=== PATIENT | male | born 1960 | race Caucasian/White ===

== ENCOUNTER 2021-06-30 13:40 | Inpatient (IN) | payer MEDICARE, OTHER ==
[~2021-06-30] VITALS: Ht 170.2 cm; Wt 79.1 kg
[2021-06-30] MEDS ORDERED: ZIPR20CA2 PO ×2 (14:23)
[2021-06-30] MEDS ORDERED: PANT40TA3 PO (14:23)
[2021-06-30] MEDS ORDERED: ALPR0.5T6 PO (14:23)
[2021-06-30] MEDS ORDERED: FERR240T2 PO (14:23)
[2021-06-30] MEDS ORDERED: OXYC5TAB4 PO (14:23)
[2021-06-30] MEDS ORDERED: DIVA250T PO (14:23)
[2021-06-30] MEDS ORDERED: CYCL10TA19 PO (14:23)
[2021-06-30] MEDS ORDERED: SITA100T PO (14:23)
[2021-06-30] MEDS ORDERED: OXYC10TA PO (14:23)
[2021-06-30] MEDS ORDERED: SERT50TA PO (14:23)
[2021-06-30] MEDS ORDERED: RISP0.5T21 PO (14:23)
[2021-06-30] MEDS ORDERED: ACET500T33 PO (14:23)
[2021-06-30] MEDS ORDERED: LOPE-101 PO (14:23)
[2021-06-30] MEDS ORDERED: ONDA-84 PO (14:23)
[2021-06-30] MEDS ORDERED: HALO2TAB PO ×2 (14:23)
[2021-06-30] MEDS ORDERED: NICO1PAT25 TD (14:23)
[2021-06-30] MEDS ORDERED: METO25TA4 PO (14:23)
[2021-06-30] MEDS ORDERED: RIVA20TA2 PO (14:23)
[2021-06-30] MEDS ORDERED: DOCU-109 PO (14:23)
[2021-06-30] MEDS ORDERED: FURO-68 PO (14:23)
[2021-06-30] MEDS ORDERED: NITR0.4T22 SL (14:23)
[2021-06-30] MEDS ORDERED: HYOS0.1222 PO (14:23)
[2021-06-30] MEDS ORDERED: BUSP10TA PO (14:23)
[2021-06-30] MEDS ORDERED: INSU100I27 SQ (14:28)
[2021-06-30] MEDS ORDERED: [UNRECOGNIZED DRUG - CODE] TP (14:28)
[2021-06-30] MEDS ORDERED: VIT236LO TP (14:28)
[2021-06-30] MEDS ORDERED: ALBU2.5V8 IH (14:58)
[2021-06-30] MEDS ORDERED: METHYL SALICYLATE/MENTHOL TOPICAL OINTMENT 57GM TUBE. TP PRN (15:15)
[2021-06-30] MEDS ORDERED: MAG HYDROX/AL HYDROX/SIMETH 30 ML ORAL.SUSP PO PRN (15:15)
[2021-06-30] MEDS ORDERED: ALBUTEROL SULFATE 2.5 MG/3 ML NEBU. IH PRN (15:30)
[2021-06-30] MEDS ORDERED: LOPERAMIDE 2 MG CAPSULE PO PRN (15:30)
[2021-06-30] MEDS ORDERED: HYOSCYAMINE 0.125 MG TAB.RAPDIS PO PRN (15:30)
[2021-06-30] MEDS ORDERED: NITROGLYCERIN SUBLINGUAL 0.4 MG BOTTLE OF 25. SL PRN (15:30)
[2021-06-30] MEDS ORDERED: ZIPRASIDONE 20 MG CAPSULE. PO SCH (16:00)
[2021-06-30] MEDS ORDERED: ONDANSETRON ODT 4 MG TAB.RAPDIS PO PRN (16:15)
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
[2021-06-30 16:51] VITALS: BP 113/75
[2021-06-30] MEDS: NON FORMULARY ITEM (Rivaroxaban (Xarelto) 20 MG) PO SCH (17:00)
--- NOTE | 2021-06-30 18:29 | RAD ---
CT abdomen and pelvis without contrast PQRS statement: CT scans at this facility use dose reduction including either automated exposure cont rol, iterative reconstructions, and /or weight based radiation dosing via mA and kV modification when appropriate to reduce radiation dose to as low as reasonably achievable. HISTORY: Distended abdomen, abdominal pain, right hip fracture. Abdomen findings: Tiny left pleural effusion. Mild right pleural effusion thickness of 1 cm along the posterior lower lobe and at the diaphragm. [place] 2 x 1 cm nodularity of the lateral subpleural pare nchyma basilar right lower lobe most likely round atelectasis. Motion reconstruction artifact at the right lower rib cage. Tiny gallstones. Moderate atrophy of the pancreas. Liver, spleen, adrenals and kidneys are unremarkable. Extensive calcified plaque of the aorta and abdominal arteries. Large volum e of stool likely constipation. Appendectomy. No small bowel obstruction or inflammatory changes. No abdominal fluid. Pelvis findings: Marked distention urinary bladder extending to the mid abdomen displacing surroundin g bowel loops. No bladder calculi. Rectosigmoid resection with colorectal anastomosis and large volum e of rectal stool. Prostate and bones are unremarkable. There is asymmetric heterogeneous hyperdensit y and enlargement of the right lateral thigh muscles at the tensor fascia jhoan and vastus lateralis a nd vastus intermedius muscles suspicious for a intramuscular hematoma and right lateral hip, buttock and thigh soft tissue edema. IMPRESSION: 1. Intramuscular hematoma with hyperdensity and enlargement of the right upper lateral thigh muscles and overlying soft tissue edema as described above. No fracture of the pelvis or hips. See above. 2. Small pleural effusions. 2 x 1 cm subpleural parenchymal nodularity of the lateral basilar right l ower lobe, most likely round atelectasis. If there has not prior imaging to document stability of thi s finding consider follow-up CT chest imaging in 3-6 months to document stability to exclude a neopla stic nodule. 3. Constipation with a large volume of stool. Electronically signed by: Jose Enrique Giron MD (06/30/2021 6:26 PM) [facility]
[2021-06-30 18:44] LABS: BASO % 0 % (0-3); EOS # 0.2 x10^3/uL (0.0-0.7); EOS % 2 % (0-3); HEMATOCRIT 32.9 % (39.0-53.0); HEMOGLOBIN 10.5 g/dL (13.0-17.5); LYMPH # 1.4 x10^3/uL (1.0-4.8); LYMPH % 13 % (24-48); MEAN CORPUSCULAR HEMOGLOBIN 26 pg (25-35); MEAN CORPUSCULAR HGB CONC 32 g/dL (31-37); MEAN CORPUSCULAR VOLUME 80 fL (79-100); MONO # 1.5 x10^3/uL (0.0-1.1); MONO % 14 % (0-9); NEUT # 7.3 x10^3uL (1.8-7.7); NEUT % 70 % (31-73); PLATELET COUNT 253 x10^3/uL (140-400); RED BLOOD COUNT 4.11 x10^6/uL (4.30-5.70); RED CELL DISTRIBUTION WIDTH 14.6 % (11.5-14.5); WHITE BLOOD COUNT 10.4 x10^3/uL (4.0-11.0)
[2021-06-30 18:56] LABS: BILIRUBIN,URINE NEG (NEG); CLARITY,URINE CLEAR; COLOR,URINE YELLOW; GLUCOSE,URINE NEG (NEG); NITRITE,URINE NEG (NEG); UROBILINOGEN,URINE 0.2 mg/dL (0.2 mg/dL)
[2021-06-30 18:58] LABS: BACTERIA,URINE FEW /HPF (0-FEW); SQUAMOUS EPITHELIAL CELL,UR FEW /LPF
[2021-06-30 19:11] LABS: ANION GAP 10 (6-14); BLOOD UREA NITROGEN 30 mg/dL (8-26); BUN/CREATININE RATIO 25 (6-20); CALCIUM 9.3 mg/dL (8.5-10.1); CARBON DIOXIDE 30 mmol/L (21-32); CHLORIDE 99 mmol/L (98-107); CREATININE 1.2 mg/dL (0.7-1.3); GFR 61.6; GLUCOSE 172 mg/dL (70-99); POTASSIUM 4.4 mmol/L (3.5-5.1); SODIUM 139 mmol/L (136-145)
[2021-06-30 19:16] LABS: ALBUMIN/GLOBULIN RATIO 0.7 (1.0-1.7); ALK PHOS 149 U/L (46-116); ALT (SGPT) 12 U/L (16-63); AST (SGOT) 13 U/L (15-37); MAGNESIUM 2.2 mg/dL (1.8-2.4); TOTAL BILIRUBIN 0.4 mg/dL (0.2-1.0); TOTAL PROTEIN 7.1 g/dL (6.4-8.2)
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
[2021-06-30 19:19] LABS: VAL ACID 21 mcg/mL (50-100)
--- NOTE | 2021-06-30 20:30 | NUR ---
Pt sleeping in bed awaken briefly to name then falls back to sleep. When given a cup of water pt had difficulty holding it and getting it to his mouth then spilled it on his self. HS meds held due to pts level of sedation at this time.
--- NOTE | 2021-06-30 20:38 | PDOC ---
Exam Note: Kam Note: Please also refer to the separate dictated note~for this date of service dictated separately.~Patient seen individually. Discussed the patient with Nursing staff reviewed the chart.~Reviewed interim history and current functioning. Reviewed vital signs,~Labs/ Radiology~and current medications noted below. Continue current treatment with the changes noted in the dictated addendum note Assessment: Vital Signs/I&O: Vital Signs Date Time Temp Pulse Resp B/P (MAP) Pulse Ox O2 Delivery O2 Flow Rate FiO2 06/30/21 16:51 98.4 91 16 113/75 (88) 96 Room Air Labs: Laboratory Tests Test 06/30/21 18:32 06/30/21 18:40 White Blood Count 10.4 x10^3/uL (4.0-11.0) Red Blood Count 4.11 x10^6/uL (4.30-5.70) L Hemoglobin 10.5 g/dL (13.0-17.5) L Hematocrit 32.9 % (39.0-53.0) L Mean Corpuscular Volume 80 fL (79-100) Mean Corpuscular Hemoglobin 26 pg (25-35) Mean Corpuscular Hemoglobin Concent 32 g/dL (31-37) Red Cell Distribution Width 14.6 % (11.5-14.5) H Platelet Count 253 x10^3/uL (140-400) Neutrophils (%) (Auto) 70 % (31-73) Lymphocytes (%) (Auto) 13 % (24-48) L Monocytes (%) (Auto) 14 % (0-9) H Eosinophils (%) (Auto) 2 % (0-3) Basophils (%) (Auto) 0 % (0-3) Neutrophils # (Auto) 7.3 x10^3uL (1.8-7.7) Lymphocytes # (Auto) 1.4 x10^3/uL (1.0-4.8) Monocytes # (Auto) 1.5 x10^3/uL (0.0-1.1) H Eosinophils # (Auto) 0.2 x10^3/uL (0.0-0.7) Basophils # (Auto) 0.0 x10^3/uL (0.0-0.2) D-Dimer (Mary) 5.52 mg/L (0.00-0.50) H Sodium Level 139 mmol/L (136-145) Potassium Level 4.4 mmol/L (3.5-5.1) Chloride Level 99 mmol/L (98-107) Carbon Dioxide Level 30 mmol/L (21-32) Anion Gap 10 (6-14) Blood Urea Nitrogen 30 mg/dL (8-26) H Creatinine 1.2 mg/dL (0.7-1.3) Estimated GFR (Cockcroft-Gault) 61.6 BUN/Creatinine Ratio 25 (6-20) H Glucose Level 172 mg/dL (70-99) H Calcium Level 9.3 mg/dL (8.5-10.1) Magnesium Level 2.2 mg/dL (1.8-2.4) Total Bilirubin 0.4 mg/dL (0.2-1.0) Aspartate Amino Transferase (AST) 13 U/L (15-37) L Alanine Aminotransferase (ALT) 12 U/L (16-63) L Alkaline Phosphatase 149 U/L (46-116) H Total Protein 7.1 g/dL (6.4-8.2) Albumin 3.0 g/dL (3.4-5.0) L Albumin/Globulin Ratio 0.7 (1.0-1.7) L Valproic Acid Level 21 mcg/mL (50-100) L Valproic Acid Last Dose Date 06-30-21 Valproic Acid Last Dose Time 0800 Urine Collection Type Unknown Urine Color Yellow Urine Clarity Clear Urine pH 5.5 Urine Specific [place] 1.015 Urine Protein Neg (NEG-TRACE) Urine Glucose (UA) Neg mg/dL (NEG) Urine Ketones (Stick) Neg mg/dL (NEG) Urine Blood Neg (NEG) Urine Nitrite Neg (NEG) Urine Bilirubin Neg (NEG) Urine Urobilinogen Dipstick 0.2 mg/dL (0.2 mg/dL) Urine Leukocyte Esterase Neg (NEG) Urine RBC 1-2 /HPF (0-2) Urine WBC 1-4 /HPF (0-4) Urine Squamous Epithelial Cells Few /LPF Urine Bacteria Few /HPF (0-FEW) Current Medications: Meds: Laboratory Tests Test 06/30/21 18:32 06/30/21 18:40 White Blood Count 10.4 x10^3/uL Red Blood Count 4.11 x10^6/uL Hemoglobin 10.5 g/dL Hematocrit 32.9 % Mean Corpuscular Volume 80 fL Mean Corpuscular Hemoglobin 26 pg Mean Corpuscular Hemoglobin Concent 32 g/dL Red Cell Distribution Width 14.6 % Platelet Count 253 x10^3/uL Neutrophils (%) (Auto) 70 % Lymphocytes (%) (Auto) 13 % Monocytes (%) (Auto) 14 % Eosinophils (%) (Auto) 2 % Basophils (%) (Auto) 0 % Neutrophils # (Auto) 7.3 x10^3uL Lymphocytes # (Auto) 1.4 x10^3/uL Monocytes # (Auto) 1.5 x10^3/uL Eosinophils # (Auto) 0.2 x10^3/uL Basophils # (Auto) 0.0 x10^3/uL D-Dimer (Mary) 5.52 mg/L Sodium Level 139 mmol/L Potassium Level 4.4 mmol/L Chloride Level 99 mmol/L Carbon Dioxide Level 30 mmol/L Anion Gap 10 Blood Urea Nitrogen 30 mg/dL Creatinine 1.2 mg/dL Estimated GFR (Cockcroft-Gault) 61.6 BUN/Creatinine Ratio 25 Glucose Level 172 mg/dL Calcium Level 9.3 mg/dL Magnesium Level 2.2 mg/dL Total Bilirubin 0.4 mg/dL Aspartate Amino Transf (AST/SGOT) 13 U/L Alanine Aminotransferase (ALT/SGPT) 12 U/L Alkaline Phosphatase 149 U/L Total Protein 7.1 g/dL Albumin 3.0 g/dL Albumin/Globulin Ratio 0.7 Valproic Acid (Depakene) Level 21 mcg/mL Valproic Acid Last Dose Date 06-30-21 Valproic Acid Last Dose Time 0800 Urine Collection Type Unknown Urine Color Yellow Urine Clarity Clear Urine pH 5.5 Urine Specific [place] 1.015 Urine Protein Neg Urine Glucose (UA) Neg mg/dL Urine Ketones (Stick) Neg mg/dL Urine Blood Neg Urine Nitrite Neg Urine Bilirubin Neg Urine Urobilinogen Dipstick 0.2 mg/dL Urine Leukocyte Esterase Neg Urine RBC 1-2 /HPF Urine WBC 1-4 /HPF Urine Squamous Epithelial Cells Few /LPF Urine Bacteria Few /HPF Current Medications Medications (Trade) Dose Ordered Sig/Shannon Route PRN Reason Start Time Stop Time Status Last Admin Dose Admin Multi-Ingredient Ointment (Analgesic Coyle) 1 demetria PRN QID PRN TP MUSCLE PAIN 06/30/21 15:15 Al Hydroxide/Mg Hydroxide (Mylanta Plus Xs) 15 ml PRN AFTMEALHC PRN PO DYSPEPSIA 06/30/21 15:15 Magnesium Hydroxide (Milk Of Magnesia) 2,400 mg PRN QHS PRN PO CONSTIPATION 06/30/21 15:15 Acetaminophen (Tylenol) 500 mg BID PO 06/30/21 21:00 Albuterol Sulfate (Ventolin) 2.5 mg PRN Q4HRS PRN IH FOR ASTHMA 06/30/21 15:30 Alprazolam (Xanax) 0.5 mg TID PO 06/30/21 21:00 Buspirone HCl (Buspar) 10 mg BID PO 06/30/21 21:00 Cyclobenzaprine HCl (Flexeril) 10 mg TID PO 06/30/21 21:00 Divalproex Sodium (Depakote Er) 250 mg BID PO 06/30/21 21:00 Docusate Sodium (Colace) 200 mg PRN DAILY PRN PO CONSTIPATION 06/30/21 15:30 Furosemide (Lasix) 40 mg BID PO 06/30/21 21:00 Haloperidol (Haldol) 1 mg PRN Q6HRS PRN PO ANXIETY / AGITATION 06/30/21 16:00 Haloperidol (Haldol) 2 mg TID PO 06/30/21 21:00 06/30/21 19:42 DC Hyoscyamine (Anaspaz) 0.125 mg PRN Q2HR PRN PO SECRETIONS 06/30/21 15:30 Loperamide HCl (Imodium) 2 mg PRN Q3HRS PRN PO DIARRHEA 06/30/21 15:30 Metoprolol Tartrate (Lopressor) 25 mg BID PO 06/30/21 21:00 Nicotine (Nicoderm Cq 14mg Patch) 1 patch DAILY TD 07/01/21 09:00 Nitroglycerin (Nitrostat) 0.4 mg PRN Q5MIN PRN SL CHEST PAIN 06/30/21 15:30 Oxycodone HCl (Roxicodone) 2.5 mg PRN Q4HRS PRN PO PAIN 06/30/21 15:30 Pantoprazole Sodium (Protonix) 40 mg DAILYAC PO 07/01/21 07:30 Risperidone (RisperDAL M) 0.5 mg BID PO 06/30/21 21:00 06/30/21 19:42 DC Sertraline HCl (Zoloft) 50 mg DAILY PO 07/01/21 09:00 Ziprasidone (Geodon) 20 mg 1600 PO 06/30/21 16:00 06/30/21 19:42 DC Ziprasidone (Geodon) 20 mg DAILY PO 07/01/21 09:00 06/30/21 19:42 DC Ferrous Sulfate (Feosol) 325 mg DAILY PO 07/01/21 09:00 Insulin Glargine (Lantus Syringe) 16 unit DAILY SQ 07/01/21 09:00 Ondansetron HCl (Zofran Odt) 4 mg PRN Q4HRS PRN PO NAUSEA/VOMITING 06/30/21 16:15 Oxycodone HCl (Roxicodone) 5 mg BID PO 06/30/21 21:00 Non-Formulary Medication (Rivaroxaban (Xarelto)) 20 mg 1700 PO 06/30/21 17:00 UNV Linagliptin (Tradjenta) 5 mg DAILY PO 07/01/21 09:00 Non-Formulary Medication (Tea Tree Oil ([place] Tea Tree Oil)) 1 demetria DAILY TP 07/01/21 09:00 06/30/21 16:14 DC Non-Formulary Medication (Vit E Acetate/ Gly/Dimeth/Water (Cetaphil Moisturizing Lotion)) 1 demetria DAILY TP 07/01/21 09:00 06/30/21 16:14 DC Olanzapine (ZyPREXA ZYDIS) 2.5 mg PRN Q2HR PRN PO PSYCHOSIS 06/30/21 15:30 Quetiapine Fumarate (SEROquel) 50 mg HS PO 06/30/21 21:00 Quetiapine Fumarate (SEROquel) 25 mg 0900,1300,1700 PO 07/01/21 09:00 Trazodone HCl (Desyrel) 50 mg PRN QHS PRN PO insomnia 06/30/21 19:45 I have reviewed the current psychotropics carefully including drug interactions. Risk benefit ratio favors no change other than as noted in my dictated progress note. Diagnosis: Problems: (1) Major neurocognitive disorder (2) Dementia in Alzheimer's disease with early onset with behavioral disturbance HUNTER MEZA MD Jun 30, 2021 20:38
[2021-06-30] MEDS: DIVALPROEX ER 250 MG TAB.ER.24H. PO SCH ×2 (20:47→21:00)
[2021-06-30] MEDS: QUEtiapine 50 MG TABLET. PO SCH ×2 (20:47→21:00)
[2021-06-30] MEDS: METOPROLOL TART IMMED RELEASE 25 MG TABLET. PO SCH ×2 (20:48→21:00)
[2021-06-30] MEDS: CYCLOBENZAPRINE 10 MG TABLET. PO SCH ×2 (20:48→21:00)
[2021-06-30] MEDS: ACETAMINOPHEN 500 MG TABLET PO SCH ×2 (20:48→21:00)
[2021-06-30] MEDS: busPIRone 10 MG TABLET. PO SCH ×2 (20:48→21:00)
[2021-06-30] MEDS: ALPRAZolam 0.5 MG TABLET PO SCH ×2 (20:48→21:00)
[2021-06-30] MEDS: oxyCODONE IR 5 MG TABLET PO SCH ×2 (20:49→21:00)
[2021-06-30] MEDS ORDERED: HALOPERIDOL 2 MG TABLET PO SCH (21:00)
[2021-06-30] MEDS ORDERED: FUROSEMIDE 40 MG TABLET PO SCH (21:00)
[2021-06-30] MEDS ORDERED: risperiDONE ODT 0.5 MG TAB.RAPDIS. PO SCH (21:00)
--- NOTE | 2021-06-30 21:50 | EKG ---
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
--- NOTE | 2021-07-01 02:10 | NUR ---
Bladder scan showed 821cc pt walked to toilet was stable on feet with minimal assistance and was unable to void. Straight cath done and 700cc of clear rebeka urine was drained. Post bladder scan showed 150cc. Pt tolerated well and was pleasant and cooperative during procedure. He continues to be very sleepy but was able to converse with staff during procedure and quickly fell to sleep afterwards.
[2021-07-01 06:21] VITALS: BP 135/77
[2021-07-01] MEDS: LINAGLIPTIN 5 MG TABLET PO SCH (08:36)
[2021-07-01] MEDS: DIVALPROEX ER 250 MG TAB.ER.24H. PO SCH (08:36)
[2021-07-01] MEDS: PANTOPRAZOLE 40 MG TABLET. PO SCH (08:36)
[2021-07-01] MEDS: ACETAMINOPHEN 500 MG TABLET PO SCH ×2 (08:37→21:18)
[2021-07-01] MEDS: FUROSEMIDE 40 MG TABLET PO SCH (08:37)
[2021-07-01] MEDS: busPIRone 10 MG TABLET. PO SCH ×2 (08:37→21:19)
[2021-07-01] MEDS: oxyCODONE IR 5 MG TABLET PO SCH ×2 (08:37→21:19)
[2021-07-01] MEDS: ALPRAZolam 0.5 MG TABLET PO SCH ×3 (08:37→21:19)
[2021-07-01] MEDS: QUEtiapine 25 MG TABLET. PO SCH ×3 (08:37→17:24)
[2021-07-01] MEDS: CYCLOBENZAPRINE 10 MG TABLET. PO SCH ×3 (08:37→21:18)
[2021-07-01] MEDS: FERROUS SULFATE 325 MG TABLET. PO SCH (08:37)
[2021-07-01] MEDS: METOPROLOL TART IMMED RELEASE 25 MG TABLET. PO SCH ×2 (08:37→21:18)
[2021-07-01] MEDS: INSULIN GLARGINE SYRINGE. SQ SCH (08:38)
[2021-07-01] MEDS: NICOTINE 14MG PATCH. TD SCH (08:39)
[2021-07-01] MEDS ORDERED: TEA TREE OIL TP SCH (09:00)
[2021-07-01] MEDS ORDERED: WATER TP SCH (09:00)
[2021-07-01] MEDS ORDERED: [UNRECOGNIZED DRUG - OTHER] TP SCH (09:00)
[2021-07-01] MEDS ORDERED: ZIPRASIDONE 20 MG CAPSULE. PO SCH (09:00)
[2021-07-01] MEDS ORDERED: SERTRALINE 50 MG TABLET. PO SCH (09:00)
[2021-07-01] MEDS ORDERED: VIT E ACETATE TP SCH (09:00)
[2021-07-01] MEDS ORDERED: GLY TP SCH (09:00)
[2021-07-01] MEDS ORDERED: DIMETH TP SCH (09:00)
[2021-07-01 09:44] LABS: VAL ACID 20 mcg/mL (50-100)
--- NOTE | 2021-07-01 12:25 | NUR ---
ACTIVITY THERAPY ASSESSMENT completed based on notes, observation and interview. Pt was sitting in the hallway eating his lunch. Pt remained social and pleasant and was willing to answer assessment questions. PUNCH BOX TENDER explained activities offered on [facility] and then asked pt what he enjoys doing. Pt said that he likes football and listening to country music. Pt reports that he is blind so he is limited on what activities he can do. Pt was able to answer all orientation questions except for his location and reason for admission. Pt reports that he is and has seven children. Pt said that he is not in good contact with his children. Pt reports that he is stressed from the situation he is in and being at the hospital. When PUNCH BOX TENDER asked if he came from a facility he said "not really." PUNCH BOX TENDER informed pt to let her know if he needs anything and he said "I would like to have a life." Pt also requested to watch the [employer] football game on Sunday and PUNCH BOX TENDER informed him that she would pass the information along to staff. PUNCH BOX TENDER also offered pt a marcelle to listen to music and he requested Juan C Benson. Per notes pt was aggressive with staff soon after admission but has remained calm throughout this shift. Initial goal aimed to increase socialization and engagement. Pt will participate in at least three Activity Therapy sessions per week.
--- NOTE | 2021-07-01 12:30 | NUR ---
Nursing note: Pt is pleasant, compliant with meds crushed in pudding and cooperative with assessment. Pt is much more interactive this shift than he was upon admission. He c/o 9/10 pain in his R leg and his lower back. Scheduled pain meds administered to pt with some effect. He borja been observed attempting to pick fights with other male pts on the unit, such as sticking his arm out to try and stop a pt from walking past him. He is currently sitting outside his room eating lunch. Will continue to monitor.
--- NOTE | 2021-07-01 13:35 | TX PLAN ---
Interdisciplinary Tx Plan Admission Information Jun 30, 2021 at 15:21 Legal Status (on Admission): Voluntary, DPOA DPOA/Guardian Name: Kristina Matthews-daughter Contact Other Contact Name: Marichuy- adminstrator at [facility] Other Contact Verified Code Status: DNR Allergies: Coded Allergies: hydrocodone (Verified Allergy, Unknown, 06/30/21) morphine (Verified Allergy, Unknown, 06/30/21) Estimated Length of Stay: 14 Diagnoses Primary Diagnosis: Major neurocognitive d/o, vascular, Alzheimer's, with delusions, depression; Anxiety d/o; Impulse Control d/o Reasons for Admission: Aggressive, Agitated, Depressed, Angry, Combative, Confusion/Disoriented, Poor impulse control Problem in Patient's Words: Per Darryl, "I arrived this morning." Additional Admission Comments: Per intake record, aggressive, hits staff, yells at staff and curses, exit seeking, throws cups of water, resists care assistance, and balls up fists Problems Active Problems: Aggressive Verabally abusive Combative Depressed Resists cares Inactive Problems: Slept seven hours last night Meds crushed in pudding Pt Strengths/Limitations Ability for [place]: Poor Cognitive Functioning/Ability: Poor Communication Skills/Ability: Fair Financial Resources: Fair Insight/Judgement: Poor Intellectual Ability: Fair Physical Health: Fair Social Skills: Fair Stability in Family: Fair Verbal Skills: Fair Discharge Criteria Discharge Criteria: Adequate arrangements @DC, Improved behavior, Improved mood/thought Preliminary Discharge Plan Preliminary DC Plan: Prison Special Precautions Special Precautions: Agitation/Assault Fall Risk: High Initial D/C Plan 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 However, if alternate placement is not obtained, Darryl will return to [facility] and they will continue to work on alternate placement. Identified Discharge Needs: F/U with PCP Out patient psychiatry if available Currently Utilized Resources Currently Utilized Resources/P: PCP 24 hour care Referrals Community Resources: Out patient psychiatry if available Identified Problems/Hx/Goals Objectives/Short-Term Goals Short Term Goals: Control abnormal behavior, Dec. Aggression, Dec. Outbursts, Dec. Symp. Depression, Medication Stabilization, Monitor Med Effects, Prevent Deterioration Short Term Goals in Patient's: Per POA, mood and beahavior stabilization. Interventions/Frequency Staff Interventions/Frequency&: Nursing to provide routine safety checks, medication administration, and adl assist. Psychiatry to see three times weekly. SW to see twice weekly. PT/OT eval and treat as indicated. SW and recreational therapy groups as Darryl desires. 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 Social: Darryl enjoyed playing chess, spending time with his family, and fishing. Education: Darryl graduated from high school. Community Follow-up PCP Out patient psychiatry if available Community Provider/Family Inpu: Darryl arrived to [facility] on 06/30/21 and was sedated and drowsy upon admit. Pain and swelling was noted to his right leg and CT scan showed no fracture. Darryl is experiencing urinary retention and has been straight cathed. He was combative with cares last night. He has been medication compliant this date. He attended group in the day room this morning but was reported to pick fights with male peers. Geodon, Haldol, and risperdol have been discontinued. Sertraline will be increased to 75mg daily. 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
--- NOTE | 2021-07-01 13:52 | NUR ---
MILES met with Darryl this afternoon to support and socialize after recent admission. Darryl was sitting up in a wheelchair in the hallway. He was alert and agreeable to visit. He was soft spoken but able to answer questions asked by MILES. He tired easily and began to doze off. MILES will meet with Darryl at an alternate time to complete remainder of psychosocial assessment. Darryl had a busy box in front of him. He requested it to be moved away as he can't see and reported himself to be blind. MILES complied with request. Darryl thanked MILES for visit and extended his hand to MILES for hand shake. MILES received call from Nathan (ELEANOR), Vinh (MILES), and Jenni (nurse manager agriculture) at [facility] requesting update on Darryl. MILES provided update. [facility] would like for Darryl to have alternate placement at time of d/c from [facility] as their facility is closing at the end of the year due to staffing and low census. Nathan is to e-mail MILES facilities around [facility] that have availability and would be agreeable to review a referral.
--- NOTE | 2021-07-01 15:51 | NUR ---
Nursing note: Pt has been unable to void this shift. Bladder scan performed and showed >855mls. Straight cath performed with staff x3 assist. 1000ml output via straight cath. He is currently sitting quietly in the márquez listening to music. Will continue to monitor.
[2021-07-01 15:54] VITALS: BP 114/71
--- NOTE | 2021-07-01 16:30 | NUR ---
Nursing note: Spoke to Dr. Goins regarding pt's straight cath. New orders placed by Dr. Goins and said to continue to straight cath pt TID PRN through the weekend and will readdress it on Sunday (07/04/21).
[2021-07-01 16:42] VITALS: BP 146/79
[2021-07-01] MEDS: NON FORMULARY ITEM (Rivaroxaban (Xarelto) 20 MG) PO SCH (17:00)
--- NOTE | 2021-07-01 17:38 | NUR ---
Nursing note: Pt was found on the floor in the [facility] by the nurses station beside his wheelchair. Security reviewed the tape and reported that pt "rolled out of the wheelchair onto his R hip and R shoulder". Pt initially was reporting pain in his hip at the time of discovery, but nothing outside of his normal and no obvious signs of injury. Pt later was able to stand and transfer to chair with minimal assist and was observed raising both of his legs while sitting in his chair. Dr. Goins paged and informed of situation. Per Dr. Goins, if pt continues to report pain in his R hip, we will get an x-ray. He is currently sitting in the hallway eating supper. Will continue to monitor.
[2021-07-01 19:13] LABS: THYROID STIM HORMONE (TSH) 0.906 uIU/mL (0.358-3.740)
--- NOTE | 2021-07-01 20:33 | PDOC ---
Exam Note: Kam Note: Please also refer to the separate dictated note~for this date of service dictated separately.~Patient seen individually. Discussed the patient with Nursing staff reviewed the chart.~Reviewed interim history and current functioning. Reviewed vital signs,~Labs/ Radiology~and current medications noted below. Continue current treatment with the changes noted in the dictated addendum note Assessment: Vital Signs/I&O: Vital Signs Date Time Temp Pulse Resp B/P (MAP) Pulse Ox O2 Delivery O2 Flow Rate FiO2 07/01/21 16:42 97.4 89 18 146/79 (101) 95 07/01/21 06:21 Room Air I & O 06/30/21 06/30/21 07/01/21 15:00 23:00 07:00 Intake Total 240 ml Balance 240 ml Labs: Laboratory Tests Test 07/01/21 07:27 07/01/21 09:23 07/01/21 19:08 Glucose (Fingerstick) 183 mg/dL (70-99) H 258 mg/dL (70-99) H Valproic Acid Level 20 mcg/mL (50-100) L Valproic Acid Last Dose Date 06/30/21 Valproic Acid Last Dose Time 2100 Current Medications: Meds: Current Medications Medications (Trade) Dose Ordered Sig/Shannon Route PRN Reason Start Time Stop Time Status Last Admin Dose Admin Acetaminophen (Tylenol) 500 mg BID PO 06/30/21 21:00 07/01/21 08:37 Alprazolam (Xanax) 0.5 mg TID PO 06/30/21 21:00 07/01/21 13:02 Cyclobenzaprine HCl (Flexeril) 10 mg TID PO 06/30/21 21:00 07/01/21 13:03 Divalproex Sodium (Depakote Er) 250 mg BID PO 06/30/21 21:00 07/01/21 20:14 DC 07/01/21 08:36 Metoprolol Tartrate (Lopressor) 25 mg BID PO 06/30/21 21:00 07/01/21 08:37 Nicotine (Nicoderm Cq 14mg Patch) 1 patch DAILY TD 07/01/21 09:00 07/01/21 08:39 Pantoprazole Sodium (Protonix) 40 mg DAILYAC PO 07/01/21 07:30 07/01/21 08:36 Sertraline HCl (Zoloft) 50 mg DAILY PO 07/01/21 09:00 07/01/21 11:58 DC 07/01/21 08:36 Ferrous Sulfate (Feosol) 325 mg DAILY PO 07/01/21 09:00 07/01/21 08:37 Insulin Glargine (Lantus Syringe) 16 unit DAILY SQ 07/01/21 09:00 07/01/21 08:38 Oxycodone HCl (Roxicodone) 5 mg BID PO 06/30/21 21:00 07/01/21 08:37 Linagliptin (Tradjenta) 5 mg DAILY PO 07/01/21 09:00 07/01/21 08:36 Quetiapine Fumarate (SEROquel) 25 mg 0900,1300,1700 PO 07/01/21 09:00 07/01/21 17:24 Furosemide (Lasix) 40 mg DAILY PO 07/01/21 09:00 07/01/21 08:37 I have reviewed the current psychotropics carefully including drug interactions. Risk benefit ratio favors no change other than as noted in my dictated progress note. Diagnosis: Problems: (1) Dementia in Alzheimer's disease with depression (2) Dementia in Alzheimer's disease with delusions (3) Dementia, vascular, with delusions (4) Dementia, vascular, with depression (5) Impulse control disorder, unspecified (6) Anxiety disorder, unspecified (7) Major neurocognitive disorder (8) Dementia in Alzheimer's disease with early onset with behavioral disturbance HUNTER MEZA MD Jul 01, 2021 20:33
[2021-07-01] MEDS: QUEtiapine 50 MG TABLET. PO SCH (21:19)
[2021-07-01] MEDS: TAMSULOSIN 0.4 MG CAP.ER.24H. PO SCH (21:19)
--- NOTE | 2021-07-01 22:00 | NUR ---
Pt trying to get out of bed to void. Assisted to BR and he was not able to void. Bladder scan showed 440 cc. Flomax dose was recently given, will monitor pt and straight cath if volume increases and pt unable to void.
--- NOTE | 2021-07-02 02:55 | NUR ---
Straight cath done. 580cc clear rebeka urine drained. Pt denied need [facility] Patient tolerated procedure well and slept through procedure.
[2021-07-02 03:15] LABS: HEMOGLOBIN A1C 7.9 % (4.8-5.6)
[2021-07-02 05:44] VITALS: BP 108/62
[2021-07-02] MEDS: busPIRone 10 MG TABLET. PO SCH ×2 (08:02→20:37)
[2021-07-02] MEDS: NICOTINE 14MG PATCH. TD SCH (08:02)
[2021-07-02] MEDS: PANTOPRAZOLE 40 MG TABLET. PO SCH (08:03)
[2021-07-02] MEDS: METOPROLOL TART IMMED RELEASE 25 MG TABLET. PO SCH ×2 (08:03→20:38)
[2021-07-02] MEDS: CYCLOBENZAPRINE 10 MG TABLET. PO SCH ×3 (08:03→20:38)
[2021-07-02] MEDS: QUEtiapine 25 MG TABLET. PO SCH ×3 (08:03→17:00)
[2021-07-02] MEDS: FUROSEMIDE 40 MG TABLET PO SCH (08:03)
[2021-07-02] MEDS: ACETAMINOPHEN 500 MG TABLET PO SCH ×2 (08:03→20:38)
[2021-07-02] MEDS: oxyCODONE IR 5 MG TABLET PO SCH ×2 (08:03→20:38)
[2021-07-02] MEDS: LINAGLIPTIN 5 MG TABLET PO SCH (08:04)
[2021-07-02] MEDS: FERROUS SULFATE 325 MG TABLET. PO SCH (08:04)
[2021-07-02] MEDS: DIVALPROEX 125 MG CAP.SPRINK PO SCH ×2 (08:06→16:00)
[2021-07-02] MEDS: ALPRAZolam 0.5 MG TABLET PO SCH ×3 (08:06→20:38)
[2021-07-02] MEDS: FINASTERIDE 5 MG TABLET. PO SCH (08:06)
[2021-07-02] MEDS: SERTRALINE 25 MG TABLET. PO SCH (08:07)
[2021-07-02] MEDS: INSULIN GLARGINE SYRINGE. SQ SCH (09:00)
[2021-07-02 15:34] VITALS: BP 107/66
--- NOTE | 2021-07-02 18:53 | NUR ---
Pt up in wc for meals. Appetite poor. Impulsive and attempts to get out of chair. Up walking in room x1 after pulling sweater off with personal alarm on. Assisted back to chair. Has been compliant with meds crushed in pudding. Pt states his R hip is 9/10 but did not c/o pain when ambulating in room. Pt restless after supper.
[2021-07-02] MEDS: TAMSULOSIN 0.4 MG CAP.ER.24H. PO SCH (20:38)
[2021-07-02] MEDS: QUEtiapine 50 MG TABLET. PO SCH (20:38)
--- NOTE | 2021-07-02 21:59 | PDOC ---
Exam Note: Kam Note: Please also refer to the separate dictated note~for this date of service dictated separately.~Patient seen individually. Discussed the patient with Nursing staff reviewed the chart.~Reviewed interim history and current functioning. Reviewed vital signs,~Labs/ Radiology~and current medications noted below. Continue current treatment with the changes noted in the dictated addendum note Assessment: Vital Signs/I&O: Vital Signs Date Time Temp Pulse Resp B/P (MAP) Pulse Ox O2 Delivery O2 Flow Rate FiO2 07/02/21 21:08 96 07/02/21 20:38 81 107/66 07/02/21 15:34 98.4 20 07/02/21 05:44 Room Air I & O 07/01/21 07/01/21 07/02/21 15:00 23:00 07:00 Intake Total 240 ml 240 ml 120 ml Balance 240 ml 240 ml 120 ml Labs: Laboratory Tests Test 07/02/21 07:09 Glucose (Fingerstick) 114 mg/dL (70-99) H Current Medications: Meds: Laboratory Tests Test 07/02/21 07:09 Glucose (Fingerstick) 114 mg/dL Current Medications Medications (Trade) Dose Ordered Sig/Shannon Route PRN Reason Start Time Stop Time Status Last Admin Dose Admin Multi-Ingredient Ointment (Analgesic [place]) 1 demetria PRN QID PRN TP MUSCLE PAIN 06/30/21 15:15 Al Hydroxide/Mg Hydroxide (Mylanta Plus Xs) 15 ml PRN AFTMEALHC PRN PO DYSPEPSIA 06/30/21 15:15 Magnesium Hydroxide (Milk Of Magnesia) 2,400 mg PRN QHS PRN PO 2ND CHOICE CONSTIPATION 06/30/21 15:15 Acetaminophen (Tylenol) 500 mg BID PO 06/30/21 21:00 07/02/21 20:38 Albuterol Sulfate (Ventolin) 2.5 mg PRN Q4HRS PRN IH FOR ASTHMA 06/30/21 15:30 Alprazolam (Xanax) 0.5 mg TID PO 06/30/21 21:00 07/02/21 20:38 Buspirone HCl (Buspar) 10 mg BID PO 06/30/21 21:00 07/02/21 20:37 Cyclobenzaprine HCl (Flexeril) 10 mg TID PO 06/30/21 21:00 07/02/21 20:38 Divalproex Sodium (Depakote Er) 250 mg BID PO 06/30/21 21:00 07/01/21 20:14 DC 07/01/21 08:36 Docusate Sodium (Colace) 200 mg PRN DAILY PRN PO 1ST CHOICE CONSTIPATION 06/30/21 15:30 Furosemide (Lasix) 40 mg BID PO 06/30/21 21:00 07/01/21 02:03 DC Haloperidol (Haldol) 1 mg PRN Q6HRS PRN PO ANXIETY / AGITATION 06/30/21 16:00 Haloperidol (Haldol) 2 mg TID PO 06/30/21 21:00 06/30/21 19:42 DC Hyoscyamine (Anaspaz) 0.125 mg PRN Q2HR PRN PO SECRETIONS 06/30/21 15:30 Loperamide HCl (Imodium) 2 mg PRN Q3HRS PRN PO DIARRHEA 06/30/21 15:30 Metoprolol Tartrate (Lopressor) 25 mg BID PO 06/30/21 21:00 07/02/21 20:38 Nicotine (Nicoderm Cq 14mg Patch) 1 patch DAILY TD 07/01/21 09:00 07/02/21 08:02 Nitroglycerin (Nitrostat) 0.4 mg PRN Q5MIN PRN SL CHEST PAIN 06/30/21 15:30 Oxycodone HCl (Roxicodone) 2.5 mg PRN Q4HRS PRN PO PAIN 06/30/21 15:30 Pantoprazole Sodium (Protonix) 40 mg DAILYAC PO 07/01/21 07:30 07/02/21 08:03 Risperidone (RisperDAL M) 0.5 mg BID PO 06/30/21 21:00 06/30/21 19:42 DC Sertraline HCl (Zoloft) 50 mg DAILY PO 07/01/21 09:00 07/01/21 11:58 DC 07/01/21 08:36 Ziprasidone (Geodon) 20 mg 1600 PO 06/30/21 16:00 06/30/21 19:42 DC Ziprasidone (Geodon) 20 mg DAILY PO 07/01/21 09:00 06/30/21 19:42 DC Ferrous Sulfate (Feosol) 325 mg DAILY PO 07/01/21 09:00 07/02/21 08:04 Insulin Glargine (Lantus Syringe) 16 unit DAILY SQ 07/01/21 09:00 07/02/21 09:00 Ondansetron HCl (Zofran Odt) 4 mg PRN Q4HRS PRN PO NAUSEA/VOMITING 06/30/21 16:15 Oxycodone HCl (Roxicodone) 5 mg BID PO 06/30/21 21:00 07/02/21 20:38 Non-Formulary Medication (Rivaroxaban (Xarelto)) 20 mg 1700 PO 06/30/21 17:00 07/01/21 17:35 DC Linagliptin (Tradjenta) 5 mg DAILY PO 07/01/21 09:00 07/02/21 08:04 Non-Formulary Medication (Tea Tree Oil ([place] Tea Tree Oil)) 1 demetria DAILY TP 07/01/21 09:00 06/30/21 16:14 DC Non-Formulary Medication (Vit E Acetate/ Gly/Dimeth/Water (Cetaphil Moisturizing Lotion)) 1 demetria DAILY TP 07/01/21 09:00 06/30/21 16:14 DC Olanzapine (ZyPREXA ZYDIS) 2.5 mg PRN Q2HR PRN PO PSYCHOSIS 06/30/21 15:30 Quetiapine Fumarate (SEROquel) 50 mg HS PO 06/30/21 21:00 07/02/21 20:38 Quetiapine Fumarate (SEROquel) 25 mg 0900,1300,1700 PO 07/01/21 09:00 07/02/21 17:00 Trazodone HCl (Desyrel) 50 mg PRN QHS PRN PO insomnia 06/30/21 19:45 Furosemide (Lasix) 40 mg DAILY PO 07/01/21 09:00 07/02/21 08:03 Sertraline HCl (Zoloft) 75 mg DAILY PO 07/02/21 09:00 07/02/21 08:07 Tamsulosin HCl (Flomax) 0.4 mg QHS PO 07/01/21 21:00 07/02/21 20:38 Finasteride (Proscar) 5 mg DAILY PO 07/02/21 09:00 07/02/21 08:06 Divalproex Sodium (Depakote Sprinkles) 250 mg DAILY PO 07/02/21 09:00 07/02/21 08:06 Divalproex Sodium (Depakote Sprinkles) 500 mg DAILY16 PO 07/02/21 16:00 07/02/21 16:00 Current Medications Medications (Trade) Dose Ordered Sig/Shannon Route PRN Reason Start Time Stop Time Status Last Admin Dose Admin Sertraline HCl (Zoloft) 75 mg DAILY PO 07/02/21 09:00 07/02/21 08:07 Finasteride (Proscar) 5 mg DAILY PO 07/02/21 09:00 07/02/21 08:06 Divalproex Sodium (Depakote Sprinkles) 250 mg DAILY PO 07/02/21 09:00 07/02/21 08:06 Divalproex Sodium (Depakote Sprinkles) 500 mg DAILY16 PO 07/02/21 16:00 07/02/21 16:00 I have reviewed the current psychotropics carefully including drug interactions. Risk benefit ratio favors no change other than as noted in my dictated progress note. Diagnosis: Problems: (1) Major neurocognitive disorder (2) Dementia in Alzheimer's disease with early onset with behavioral disturbance (3) Impulse control disorder, unspecified (4) Anxiety disorder, unspecified (5) Dementia, vascular, with depression (6) Dementia, vascular, with delusions (7) Dementia in Alzheimer's disease with depression (8) Dementia in Alzheimer's disease with delusions HUNTER MEZA MD Jul 02, 2021 21:59
--- NOTE | 2021-07-02 22:41 | NUR ---
Pt asleep in his room all evening. Irritable when woken up to administer medications. Crushed medications consumed. Pt went back to sleep.
--- NOTE | 2021-07-03 05:18 | NUR ---
Pt did not urinate overnight. Bladder scan performed revealing <150cc.
[2021-07-03 05:55] VITALS: BP 112/64
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
[2021-07-03] MEDS: NICOTINE 14MG PATCH. TD SCH (08:59)
[2021-07-03] MEDS: FERROUS SULFATE 325 MG TABLET. PO SCH (09:00)
[2021-07-03] MEDS: QUEtiapine 25 MG TABLET. PO SCH ×3 (09:00→16:46)
[2021-07-03] MEDS: FINASTERIDE 5 MG TABLET. PO SCH (09:00)
[2021-07-03] MEDS: ACETAMINOPHEN 500 MG TABLET PO SCH ×2 (09:00→19:32)
[2021-07-03] MEDS: FUROSEMIDE 40 MG TABLET PO SCH (09:00)
[2021-07-03] MEDS: busPIRone 10 MG TABLET. PO SCH ×2 (09:00→19:32)
[2021-07-03] MEDS: CYCLOBENZAPRINE 10 MG TABLET. PO SCH ×3 (09:00→19:32)
[2021-07-03] MEDS: METOPROLOL TART IMMED RELEASE 25 MG TABLET. PO SCH ×2 (09:00→19:32)
[2021-07-03] MEDS: SERTRALINE 25 MG TABLET. PO SCH (09:00)
[2021-07-03] MEDS: LINAGLIPTIN 5 MG TABLET PO SCH (09:01)
[2021-07-03] MEDS: PANTOPRAZOLE 40 MG TABLET. PO SCH (09:01)
[2021-07-03] MEDS: DIVALPROEX 125 MG CAP.SPRINK PO SCH ×2 (09:01→16:46)
[2021-07-03] MEDS: ALPRAZolam 0.25 MG TABLET PO SCH ×3 (09:05→19:34)
[2021-07-03] MEDS: oxyCODONE IR 5 MG TABLET PO SCH ×2 (09:06→19:35)
[2021-07-03] MEDS: INSULIN GLARGINE SYRINGE. SQ SCH (09:24)
--- NOTE | 2021-07-03 11:50 | PDOC ---
Exam Note: Kam Note: This note is a late entry for 07/02/2021 covers elements not covered in my initial note. Subjective: The patient was seen individually in the evening of 07/02/2021 with Barbara SANTA, discussed and reviewed the chart. The patient slept 8-1/2 hours previous night. He is alert and oriented x2. He has not been aggressive. No p.r.n.s. noted. He does need to be straight catheterized due to his urinary retention, gets agitated with this but otherwise, better. He is compliant with medications. I met with him in his room. Review of Systems: He does complain of some urinary retention. No CV, , pulmonary, eye, ENT system symptoms on review. Reliability poor. Mental Status Exam: The patient is oriented to himself. Insight and judgment, recent and remote memory, attention and concentration, fund of knowledge is poor consistent with his diagnosis. Impression: Major neurocognitive disorder, Alzheimer, vascular with delusion, depression behavioral disturbance. Anxiety disorder unspecified. Impulse control disorder unchanged. Rest unchanged from prior notes. Plan: Continue current psychotropics. He is on Xanax 0.5 mg t.i.d. We will reduce to 0.25 mg t.i.d. since this could be disinhibiting him. Maintain Depakote, Zoloft, BuSpar unchanged for now together with Seroquel, trazodone. Assessment: Vital Signs/I&O: Vital Signs Date Time Temp Pulse Resp B/P (MAP) Pulse Ox O2 Delivery O2 Flow Rate FiO2 07/03/21 09:00 80 112/64 07/03/21 05:55 96.3 16 92 Room Air I & O 07/02/21 07/02/21 07/03/21 15:00 23:00 07:00 Intake Total 360 ml 360 ml Output Total 400 ml Balance -40 ml 360 ml Labs: Laboratory Tests Test 07/03/21 07:49 Glucose (Fingerstick) 130 mg/dL (70-99) H Current Medications: Meds: Laboratory Tests Test 07/03/21 07:49 Glucose (Fingerstick) 130 mg/dL Current Medications Medications (Trade) Dose Ordered Sig/Shannon Route PRN Reason Start Time Stop Time Status Last Admin Dose Admin Multi-Ingredient Ointment (Analgesic [place]) 1 demetria PRN QID PRN TP MUSCLE PAIN 06/30/21 15:15 Al Hydroxide/Mg Hydroxide (Mylanta Plus Xs) 15 ml PRN AFTMEALHC PRN PO DYSPEPSIA 06/30/21 15:15 Magnesium Hydroxide (Milk Of Magnesia) 2,400 mg PRN QHS PRN PO 2ND CHOICE CONSTIPATION 06/30/21 15:15 Acetaminophen (Tylenol) 500 mg BID PO 06/30/21 21:00 07/03/21 09:00 Albuterol Sulfate (Ventolin) 2.5 mg PRN Q4HRS PRN IH FOR ASTHMA 06/30/21 15:30 Alprazolam (Xanax) 0.5 mg TID PO 06/30/21 21:00 07/02/21 22:42 DC 07/02/21 20:38 Buspirone HCl (Buspar) 10 mg BID PO 06/30/21 21:00 07/03/21 09:00 Cyclobenzaprine HCl (Flexeril) 10 mg TID PO 06/30/21 21:00 07/03/21 09:00 Divalproex Sodium (Depakote Er) 250 mg BID PO 06/30/21 21:00 07/01/21 20:14 DC 07/01/21 08:36 Docusate Sodium (Colace) 200 mg PRN DAILY PRN PO 1ST CHOICE CONSTIPATION 06/30/21 15:30 Furosemide (Lasix) 40 mg BID PO 06/30/21 21:00 07/01/21 02:03 DC Haloperidol (Haldol) 1 mg PRN Q6HRS PRN PO ANXIETY / AGITATION 06/30/21 16:00 Haloperidol (Haldol) 2 mg TID PO 06/30/21 21:00 06/30/21 19:42 DC Hyoscyamine (Anaspaz) 0.125 mg PRN Q2HR PRN PO SECRETIONS 06/30/21 15:30 Loperamide HCl (Imodium) 2 mg PRN Q3HRS PRN PO DIARRHEA 06/30/21 15:30 Metoprolol Tartrate (Lopressor) 25 mg BID PO 06/30/21 21:00 07/03/21 09:00 Nicotine (Nicoderm Cq 14mg Patch) 1 patch DAILY TD 07/01/21 09:00 07/03/21 08:59 Nitroglycerin (Nitrostat) 0.4 mg PRN Q5MIN PRN SL CHEST PAIN 06/30/21 15:30 Oxycodone HCl (Roxicodone) 2.5 mg PRN Q4HRS PRN PO PAIN 06/30/21 15:30 Pantoprazole Sodium (Protonix) 40 mg DAILYAC PO 07/01/21 07:30 07/03/21 09:01 Risperidone (RisperDAL M) 0.5 mg BID PO 06/30/21 21:00 06/30/21 19:42 DC Sertraline HCl (Zoloft) 50 mg DAILY PO 07/01/21 09:00 07/01/21 11:58 DC 07/01/21 08:36 Ziprasidone (Geodon) 20 mg 1600 PO 06/30/21 16:00 06/30/21 19:42 DC Ziprasidone (Geodon) 20 mg DAILY PO 07/01/21 09:00 06/30/21 19:42 DC Ferrous Sulfate (Feosol) 325 mg DAILY PO 07/01/21 09:00 07/03/21 09:00 Insulin Glargine (Lantus Syringe) 16 unit DAILY SQ 07/01/21 09:00 07/03/21 09:24 Ondansetron HCl (Zofran Odt) 4 mg PRN Q4HRS PRN PO NAUSEA/VOMITING 06/30/21 16:15 Oxycodone HCl (Roxicodone) 5 mg BID PO 06/30/21 21:00 07/03/21 09:06 Non-Formulary Medication (Rivaroxaban (Xarelto)) 20 mg 1700 PO 06/30/21 17:00 07/01/21 17:35 DC Linagliptin (Tradjenta) 5 mg DAILY PO 07/01/21 09:00 07/03/21 09:01 Non-Formulary Medication (Tea Tree Oil ([place] Tea Tree Oil)) 1 demetria DAILY TP 07/01/21 09:00 06/30/21 16:14 DC Non-Formulary Medication (Vit E Acetate/ Gly/Dimeth/Water (Cetaphil Moisturizing Lotion)) 1 demetria DAILY TP 07/01/21 09:00 06/30/21 16:14 DC Olanzapine (ZyPREXA ZYDIS) 2.5 mg PRN Q2HR PRN PO PSYCHOSIS 06/30/21 15:30 Quetiapine Fumarate (SEROquel) 50 mg HS PO 06/30/21 21:00 07/02/21 20:38 Quetiapine Fumarate (SEROquel) 25 mg 0900,1300,1700 PO 07/01/21 09:00 07/03/21 09:00 Trazodone HCl (Desyrel) 50 mg PRN QHS PRN PO insomnia 06/30/21 19:45 Furosemide (Lasix) 40 mg DAILY PO 07/01/21 09:00 07/03/21 09:00 Sertraline HCl (Zoloft) 75 mg DAILY PO 07/02/21 09:00 07/03/21 09:00 Tamsulosin HCl (Flomax) 0.4 mg QHS PO 07/01/21 21:00 07/02/21 20:38 Finasteride (Proscar) 5 mg DAILY PO 07/02/21 09:00 07/03/21 09:00 Divalproex Sodium (Depakote Sprinkles) 250 mg DAILY PO 07/02/21 09:00 07/03/21 09:01 Divalproex Sodium (Depakote Sprinkles) 500 mg DAILY16 PO 07/02/21 16:00 07/02/21 16:00 Alprazolam (Xanax) 0.25 mg TID PO 07/03/21 09:00 07/03/21 09:05 Current Medications Medications (Trade) Dose Ordered Sig/Shannon Route PRN Reason Start Time Stop Time Status Last Admin Dose Admin Divalproex Sodium (Depakote Sprinkles) 500 mg DAILY16 PO 07/02/21 16:00 07/02/21 16:00 Alprazolam (Xanax) 0.25 mg TID PO 07/03/21 09:00 07/03/21 09:05 I have reviewed the current psychotropics carefully including drug interactions. Risk benefit ratio favors no change other than as noted in my dictated progress note. Diagnosis: Problems: (1) Major neurocognitive disorder (2) Dementia in Alzheimer's disease with early onset with behavioral disturbance (3) Impulse control disorder, unspecified (4) Anxiety disorder, unspecified (5) Dementia, vascular, with depression (6) Dementia, vascular, with delusions (7) Dementia in Alzheimer's disease with depression (8) Dementia in Alzheimer's disease with delusions HUNTER MEZA MD Jul 03, 2021 11:50
[2021-07-03] MEDS: MAGNESIUM HYDROXIDE 2,400 MG/30 ML ORAL.SUSP. PO PRN (12:02)
[2021-07-03] MEDS: DOCUSATE SODIUM 100 MG CAPSULE PO PRN (12:02)
[2021-07-03 14:57] VITALS: BP 105/65
--- NOTE | 2021-07-03 16:49 | NUR ---
Nursing note: Patient in room for morning medication & assessment. He is compliant with medications taken crushed/floated in pudding. His bowel sounds are hypoactive, PRN given per order. He propels self in w/c & self transfers, staff encouraged him to ask for assistance. This nurse straight cath client with 1000mL returned, he tolerated well and voiced relief. Patient denies pain/discomfort. Will continue to monitor.
[2021-07-03] MEDS: TAMSULOSIN 0.4 MG CAP.ER.24H. PO SCH (19:32)
[2021-07-03] MEDS: QUEtiapine 50 MG TABLET. PO SCH (19:32)
--- NOTE | 2021-07-03 20:53 | PDOC ---
Exam Note: Kam Note: Please also refer to the separate dictated note~for this date of service dictated separately.~Patient seen individually. Discussed the patient with Nursing staff reviewed the chart.~Reviewed interim history and current functioning. Reviewed vital signs,~Labs/ Radiology~and current medications noted below. Continue current treatment with the changes noted in the dictated addendum note Assessment: Vital Signs/I&O: Vital Signs Date Time Temp Pulse Resp B/P (MAP) Pulse Ox O2 Delivery O2 Flow Rate FiO2 07/03/21 20:18 96 07/03/21 19:32 82 105/65 07/03/21 14:57 98.0 18 07/03/21 05:55 Room Air I & O 07/02/21 07/02/21 07/03/21 15:00 23:00 07:00 Intake Total 360 ml 360 ml Output Total 400 ml Balance -40 ml 360 ml Labs: Laboratory Tests Test 07/03/21 07:49 Glucose (Fingerstick) 130 mg/dL (70-99) H Current Medications: Meds: Laboratory Tests Test 07/03/21 07:49 Glucose (Fingerstick) 130 mg/dL Current Medications Medications (Trade) Dose Ordered Sig/Shannon Route PRN Reason Start Time Stop Time Status Last Admin Dose Admin Multi-Ingredient Ointment (Analgesic [place]) 1 demetria PRN QID PRN TP MUSCLE PAIN 06/30/21 15:15 Al Hydroxide/Mg Hydroxide (Mylanta Plus Xs) 15 ml PRN AFTMEALHC PRN PO DYSPEPSIA 06/30/21 15:15 Magnesium Hydroxide (Milk Of Magnesia) 2,400 mg PRN QHS PRN PO 2ND CHOICE CONSTIPATION 06/30/21 15:15 07/03/21 12:02 Acetaminophen (Tylenol) 500 mg BID PO 06/30/21 21:00 07/03/21 19:32 Albuterol Sulfate (Ventolin) 2.5 mg PRN Q4HRS PRN IH FOR ASTHMA 06/30/21 15:30 Alprazolam (Xanax) 0.5 mg TID PO 06/30/21 21:00 07/02/21 22:42 DC 07/02/21 20:38 Buspirone HCl (Buspar) 10 mg BID PO 06/30/21 21:00 07/03/21 19:32 Cyclobenzaprine HCl (Flexeril) 10 mg TID PO 06/30/21 21:00 07/03/21 19:32 Divalproex Sodium (Depakote Er) 250 mg BID PO 06/30/21 21:00 07/01/21 20:14 DC 07/01/21 08:36 Docusate Sodium (Colace) 200 mg PRN DAILY PRN PO 1ST CHOICE CONSTIPATION 06/30/21 15:30 07/03/21 12:02 Furosemide (Lasix) 40 mg BID PO 06/30/21 21:00 07/01/21 02:03 DC Haloperidol (Haldol) 1 mg PRN Q6HRS PRN PO ANXIETY / AGITATION 06/30/21 16:00 Haloperidol (Haldol) 2 mg TID PO 06/30/21 21:00 06/30/21 19:42 DC Hyoscyamine (Anaspaz) 0.125 mg PRN Q2HR PRN PO SECRETIONS 06/30/21 15:30 Loperamide HCl (Imodium) 2 mg PRN Q3HRS PRN PO DIARRHEA 06/30/21 15:30 Metoprolol Tartrate (Lopressor) 25 mg BID PO 06/30/21 21:00 07/03/21 19:32 Nicotine (Nicoderm Cq 14mg Patch) 1 patch DAILY TD 07/01/21 09:00 07/03/21 08:59 Nitroglycerin (Nitrostat) 0.4 mg PRN Q5MIN PRN SL CHEST PAIN 06/30/21 15:30 Oxycodone HCl (Roxicodone) 2.5 mg PRN Q4HRS PRN PO PAIN 06/30/21 15:30 Pantoprazole Sodium (Protonix) 40 mg DAILYAC PO 07/01/21 07:30 07/03/21 09:01 Risperidone (RisperDAL M) 0.5 mg BID PO 06/30/21 21:00 06/30/21 19:42 DC Sertraline HCl (Zoloft) 50 mg DAILY PO 07/01/21 09:00 07/01/21 11:58 DC 07/01/21 08:36 Ziprasidone (Geodon) 20 mg 1600 PO 06/30/21 16:00 06/30/21 19:42 DC Ziprasidone (Geodon) 20 mg DAILY PO 07/01/21 09:00 06/30/21 19:42 DC Ferrous Sulfate (Feosol) 325 mg DAILY PO 07/01/21 09:00 07/03/21 09:00 Insulin Glargine (Lantus Syringe) 16 unit DAILY SQ 07/01/21 09:00 07/03/21 09:24 Ondansetron HCl (Zofran Odt) 4 mg PRN Q4HRS PRN PO NAUSEA/VOMITING 06/30/21 16:15 Oxycodone HCl (Roxicodone) 5 mg BID PO 06/30/21 21:00 07/03/21 19:35 Non-Formulary Medication (Rivaroxaban (Xarelto)) 20 mg 1700 PO 06/30/21 17:00 07/01/21 17:35 DC Linagliptin (Tradjenta) 5 mg DAILY PO 07/01/21 09:00 07/03/21 09:01 Non-Formulary Medication (Tea Tree Oil ([place] Tea Tree Oil)) 1 demetria DAILY TP 07/01/21 09:00 06/30/21 16:14 DC Non-Formulary Medication (Vit E Acetate/ Gly/Dimeth/Water (Cetaphil Moisturizing Lotion)) 1 demetria DAILY TP 07/01/21 09:00 06/30/21 16:14 DC Olanzapine (ZyPREXA ZYDIS) 2.5 mg PRN Q2HR PRN PO PSYCHOSIS 06/30/21 15:30 Quetiapine Fumarate (SEROquel) 50 mg HS PO 06/30/21 21:00 07/03/21 19:32 Quetiapine Fumarate (SEROquel) 25 mg 0900,1300,1700 PO 07/01/21 09:00 07/03/21 19:55 DC 07/03/21 16:46 Trazodone HCl (Desyrel) 50 mg PRN QHS PRN PO insomnia 06/30/21 19:45 Furosemide (Lasix) 40 mg DAILY PO 07/01/21 09:00 07/03/21 09:00 Sertraline HCl (Zoloft) 75 mg DAILY PO 07/02/21 09:00 07/03/21 09:00 Tamsulosin HCl (Flomax) 0.4 mg QHS PO 07/01/21 21:00 07/03/21 19:32 Finasteride (Proscar) 5 mg DAILY PO 07/02/21 09:00 07/03/21 09:00 Divalproex Sodium (Depakote Sprinkles) 250 mg DAILY PO 07/02/21 09:00 07/03/21 09:01 Divalproex Sodium (Depakote Sprinkles) 500 mg DAILY16 PO 07/02/21 16:00 07/03/21 16:46 Alprazolam (Xanax) 0.25 mg TID PO 07/03/21 09:00 07/03/21 19:34 Naloxegol (Movantik) 25 mg DAILY07 PO 07/04/21 07:00 Quetiapine Fumarate (SEROquel) 25 mg BID@0900,1700 PO 07/04/21 09:00 Current Medications Medications (Trade) Dose Ordered Sig/Shannon Route PRN Reason Start Time Stop Time Status Last Admin Dose Admin Alprazolam (Xanax) 0.25 mg TID PO 07/03/21 09:00 07/03/21 19:34 I have reviewed the current psychotropics carefully including drug interactions. Risk benefit ratio favors no change other than as noted in my dictated progress note. Diagnosis: Problems: (1) Major neurocognitive disorder (2) Dementia in Alzheimer's disease with early onset with behavioral disturbance (3) Impulse control disorder, unspecified (4) Anxiety disorder, unspecified (5) Dementia, vascular, with depression (6) Dementia, vascular, with delusions (7) Dementia in Alzheimer's disease with depression (8) Dementia in Alzheimer's disease with delusions HUNTER MEZA MD Jul 03, 2021 20:53
--- NOTE | 2021-07-03 23:45 | NUR ---
Pt located in his room this evening. Irritable and argumentative at times. Compliant with crushed medications. No agitation.
--- NOTE | 2021-07-04 05:52 | NUR ---
Pt did not urinate overnight. Straight cath performed. 500cc out. Pt tolerated well.
[2021-07-04 05:58] VITALS: BP 125/67
[2021-07-04] MEDS: NALOXEGOL OXALATE 25 MG TABLET. PO SCH (06:08)
--- NOTE | 2021-07-04 06:38 | PDOC ---
Exam Note: Kam Note: This note is a late entry for 07/03/2021 covers elements not covered in my initial note. Subjective: The patient was seen individually in the evening of 07/03/2021 with Barbara SANTA, discussed and reviewed the chart. The patient slept 8-1/4 hours previous night. He is compliant with his medications, somewhat sedated during the day today and he appeared somewhat weak unable to hold his drink. He did transfer himself in the toilet to the wheelchair. He is getting straight cath done twice a day for urinary retention. Review of Systems: No CV, , pulmonary, eye, ENT system symptoms on review. Reliability poor. Mental Status Exam: The patient is oriented to himself and situation. Speech has some latency, coherent. Abstraction fair. Computation impaired. Language function intact. Attention span short. Mood and affect withdrawn. Laboratory Data: Reviewed. Impression: Major neurocognitive disorder, Alzheimer, vascular with delusion, depression behavioral disturbance. Anxiety disorder unspecified. Impulse control disorder unchanged. Plan: Await valproic acid level on 07/05 and then adjust Depakote to reach therapeutic level. Given his significant daytime sedation, we will stop the Seroquel 25 mg t.i.d. and 50 mg h.s. Maintain rest psychotropics unchanged for now. Assessment: Vital Signs/I&O: Vital Signs Date Time Temp Pulse Resp B/P (MAP) Pulse Ox O2 Delivery O2 Flow Rate FiO2 07/04/21 05:58 97.4 76 16 125/67 (86) 93 07/03/21 05:55 Room Air I & O 07/03/21 07/03/21 07/04/21 15:00 23:00 07:00 Intake Total 720 ml 480 ml Output Total 500 ml Balance 720 ml 480 ml -500 ml Labs: Laboratory Tests Test 07/03/21 07:49 Glucose (Fingerstick) 130 mg/dL (70-99) H Current Medications: Meds: Laboratory Tests Test 07/03/21 07:49 Glucose (Fingerstick) 130 mg/dL Current Medications Medications (Trade) Dose Ordered Sig/Shannon Route PRN Reason Start Time Stop Time Status Last Admin Dose Admin Multi-Ingredient Ointment (Analgesic [place]) 1 demetria PRN QID PRN TP MUSCLE PAIN 06/30/21 15:15 Al Hydroxide/Mg Hydroxide (Mylanta Plus Xs) 15 ml PRN AFTMEALHC PRN PO DYSPEPSIA 06/30/21 15:15 Magnesium Hydroxide (Milk Of Magnesia) 2,400 mg PRN QHS PRN PO 2ND CHOICE CONSTIPATION 06/30/21 15:15 07/03/21 12:02 Acetaminophen (Tylenol) 500 mg BID PO 06/30/21 21:00 07/03/21 19:32 Albuterol Sulfate (Ventolin) 2.5 mg PRN Q4HRS PRN IH FOR ASTHMA 06/30/21 15:30 Alprazolam (Xanax) 0.5 mg TID PO 06/30/21 21:00 07/02/21 22:42 DC 07/02/21 20:38 Buspirone HCl (Buspar) 10 mg BID PO 06/30/21 21:00 07/03/21 19:32 Cyclobenzaprine HCl (Flexeril) 10 mg TID PO 06/30/21 21:00 07/03/21 19:32 Divalproex Sodium (Depakote Er) 250 mg BID PO 06/30/21 21:00 07/01/21 20:14 DC 07/01/21 08:36 Docusate Sodium (Colace) 200 mg PRN DAILY PRN PO 1ST CHOICE CONSTIPATION 06/30/21 15:30 07/03/21 12:02 Furosemide (Lasix) 40 mg BID PO 06/30/21 21:00 07/01/21 02:03 DC Haloperidol (Haldol) 1 mg PRN Q6HRS PRN PO ANXIETY / AGITATION 06/30/21 16:00 Haloperidol (Haldol) 2 mg TID PO 06/30/21 21:00 06/30/21 19:42 DC Hyoscyamine (Anaspaz) 0.125 mg PRN Q2HR PRN PO SECRETIONS 06/30/21 15:30 Loperamide HCl (Imodium) 2 mg PRN Q3HRS PRN PO DIARRHEA 06/30/21 15:30 Metoprolol Tartrate (Lopressor) 25 mg BID PO 06/30/21 21:00 07/03/21 19:32 Nicotine (Nicoderm Cq 14mg Patch) 1 patch DAILY TD 07/01/21 09:00 07/03/21 08:59 Nitroglycerin (Nitrostat) 0.4 mg PRN Q5MIN PRN SL CHEST PAIN 06/30/21 15:30 Oxycodone HCl (Roxicodone) 2.5 mg PRN Q4HRS PRN PO PAIN 06/30/21 15:30 Pantoprazole Sodium (Protonix) 40 mg DAILYAC PO 07/01/21 07:30 07/03/21 09:01 Risperidone (RisperDAL M) 0.5 mg BID PO 06/30/21 21:00 06/30/21 19:42 DC Sertraline HCl (Zoloft) 50 mg DAILY PO 07/01/21 09:00 07/01/21 11:58 DC 07/01/21 08:36 Ziprasidone (Geodon) 20 mg 1600 PO 06/30/21 16:00 06/30/21 19:42 DC Ziprasidone (Geodon) 20 mg DAILY PO 07/01/21 09:00 06/30/21 19:42 DC Ferrous Sulfate (Feosol) 325 mg DAILY PO 07/01/21 09:00 07/03/21 09:00 Insulin Glargine (Lantus Syringe) 16 unit DAILY SQ 07/01/21 09:00 07/03/21 09:24 Ondansetron HCl (Zofran Odt) 4 mg PRN Q4HRS PRN PO NAUSEA/VOMITING 06/30/21 16:15 Oxycodone HCl (Roxicodone) 5 mg BID PO 06/30/21 21:00 07/03/21 19:35 Non-Formulary Medication (Rivaroxaban (Xarelto)) 20 mg 1700 PO 06/30/21 17:00 07/01/21 17:35 DC Linagliptin (Tradjenta) 5 mg DAILY PO 07/01/21 09:00 07/03/21 09:01 Non-Formulary Medication (Tea Tree Oil ([place] Tea Tree Oil)) 1 demetria DAILY TP 07/01/21 09:00 06/30/21 16:14 DC Non-Formulary Medication (Vit E Acetate/ Gly/Dimeth/Water (Cetaphil Moisturizing Lotion)) 1 demetria DAILY TP 07/01/21 09:00 06/30/21 16:14 DC Olanzapine (ZyPREXA ZYDIS) 2.5 mg PRN Q2HR PRN PO PSYCHOSIS 06/30/21 15:30 Quetiapine Fumarate (SEROquel) 50 mg HS PO 06/30/21 21:00 07/03/21 19:32 Quetiapine Fumarate (SEROquel) 25 mg 0900,1300,1700 PO 07/01/21 09:00 07/03/21 19:55 DC 07/03/21 16:46 Trazodone HCl (Desyrel) 50 mg PRN QHS PRN PO insomnia 06/30/21 19:45 Furosemide (Lasix) 40 mg DAILY PO 07/01/21 09:00 07/03/21 09:00 Sertraline HCl (Zoloft) 75 mg DAILY PO 07/02/21 09:00 07/03/21 09:00 Tamsulosin HCl (Flomax) 0.4 mg QHS PO 07/01/21 21:00 07/03/21 19:32 Finasteride (Proscar) 5 mg DAILY PO 07/02/21 09:00 07/03/21 09:00 Divalproex Sodium (Depakote Sprinkles) 250 mg DAILY PO 07/02/21 09:00 07/03/21 09:01 Divalproex Sodium (Depakote Sprinkles) 500 mg DAILY16 PO 07/02/21 16:00 07/03/21 16:46 Alprazolam (Xanax) 0.25 mg TID PO 07/03/21 09:00 07/03/21 19:34 Naloxegol (Movantik) 25 mg DAILY07 PO 07/04/21 07:00 07/04/21 06:08 Quetiapine Fumarate (SEROquel) 25 mg BID@0900,1700 PO 07/04/21 09:00 Current Medications Medications (Trade) Dose Ordered Sig/Shannon Route PRN Reason Start Time Stop Time Status Last Admin Dose Admin Alprazolam (Xanax) 0.25 mg TID PO 07/03/21 09:00 07/03/21 19:34 Naloxegol (Movantik) 25 mg DAILY07 PO 07/04/21 07:00 07/04/21 06:08 I have reviewed the current psychotropics carefully including drug interactions. Risk benefit ratio favors no change other than as noted in my dictated progress note. Diagnosis: Problems: (1) Major neurocognitive disorder (2) Dementia in Alzheimer's disease with early onset with behavioral disturbance (3) Impulse control disorder, unspecified (4) Anxiety disorder, unspecified (5) Dementia, vascular, with depression (6) Dementia, vascular, with delusions (7) Dementia in Alzheimer's disease with depression (8) Dementia in Alzheimer's disease with delusions HUNTER MEZA MD Jul 04, 2021 06:38
[2021-07-04] MEDS: MAGNESIUM HYDROXIDE 2,400 MG/30 ML ORAL.SUSP. PO PRN (08:21)
[2021-07-04] MEDS: NICOTINE 14MG PATCH. TD SCH (08:23)
[2021-07-04] MEDS: ACETAMINOPHEN 500 MG TABLET PO SCH ×2 (08:24→20:13)
[2021-07-04] MEDS: CYCLOBENZAPRINE 10 MG TABLET. PO SCH ×3 (08:25→20:14)
[2021-07-04] MEDS: PANTOPRAZOLE 40 MG TABLET. PO SCH (08:25)
[2021-07-04] MEDS: DIVALPROEX 125 MG CAP.SPRINK PO SCH ×2 (08:25→16:52)
[2021-07-04] MEDS: busPIRone 10 MG TABLET. PO SCH ×2 (08:25→20:13)
[2021-07-04] MEDS: DOCUSATE SODIUM 100 MG CAPSULE PO PRN (08:25)
[2021-07-04] MEDS: FERROUS SULFATE 325 MG TABLET. PO SCH (08:25)
[2021-07-04] MEDS: LINAGLIPTIN 5 MG TABLET PO SCH (08:26)
[2021-07-04] MEDS: FINASTERIDE 5 MG TABLET. PO SCH (08:26)
[2021-07-04] MEDS: SERTRALINE 25 MG TABLET. PO SCH (08:26)
[2021-07-04] MEDS: METOPROLOL TART IMMED RELEASE 25 MG TABLET. PO SCH ×2 (08:26→20:13)
[2021-07-04] MEDS: ALPRAZolam 0.25 MG TABLET PO SCH ×3 (08:26→20:16)
[2021-07-04] MEDS: QUEtiapine 25 MG TABLET. PO SCH ×2 (08:26→16:52)
[2021-07-04] MEDS: FUROSEMIDE 40 MG TABLET PO SCH (08:27)
[2021-07-04] MEDS: oxyCODONE IR 5 MG TABLET PO SCH ×2 (08:27→20:16)
[2021-07-04] MEDS: INSULIN GLARGINE SYRINGE. SQ SCH (09:30)
[2021-07-04 15:43] VITALS: BP 120/73
--- NOTE | 2021-07-04 16:34 | NUR ---
Nursing note: Patient in room for morning medication & assessment. He is compliant with medications taken crushed/floated in pudding. His bowel sounds are hypoactive, PRN given per order. He had a large BM. He propels self in w/c & self transfers, staff encouraged him to ask for assistance. This nurse straight cath client with 550mL returned, he tolerated well and voiced relief. Patient reported 10/10 neck & back pain, scheduled pain medication given. He is currently in bed resting with eyes closed. Will continue to monitor.
[2021-07-04] MEDS: TAMSULOSIN 0.4 MG CAP.ER.24H. PO SCH (20:12)
[2021-07-04] MEDS: QUEtiapine 50 MG TABLET. PO SCH (20:13)
--- NOTE | 2021-07-04 21:06 | PDOC ---
Exam Note: Kam Note: Please also refer to the separate dictated note~for this date of service dictated separately.~Patient seen individually. Discussed the patient with Nursing staff reviewed the chart.~Reviewed interim history and current functioning. Reviewed vital signs,~Labs/ Radiology~and current medications noted below. Continue current treatment with the changes noted in the dictated addendum note Assessment: Vital Signs/I&O: Vital Signs Date Time Temp Pulse Resp B/P (MAP) Pulse Ox O2 Delivery O2 Flow Rate FiO2 07/04/21 20:16 93 07/04/21 20:13 74 120/73 07/04/21 15:43 98.1 18 07/03/21 05:55 Room Air I & O 07/03/21 07/03/21 07/04/21 15:00 23:00 07:00 Intake Total 720 ml 480 ml Output Total 1000 ml 500 ml Balance 720 ml -520 ml -500 ml Labs: Laboratory Tests Test 07/04/21 07:33 Glucose (Fingerstick) 124 mg/dL (70-99) H Current Medications: Meds: Laboratory Tests Test 07/04/21 07:33 Glucose (Fingerstick) 124 mg/dL Current Medications Medications (Trade) Dose Ordered Sig/Shannon Route PRN Reason Start Time Stop Time Status Last Admin Dose Admin Multi-Ingredient Ointment (Analgesic [place]) 1 demetria PRN QID PRN TP MUSCLE PAIN 06/30/21 15:15 Al Hydroxide/Mg Hydroxide (Mylanta Plus Xs) 15 ml PRN AFTMEALHC PRN PO DYSPEPSIA 06/30/21 15:15 Magnesium Hydroxide (Milk Of Magnesia) 2,400 mg PRN QHS PRN PO 2ND CHOICE CONSTIPATION 06/30/21 15:15 07/04/21 08:21 Acetaminophen (Tylenol) 500 mg BID PO 06/30/21 21:00 07/04/21 20:13 Albuterol Sulfate (Ventolin) 2.5 mg PRN Q4HRS PRN IH FOR ASTHMA 06/30/21 15:30 Alprazolam (Xanax) 0.5 mg TID PO 06/30/21 21:00 07/02/21 22:42 DC 07/02/21 20:38 Buspirone HCl (Buspar) 10 mg BID PO 06/30/21 21:00 07/04/21 20:13 Cyclobenzaprine HCl (Flexeril) 10 mg TID PO 06/30/21 21:00 07/04/21 20:14 Divalproex Sodium (Depakote Er) 250 mg BID PO 06/30/21 21:00 07/01/21 20:14 DC 07/01/21 08:36 Docusate Sodium (Colace) 200 mg PRN DAILY PRN PO 1ST CHOICE CONSTIPATION 06/30/21 15:30 07/04/21 08:25 Furosemide (Lasix) 40 mg BID PO 06/30/21 21:00 07/01/21 02:03 DC Haloperidol (Haldol) 1 mg PRN Q6HRS PRN PO ANXIETY / AGITATION 06/30/21 16:00 Haloperidol (Haldol) 2 mg TID PO 06/30/21 21:00 06/30/21 19:42 DC Hyoscyamine (Anaspaz) 0.125 mg PRN Q2HR PRN PO SECRETIONS 06/30/21 15:30 Loperamide HCl (Imodium) 2 mg PRN Q3HRS PRN PO DIARRHEA 06/30/21 15:30 Metoprolol Tartrate (Lopressor) 25 mg BID PO 06/30/21 21:00 07/04/21 20:13 Nicotine (Nicoderm Cq 14mg Patch) 1 patch DAILY TD 07/01/21 09:00 07/04/21 08:23 Nitroglycerin (Nitrostat) 0.4 mg PRN Q5MIN PRN SL CHEST PAIN 06/30/21 15:30 Oxycodone HCl (Roxicodone) 2.5 mg PRN Q4HRS PRN PO PAIN 06/30/21 15:30 Pantoprazole Sodium (Protonix) 40 mg DAILYAC PO 07/01/21 07:30 07/04/21 08:25 Risperidone (RisperDAL M) 0.5 mg BID PO 06/30/21 21:00 06/30/21 19:42 DC Sertraline HCl (Zoloft) 50 mg DAILY PO 07/01/21 09:00 07/01/21 11:58 DC 07/01/21 08:36 Ziprasidone (Geodon) 20 mg 1600 PO 06/30/21 16:00 06/30/21 19:42 DC Ziprasidone (Geodon) 20 mg DAILY PO 07/01/21 09:00 06/30/21 19:42 DC Ferrous Sulfate (Feosol) 325 mg DAILY PO 07/01/21 09:00 07/04/21 08:25 Insulin Glargine (Lantus Syringe) 16 unit DAILY SQ 07/01/21 09:00 07/04/21 09:30 Ondansetron HCl (Zofran Odt) 4 mg PRN Q4HRS PRN PO NAUSEA/VOMITING 06/30/21 16:15 Oxycodone HCl (Roxicodone) 5 mg BID PO 06/30/21 21:00 07/04/21 20:16 Non-Formulary Medication (Rivaroxaban (Xarelto)) 20 mg 1700 PO 06/30/21 17:00 07/01/21 17:35 DC Linagliptin (Tradjenta) 5 mg DAILY PO 07/01/21 09:00 07/04/21 08:26 Non-Formulary Medication (Tea Tree Oil ([place] Tea Tree Oil)) 1 demetria DAILY TP 07/01/21 09:00 06/30/21 16:14 DC Non-Formulary Medication (Vit E Acetate/ Gly/Dimeth/Water (Cetaphil Moisturizing Lotion)) 1 demetria DAILY TP 07/01/21 09:00 06/30/21 16:14 DC Olanzapine (ZyPREXA ZYDIS) 2.5 mg PRN Q2HR PRN PO PSYCHOSIS 06/30/21 15:30 Quetiapine Fumarate (SEROquel) 50 mg HS PO 06/30/21 21:00 07/04/21 20:13 Quetiapine Fumarate (SEROquel) 25 mg 0900,1300,1700 PO 07/01/21 09:00 07/03/21 19:55 DC 07/03/21 16:46 Trazodone HCl (Desyrel) 50 mg PRN QHS PRN PO insomnia 06/30/21 19:45 Furosemide (Lasix) 40 mg DAILY PO 07/01/21 09:00 07/04/21 08:27 Sertraline HCl (Zoloft) 75 mg DAILY PO 07/02/21 09:00 07/04/21 08:26 Tamsulosin HCl (Flomax) 0.4 mg QHS PO 07/01/21 21:00 07/04/21 20:12 Finasteride (Proscar) 5 mg DAILY PO 07/02/21 09:00 07/04/21 08:26 Divalproex Sodium (Depakote Sprinkles) 250 mg DAILY PO 07/02/21 09:00 07/04/21 08:25 Divalproex Sodium (Depakote Sprinkles) 500 mg DAILY16 PO 07/02/21 16:00 07/04/21 16:52 Alprazolam (Xanax) 0.25 mg TID PO 07/03/21 09:00 07/04/21 20:16 Naloxegol (Movantik) 25 mg DAILY07 PO 07/04/21 07:00 07/04/21 06:08 Quetiapine Fumarate (SEROquel) 25 mg BID@0900,1700 PO 07/04/21 09:00 07/04/21 16:52 Current Medications Medications (Trade) Dose Ordered Sig/Shannon Route PRN Reason Start Time Stop Time Status Last Admin Dose Admin Naloxegol (Movantik) 25 mg DAILY07 PO 07/04/21 07:00 07/04/21 06:08 Quetiapine Fumarate (SEROquel) 25 mg BID@0900,1700 PO 07/04/21 09:00 07/04/21 16:52 I have reviewed the current psychotropics carefully including drug interactions. Risk benefit ratio favors no change other than as noted in my dictated progress note. 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
--- NOTE | 2021-07-04 23:59 | NUR ---
Pt located in his room laying in bed all evening. Compliant with crushed medications. Pt appeared to be hallucinating. Pt pointed and asked this RN to "apple picking supervisor the baby and put him in bed with him." When asked where the baby was, pt stated it was "sitting by the ashtray."
[2021-07-05] MEDS: NALOXEGOL OXALATE 25 MG TABLET. PO SCH (05:58)
[2021-07-05 06:06] VITALS: BP 137/75
[2021-07-05 06:44] LABS: BASO % 0 % (0-3); EOS # 0.2 x10^3/uL (0.0-0.7); EOS % 4 % (0-3); HEMATOCRIT 30.9 % (39.0-53.0); HEMOGLOBIN 9.6 g/dL (13.0-17.5); LYMPH % 15 % (24-48); MEAN CORPUSCULAR HEMOGLOBIN 25 pg (25-35); MEAN CORPUSCULAR HGB CONC 31 g/dL (31-37); MEAN CORPUSCULAR VOLUME 81 fL (79-100); MONO % 14 % (0-9); NEUT # 4.6 x10^3uL (1.8-7.7); NEUT % 67 % (31-73); PLATELET COUNT 257 x10^3/uL (140-400); RED BLOOD COUNT 3.84 x10^6/uL (4.30-5.70); RED CELL DISTRIBUTION WIDTH 14.4 % (11.5-14.5); WHITE BLOOD COUNT 6.9 x10^3/uL (4.0-11.0)
[2021-07-05 07:03] LABS: ALBUMIN 2.5 g/dL (3.4-5.0); ALBUMIN/GLOBULIN RATIO 0.6 (1.0-1.7); CALCIUM 8.6 mg/dL (8.5-10.1); CREATININE 0.8 mg/dL (0.7-1.3); GFR 98.3; POTASSIUM 4.3 mmol/L (3.5-5.1); TOTAL BILIRUBIN 0.4 mg/dL (0.2-1.0); TOTAL PROTEIN 6.4 g/dL (6.4-8.2)
[2021-07-05 07:13] LABS: VAL ACID 37 mcg/mL (50-100)
[2021-07-05] MEDS: MAGNESIUM HYDROXIDE 2,400 MG/30 ML ORAL.SUSP. PO PRN (08:05)
[2021-07-05] MEDS: NICOTINE 14MG PATCH. TD SCH (08:08)
[2021-07-05] MEDS: METOPROLOL TART IMMED RELEASE 25 MG TABLET. PO SCH ×2 (08:08→20:22)
[2021-07-05] MEDS: CYCLOBENZAPRINE 10 MG TABLET. PO SCH ×3 (08:09→20:23)
[2021-07-05] MEDS: SERTRALINE 25 MG TABLET. PO SCH (08:09)
[2021-07-05] MEDS: oxyCODONE IR 5 MG TABLET PO SCH ×2 (08:10→20:23)
[2021-07-05] MEDS: FERROUS SULFATE 325 MG TABLET. PO SCH (08:10)
[2021-07-05] MEDS: ACETAMINOPHEN 500 MG TABLET PO SCH ×3 (08:10→20:53)
[2021-07-05] MEDS: LINAGLIPTIN 5 MG TABLET PO SCH (08:11)
[2021-07-05] MEDS: FINASTERIDE 5 MG TABLET. PO SCH (08:11)
[2021-07-05] MEDS: DIVALPROEX 125 MG CAP.SPRINK PO SCH ×2 (08:11→17:25)
[2021-07-05] MEDS: busPIRone 10 MG TABLET. PO SCH ×2 (08:11→20:22)
[2021-07-05] MEDS: QUEtiapine 25 MG TABLET. PO SCH ×2 (08:11→17:25)
[2021-07-05] MEDS: FUROSEMIDE 40 MG TABLET PO SCH (08:11)
[2021-07-05] MEDS: PANTOPRAZOLE 40 MG TABLET. PO SCH (08:12)
[2021-07-05] MEDS: DOCUSATE SODIUM 100 MG CAPSULE PO PRN (08:12)
[2021-07-05] MEDS: ALPRAZolam 0.25 MG TABLET PO SCH ×2 (08:12→13:40)
[2021-07-05] MEDS: INSULIN GLARGINE SYRINGE. SQ SCH (09:12)
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
[2021-07-05 16:01] VITALS: BP 125/77
--- NOTE | 2021-07-05 16:24 | RAD ---
EXAM: Left elbow, 4 views. HISTORY: Pain. COMPARISON: None. FINDINGS: 4 views of the left elbow are obtained. There is no acute fracture, dislocation or subluxat ion. There is no joint effusion. IMPRESSION: No acute osseous finding. Electronically signed by: Gertrudis Machado MD (07/05/2021 4:21 PM) [id number]
--- NOTE | 2021-07-05 17:00 | RAD ---
Exam: Pelvis with right hip 2 views. Right femur 2 views INDICATION: Pain TECHNIQUE: Frontal view of pelvis with frontal and frog-leg lateral views of the right hip. Frontal a nd lateral views of the right femur Comparisons: None FINDINGS: Pelvis: Bone mineralization is normal. No acute or healed fractures. Soft tissues are unremarkable. Joint spa joslyn are well-maintained. Femur: Bone mineralization is normal. No acute or healed fractures. Soft tissues are unremarkable. Joint spa joslyn are well-maintained. IMPRESSION: 1. No acute osseous abnormality of the pelvis 2. No acute osseous abnormality of the right femur. Electronically signed by: Leroy Mari MD (07/05/2021 4:58 PM) LUKE
--- NOTE | 2021-07-05 17:10 | NUR ---
Nursing note: Patient in room for morning medication & assessment. He is compliant with medications crushed/floated in pudding. His bowel sounds are hypoactive, PRN given per order. He had an extra large BM. He propels self in w/c & self transfers, staff encouraged him to ask for assistance. This nurse straight cath patient after he voided with out assistance. He returned 550mL urine, tolerated well and voiced relief. Patient reported 10/10 back pain, scheduled pain medication given. This nurse stepped into the [facility] nursing station, sat down for a few seconds. I heard a chair alarm going off then visualized the patient in front of window of nursing station trying to transfer. This nurse ran out of nursing station just in time to visualize patient falling to his left side onto his left elbow and left side of body. Patient assisted to w/c by staff. He c/o left elbow pain. This nurse spoke with daughter @1530, she voiced gratitude & praise for our facility. Dr Goins notified@1500 of fall, X-ray ordered. He is currently in márquez eating dinner. Will continue to monitor.
[2021-07-05] MEDS: QUEtiapine 50 MG TABLET. PO SCH (20:23)
[2021-07-05] MEDS: TAMSULOSIN 0.4 MG CAP.ER.24H. PO SCH (20:23)
[2021-07-05] MEDS: traZODone 50 MG TABLET. PO PRN (20:23)
--- NOTE | 2021-07-05 20:51 | PDOC ---
Exam Note: Kam Note: Please also refer to the separate dictated note~for this date of service dictated separately.~Patient seen individually. Discussed the patient with Nursing staff reviewed the chart.~Reviewed interim history and current functioning. Reviewed vital signs,~Labs/ Radiology~and current medications noted below. Continue current treatment with the changes noted in the dictated addendum note Assessment: Vital Signs/I&O: Vital Signs Date Time Temp Pulse Resp B/P (MAP) Pulse Ox O2 Delivery O2 Flow Rate FiO2 07/05/21 20:23 95 07/05/21 20:22 79 125/77 07/05/21 16:01 98.4 18 07/03/21 05:55 Room Air I & O 07/04/21 07/04/21 07/05/21 14:59 22:59 06:59 Intake Total 490 ml 240 ml 100 ml Output Total 550 ml 250 ml Balance 490 ml -310 ml -150 ml Labs: Laboratory Tests Test 07/05/21 06:30 07/05/21 07:26 White Blood Count 6.9 x10^3/uL (4.0-11.0) Red Blood Count 3.84 x10^6/uL (4.30-5.70) L Hemoglobin 9.6 g/dL (13.0-17.5) L Hematocrit 30.9 % (39.0-53.0) L Mean Corpuscular Volume 81 fL (79-100) Mean Corpuscular Hemoglobin 25 pg (25-35) Mean Corpuscular Hemoglobin Concent 31 g/dL (31-37) Red Cell Distribution Width 14.4 % (11.5-14.5) Platelet Count 257 x10^3/uL (140-400) Neutrophils (%) (Auto) 67 % (31-73) Lymphocytes (%) (Auto) 15 % (24-48) L Monocytes (%) (Auto) 14 % (0-9) H Eosinophils (%) (Auto) 4 % (0-3) H Basophils (%) (Auto) 0 % (0-3) Neutrophils # (Auto) 4.6 x10^3uL (1.8-7.7) Lymphocytes # (Auto) 1.0 x10^3/uL (1.0-4.8) Monocytes # (Auto) 1.0 x10^3/uL (0.0-1.1) Eosinophils # (Auto) 0.2 x10^3/uL (0.0-0.7) Basophils # (Auto) 0.0 x10^3/uL (0.0-0.2) Sodium Level 143 mmol/L (136-145) Potassium Level 4.3 mmol/L (3.5-5.1) Chloride Level 101 mmol/L (98-107) Carbon Dioxide Level 34 mmol/L (21-32) H Anion Gap 8 (6-14) Blood Urea Nitrogen 16 mg/dL (8-26) Creatinine 0.8 mg/dL (0.7-1.3) Estimated GFR (Cockcroft-Gault) 98.3 BUN/Creatinine Ratio 20 (6-20) Glucose Level 113 mg/dL (70-99) H Calcium Level 8.6 mg/dL (8.5-10.1) Total Bilirubin 0.4 mg/dL (0.2-1.0) Aspartate Amino Transferase (AST) 10 U/L (15-37) L Alanine Aminotransferase (ALT) 8 U/L (16-63) L Alkaline Phosphatase 127 U/L (46-116) H Total Protein 6.4 g/dL (6.4-8.2) Albumin 2.5 g/dL (3.4-5.0) L Albumin/Globulin Ratio 0.6 (1.0-1.7) L Valproic Acid Level 37 mcg/mL (50-100) L Valproic Acid Last Dose Date 07/04/21 Valproic Acid Last Dose Time 2100 Glucose (Fingerstick) 104 mg/dL (70-99) H Current Medications: Meds: Laboratory Tests Test 07/05/21 06:30 07/05/21 07:26 White Blood Count 6.9 x10^3/uL Red Blood Count 3.84 x10^6/uL Hemoglobin 9.6 g/dL Hematocrit 30.9 % Mean Corpuscular Volume 81 fL Mean Corpuscular Hemoglobin 25 pg Mean Corpuscular Hemoglobin Concent 31 g/dL Red Cell Distribution Width 14.4 % Platelet Count 257 x10^3/uL Neutrophils (%) (Auto) 67 % Lymphocytes (%) (Auto) 15 % Monocytes (%) (Auto) 14 % Eosinophils (%) (Auto) 4 % Basophils (%) (Auto) 0 % Neutrophils # (Auto) 4.6 x10^3uL Lymphocytes # (Auto) 1.0 x10^3/uL Monocytes # (Auto) 1.0 x10^3/uL Eosinophils # (Auto) 0.2 x10^3/uL Basophils # (Auto) 0.0 x10^3/uL Sodium Level 143 mmol/L Potassium Level 4.3 mmol/L Chloride Level 101 mmol/L Carbon Dioxide Level 34 mmol/L Anion Gap 8 Blood Urea Nitrogen 16 mg/dL Creatinine 0.8 mg/dL Estimated GFR (Cockcroft-Gault) 98.3 BUN/Creatinine Ratio 20 Glucose Level 113 mg/dL Calcium Level 8.6 mg/dL Total Bilirubin 0.4 mg/dL Aspartate Amino Transf (AST/SGOT) 10 U/L Alanine Aminotransferase (ALT/SGPT) 8 U/L Alkaline Phosphatase 127 U/L Total Protein 6.4 g/dL Albumin 2.5 g/dL Albumin/Globulin Ratio 0.6 Valproic Acid (Depakene) Level 37 mcg/mL Valproic Acid Last Dose Date 07/04/21 Valproic Acid Last Dose Time 2100 Glucose (Fingerstick) 104 mg/dL Current Medications Medications (Trade) Dose Ordered Sig/Shannon Route PRN Reason Start Time Stop Time Status Last Admin Dose Admin Multi-Ingredient Ointment (Analgesic [place]) 1 demetria PRN QID PRN TP MUSCLE PAIN 06/30/21 15:15 Al Hydroxide/Mg Hydroxide (Mylanta Plus Xs) 15 ml PRN AFTMEALHC PRN PO DYSPEPSIA 06/30/21 15:15 Magnesium Hydroxide (Milk Of Magnesia) 2,400 mg PRN QHS PRN PO 2ND CHOICE CONSTIPATION 06/30/21 15:15 07/05/21 08:05 Acetaminophen (Tylenol) 500 mg BID PO 06/30/21 21:00 07/05/21 20:23 Albuterol Sulfate (Ventolin) 2.5 mg PRN Q4HRS PRN IH FOR ASTHMA 06/30/21 15:30 Alprazolam (Xanax) 0.5 mg TID PO 06/30/21 21:00 07/02/21 22:42 DC 07/02/21 20:38 Buspirone HCl (Buspar) 10 mg BID PO 06/30/21 21:00 07/05/21 20:22 Cyclobenzaprine HCl (Flexeril) 10 mg TID PO 06/30/21 21:00 07/05/21 20:23 Divalproex Sodium (Depakote Er) 250 mg BID PO 06/30/21 21:00 07/01/21 20:14 DC 07/01/21 08:36 Docusate Sodium (Colace) 200 mg PRN DAILY PRN PO 1ST CHOICE CONSTIPATION 06/30/21 15:30 07/05/21 08:12 Furosemide (Lasix) 40 mg BID PO 06/30/21 21:00 07/01/21 02:03 DC Haloperidol (Haldol) 1 mg PRN Q6HRS PRN PO ANXIETY / AGITATION 06/30/21 16:00 Haloperidol (Haldol) 2 mg TID PO 06/30/21 21:00 06/30/21 19:42 DC Hyoscyamine (Anaspaz) 0.125 mg PRN Q2HR PRN PO SECRETIONS 06/30/21 15:30 Loperamide HCl (Imodium) 2 mg PRN Q3HRS PRN PO DIARRHEA 06/30/21 15:30 Metoprolol Tartrate (Lopressor) 25 mg BID PO 06/30/21 21:00 07/05/21 20:22 Nicotine (Nicoderm Cq 14mg Patch) 1 patch DAILY TD 07/01/21 09:00 07/05/21 08:08 Nitroglycerin (Nitrostat) 0.4 mg PRN Q5MIN PRN SL CHEST PAIN 06/30/21 15:30 Oxycodone HCl (Roxicodone) 2.5 mg PRN Q4HRS PRN PO PAIN 06/30/21 15:30 Pantoprazole Sodium (Protonix) 40 mg DAILYAC PO 07/01/21 07:30 07/05/21 08:12 Risperidone (RisperDAL M) 0.5 mg BID PO 06/30/21 21:00 06/30/21 19:42 DC Sertraline HCl (Zoloft) 50 mg DAILY PO 07/01/21 09:00 07/01/21 11:58 DC 07/01/21 08:36 Ziprasidone (Geodon) 20 mg 1600 PO 06/30/21 16:00 06/30/21 19:42 DC Ziprasidone (Geodon) 20 mg DAILY PO 07/01/21 09:00 06/30/21 19:42 DC Ferrous Sulfate (Feosol) 325 mg DAILY PO 07/01/21 09:00 07/05/21 08:10 Insulin Glargine (Lantus Syringe) 16 unit DAILY SQ 07/01/21 09:00 07/05/21 09:12 Ondansetron HCl (Zofran Odt) 4 mg PRN Q4HRS PRN PO NAUSEA/VOMITING 06/30/21 16:15 Oxycodone HCl (Roxicodone) 5 mg BID PO 06/30/21 21:00 07/05/21 20:23 Non-Formulary Medication (Rivaroxaban (Xarelto)) 20 mg 1700 PO 06/30/21 17:00 07/01/21 17:35 DC Linagliptin (Tradjenta) 5 mg DAILY PO 07/01/21 09:00 07/05/21 08:11 Non-Formulary Medication (Tea Tree Oil ([place] Tea Tree Oil)) 1 demetria DAILY TP 07/01/21 09:00 06/30/21 16:14 DC Non-Formulary Medication (Vit E Acetate/ Gly/Dimeth/Water (Cetaphil Moisturizing Lotion)) 1 demetria DAILY TP 07/01/21 09:00 06/30/21 16:14 DC Olanzapine (ZyPREXA ZYDIS) 2.5 mg PRN Q2HR PRN PO PSYCHOSIS 06/30/21 15:30 Quetiapine Fumarate (SEROquel) 50 mg HS PO 06/30/21 21:00 07/05/21 20:23 Quetiapine Fumarate (SEROquel) 25 mg 0900,1300,1700 PO 07/01/21 09:00 07/03/21 19:55 DC 07/03/21 16:46 Trazodone HCl (Desyrel) 50 mg PRN QHS PRN PO insomnia 06/30/21 19:45 07/05/21 20:23 Furosemide (Lasix) 40 mg DAILY PO 07/01/21 09:00 07/05/21 08:11 Sertraline HCl (Zoloft) 75 mg DAILY PO 07/02/21 09:00 07/05/21 08:09 Tamsulosin HCl (Flomax) 0.4 mg QHS PO 07/01/21 21:00 07/05/21 20:23 Finasteride (Proscar) 5 mg DAILY PO 07/02/21 09:00 07/05/21 08:11 Divalproex Sodium (Depakote Sprinkles) 250 mg DAILY PO 07/02/21 09:00 07/05/21 08:11 Divalproex Sodium (Depakote Sprinkles) 500 mg DAILY16 PO 07/02/21 16:00 07/05/21 17:25 Alprazolam (Xanax) 0.25 mg TID PO 07/03/21 09:00 07/05/21 19:52 DC 07/05/21 13:40 Naloxegol (Movantik) 25 mg DAILY07 PO 07/04/21 07:00 07/05/21 05:58 Quetiapine Fumarate (SEROquel) 25 mg BID@0900,1700 PO 07/04/21 09:00 07/05/21 17:25 Alprazolam (Xanax) 0.25 mg BID PO 07/06/21 09:00 07/08/21 22:00 Alprazolam (Xanax) 0.25 mg DAILY PO 07/09/21 09:00 07/11/21 10:00 I have reviewed the current psychotropics carefully including drug interactions. Risk benefit ratio favors no change other than as noted in my dictated progress note. Diagnosis: Problems: (1) Major neurocognitive disorder (2) Dementia in Alzheimer's disease with early onset with behavioral disturbance (3) Impulse control disorder, unspecified (4) Anxiety disorder, unspecified (5) Dementia, vascular, with depression (6) Dementia, vascular, with delusions (7) Dementia in Alzheimer's disease with depression (8) Dementia in Alzheimer's disease with delusions HUNTER MEZA MD Jul 05, 2021 20:51
[2021-07-05] MEDS: oxyCODONE IR 5 MG TABLET PO PRN (22:18)
[2021-07-05] MEDS: HALOPERIDOL 1 MG TABLET PO PRN (22:18)
--- NOTE | 2021-07-06 01:51 | NUR ---
Nursing Note Pt in room, combative, confused, difficult to redirect. HS meds plus, haldol, iam, and zydis. Straight cathed pt at HS, pt had 250 retained urine after voiding incontinent in brief. Pt awakens intermittently, combative and irritable. Resting in bed for now.
[2021-07-06] MEDS: NALOXEGOL OXALATE 25 MG TABLET. PO SCH (03:32)
[2021-07-06 06:40] VITALS: BP 129/70
[2021-07-06] MEDS: DIVALPROEX 125 MG CAP.SPRINK PO SCH ×2 (08:18→17:08)
[2021-07-06] MEDS: QUEtiapine 25 MG TABLET. PO SCH ×2 (08:18→17:07)
[2021-07-06] MEDS: FERROUS SULFATE 325 MG TABLET. PO SCH (08:18)
[2021-07-06] MEDS: CYCLOBENZAPRINE 10 MG TABLET. PO SCH ×3 (08:18→20:29)
[2021-07-06] MEDS: METOPROLOL TART IMMED RELEASE 25 MG TABLET. PO SCH ×2 (08:19→20:29)
[2021-07-06] MEDS: LINAGLIPTIN 5 MG TABLET PO SCH (08:19)
[2021-07-06] MEDS: oxyCODONE IR 5 MG TABLET PO SCH ×3 (08:19→20:29)
[2021-07-06] MEDS: ALPRAZolam 0.25 MG TABLET PO SCH ×2 (08:20→20:29)
[2021-07-06] MEDS: SERTRALINE 25 MG TABLET. PO SCH (08:20)
[2021-07-06] MEDS: busPIRone 10 MG TABLET. PO SCH ×2 (08:20→20:29)
[2021-07-06] MEDS: FUROSEMIDE 40 MG TABLET PO SCH (08:20)
[2021-07-06] MEDS: FINASTERIDE 5 MG TABLET. PO SCH (08:20)
[2021-07-06] MEDS: PANTOPRAZOLE 40 MG TABLET. PO SCH (08:20)
[2021-07-06] MEDS: NICOTINE 14MG PATCH. TD SCH (08:22)
--- NOTE | 2021-07-06 08:43 | PDOC ---
Exam Note: Kam Note: This note is a late entry for 07/04/2021 covers elements not covered in my initial note. Subjective: The patient was seen individually in the evening of 07/04/2021 with Marilu SANTA, discussed and reviewed the chart. The patient slept 8-1/4 hours previous night. He remains confused, continues bladder catheterization twice a day and 1000 cc removed yesterday and 400 cc last night. Review of Systems: Positive for urinary retention. Poor vision. He complains of some discomfort in right leg. We will defer to Dr. Goins. No CV, , pulmonary, ENT system symptoms on review. Reliability poor. Mental Status Exam: The patient is oriented to himself and situation. Speech has some latency, coherent. Abstraction fair. Computation impaired. Language function intact. Attention span short. Mood and affect withdrawn. Laboratory Data: Reviewed. Impression: Major neurocognitive disorder, Alzheimer, vascular with delusion, depression behavioral disturbance. Anxiety disorder unspecified. Impulse control disorder unchanged. Plan: Maintain rest psychotropics unchanged for now. Assessment: Vital Signs/I&O: Vital Signs Date Time Temp Pulse Resp B/P (MAP) Pulse Ox O2 Delivery O2 Flow Rate FiO2 07/06/21 08:19 14 93 Room Air 07/06/21 08:19 80 129/70 07/06/21 06:40 97.4 I & O 07/05/21 07/05/21 07/06/21 15:00 23:00 07:00 Intake Total 380 ml 340 ml Output Total 550 ml Balance 380 ml -210 ml Labs: Laboratory Tests Test 07/06/21 07:34 Glucose (Fingerstick) 70 mg/dL (70-99) Current Medications: Meds: Laboratory Tests Test 07/06/21 07:34 Glucose (Fingerstick) 70 mg/dL Current Medications Medications (Trade) Dose Ordered Sig/Shannon Route PRN Reason Start Time Stop Time Status Last Admin Dose Admin Multi-Ingredient Ointment (Analgesic [place]) 1 demetria PRN QID PRN TP MUSCLE PAIN 06/30/21 15:15 Al Hydroxide/Mg Hydroxide (Mylanta Plus Xs) 15 ml PRN AFTMEALHC PRN PO DYSPEPSIA 06/30/21 15:15 Magnesium Hydroxide (Milk Of Magnesia) 2,400 mg PRN QHS PRN PO 2ND CHOICE CONSTIPATION 06/30/21 15:15 07/05/21 08:05 Acetaminophen (Tylenol) 500 mg BID PO 06/30/21 21:00 07/05/21 20:53 Albuterol Sulfate (Ventolin) 2.5 mg PRN Q4HRS PRN IH FOR ASTHMA 06/30/21 15:30 Alprazolam (Xanax) 0.5 mg TID PO 06/30/21 21:00 07/02/21 22:42 DC 07/02/21 20:38 Buspirone HCl (Buspar) 10 mg BID PO 06/30/21 21:00 07/06/21 08:20 Cyclobenzaprine HCl (Flexeril) 10 mg TID PO 06/30/21 21:00 07/06/21 08:18 Divalproex Sodium (Depakote Er) 250 mg BID PO 06/30/21 21:00 07/01/21 20:14 DC 07/01/21 08:36 Docusate Sodium (Colace) 200 mg PRN DAILY PRN PO 1ST CHOICE CONSTIPATION 06/30/21 15:30 07/05/21 08:12 Furosemide (Lasix) 40 mg BID PO 06/30/21 21:00 07/01/21 02:03 DC Haloperidol (Haldol) 1 mg PRN Q6HRS PRN PO ANXIETY / AGITATION 06/30/21 16:00 07/05/21 22:18 Haloperidol (Haldol) 2 mg TID PO 06/30/21 21:00 06/30/21 19:42 DC Hyoscyamine (Anaspaz) 0.125 mg PRN Q2HR PRN PO SECRETIONS 06/30/21 15:30 Loperamide HCl (Imodium) 2 mg PRN Q3HRS PRN PO DIARRHEA 06/30/21 15:30 Metoprolol Tartrate (Lopressor) 25 mg BID PO 06/30/21 21:00 07/06/21 08:19 Nicotine (Nicoderm Cq 14mg Patch) 1 patch DAILY TD 07/01/21 09:00 07/06/21 08:22 Nitroglycerin (Nitrostat) 0.4 mg PRN Q5MIN PRN SL CHEST PAIN 06/30/21 15:30 Oxycodone HCl (Roxicodone) 2.5 mg PRN Q4HRS PRN PO PAIN 06/30/21 15:30 07/05/21 22:18 Pantoprazole Sodium (Protonix) 40 mg DAILYAC PO 07/01/21 07:30 07/06/21 08:20 Risperidone (RisperDAL M) 0.5 mg BID PO 06/30/21 21:00 06/30/21 19:42 DC Sertraline HCl (Zoloft) 50 mg DAILY PO 07/01/21 09:00 07/01/21 11:58 DC 07/01/21 08:36 Ziprasidone (Geodon) 20 mg 1600 PO 06/30/21 16:00 06/30/21 19:42 DC Ziprasidone (Geodon) 20 mg DAILY PO 07/01/21 09:00 06/30/21 19:42 DC Ferrous Sulfate (Feosol) 325 mg DAILY PO 07/01/21 09:00 07/06/21 08:18 Insulin Glargine (Lantus Syringe) 16 unit DAILY SQ 07/01/21 09:00 07/05/21 09:12 Ondansetron HCl (Zofran Odt) 4 mg PRN Q4HRS PRN PO NAUSEA/VOMITING 06/30/21 16:15 Oxycodone HCl (Roxicodone) 5 mg BID PO 06/30/21 21:00 07/06/21 08:19 Non-Formulary Medication (Rivaroxaban (Xarelto)) 20 mg 1700 PO 06/30/21 17:00 07/01/21 17:35 DC Linagliptin (Tradjenta) 5 mg DAILY PO 07/01/21 09:00 07/06/21 08:19 Non-Formulary Medication (Tea Tree Oil ([place] Tea Tree Oil)) 1 demetria DAILY TP 07/01/21 09:00 06/30/21 16:14 DC Non-Formulary Medication (Vit E Acetate/ Gly/Dimeth/Water (Cetaphil Moisturizing Lotion)) 1 demetria DAILY TP 07/01/21 09:00 06/30/21 16:14 DC Olanzapine (ZyPREXA ZYDIS) 2.5 mg PRN Q2HR PRN PO PSYCHOSIS 06/30/21 15:30 07/05/21 22:17 Quetiapine Fumarate (SEROquel) 50 mg HS PO 06/30/21 21:00 07/05/21 20:23 Quetiapine Fumarate (SEROquel) 25 mg 0900,1300,1700 PO 07/01/21 09:00 07/03/21 19:55 DC 07/03/21 16:46 Trazodone HCl (Desyrel) 50 mg PRN QHS PRN PO insomnia 06/30/21 19:45 07/05/21 20:23 Furosemide (Lasix) 40 mg DAILY PO 07/01/21 09:00 07/06/21 08:20 Sertraline HCl (Zoloft) 75 mg DAILY PO 07/02/21 09:00 07/06/21 08:20 Tamsulosin HCl (Flomax) 0.4 mg QHS PO 07/01/21 21:00 07/05/21 20:23 Finasteride (Proscar) 5 mg DAILY PO 07/02/21 09:00 07/06/21 08:20 Divalproex Sodium (Depakote Sprinkles) 250 mg DAILY PO 07/02/21 09:00 07/06/21 08:18 Divalproex Sodium (Depakote Sprinkles) 500 mg DAILY16 PO 07/02/21 16:00 07/05/21 17:25 Alprazolam (Xanax) 0.25 mg TID PO 07/03/21 09:00 07/05/21 19:52 DC 07/05/21 13:40 Naloxegol (Movantik) 25 mg DAILY07 PO 07/04/21 07:00 07/06/21 03:32 Quetiapine Fumarate (SEROquel) 25 mg BID@0900,1700 PO 07/04/21 09:00 07/06/21 08:18 Alprazolam (Xanax) 0.25 mg BID PO 07/06/21 09:00 07/08/21 22:00 07/06/21 08:20 Alprazolam (Xanax) 0.25 mg DAILY PO 07/09/21 09:00 07/11/21 10:00 Current Medications Medications (Trade) Dose Ordered Sig/Shannon Route PRN Reason Start Time Stop Time Status Last Admin Dose Admin Alprazolam (Xanax) 0.25 mg BID PO 07/06/21 09:00 07/08/21 22:00 07/06/21 08:20 I have reviewed the current psychotropics carefully including drug interactions. Risk benefit ratio favors no change other than as noted in my dictated progress note. Diagnosis: Problems: (1) Major neurocognitive disorder (2) Dementia in Alzheimer's disease with early onset with behavioral disturbance (3) Impulse control disorder, unspecified (4) Anxiety disorder, unspecified (5) Dementia, vascular, with depression (6) Dementia, vascular, with delusions (7) Dementia in Alzheimer's disease with depression (8) Dementia in Alzheimer's disease with delusions HUNTER MEZA MD Jul 06, 2021 08:43
--- NOTE | 2021-07-06 08:53 | PDOC ---
Exam Note: Kam Note: This note is a late entry for 07/05/2021 covers elements not covered in my initial note. Subjective: The patient was seen individually in the evening of 07/05/2021 with Stephany SANTA, discussed and reviewed the chart. The patient slept 6-1/4 hours previous night. Earlier in the day he fell getting out of the chair. X-ray was negative. He still gets urinary catheter placed once a day for urine retention. He is unsteady in his gait. Review of Systems: Positive for urinary retention. Impaired ambulation. No CV, , pulmonary, ENT system symptoms on review. Mental Status Exam: The patient is oriented to himself and situation. I met with him in his room. Speech coherent. Abstraction fair. Computation impaired. Language function intact. Mood and affect somewhat withdrawn, depressed, anxious. Laboratory Data: Reviewed. Impression: Major neurocognitive disorder, Alzheimer, vascular with delusion, depression behavioral disturbance. Anxiety disorder unspecified. Impulse control disorder unchanged. Plan: Valproic acid level today is 37 but despite being subtherapeutic for now, we will not change the Depakote and maintain 250 mg 0900, 1700 hours and 500 mg h.s. We have reduced the Xanax from 0. 5 mg t.i.d. down to 0.25 mg t.i.d. 3 days and we will reduce to b.i.d. in 3 days, later once a day in 3 days and then stop it. We will maintain rest of the psychotropics including Seroquel, trazodone, BuSpar unchanged for now along with Zyprexa p.r.n. Assessment: Vital Signs/I&O: Vital Signs Date Time Temp Pulse Resp B/P (MAP) Pulse Ox O2 Delivery O2 Flow Rate FiO2 07/06/21 08:19 14 93 Room Air 07/06/21 08:19 80 129/70 07/06/21 06:40 97.4 I & O 07/05/21 07/05/21 07/06/21 15:00 23:00 07:00 Intake Total 380 ml 340 ml Output Total 550 ml Balance 380 ml -210 ml Labs: Laboratory Tests Test 07/06/21 07:34 Glucose (Fingerstick) 70 mg/dL (70-99) Current Medications: Meds: Laboratory Tests Test 07/06/21 07:34 Glucose (Fingerstick) 70 mg/dL Current Medications Medications (Trade) Dose Ordered Sig/Shannon Route PRN Reason Start Time Stop Time Status Last Admin Dose Admin Multi-Ingredient Ointment (Analgesic [place]) 1 demetria PRN QID PRN TP MUSCLE PAIN 06/30/21 15:15 Al Hydroxide/Mg Hydroxide (Mylanta Plus Xs) 15 ml PRN AFTMEALHC PRN PO DYSPEPSIA 06/30/21 15:15 Magnesium Hydroxide (Milk Of Magnesia) 2,400 mg PRN QHS PRN PO 2ND CHOICE CONSTIPATION 06/30/21 15:15 07/05/21 08:05 Acetaminophen (Tylenol) 500 mg BID PO 06/30/21 21:00 07/05/21 20:53 Albuterol Sulfate (Ventolin) 2.5 mg PRN Q4HRS PRN IH FOR ASTHMA 06/30/21 15:30 Alprazolam (Xanax) 0.5 mg TID PO 06/30/21 21:00 07/02/21 22:42 DC 07/02/21 20:38 Buspirone HCl (Buspar) 10 mg BID PO 06/30/21 21:00 07/06/21 08:20 Cyclobenzaprine HCl (Flexeril) 10 mg TID PO 06/30/21 21:00 07/06/21 08:18 Divalproex Sodium (Depakote Er) 250 mg BID PO 06/30/21 21:00 07/01/21 20:14 DC 07/01/21 08:36 Docusate Sodium (Colace) 200 mg PRN DAILY PRN PO 1ST CHOICE CONSTIPATION 06/30/21 15:30 07/05/21 08:12 Furosemide (Lasix) 40 mg BID PO 06/30/21 21:00 07/01/21 02:03 DC Haloperidol (Haldol) 1 mg PRN Q6HRS PRN PO ANXIETY / AGITATION 06/30/21 16:00 07/05/21 22:18 Haloperidol (Haldol) 2 mg TID PO 06/30/21 21:00 06/30/21 19:42 DC Hyoscyamine (Anaspaz) 0.125 mg PRN Q2HR PRN PO SECRETIONS 06/30/21 15:30 Loperamide HCl (Imodium) 2 mg PRN Q3HRS PRN PO DIARRHEA 06/30/21 15:30 Metoprolol Tartrate (Lopressor) 25 mg BID PO 06/30/21 21:00 07/06/21 08:19 Nicotine (Nicoderm Cq 14mg Patch) 1 patch DAILY TD 07/01/21 09:00 07/06/21 08:22 Nitroglycerin (Nitrostat) 0.4 mg PRN Q5MIN PRN SL CHEST PAIN 06/30/21 15:30 Oxycodone HCl (Roxicodone) 2.5 mg PRN Q4HRS PRN PO PAIN 06/30/21 15:30 07/05/21 22:18 Pantoprazole Sodium (Protonix) 40 mg DAILYAC PO 07/01/21 07:30 07/06/21 08:20 Risperidone (RisperDAL M) 0.5 mg BID PO 06/30/21 21:00 06/30/21 19:42 DC Sertraline HCl (Zoloft) 50 mg DAILY PO 07/01/21 09:00 07/01/21 11:58 DC 07/01/21 08:36 Ziprasidone (Geodon) 20 mg 1600 PO 06/30/21 16:00 06/30/21 19:42 DC Ziprasidone (Geodon) 20 mg DAILY PO 07/01/21 09:00 06/30/21 19:42 DC Ferrous Sulfate (Feosol) 325 mg DAILY PO 07/01/21 09:00 07/06/21 08:18 Insulin Glargine (Lantus Syringe) 16 unit DAILY SQ 07/01/21 09:00 07/05/21 09:12 Ondansetron HCl (Zofran Odt) 4 mg PRN Q4HRS PRN PO NAUSEA/VOMITING 06/30/21 16:15 Oxycodone HCl (Roxicodone) 5 mg BID PO 06/30/21 21:00 07/06/21 08:19 Non-Formulary Medication (Rivaroxaban (Xarelto)) 20 mg 1700 PO 06/30/21 17:00 07/01/21 17:35 DC Linagliptin (Tradjenta) 5 mg DAILY PO 07/01/21 09:00 07/06/21 08:19 Non-Formulary Medication (Tea Tree Oil ([place]izen [place] Tea Tree Oil)) 1 demetria DAILY TP 07/01/21 09:00 06/30/21 16:14 DC Non-Formulary Medication (Vit E Acetate/ Gly/Dimeth/Water (Cetaphil Moisturizing Lotion)) 1 demetria DAILY TP 07/01/21 09:00 06/30/21 16:14 DC Olanzapine (ZyPREXA ZYDIS) 2.5 mg PRN Q2HR PRN PO PSYCHOSIS 06/30/21 15:30 07/05/21 22:17 Quetiapine Fumarate (SEROquel) 50 mg HS PO 06/30/21 21:00 07/05/21 20:23 Quetiapine Fumarate (SEROquel) 25 mg 0900,1300,1700 PO 07/01/21 09:00 07/03/21 19:55 DC 07/03/21 16:46 Trazodone HCl (Desyrel) 50 mg PRN QHS PRN PO insomnia 06/30/21 19:45 07/05/21 20:23 Furosemide (Lasix) 40 mg DAILY PO 07/01/21 09:00 07/06/21 08:20 Sertraline HCl (Zoloft) 75 mg DAILY PO 07/02/21 09:00 07/06/21 08:20 Tamsulosin HCl (Flomax) 0.4 mg QHS PO 07/01/21 21:00 07/05/21 20:23 Finasteride (Proscar) 5 mg DAILY PO 07/02/21 09:00 07/06/21 08:20 Divalproex Sodium (Depakote Sprinkles) 250 mg DAILY PO 07/02/21 09:00 07/06/21 08:18 Divalproex Sodium (Depakote Sprinkles) 500 mg DAILY16 PO 07/02/21 16:00 07/05/21 17:25 Alprazolam (Xanax) 0.25 mg TID PO 07/03/21 09:00 07/05/21 19:52 DC 07/05/21 13:40 Naloxegol (Movantik) 25 mg DAILY07 PO 07/04/21 07:00 07/06/21 03:32 Quetiapine Fumarate (SEROquel) 25 mg BID@0900,1700 PO 07/04/21 09:00 07/06/21 08:18 Alprazolam (Xanax) 0.25 mg BID PO 07/06/21 09:00 07/08/21 22:00 07/06/21 08:20 Alprazolam (Xanax) 0.25 mg DAILY PO 07/09/21 09:00 07/11/21 10:00 Current Medications Medications (Trade) Dose Ordered Sig/Shannon Route PRN Reason Start Time Stop Time Status Last Admin Dose Admin Alprazolam (Xanax) 0.25 mg BID PO 07/06/21 09:00 07/08/21 22:00 07/06/21 08:20 I have reviewed the current psychotropics carefully including drug interactions. Risk benefit ratio favors no change other than as noted in my dictated progress note. Diagnosis: Problems: (1) Major neurocognitive disorder (2) Dementia in Alzheimer's disease with early onset with behavioral disturbance (3) Impulse control disorder, unspecified (4) Anxiety disorder, unspecified (5) Dementia, vascular, with depression (6) Dementia, vascular, with delusions (7) Dementia in Alzheimer's disease with depression (8) Dementia in Alzheimer's disease with delusions HUNTER MEZA MD Jul 06, 2021 08:53
[2021-07-06] MEDS: INSULIN GLARGINE SYRINGE. SQ SCH (09:49)
[2021-07-06] MEDS: oxyCODONE IR 5 MG TABLET PO PRN ×2 (10:41→14:08)
--- NOTE | 2021-07-06 10:45 | NUR ---
Patient agitated, restless, and complaining of pain. PRN medications provided per eMAR, will continue to monitor.
--- NOTE | 2021-07-06 13:46 | NUR ---
WEEKLY ACTIVITY THERAPY NOTE Date of Admission:06/30/21 Date of AT Assessment:07/01 Precipitating behaviors that initiated intake and admission: aggressive-hits staff, yells at staff & curses, exit seeking, throws cups of water, resistive, balls up fists Goal aimed: increase socialization and engagement Initial Goal: Pt will participate in at least three Activity Therapy sessions per week Weekly progress towards goal: goal evaluation begins next week Group participation level: none Weekly highlights: move to group therapy side 07/07 Behaviors observed: Plan: no change to goal Beneficial adaptations:
--- NOTE | 2021-07-06 14:10 | NUR ---
Patient has been increasingly agitated and restless since getting up about 45 minutes ago. He had been wandering up and down the [place]; he is now attempting to get into the nurses' station stating that 'Gloria' is in there. He has been hallucinating throughout this shift, having a conversation with 'Miguel' in the empty [place]; at lunch he was picking imaginary items off his tray and throwing them. Patient is becoming more resistant to verbal redirection. He is complaining of back pain 04/22. PRN and scheduled medications provided per eMAR, will continue to monitor and report to oncoming shift.
[2021-07-06 15:48] VITALS: BP 131/75
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
--- NOTE | 2021-07-06 16:45 | NUR ---
Patient has not voided this shift. With assistance from staff, patient was straight catheterized and returned about 1100mL of urine. Patient was initially resistive and tried to push at the catheter then calmed down and tolerated the procedure well. Will continue to monitor and report to oncoming shift.
[2021-07-06 17:17] LABS: BASO % 0 % (0-3); EOS # 0.1 x10^3/uL (0.0-0.7); EOS % 2 % (0-3); HEMATOCRIT 33.5 % (39.0-53.0); HEMOGLOBIN 10.5 g/dL (13.0-17.5); LYMPH % 12 % (24-48); MEAN CORPUSCULAR HEMOGLOBIN 25 pg (25-35); MEAN CORPUSCULAR HGB CONC 31 g/dL (31-37); MEAN CORPUSCULAR VOLUME 80 fL (79-100); MONO % 12 % (0-9); NEUT % 74 % (31-73); PLATELET COUNT 300 x10^3/uL (140-400); RED BLOOD COUNT 4.18 x10^6/uL (4.30-5.70); RED CELL DISTRIBUTION WIDTH 14.5 % (11.5-14.5); WHITE BLOOD COUNT 8.1 x10^3/uL (4.0-11.0)
[2021-07-06 17:30] LABS: BACTERIA,URINE 0 /HPF (0-FEW); BILIRUBIN,URINE NEG (NEG); CLARITY,URINE CLEAR; COLOR,URINE YELLOW; GLUCOSE,URINE NEG (NEG); NITRITE,URINE NEG (NEG); RBC,URINE 0 /HPF (0-2); SQUAMOUS EPITHELIAL CELL,UR OCC /LPF
[2021-07-06 17:31] LABS: WBC,URINE OCC /HPF (0-4)
[2021-07-06 17:36] LABS: ALBUMIN/GLOBULIN RATIO 0.7 (1.0-1.7); CALCIUM 8.9 mg/dL (8.5-10.1); POTASSIUM 4.6 mmol/L (3.5-5.1); TOTAL BILIRUBIN 0.4 mg/dL (0.2-1.0); TOTAL PROTEIN 7.3 g/dL (6.4-8.2)
[2021-07-06] MEDS: ACETAMINOPHEN 500 MG TABLET PO SCH (20:28)
[2021-07-06] MEDS: TAMSULOSIN 0.4 MG CAP.ER.24H. PO SCH (20:29)
[2021-07-06] MEDS: traZODone 50 MG TABLET. PO PRN (20:29)
[2021-07-06] MEDS: QUEtiapine 50 MG TABLET. PO SCH (20:29)
--- NOTE | 2021-07-06 20:41 | PDOC ---
Exam Note: Kam Note: Please also refer to the separate dictated note~for this date of service dictated separately.~Patient seen individually. Discussed the patient with Nursing staff reviewed the chart.~Reviewed interim history and current functioning. Reviewed vital signs,~Labs/ Radiology~and current medications noted below. Continue current treatment with the changes noted in the dictated addendum note Assessment: Vital Signs/I&O: Vital Signs Date Time Temp Pulse Resp B/P (MAP) Pulse Ox O2 Delivery O2 Flow Rate FiO2 07/06/21 20:29 94 07/06/21 20:29 85 131/75 07/06/21 15:48 97.8 20 Room Air I & O 07/05/21 07/05/21 07/06/21 15:00 23:00 07:00 Intake Total 380 ml 340 ml Output Total 550 ml Balance 380 ml -210 ml Labs: Laboratory Tests Test 07/06/21 06:00 07/06/21 07:34 07/06/21 17:00 07/06/21 17:09 SARS-CoV-2 (PCR) Not detected (NOT DETECTD) Glucose (Fingerstick) 70 mg/dL (70-99) Urine Collection Type Unknown Urine Color Yellow Urine Clarity Clear Urine pH 8.0 Urine Specific Cooks 1.015 Urine Protein Neg (NEG-TRACE) Urine Glucose (UA) Neg mg/dL (NEG) Urine Ketones (Stick) Trace mg/dL (NEG) Urine Blood Neg (NEG) Urine Nitrite Neg (NEG) Urine Bilirubin Neg (NEG) Urine Urobilinogen Dipstick 1.0 mg/dL (0.2 mg/dL) Urine Leukocyte Esterase Neg (NEG) Urine RBC 0 /HPF (0-2) Urine WBC Occ /HPF (0-4) Urine Squamous Epithelial Cells Occ /LPF Urine Bacteria 0 /HPF (0-FEW) White Blood Count 8.1 x10^3/uL (4.0-11.0) Red Blood Count 4.18 x10^6/uL (4.30-5.70) L Hemoglobin 10.5 g/dL (13.0-17.5) L Hematocrit 33.5 % (39.0-53.0) L Mean Corpuscular Volume 80 fL (79-100) Mean Corpuscular Hemoglobin 25 pg (25-35) Mean Corpuscular Hemoglobin Concent 31 g/dL (31-37) Red Cell Distribution Width 14.5 % (11.5-14.5) Platelet Count 300 x10^3/uL (140-400) Neutrophils (%) (Auto) 74 % (31-73) H Lymphocytes (%) (Auto) 12 % (24-48) L Monocytes (%) (Auto) 12 % (0-9) H Eosinophils (%) (Auto) 2 % (0-3) Basophils (%) (Auto) 0 % (0-3) Neutrophils # (Auto) 6.0 x10^3uL (1.8-7.7) Lymphocytes # (Auto) 1.0 x10^3/uL (1.0-4.8) Monocytes # (Auto) 1.0 x10^3/uL (0.0-1.1) Eosinophils # (Auto) 0.1 x10^3/uL (0.0-0.7) Basophils # (Auto) 0.0 x10^3/uL (0.0-0.2) Sodium Level 139 mmol/L (136-145) Potassium Level 4.6 mmol/L (3.5-5.1) Chloride Level 99 mmol/L (98-107) Carbon Dioxide Level 32 mmol/L (21-32) Anion Gap 8 (6-14) Blood Urea Nitrogen 16 mg/dL (8-26) Creatinine 1.0 mg/dL (0.7-1.3) Estimated GFR (Cockcroft-Gault) 76.0 BUN/Creatinine Ratio 16 (6-20) Glucose Level 126 mg/dL (70-99) H Calcium Level 8.9 mg/dL (8.5-10.1) Total Bilirubin 0.4 mg/dL (0.2-1.0) Aspartate Amino Transferase (AST) 11 U/L (15-37) L Alanine Aminotransferase (ALT) 12 U/L (16-63) L Alkaline Phosphatase 150 U/L (46-116) H Total Protein 7.3 g/dL (6.4-8.2) Albumin 3.0 g/dL (3.4-5.0) L Albumin/Globulin Ratio 0.7 (1.0-1.7) L Test 07/06/21 19:04 Glucose (Fingerstick) 143 mg/dL (70-99) H Current Medications: Meds: Laboratory Tests Test 07/06/21 06:00 07/06/21 07:34 07/06/21 17:00 07/06/21 17:09 Coronavirus (COVID-19)(PCR) Not detected Glucose (Fingerstick) 70 mg/dL Urine Collection Type Unknown Urine Color Yellow Urine Clarity Clear Urine pH 8.0 Urine Specific Cooks 1.015 Urine Protein Neg Urine Glucose (UA) Neg mg/dL Urine Ketones (Stick) Trace mg/dL Urine Blood Neg Urine Nitrite Neg Urine Bilirubin Neg Urine Urobilinogen Dipstick 1.0 mg/dL Urine Leukocyte Esterase Neg Urine RBC 0 /HPF Urine WBC Occ /HPF Urine Squamous Epithelial Cells Occ /LPF Urine Bacteria 0 /HPF White Blood Count 8.1 x10^3/uL Red Blood Count 4.18 x10^6/uL Hemoglobin 10.5 g/dL Hematocrit 33.5 % Mean Corpuscular Volume 80 fL Mean Corpuscular Hemoglobin 25 pg Mean Corpuscular Hemoglobin Concent 31 g/dL Red Cell Distribution Width 14.5 % Platelet Count 300 x10^3/uL Neutrophils (%) (Auto) 74 % Lymphocytes (%) (Auto) 12 % Monocytes (%) (Auto) 12 % Eosinophils (%) (Auto) 2 % Basophils (%) (Auto) 0 % Neutrophils # (Auto) 6.0 x10^3uL Lymphocytes # (Auto) 1.0 x10^3/uL Monocytes # (Auto) 1.0 x10^3/uL Eosinophils # (Auto) 0.1 x10^3/uL Basophils # (Auto) 0.0 x10^3/uL Sodium Level 139 mmol/L Potassium Level 4.6 mmol/L Chloride Level 99 mmol/L Carbon Dioxide Level 32 mmol/L Anion Gap 8 Blood Urea Nitrogen 16 mg/dL Creatinine 1.0 mg/dL Estimated GFR (Cockcroft-Gault) 76.0 BUN/Creatinine Ratio 16 Glucose Level 126 mg/dL Calcium Level 8.9 mg/dL Total Bilirubin 0.4 mg/dL Aspartate Amino Transf (AST/SGOT) 11 U/L Alanine Aminotransferase (ALT/SGPT) 12 U/L Alkaline Phosphatase 150 U/L Total Protein 7.3 g/dL Albumin 3.0 g/dL Albumin/Globulin Ratio 0.7 Test 07/06/21 19:04 Glucose (Fingerstick) 143 mg/dL Current Medications Medications (Trade) Dose Ordered Sig/Shannon Route PRN Reason Start Time Stop Time Status Last Admin Dose Admin Multi-Ingredient Ointment (Analgesic Allison) 1 demetria PRN QID PRN TP MUSCLE PAIN 06/30/21 15:15 Al Hydroxide/Mg Hydroxide (Mylanta Plus Xs) 15 ml PRN AFTMEALHC PRN PO DYSPEPSIA 06/30/21 15:15 Magnesium Hydroxide (Milk Of Magnesia) 2,400 mg PRN QHS PRN PO 2ND CHOICE CONSTIPATION 06/30/21 15:15 07/05/21 08:05 Acetaminophen (Tylenol) 500 mg BID PO 06/30/21 21:00 07/06/21 20:28 Albuterol Sulfate (Ventolin) 2.5 mg PRN Q4HRS PRN IH FOR ASTHMA 06/30/21 15:30 Alprazolam (Xanax) 0.5 mg TID PO 06/30/21 21:00 07/02/21 22:42 DC 07/02/21 20:38 Buspirone HCl (Buspar) 10 mg BID PO 06/30/21 21:00 07/06/21 20:29 Cyclobenzaprine HCl (Flexeril) 10 mg TID PO 06/30/21 21:00 07/06/21 20:29 Divalproex Sodium (Depakote Er) 250 mg BID PO 06/30/21 21:00 07/01/21 20:14 DC 07/01/21 08:36 Docusate Sodium (Colace) 200 mg PRN DAILY PRN PO 1ST CHOICE CONSTIPATION 06/30/21 15:30 07/05/21 08:12 Furosemide (Lasix) 40 mg BID PO 06/30/21 21:00 07/01/21 02:03 DC Haloperidol (Haldol) 1 mg PRN Q6HRS PRN PO ANXIETY / AGITATION 06/30/21 16:00 07/05/21 22:18 Haloperidol (Haldol) 2 mg TID PO 06/30/21 21:00 06/30/21 19:42 DC Hyoscyamine (Anaspaz) 0.125 mg PRN Q2HR PRN PO SECRETIONS 06/30/21 15:30 Loperamide HCl (Imodium) 2 mg PRN Q3HRS PRN PO DIARRHEA 06/30/21 15:30 Metoprolol Tartrate (Lopressor) 25 mg BID PO 06/30/21 21:00 07/06/21 20:29 Nicotine (Nicoderm Cq 14mg Patch) 1 patch DAILY TD 07/01/21 09:00 07/06/21 08:22 Nitroglycerin (Nitrostat) 0.4 mg PRN Q5MIN PRN SL CHEST PAIN 06/30/21 15:30 Oxycodone HCl (Roxicodone) 2.5 mg PRN Q4HRS PRN PO PAIN 06/30/21 15:30 07/06/21 14:08 Pantoprazole Sodium (Protonix) 40 mg DAILYAC PO 07/01/21 07:30 07/06/21 08:20 Risperidone (RisperDAL M) 0.5 mg BID PO 06/30/21 21:00 06/30/21 19:42 DC Sertraline HCl (Zoloft) 50 mg DAILY PO 07/01/21 09:00 07/01/21 11:58 DC 07/01/21 08:36 Ziprasidone (Geodon) 20 mg 1600 PO 06/30/21 16:00 06/30/21 19:42 DC Ziprasidone (Geodon) 20 mg DAILY PO 07/01/21 09:00 06/30/21 19:42 DC Ferrous Sulfate (Feosol) 325 mg DAILY PO 07/01/21 09:00 07/06/21 08:18 Insulin Glargine (Lantus Syringe) 16 unit DAILY SQ 07/01/21 09:00 07/06/21 09:49 Ondansetron HCl (Zofran Odt) 4 mg PRN Q4HRS PRN PO NAUSEA/VOMITING 06/30/21 16:15 Oxycodone HCl (Roxicodone) 5 mg BID PO 06/30/21 21:00 07/06/21 20:29 Non-Formulary Medication (Rivaroxaban (Xarelto)) 20 mg 1700 PO 06/30/21 17:00 07/01/21 17:35 DC Linagliptin (Tradjenta) 5 mg DAILY PO 07/01/21 09:00 07/06/21 08:19 Non-Formulary Medication (Tea Tree Oil (S[place] Arabian Tea Tree Oil)) 1 demetria DAILY TP 07/01/21 09:00 06/30/21 16:14 DC Non-Formulary Medication (Vit E Acetate/ Gly/Dimeth/Water (Cetaphil Moisturizing Lotion)) 1 demetria DAILY TP 07/01/21 09:00 06/30/21 16:14 DC Olanzapine (ZyPREXA ZYDIS) 2.5 mg PRN Q2HR PRN PO PSYCHOSIS 06/30/21 15:30 07/06/21 14:08 Quetiapine Fumarate (SEROquel) 50 mg HS PO 06/30/21 21:00 07/06/21 20:29 Quetiapine Fumarate (SEROquel) 25 mg 0900,1300,1700 PO 07/01/21 09:00 07/03/21 19:55 DC 07/03/21 16:46 Trazodone HCl (Desyrel) 50 mg PRN QHS PRN PO insomnia 06/30/21 19:45 07/06/21 20:29 Furosemide (Lasix) 40 mg DAILY PO 07/01/21 09:00 07/06/21 08:20 Sertraline HCl (Zoloft) 75 mg DAILY PO 07/02/21 09:00 07/06/21 08:20 Tamsulosin HCl (Flomax) 0.4 mg QHS PO 07/01/21 21:00 07/06/21 20:29 Finasteride (Proscar) 5 mg DAILY PO 07/02/21 09:00 07/06/21 08:20 Divalproex Sodium (Depakote Sprinkles) 250 mg DAILY PO 07/02/21 09:00 07/06/21 08:18 Divalproex Sodium (Depakote Sprinkles) 500 mg DAILY16 PO 07/02/21 16:00 07/06/21 17:08 Alprazolam (Xanax) 0.25 mg TID PO 07/03/21 09:00 07/05/21 19:52 DC 07/05/21 13:40 Naloxegol (Movantik) 25 mg DAILY07 PO 07/04/21 07:00 07/06/21 03:32 Quetiapine Fumarate (SEROquel) 25 mg BID@0900,1700 PO 07/04/21 09:00 07/06/21 17:07 Alprazolam (Xanax) 0.25 mg BID PO 07/06/21 09:00 07/08/21 22:00 07/06/21 20:29 Alprazolam (Xanax) 0.25 mg DAILY PO 07/09/21 09:00 07/11/21 10:00 Current Medications Medications (Trade) Dose Ordered Sig/Shannon Route PRN Reason Start Time Stop Time Status Last Admin Dose Admin Alprazolam (Xanax) 0.25 mg BID PO 07/06/21 09:00 07/08/21 22:00 07/06/21 20:29 I have reviewed the current psychotropics carefully including drug interactions. Risk benefit ratio favors no change other than as noted in my dictated progress note. Diagnosis: Problems: (1) Major neurocognitive disorder (2) Dementia in Alzheimer's disease with early onset with behavioral disturbance (3) Impulse control disorder, unspecified (4) Anxiety disorder, unspecified (5) Dementia, vascular, with depression (6) Dementia, vascular, with delusions (7) Dementia in Alzheimer's disease with depression (8) Dementia in Alzheimer's disease with delusions HUNTER MEZA MD Jul 06, 2021 20:41
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
[2021-07-07 03:21] VITALS: BP 113/65
[2021-07-07] MEDS: NALOXEGOL OXALATE 25 MG TABLET. PO SCH (03:43)
[2021-07-07] MEDS: MAGNESIUM HYDROXIDE 2,400 MG/30 ML ORAL.SUSP. PO PRN (06:01)
[2021-07-07] MEDS: PANTOPRAZOLE 40 MG TABLET. PO SCH (08:12)
[2021-07-07] MEDS: SERTRALINE 25 MG TABLET. PO SCH (08:13)
[2021-07-07] MEDS: FUROSEMIDE 40 MG TABLET PO SCH (08:13)
[2021-07-07] MEDS: FINASTERIDE 5 MG TABLET. PO SCH (08:13)
[2021-07-07] MEDS: oxyCODONE IR 5 MG TABLET PO SCH ×2 (08:14→20:37)
[2021-07-07] MEDS: ALPRAZolam 0.25 MG TABLET PO SCH ×2 (08:14→20:37)
[2021-07-07] MEDS: METOPROLOL TART IMMED RELEASE 25 MG TABLET. PO SCH ×2 (08:14→20:38)
[2021-07-07] MEDS: FERROUS SULFATE 325 MG TABLET. PO SCH (08:15)
[2021-07-07] MEDS: QUEtiapine 25 MG TABLET. PO SCH ×2 (08:15→16:55)
[2021-07-07] MEDS: LINAGLIPTIN 5 MG TABLET PO SCH (08:15)
[2021-07-07] MEDS: ACETAMINOPHEN 500 MG TABLET PO SCH ×2 (08:15→20:38)
[2021-07-07] MEDS: CYCLOBENZAPRINE 10 MG TABLET. PO SCH ×4 (08:15→20:37)
[2021-07-07] MEDS: DIVALPROEX 125 MG CAP.SPRINK PO SCH ×2 (08:15→16:55)
[2021-07-07] MEDS: NICOTINE 14MG PATCH. TD SCH (08:16)
[2021-07-07] MEDS: busPIRone 10 MG TABLET. PO SCH ×2 (08:16→20:38)
[2021-07-07] MEDS: INSULIN GLARGINE SYRINGE. SQ SCH (10:10)
[2021-07-07] MEDS: oxyCODONE IR 5 MG TABLET PO PRN (15:11)
[2021-07-07 15:32] VITALS: BP 100/64
--- NOTE | 2021-07-07 18:20 | NUR ---
Patient assisted to toilet after dinner and per PAPER SAMPLE CLERK voided a large amount of urine. Will not straight cath this shift and continue to monitor.
--- NOTE | 2021-07-07 18:24 | NUR ---
Patient has been calm, cooperative, and pleasantly confused throughout this shift. He has chronic complaints of low back pain, states prn helped a lot. Patient was walking with stand-by assistance in day room during the afternoon. Will continue to monitor and report to oncoming shift.
[2021-07-07] MEDS: QUEtiapine 50 MG TABLET. PO SCH (20:37)
[2021-07-07] MEDS: TAMSULOSIN 0.4 MG CAP.ER.24H. PO SCH (20:38)
--- NOTE | 2021-07-07 21:04 | PDOC ---
Exam Note: Kam Note: Please also refer to the separate dictated note~for this date of service dictated separately.~Patient seen individually. Discussed the patient with Nursing staff reviewed the chart.~Reviewed interim history and current functioning. Reviewed vital signs,~Labs/ Radiology~and current medications noted below. Continue current treatment with the changes noted in the dictated addendum note Assessment: Vital Signs/I&O: Vital Signs Date Time Temp Pulse Resp B/P (MAP) Pulse Ox O2 Delivery O2 Flow Rate FiO2 07/07/21 20:38 88 100/64 07/07/21 20:37 Room Air 07/07/21 15:50 16 93 07/07/21 15:32 98.5 I & O 07/06/21 07/06/21 07/07/21 15:00 23:00 07:00 Intake Total 480 ml 370 ml Output Total 1100 ml Balance 480 ml -730 ml Labs: Laboratory Tests Test 07/07/21 07:40 Glucose (Fingerstick) 101 mg/dL (70-99) H Current Medications: Meds: Laboratory Tests Test 07/07/21 07:40 Glucose (Fingerstick) 101 mg/dL Current Medications Medications (Trade) Dose Ordered Sig/Shannon Route PRN Reason Start Time Stop Time Status Last Admin Dose Admin Multi-Ingredient Ointment (Analgesic [place]) 1 demetria PRN QID PRN TP MUSCLE PAIN 06/30/21 15:15 Al Hydroxide/Mg Hydroxide (Mylanta Plus Xs) 15 ml PRN AFTMEALHC PRN PO DYSPEPSIA 06/30/21 15:15 Magnesium Hydroxide (Milk Of Magnesia) 2,400 mg PRN QHS PRN PO 2ND CHOICE CONSTIPATION 06/30/21 15:15 07/07/21 06:01 Acetaminophen (Tylenol) 500 mg BID PO 06/30/21 21:00 07/07/21 20:38 Albuterol Sulfate (Ventolin) 2.5 mg PRN Q4HRS PRN IH FOR ASTHMA 06/30/21 15:30 Alprazolam (Xanax) 0.5 mg TID PO 06/30/21 21:00 07/02/21 22:42 DC 07/02/21 20:38 Buspirone HCl (Buspar) 10 mg BID PO 06/30/21 21:00 07/07/21 20:38 Cyclobenzaprine HCl (Flexeril) 10 mg TID PO 06/30/21 21:00 07/07/21 20:37 Divalproex Sodium (Depakote Er) 250 mg BID PO 06/30/21 21:00 07/01/21 20:14 DC 07/01/21 08:36 Docusate Sodium (Colace) 200 mg PRN DAILY PRN PO 1ST CHOICE CONSTIPATION 06/30/21 15:30 07/05/21 08:12 Furosemide (Lasix) 40 mg BID PO 06/30/21 21:00 07/01/21 02:03 DC Haloperidol (Haldol) 1 mg PRN Q6HRS PRN PO ANXIETY / AGITATION 06/30/21 16:00 07/05/21 22:18 Haloperidol (Haldol) 2 mg TID PO 06/30/21 21:00 06/30/21 19:42 DC Hyoscyamine (Anaspaz) 0.125 mg PRN Q2HR PRN PO SECRETIONS 06/30/21 15:30 Loperamide HCl (Imodium) 2 mg PRN Q3HRS PRN PO DIARRHEA 06/30/21 15:30 Metoprolol Tartrate (Lopressor) 25 mg BID PO 06/30/21 21:00 07/07/21 20:38 Nicotine (Nicoderm Cq 14mg Patch) 1 patch DAILY TD 07/01/21 09:00 07/07/21 08:16 Nitroglycerin (Nitrostat) 0.4 mg PRN Q5MIN PRN SL CHEST PAIN 06/30/21 15:30 Oxycodone HCl (Roxicodone) 2.5 mg PRN Q4HRS PRN PO PAIN 06/30/21 15:30 07/07/21 15:11 Pantoprazole Sodium (Protonix) 40 mg DAILYAC PO 07/01/21 07:30 07/07/21 08:12 Risperidone (RisperDAL M) 0.5 mg BID PO 06/30/21 21:00 06/30/21 19:42 DC Sertraline HCl (Zoloft) 50 mg DAILY PO 07/01/21 09:00 07/01/21 11:58 DC 07/01/21 08:36 Ziprasidone (Geodon) 20 mg 1600 PO 06/30/21 16:00 06/30/21 19:42 DC Ziprasidone (Geodon) 20 mg DAILY PO 07/01/21 09:00 06/30/21 19:42 DC Ferrous Sulfate (Feosol) 325 mg DAILY PO 07/01/21 09:00 07/07/21 08:15 Insulin Glargine (Lantus Syringe) 16 unit DAILY SQ 07/01/21 09:00 07/07/21 10:10 Ondansetron HCl (Zofran Odt) 4 mg PRN Q4HRS PRN PO NAUSEA/VOMITING 06/30/21 16:15 Oxycodone HCl (Roxicodone) 5 mg BID PO 06/30/21 21:00 07/07/21 20:37 Non-Formulary Medication (Rivaroxaban (Xarelto)) 20 mg 1700 PO 06/30/21 17:00 07/01/21 17:35 DC Linagliptin (Tradjenta) 5 mg DAILY PO 07/01/21 09:00 07/07/21 08:15 Non-Formulary Medication (Tea Tree Oil (Togolese Tea Tree Oil)) 1 demetria DAILY TP 07/01/21 09:00 06/30/21 16:14 DC Non-Formulary Medication (Vit E Acetate/ Gly/Dimeth/Water (Cetaphil Moisturizing Lotion)) 1 demetria DAILY TP 07/01/21 09:00 06/30/21 16:14 DC Olanzapine (ZyPREXA ZYDIS) 2.5 mg PRN Q2HR PRN PO PSYCHOSIS 06/30/21 15:30 07/06/21 14:08 Quetiapine Fumarate (SEROquel) 50 mg HS PO 06/30/21 21:00 07/07/21 20:37 Quetiapine Fumarate (SEROquel) 25 mg 0900,1300,1700 PO 07/01/21 09:00 07/03/21 19:55 DC 07/03/21 16:46 Trazodone HCl (Desyrel) 50 mg PRN QHS PRN PO insomnia 06/30/21 19:45 07/06/21 20:29 Furosemide (Lasix) 40 mg DAILY PO 07/01/21 09:00 07/07/21 08:13 Sertraline HCl (Zoloft) 75 mg DAILY PO 07/02/21 09:00 07/07/21 08:13 Tamsulosin HCl (Flomax) 0.4 mg QHS PO 07/01/21 21:00 07/07/21 20:38 Finasteride (Proscar) 5 mg DAILY PO 07/02/21 09:00 07/07/21 08:13 Divalproex Sodium (Depakote Sprinkles) 250 mg DAILY PO 07/02/21 09:00 07/07/21 08:15 Divalproex Sodium (Depakote Sprinkles) 500 mg DAILY16 PO 07/02/21 16:00 07/07/21 16:55 Alprazolam (Xanax) 0.25 mg TID PO 07/03/21 09:00 07/05/21 19:52 DC 07/05/21 13:40 Naloxegol (Movantik) 25 mg DAILY07 PO 07/04/21 07:00 07/07/21 03:43 Quetiapine Fumarate (SEROquel) 25 mg BID@0900,1700 PO 07/04/21 09:00 07/07/21 16:55 Alprazolam (Xanax) 0.25 mg BID PO 07/06/21 09:00 07/08/21 22:00 07/07/21 20:37 Alprazolam (Xanax) 0.25 mg DAILY PO 07/09/21 09:00 07/11/21 10:00 I have reviewed the current psychotropics carefully including drug interactions. Risk benefit ratio favors no change other than as noted in my dictated progress note. Diagnosis: Problems: (1) Major neurocognitive disorder (2) Dementia in Alzheimer's disease with early onset with behavioral disturbance (3) Impulse control disorder, unspecified (4) Anxiety disorder, unspecified (5) Dementia, vascular, with depression (6) Dementia, vascular, with delusions (7) Dementia in Alzheimer's disease with depression (8) Dementia in Alzheimer's disease with delusions HUNTER MEZA MD Jul 07, 2021 21:04
[2021-07-08] MEDS: NALOXEGOL OXALATE 25 MG TABLET. PO SCH (06:00)
[2021-07-08 06:11] VITALS: BP 125/72
[2021-07-08] MEDS: QUEtiapine 25 MG TABLET. PO SCH ×2 (08:05→17:24)
[2021-07-08] MEDS: busPIRone 10 MG TABLET. PO SCH ×2 (08:05→20:23)
[2021-07-08] MEDS: ACETAMINOPHEN 500 MG TABLET PO SCH ×2 (08:05→20:25)
[2021-07-08] MEDS: LINAGLIPTIN 5 MG TABLET PO SCH (08:05)
[2021-07-08] MEDS: SERTRALINE 25 MG TABLET. PO SCH (08:05)
[2021-07-08] MEDS: FERROUS SULFATE 325 MG TABLET. PO SCH (08:06)
[2021-07-08] MEDS: FUROSEMIDE 40 MG TABLET PO SCH (08:06)
[2021-07-08] MEDS: METOPROLOL TART IMMED RELEASE 25 MG TABLET. PO SCH ×2 (08:06→20:25)
[2021-07-08] MEDS: ALPRAZolam 0.25 MG TABLET PO SCH ×2 (08:06→20:26)
[2021-07-08] MEDS: DIVALPROEX 125 MG CAP.SPRINK PO SCH ×2 (08:06→17:25)
[2021-07-08] MEDS: CYCLOBENZAPRINE 10 MG TABLET. PO SCH ×3 (08:07→20:27)
[2021-07-08] MEDS: FINASTERIDE 5 MG TABLET. PO SCH (08:07)
[2021-07-08] MEDS: NICOTINE 14MG PATCH. TD SCH (08:07)
[2021-07-08] MEDS: PANTOPRAZOLE 40 MG TABLET. PO SCH (08:07)
[2021-07-08] MEDS: oxyCODONE IR 5 MG TABLET PO SCH ×2 (08:07→20:25)
[2021-07-08] MEDS: INSULIN GLARGINE SYRINGE. SQ SCH (11:05)
--- NOTE | 2021-07-08 15:06 | NUR ---
Pt has been present and visible on the unit today. No episodes of physical aggression so far this shift. After toileting he became verbally aggressive to BEAMER HELPER who transferred him back into w/c and was screaming, "I still have shit coming out my ass!" He had completed voiding and there was no more BM to pass. Despite being told this, and provided reassurance, pt self transferred himself back onto toilet when staff had left his room. Pt is med compliant. No episodes of VH/AH observed so far this shift. Plan of care continues, will pass to next shift.
[2021-07-08 15:32] VITALS: BP 110/66
--- NOTE | 2021-07-08 18:05 | NUR ---
Straight cath performed. Pt educated on procedure and purpose, he was assisted into a supine position with assistance of 2. During cath pt then assisted to a reverse trendelenberg position. Approx 900 mL of clear yellow urine was obtained; absent of sediment, odor, or blood. Pt tolerated cath well with staff assistance and afterwords he stated he felt "better." Pt cleaned up and dressed by staff.
[2021-07-08] MEDS: QUEtiapine 50 MG TABLET. PO SCH (20:22)
[2021-07-08] MEDS: TAMSULOSIN 0.4 MG CAP.ER.24H. PO SCH (20:23)
--- NOTE | 2021-07-08 20:25 | PDOC ---
Exam Note: Kam Note: Please also refer to the separate dictated note~for this date of service dictated separately.~Patient seen individually. Discussed the patient with Nursing staff reviewed the chart.~Reviewed interim history and current functioning. Reviewed vital signs,~Labs/ Radiology~and current medications noted below. Continue current treatment with the changes noted in the dictated addendum note Assessment: Vital Signs/I&O: Vital Signs Date Time Temp Pulse Resp B/P (MAP) Pulse Ox O2 Delivery O2 Flow Rate FiO2 07/08/21 15:32 98.0 82 20 110/66 (81) 93 07/08/21 08:37 Room Air I & O 07/07/21 07/07/21 07/08/21 15:00 23:00 07:00 Intake Total 720 ml 480 ml Balance 720 ml 480 ml Labs: Laboratory Tests Test 07/08/21 07:21 Glucose (Fingerstick) 111 mg/dL (70-99) H Current Medications: Meds: Laboratory Tests Test 07/08/21 07:21 Glucose (Fingerstick) 111 mg/dL Current Medications Medications (Trade) Dose Ordered Sig/Shannon Route PRN Reason Start Time Stop Time Status Last Admin Dose Admin Multi-Ingredient Ointment (Analgesic [place]) 1 demetria PRN QID PRN TP MUSCLE PAIN 06/30/21 15:15 Al Hydroxide/Mg Hydroxide (Mylanta Plus Xs) 15 ml PRN AFTMEALHC PRN PO DYSPEPSIA 06/30/21 15:15 Magnesium Hydroxide (Milk Of Magnesia) 2,400 mg PRN QHS PRN PO 2ND CHOICE CONSTIPATION 06/30/21 15:15 07/07/21 06:01 Acetaminophen (Tylenol) 500 mg BID PO 06/30/21 21:00 07/08/21 08:05 Albuterol Sulfate (Ventolin) 2.5 mg PRN Q4HRS PRN IH FOR ASTHMA 06/30/21 15:30 Alprazolam (Xanax) 0.5 mg TID PO 06/30/21 21:00 07/02/21 22:42 DC 07/02/21 20:38 Buspirone HCl (Buspar) 10 mg BID PO 06/30/21 21:00 07/08/21 08:05 Cyclobenzaprine HCl (Flexeril) 10 mg TID PO 06/30/21 21:00 07/08/21 08:07 Divalproex Sodium (Depakote Er) 250 mg BID PO 06/30/21 21:00 07/01/21 20:14 DC 07/01/21 08:36 Docusate Sodium (Colace) 200 mg PRN DAILY PRN PO 1ST CHOICE CONSTIPATION 06/30/21 15:30 07/05/21 08:12 Furosemide (Lasix) 40 mg BID PO 06/30/21 21:00 07/01/21 02:03 DC Haloperidol (Haldol) 1 mg PRN Q6HRS PRN PO ANXIETY / AGITATION 06/30/21 16:00 07/05/21 22:18 Haloperidol (Haldol) 2 mg TID PO 06/30/21 21:00 06/30/21 19:42 DC Hyoscyamine (Anaspaz) 0.125 mg PRN Q2HR PRN PO SECRETIONS 06/30/21 15:30 Loperamide HCl (Imodium) 2 mg PRN Q3HRS PRN PO DIARRHEA 06/30/21 15:30 Metoprolol Tartrate (Lopressor) 25 mg BID PO 06/30/21 21:00 07/08/21 08:06 Nicotine (Nicoderm Cq 14mg Patch) 1 patch DAILY TD 07/01/21 09:00 07/08/21 08:07 Nitroglycerin (Nitrostat) 0.4 mg PRN Q5MIN PRN SL CHEST PAIN 06/30/21 15:30 Oxycodone HCl (Roxicodone) 2.5 mg PRN Q4HRS PRN PO PAIN 06/30/21 15:30 07/07/21 15:11 Pantoprazole Sodium (Protonix) 40 mg DAILYAC PO 07/01/21 07:30 07/08/21 08:07 Risperidone (RisperDAL M) 0.5 mg BID PO 06/30/21 21:00 06/30/21 19:42 DC Sertraline HCl (Zoloft) 50 mg DAILY PO 07/01/21 09:00 07/01/21 11:58 DC 07/01/21 08:36 Ziprasidone (Geodon) 20 mg 1600 PO 06/30/21 16:00 06/30/21 19:42 DC Ziprasidone (Geodon) 20 mg DAILY PO 07/01/21 09:00 06/30/21 19:42 DC Ferrous Sulfate (Feosol) 325 mg DAILY PO 07/01/21 09:00 07/08/21 08:06 Insulin Glargine (Lantus Syringe) 16 unit DAILY SQ 07/01/21 09:00 07/08/21 11:05 Ondansetron HCl (Zofran Odt) 4 mg PRN Q4HRS PRN PO NAUSEA/VOMITING 06/30/21 16:15 Oxycodone HCl (Roxicodone) 5 mg BID PO 06/30/21 21:00 07/08/21 08:07 Non-Formulary Medication (Rivaroxaban (Xarelto)) 20 mg 1700 PO 06/30/21 17:00 07/01/21 17:35 DC Linagliptin (Tradjenta) 5 mg DAILY PO 07/01/21 09:00 07/08/21 08:05 Non-Formulary Medication (Tea Tree Oil ([place] Tea Tree Oil)) 1 demetria DAILY TP 07/01/21 09:00 06/30/21 16:14 DC Non-Formulary Medication (Vit E Acetate/ Gly/Dimeth/Water (Cetaphil Moisturizing Lotion)) 1 demetria DAILY TP 07/01/21 09:00 06/30/21 16:14 DC Olanzapine (ZyPREXA ZYDIS) 2.5 mg PRN Q2HR PRN PO PSYCHOSIS 06/30/21 15:30 07/06/21 14:08 Quetiapine Fumarate (SEROquel) 50 mg HS PO 06/30/21 21:00 07/07/21 20:37 Quetiapine Fumarate (SEROquel) 25 mg 0900,1300,1700 PO 07/01/21 09:00 07/03/21 19:55 DC 07/03/21 16:46 Trazodone HCl (Desyrel) 50 mg PRN QHS PRN PO insomnia 06/30/21 19:45 07/06/21 20:29 Furosemide (Lasix) 40 mg DAILY PO 07/01/21 09:00 07/08/21 08:06 Sertraline HCl (Zoloft) 75 mg DAILY PO 07/02/21 09:00 07/08/21 08:05 Tamsulosin HCl (Flomax) 0.4 mg QHS PO 07/01/21 21:00 07/07/21 20:38 Finasteride (Proscar) 5 mg DAILY PO 07/02/21 09:00 07/08/21 08:07 Divalproex Sodium (Depakote Sprinkles) 250 mg DAILY PO 07/02/21 09:00 07/08/21 08:06 Divalproex Sodium (Depakote Sprinkles) 500 mg DAILY16 PO 07/02/21 16:00 07/08/21 17:25 Alprazolam (Xanax) 0.25 mg TID PO 07/03/21 09:00 07/05/21 19:52 DC 07/05/21 13:40 Naloxegol (Movantik) 25 mg DAILY07 PO 07/04/21 07:00 07/08/21 06:00 Quetiapine Fumarate (SEROquel) 25 mg BID@0900,1700 PO 07/04/21 09:00 07/08/21 02:00 DC 07/07/21 16:55 Alprazolam (Xanax) 0.25 mg BID PO 07/06/21 09:00 07/08/21 22:00 07/08/21 08:06 Alprazolam (Xanax) 0.25 mg DAILY PO 07/09/21 09:00 07/11/21 10:00 Quetiapine Fumarate (SEROquel) 25 mg DAILY PO 07/08/21 09:00 07/08/21 08:05 Quetiapine Fumarate (SEROquel) 50 mg DAILY@1700 PO 07/08/21 17:00 07/08/21 17:24 Tamsulosin HCl (Flomax) 0.4 mg QHS PO 07/08/21 21:00 Current Medications Medications (Trade) Dose Ordered Sig/Shannon Route PRN Reason Start Time Stop Time Status Last Admin Dose Admin Quetiapine Fumarate (SEROquel) 25 mg DAILY PO 07/08/21 09:00 07/08/21 08:05 Quetiapine Fumarate (SEROquel) 50 mg DAILY@1700 PO 07/08/21 17:00 07/08/21 17:24 I have reviewed the current psychotropics carefully including drug interactions. Risk benefit ratio favors no change other than as noted in my dictated progress note. Diagnosis: Problems: (1) Major neurocognitive disorder (2) Dementia in Alzheimer's disease with early onset with behavioral disturbance (3) Impulse control disorder, unspecified (4) Anxiety disorder, unspecified (5) Dementia, vascular, with depression (6) Dementia, vascular, with delusions (7) Dementia in Alzheimer's disease with depression (8) Dementia in Alzheimer's disease with delusions (9) Urinary retention HUNTER MEZA MD Jul 08, 2021 20:25
[2021-07-08] MEDS ORDERED: TAMSULOSIN 0.4 MG CAP.ER.24H. PO SCH (21:00)
--- NOTE | 2021-07-08 23:04 | NUR ---
Patient is located outside the [facility] on assumption of care, sitting in a wheelchair next to a peer. He is napping intermittently. When approached for assessments, he was cooperative and compliant with medications given crushed in chocolate pudding. Cooperative with HS cares. No physical or verbal aggression so far this shift. Patient has not voiced any hallucinations. He appears to be sleeping comfortably at present time. Will continue to monitor.
[2021-07-09 05:37] VITALS: BP 105/58
[2021-07-09] MEDS: NALOXEGOL OXALATE 25 MG TABLET. PO SCH (05:47)
--- NOTE | 2021-07-09 08:24 | PDOC ---
Exam Note: Kam Note: This note is a late entry for 07/06/2021 covers elements not covered in my initial note. Subjective: The patient was reviewed at treatment team meeting individually in the morning on 07/06/2021 with Rosanne Vargas, Sammie Freeman, and Linda Amos (oncology social worker), Hawa Thao, Data Processing Manager, Natty, activity therapy, and Jonn SANTA, discussed and reviewed the chart. We reviewed the patients history, diagnoses, treatment options, placement options at some length. The patient slept 5-1/4 hours previous night. His daughter Kristina attended the treatment team meeting. He remains confused, still is having straight catheterization done for urinary retention, had a fall yesterday but x- ray was negative. His appetite is 50%. Sleeping average is 7-1/2 hours. He is on diabetic finger food. He takes meds crushed in pudding. Received p.r.n. today at 10.30 a.m. and 2 p.m. due to intermittent restlessness and agitation. He is trying to grab things off his tray like a thread, questionable hallucinations. He has been put to bed 3 times and took 2 people to shower him, gets restless. He had his flu shot outside the facility. Review of Systems: Positive for urinary retention. Impaired ambulation in wheelchair. Complains of back pain, somewhat delusional, hallucinating. No CV, , pulmonary, ENT system symptoms on review. Mental Status Exam: The patient is oriented to himself and situation. I met with him in his room. Speech coherent. Abstraction fair. Computation impaired. Language function intact. Mood and affect somewhat withdrawn, depressed, anxious. Laboratory Data: Reviewed. Impression: Major neurocognitive disorder, Alzheimer, vascular with delusion, depression behavioral disturbance. Anxiety disorder unspecified. Impulse control disorder unchanged. Plan: We will repeat UA. Check CBC, CMP as well. Assessment: Vital Signs/I&O: Vital Signs Date Time Temp Pulse Resp B/P (MAP) Pulse Ox O2 Delivery O2 Flow Rate FiO2 07/09/21 05:37 97.8 86 18 105/58 (74) 92 Room Air I & O 07/08/21 07/08/21 07/09/21 15:00 23:00 07:00 Intake Total 240 ml 360 ml Output Total 900 ml 725 ml Balance 240 ml -540 ml -725 ml Labs: Laboratory Tests Test 07/09/21 07:16 Glucose (Fingerstick) 107 mg/dL (70-99) H Current Medications: Meds: Laboratory Tests Test 07/09/21 07:16 Glucose (Fingerstick) 107 mg/dL Current Medications Medications (Trade) Dose Ordered Sig/Shannon Route PRN Reason Start Time Stop Time Status Last Admin Dose Admin Multi-Ingredient Ointment (Analgesic [place]) 1 demetria PRN QID PRN TP MUSCLE PAIN 06/30/21 15:15 Al Hydroxide/Mg Hydroxide (Mylanta Plus Xs) 15 ml PRN AFTMEALHC PRN PO DYSPEPSIA 06/30/21 15:15 Magnesium Hydroxide (Milk Of Magnesia) 2,400 mg PRN QHS PRN PO 2ND CHOICE CONSTIPATION 06/30/21 15:15 07/07/21 06:01 Acetaminophen (Tylenol) 500 mg BID PO 06/30/21 21:00 07/08/21 20:25 Albuterol Sulfate (Ventolin) 2.5 mg PRN Q4HRS PRN IH FOR ASTHMA 06/30/21 15:30 Alprazolam (Xanax) 0.5 mg TID PO 06/30/21 21:00 07/02/21 22:42 DC 07/02/21 20:38 Buspirone HCl (Buspar) 10 mg BID PO 06/30/21 21:00 07/08/21 20:23 Cyclobenzaprine HCl (Flexeril) 10 mg TID PO 06/30/21 21:00 07/08/21 20:27 Divalproex Sodium (Depakote Er) 250 mg BID PO 06/30/21 21:00 07/01/21 20:14 DC 07/01/21 08:36 Docusate Sodium (Colace) 200 mg PRN DAILY PRN PO 1ST CHOICE CONSTIPATION 06/30/21 15:30 07/05/21 08:12 Furosemide (Lasix) 40 mg BID PO 06/30/21 21:00 07/01/21 02:03 DC Haloperidol (Haldol) 1 mg PRN Q6HRS PRN PO ANXIETY / AGITATION 06/30/21 16:00 07/05/21 22:18 Haloperidol (Haldol) 2 mg TID PO 06/30/21 21:00 06/30/21 19:42 DC Hyoscyamine (Anaspaz) 0.125 mg PRN Q2HR PRN PO SECRETIONS 06/30/21 15:30 Loperamide HCl (Imodium) 2 mg PRN Q3HRS PRN PO DIARRHEA 06/30/21 15:30 Metoprolol Tartrate (Lopressor) 25 mg BID PO 06/30/21 21:00 07/08/21 20:25 Nicotine (Nicoderm Cq 14mg Patch) 1 patch DAILY TD 07/01/21 09:00 07/08/21 08:07 Nitroglycerin (Nitrostat) 0.4 mg PRN Q5MIN PRN SL CHEST PAIN 06/30/21 15:30 Oxycodone HCl (Roxicodone) 2.5 mg PRN Q4HRS PRN PO PAIN 06/30/21 15:30 07/07/21 15:11 Pantoprazole Sodium (Protonix) 40 mg DAILYAC PO 07/01/21 07:30 07/08/21 08:07 Risperidone (RisperDAL M) 0.5 mg BID PO 06/30/21 21:00 06/30/21 19:42 DC Sertraline HCl (Zoloft) 50 mg DAILY PO 07/01/21 09:00 07/01/21 11:58 DC 07/01/21 08:36 Ziprasidone (Geodon) 20 mg 1600 PO 06/30/21 16:00 06/30/21 19:42 DC Ziprasidone (Geodon) 20 mg DAILY PO 07/01/21 09:00 06/30/21 19:42 DC Ferrous Sulfate (Feosol) 325 mg DAILY PO 07/01/21 09:00 07/08/21 08:06 Insulin Glargine (Lantus Syringe) 16 unit DAILY SQ 07/01/21 09:00 07/08/21 11:05 Ondansetron HCl (Zofran Odt) 4 mg PRN Q4HRS PRN PO NAUSEA/VOMITING 06/30/21 16:15 Oxycodone HCl (Roxicodone) 5 mg BID PO 06/30/21 21:00 07/08/21 20:25 Non-Formulary Medication (Rivaroxaban (Xarelto)) 20 mg 1700 PO 06/30/21 17:00 07/01/21 17:35 DC Linagliptin (Tradjenta) 5 mg DAILY PO 07/01/21 09:00 07/08/21 08:05 Non-Formulary Medication (Tea Tree Oil ([place] Tea Tree Oil)) 1 demetria DAILY TP 07/01/21 09:00 06/30/21 16:14 DC Non-Formulary Medication (Vit E Acetate/ Gly/Dimeth/Water (Cetaphil Moisturizing Lotion)) 1 demetria DAILY TP 07/01/21 09:00 06/30/21 16:14 DC Olanzapine (ZyPREXA ZYDIS) 2.5 mg PRN Q2HR PRN PO PSYCHOSIS 06/30/21 15:30 07/06/21 14:08 Quetiapine Fumarate (SEROquel) 50 mg HS PO 06/30/21 21:00 07/08/21 20:22 Quetiapine Fumarate (SEROquel) 25 mg 0900,1300,1700 PO 07/01/21 09:00 07/03/21 19:55 DC 07/03/21 16:46 Trazodone HCl (Desyrel) 50 mg PRN QHS PRN PO insomnia 06/30/21 19:45 07/06/21 20:29 Furosemide (Lasix) 40 mg DAILY PO 07/01/21 09:00 07/08/21 08:06 Sertraline HCl (Zoloft) 75 mg DAILY PO 07/02/21 09:00 07/08/21 08:05 Tamsulosin HCl (Flomax) 0.4 mg QHS PO 07/01/21 21:00 07/08/21 20:23 Finasteride (Proscar) 5 mg DAILY PO 07/02/21 09:00 07/08/21 08:07 Divalproex Sodium (Depakote Sprinkles) 250 mg DAILY PO 07/02/21 09:00 07/08/21 21:24 DC 07/08/21 08:06 Divalproex Sodium (Depakote Sprinkles) 500 mg DAILY16 PO 07/02/21 16:00 07/08/21 21:24 DC 07/08/21 17:25 Alprazolam (Xanax) 0.25 mg TID PO 07/03/21 09:00 07/05/21 19:52 DC 07/05/21 13:40 Naloxegol (Movantik) 25 mg DAILY07 PO 07/04/21 07:00 07/09/21 05:47 Quetiapine Fumarate (SEROquel) 25 mg BID@0900,1700 PO 07/04/21 09:00 07/08/21 02:00 DC 07/07/21 16:55 Alprazolam (Xanax) 0.25 mg BID PO 07/06/21 09:00 07/08/21 22:00 DC 07/08/21 20:26 Alprazolam (Xanax) 0.25 mg DAILY PO 07/09/21 09:00 07/11/21 10:00 Quetiapine Fumarate (SEROquel) 25 mg DAILY PO 07/08/21 09:00 07/08/21 08:05 Quetiapine Fumarate (SEROquel) 50 mg DAILY@1700 PO 07/08/21 17:00 07/08/21 17:24 Tamsulosin HCl (Flomax) 0.4 mg QHS PO 07/08/21 21:00 07/08/21 21:17 DC Divalproex Sodium (Depakote Sprinkles) 500 mg DAILY PO 07/09/21 09:00 Divalproex Sodium (Depakote Sprinkles) 500 mg DAILY@1700 PO 07/09/21 17:00 Current Medications Medications (Trade) Dose Ordered Sig/Shannon Route PRN Reason Start Time Stop Time Status Last Admin Dose Admin Quetiapine Fumarate (SEROquel) 25 mg DAILY PO 07/08/21 09:00 07/08/21 08:05 Quetiapine Fumarate (SEROquel) 50 mg DAILY@1700 PO 07/08/21 17:00 07/08/21 17:24 I have reviewed the current psychotropics carefully including drug interactions. Risk benefit ratio favors no change other than as noted in my dictated progress note. Diagnosis: Problems: (1) Major neurocognitive disorder (2) Dementia in Alzheimer's disease with early onset with behavioral disturbance (3) Impulse control disorder, unspecified (4) Anxiety disorder, unspecified (5) Dementia, vascular, with depression (6) Dementia, vascular, with delusions (7) Dementia in Alzheimer's disease with depression (8) Dementia in Alzheimer's disease with delusions (9) Urinary retention HUNTER MEZA MD Jul 09, 2021 08:24
--- NOTE | 2021-07-09 08:36 | PDOC ---
Exam Note: Kam Note: This note is a late entry for 07/07/2021 covers elements not covered in my initial note. Subjective: The patient was seen individually in the evening of 07/07/2021 with Hussein SANAT, discussed and reviewed the chart. The patient slept 6-1/4 hours previous night. He has had intermittent hallucinations, talking about a girl in a box. He remains confused. I met with him in the dayroom. Review of Systems: Positive for urinary retention. Impaired ambulation. No CV, , pulmonary, ENT system symptoms on review. Mental Status Exam: The patient is oriented to himself and situation. I met with him in his room. Speech coherent. Abstraction fair. Computation impaired. Language function intact. Mood and affect somewhat withdrawn. Laboratory Data: Reviewed. Impression: Major neurocognitive disorder, Alzheimer, vascular with delusion, depression behavioral disturbance. Anxiety disorder unspecified. Impulse control disorder unchanged. Plan: He is currently on Seroquel 50 mg h.s. and 25 mg 0900 and 1700 hours. We will increase the 1700 Seroquel to 50 mg. Maintain rest unchanged. Assessment: Vital Signs/I&O: Vital Signs Date Time Temp Pulse Resp B/P (MAP) Pulse Ox O2 Delivery O2 Flow Rate FiO2 07/09/21 05:37 97.8 86 18 105/58 (74) 92 Room Air I & O 07/08/21 07/08/21 07/09/21 15:00 23:00 07:00 Intake Total 240 ml 360 ml Output Total 900 ml 725 ml Balance 240 ml -540 ml -725 ml Labs: Laboratory Tests Test 07/09/21 07:16 Glucose (Fingerstick) 107 mg/dL (70-99) H Current Medications: Meds: Laboratory Tests Test 07/09/21 07:16 Glucose (Fingerstick) 107 mg/dL Current Medications Medications (Trade) Dose Ordered Sig/Shannon Route PRN Reason Start Time Stop Time Status Last Admin Dose Admin Multi-Ingredient Ointment (Analgesic [place]) 1 demetria PRN QID PRN TP MUSCLE PAIN 06/30/21 15:15 Al Hydroxide/Mg Hydroxide (Mylanta Plus Xs) 15 ml PRN AFTMEALHC PRN PO DYSPEPSIA 06/30/21 15:15 Magnesium Hydroxide (Milk Of Magnesia) 2,400 mg PRN QHS PRN PO 2ND CHOICE CONSTIPATION 06/30/21 15:15 07/07/21 06:01 Acetaminophen (Tylenol) 500 mg BID PO 06/30/21 21:00 07/08/21 20:25 Albuterol Sulfate (Ventolin) 2.5 mg PRN Q4HRS PRN IH FOR ASTHMA 06/30/21 15:30 Alprazolam (Xanax) 0.5 mg TID PO 06/30/21 21:00 07/02/21 22:42 DC 07/02/21 20:38 Buspirone HCl (Buspar) 10 mg BID PO 06/30/21 21:00 07/08/21 20:23 Cyclobenzaprine HCl (Flexeril) 10 mg TID PO 06/30/21 21:00 07/08/21 20:27 Divalproex Sodium (Depakote Er) 250 mg BID PO 06/30/21 21:00 07/01/21 20:14 DC 07/01/21 08:36 Docusate Sodium (Colace) 200 mg PRN DAILY PRN PO 1ST CHOICE CONSTIPATION 06/30/21 15:30 07/05/21 08:12 Furosemide (Lasix) 40 mg BID PO 06/30/21 21:00 07/01/21 02:03 DC Haloperidol (Haldol) 1 mg PRN Q6HRS PRN PO ANXIETY / AGITATION 06/30/21 16:00 07/05/21 22:18 Haloperidol (Haldol) 2 mg TID PO 06/30/21 21:00 06/30/21 19:42 DC Hyoscyamine (Anaspaz) 0.125 mg PRN Q2HR PRN PO SECRETIONS 06/30/21 15:30 Loperamide HCl (Imodium) 2 mg PRN Q3HRS PRN PO DIARRHEA 06/30/21 15:30 Metoprolol Tartrate (Lopressor) 25 mg BID PO 06/30/21 21:00 07/08/21 20:25 Nicotine (Nicoderm Cq 14mg Patch) 1 patch DAILY TD 07/01/21 09:00 07/08/21 08:07 Nitroglycerin (Nitrostat) 0.4 mg PRN Q5MIN PRN SL CHEST PAIN 06/30/21 15:30 Oxycodone HCl (Roxicodone) 2.5 mg PRN Q4HRS PRN PO PAIN 06/30/21 15:30 07/07/21 15:11 Pantoprazole Sodium (Protonix) 40 mg DAILYAC PO 07/01/21 07:30 07/08/21 08:07 Risperidone (RisperDAL M) 0.5 mg BID PO 06/30/21 21:00 06/30/21 19:42 DC Sertraline HCl (Zoloft) 50 mg DAILY PO 07/01/21 09:00 07/01/21 11:58 DC 07/01/21 08:36 Ziprasidone (Geodon) 20 mg 1600 PO 06/30/21 16:00 06/30/21 19:42 DC Ziprasidone (Geodon) 20 mg DAILY PO 07/01/21 09:00 06/30/21 19:42 DC Ferrous Sulfate (Feosol) 325 mg DAILY PO 07/01/21 09:00 07/08/21 08:06 Insulin Glargine (Lantus Syringe) 16 unit DAILY SQ 07/01/21 09:00 07/08/21 11:05 Ondansetron HCl (Zofran Odt) 4 mg PRN Q4HRS PRN PO NAUSEA/VOMITING 06/30/21 16:15 Oxycodone HCl (Roxicodone) 5 mg BID PO 06/30/21 21:00 07/08/21 20:25 Non-Formulary Medication (Rivaroxaban (Xarelto)) 20 mg 1700 PO 06/30/21 17:00 07/01/21 17:35 DC Linagliptin (Tradjenta) 5 mg DAILY PO 07/01/21 09:00 07/08/21 08:05 Non-Formulary Medication (Tea Tree Oil ([place] Tea Tree Oil)) 1 demetria DAILY TP 07/01/21 09:00 06/30/21 16:14 DC Non-Formulary Medication (Vit E Acetate/ Gly/Dimeth/Water (Cetaphil Moisturizing Lotion)) 1 demetria DAILY TP 07/01/21 09:00 06/30/21 16:14 DC Olanzapine (ZyPREXA ZYDIS) 2.5 mg PRN Q2HR PRN PO PSYCHOSIS 06/30/21 15:30 07/06/21 14:08 Quetiapine Fumarate (SEROquel) 50 mg HS PO 06/30/21 21:00 07/08/21 20:22 Quetiapine Fumarate (SEROquel) 25 mg 0900,1300,1700 PO 07/01/21 09:00 07/03/21 19:55 DC 07/03/21 16:46 Trazodone HCl (Desyrel) 50 mg PRN QHS PRN PO insomnia 06/30/21 19:45 07/06/21 20:29 Furosemide (Lasix) 40 mg DAILY PO 07/01/21 09:00 07/08/21 08:06 Sertraline HCl (Zoloft) 75 mg DAILY PO 07/02/21 09:00 07/08/21 08:05 Tamsulosin HCl (Flomax) 0.4 mg QHS PO 07/01/21 21:00 07/08/21 20:23 Finasteride (Proscar) 5 mg DAILY PO 07/02/21 09:00 07/08/21 08:07 Divalproex Sodium (Depakote Sprinkles) 250 mg DAILY PO 07/02/21 09:00 07/08/21 21:24 DC 07/08/21 08:06 Divalproex Sodium (Depakote Sprinkles) 500 mg DAILY16 PO 07/02/21 16:00 07/08/21 21:24 DC 07/08/21 17:25 Alprazolam (Xanax) 0.25 mg TID PO 07/03/21 09:00 07/05/21 19:52 DC 07/05/21 13:40 Naloxegol (Movantik) 25 mg DAILY07 PO 07/04/21 07:00 07/09/21 05:47 Quetiapine Fumarate (SEROquel) 25 mg BID@0900,1700 PO 07/04/21 09:00 07/08/21 02:00 DC 07/07/21 16:55 Alprazolam (Xanax) 0.25 mg BID PO 07/06/21 09:00 07/08/21 22:00 DC 07/08/21 20:26 Alprazolam (Xanax) 0.25 mg DAILY PO 07/09/21 09:00 07/11/21 10:00 Quetiapine Fumarate (SEROquel) 25 mg DAILY PO 07/08/21 09:00 07/08/21 08:05 Quetiapine Fumarate (SEROquel) 50 mg DAILY@1700 PO 07/08/21 17:00 07/08/21 17:24 Tamsulosin HCl (Flomax) 0.4 mg QHS PO 07/08/21 21:00 07/08/21 21:17 DC Divalproex Sodium (Depakote Sprinkles) 500 mg DAILY PO 07/09/21 09:00 Divalproex Sodium (Depakote Sprinkles) 500 mg DAILY@1700 PO 07/09/21 17:00 Current Medications Medications (Trade) Dose Ordered Sig/Shannon Route PRN Reason Start Time Stop Time Status Last Admin Dose Admin Quetiapine Fumarate (SEROquel) 25 mg DAILY PO 07/08/21 09:00 07/08/21 08:05 Quetiapine Fumarate (SEROquel) 50 mg DAILY@1700 PO 07/08/21 17:00 07/08/21 17:24 I have reviewed the current psychotropics carefully including drug interactions. Risk benefit ratio favors no change other than as noted in my dictated progress note. Diagnosis: Problems: (1) Major neurocognitive disorder (2) Impulse control disorder, unspecified (3) Anxiety disorder, unspecified (4) Dementia, vascular, with depression (5) Dementia, vascular, with delusions (6) Dementia in Alzheimer's disease with depression (7) Dementia in Alzheimer's disease with delusions (8) Urinary retention (9) Dementia in Alzheimer's disease with early onset with behavioral disturbance HUNTER MEZA MD Jul 09, 2021 08:36
[2021-07-09] MEDS: INSULIN GLARGINE SYRINGE. SQ SCH (09:25)
[2021-07-09] MEDS: NICOTINE 14MG PATCH. TD SCH (09:27)
[2021-07-09] MEDS: SERTRALINE 25 MG TABLET. PO SCH (09:27)
[2021-07-09] MEDS: FINASTERIDE 5 MG TABLET. PO SCH (09:27)
[2021-07-09] MEDS: METOPROLOL TART IMMED RELEASE 25 MG TABLET. PO SCH ×2 (09:27→19:38)
[2021-07-09] MEDS: oxyCODONE IR 5 MG TABLET PO SCH ×2 (09:28→19:37)
[2021-07-09] MEDS: FERROUS SULFATE 325 MG TABLET. PO SCH (09:28)
[2021-07-09] MEDS: QUEtiapine 25 MG TABLET. PO SCH ×2 (09:28→16:59)
[2021-07-09] MEDS: ALPRAZolam 0.25 MG TABLET PO SCH (09:28)
[2021-07-09] MEDS: CYCLOBENZAPRINE 10 MG TABLET. PO SCH ×3 (09:28→19:37)
[2021-07-09] MEDS: ACETAMINOPHEN 500 MG TABLET PO SCH ×2 (09:28→19:38)
[2021-07-09] MEDS: busPIRone 10 MG TABLET. PO SCH ×2 (09:28→19:37)
[2021-07-09] MEDS: LINAGLIPTIN 5 MG TABLET PO SCH (09:28)
[2021-07-09] MEDS: PANTOPRAZOLE 40 MG TABLET. PO SCH (09:29)
[2021-07-09] MEDS: FUROSEMIDE 40 MG TABLET PO SCH (09:29)
[2021-07-09] MEDS: DIVALPROEX 125 MG CAP.SPRINK PO SCH ×2 (09:29→16:59)
--- NOTE | 2021-07-09 12:49 | NUR ---
RN Day Shift Note: Pt presents with a neutral mood/affect. Pt is medication compliant. Pt is low-odonnell on the unit today. Pt is noted to spend time in the day room with peers and staff. Pt's vitals are WNL. Pt continues to have a good appetite eating between 75%-100% of meals today. Pt slept 6.5 hours last night. Will continue to monitor.
[2021-07-09 15:31] VITALS: BP 98/59
--- NOTE | 2021-07-09 15:33 | NUR ---
Pt was catheterized for urination, 100 ml came out. Pt had been encouraged to toilet beforehand. Pt was asked if he had in fact, urinated in the toilet and he stated, "I went to the bathroom and flushed." Pt was asked if his bladder felt empty and pt answered, "yes".
[2021-07-09] MEDS: QUEtiapine 50 MG TABLET. PO SCH (19:37)
[2021-07-09] MEDS: TAMSULOSIN 0.4 MG CAP.ER.24H. PO SCH (19:38)
--- NOTE | 2021-07-09 20:44 | PDOC ---
Exam Note: Kam Note: Please also refer to the separate dictated note~for this date of service dictated separately.~Patient seen individually. Discussed the patient with Nursing staff reviewed the chart.~Reviewed interim history and current functioning. Reviewed vital signs,~Labs/ Radiology~and current medications noted below. Continue current treatment with the changes noted in the dictated addendum note Assessment: Vital Signs/I&O: Vital Signs Date Time Temp Pulse Resp B/P (MAP) Pulse Ox O2 Delivery O2 Flow Rate FiO2 07/09/21 20:10 97 07/09/21 19:38 84 98/59 07/09/21 15:31 97.3 20 Room Air I & O 07/08/21 07/08/21 07/09/21 15:00 23:00 07:00 Intake Total 240 ml 360 ml Output Total 900 ml 725 ml Balance 240 ml -540 ml -725 ml Labs: Laboratory Tests Test 07/09/21 07:16 07/09/21 19:47 Glucose (Fingerstick) 107 mg/dL (70-99) H 134 mg/dL (70-99) H Current Medications: Meds: Laboratory Tests Test 07/09/21 07:16 07/09/21 19:47 Glucose (Fingerstick) 107 mg/dL 134 mg/dL Current Medications Medications (Trade) Dose Ordered Sig/Shannon Route PRN Reason Start Time Stop Time Status Last Admin Dose Admin Multi-Ingredient Ointment (Analgesic [place]) 1 demetria PRN QID PRN TP MUSCLE PAIN 06/30/21 15:15 Al Hydroxide/Mg Hydroxide (Mylanta Plus Xs) 15 ml PRN AFTMEALHC PRN PO DYSPEPSIA 06/30/21 15:15 Magnesium Hydroxide (Milk Of Magnesia) 2,400 mg PRN QHS PRN PO 2ND CHOICE CONSTIPATION 06/30/21 15:15 07/07/21 06:01 Acetaminophen (Tylenol) 500 mg BID PO 06/30/21 21:00 07/09/21 19:38 Albuterol Sulfate (Ventolin) 2.5 mg PRN Q4HRS PRN IH FOR ASTHMA 06/30/21 15:30 Alprazolam (Xanax) 0.5 mg TID PO 06/30/21 21:00 07/02/21 22:42 DC 07/02/21 20:38 Buspirone HCl (Buspar) 10 mg BID PO 06/30/21 21:00 07/09/21 19:37 Cyclobenzaprine HCl (Flexeril) 10 mg TID PO 06/30/21 21:00 07/09/21 19:37 Divalproex Sodium (Depakote Er) 250 mg BID PO 06/30/21 21:00 07/01/21 20:14 DC 07/01/21 08:36 Docusate Sodium (Colace) 200 mg PRN DAILY PRN PO 1ST CHOICE CONSTIPATION 06/30/21 15:30 07/05/21 08:12 Furosemide (Lasix) 40 mg BID PO 06/30/21 21:00 07/01/21 02:03 DC Haloperidol (Haldol) 1 mg PRN Q6HRS PRN PO ANXIETY / AGITATION 06/30/21 16:00 07/05/21 22:18 Haloperidol (Haldol) 2 mg TID PO 06/30/21 21:00 06/30/21 19:42 DC Hyoscyamine (Anaspaz) 0.125 mg PRN Q2HR PRN PO SECRETIONS 06/30/21 15:30 Loperamide HCl (Imodium) 2 mg PRN Q3HRS PRN PO DIARRHEA 06/30/21 15:30 Metoprolol Tartrate (Lopressor) 25 mg BID PO 06/30/21 21:00 07/09/21 09:27 Nicotine (Nicoderm Cq 14mg Patch) 1 patch DAILY TD 07/01/21 09:00 07/09/21 09:27 Nitroglycerin (Nitrostat) 0.4 mg PRN Q5MIN PRN SL CHEST PAIN 06/30/21 15:30 Oxycodone HCl (Roxicodone) 2.5 mg PRN Q4HRS PRN PO PAIN 06/30/21 15:30 07/07/21 15:11 Pantoprazole Sodium (Protonix) 40 mg DAILYAC PO 07/01/21 07:30 07/09/21 09:29 Risperidone (RisperDAL M) 0.5 mg BID PO 06/30/21 21:00 06/30/21 19:42 DC Sertraline HCl (Zoloft) 50 mg DAILY PO 07/01/21 09:00 07/01/21 11:58 DC 07/01/21 08:36 Ziprasidone (Geodon) 20 mg 1600 PO 06/30/21 16:00 06/30/21 19:42 DC Ziprasidone (Geodon) 20 mg DAILY PO 07/01/21 09:00 06/30/21 19:42 DC Ferrous Sulfate (Feosol) 325 mg DAILY PO 07/01/21 09:00 07/09/21 09:28 Insulin Glargine (Lantus Syringe) 16 unit DAILY SQ 07/01/21 09:00 07/09/21 09:25 Ondansetron HCl (Zofran Odt) 4 mg PRN Q4HRS PRN PO NAUSEA/VOMITING 06/30/21 16:15 Oxycodone HCl (Roxicodone) 5 mg BID PO 06/30/21 21:00 07/09/21 19:37 Non-Formulary Medication (Rivaroxaban (Xarelto)) 20 mg 1700 PO 06/30/21 17:00 07/01/21 17:35 DC Linagliptin (Tradjenta) 5 mg DAILY PO 07/01/21 09:00 07/09/21 09:28 Non-Formulary Medication (Tea Tree Oil ([place] Tea Tree Oil)) 1 demetria DAILY TP 07/01/21 09:00 06/30/21 16:14 DC Non-Formulary Medication (Vit E Acetate/ Gly/Dimeth/Water (Cetaphil Moisturizing Lotion)) 1 demetria DAILY TP 07/01/21 09:00 06/30/21 16:14 DC Olanzapine (ZyPREXA ZYDIS) 2.5 mg PRN Q2HR PRN PO PSYCHOSIS 06/30/21 15:30 07/06/21 14:08 Quetiapine Fumarate (SEROquel) 50 mg HS PO 06/30/21 21:00 07/09/21 19:37 Quetiapine Fumarate (SEROquel) 25 mg 0900,1300,1700 PO 07/01/21 09:00 07/03/21 19:55 DC 07/03/21 16:46 Trazodone HCl (Desyrel) 50 mg PRN QHS PRN PO insomnia 06/30/21 19:45 07/06/21 20:29 Furosemide (Lasix) 40 mg DAILY PO 07/01/21 09:00 07/09/21 09:29 Sertraline HCl (Zoloft) 75 mg DAILY PO 07/02/21 09:00 07/09/21 09:27 Tamsulosin HCl (Flomax) 0.4 mg QHS PO 07/01/21 21:00 07/09/21 19:38 Finasteride (Proscar) 5 mg DAILY PO 07/02/21 09:00 07/09/21 09:27 Divalproex Sodium (Depakote Sprinkles) 250 mg DAILY PO 07/02/21 09:00 07/08/21 21:24 DC 07/08/21 08:06 Divalproex Sodium (Depakote Sprinkles) 500 mg DAILY16 PO 07/02/21 16:00 07/08/21 21:24 DC 07/08/21 17:25 Alprazolam (Xanax) 0.25 mg TID PO 07/03/21 09:00 07/05/21 19:52 DC 07/05/21 13:40 Naloxegol (Movantik) 25 mg DAILY07 PO 07/04/21 07:00 07/09/21 05:47 Quetiapine Fumarate (SEROquel) 25 mg BID@0900,1700 PO 07/04/21 09:00 07/08/21 02:00 DC 07/07/21 16:55 Alprazolam (Xanax) 0.25 mg BID PO 07/06/21 09:00 07/08/21 22:00 DC 07/08/21 20:26 Alprazolam (Xanax) 0.25 mg DAILY PO 07/09/21 09:00 07/11/21 10:00 07/09/21 09:28 Quetiapine Fumarate (SEROquel) 25 mg DAILY PO 07/08/21 09:00 07/09/21 09:28 Quetiapine Fumarate (SEROquel) 50 mg DAILY@1700 PO 07/08/21 17:00 07/09/21 16:59 Tamsulosin HCl (Flomax) 0.4 mg QHS PO 07/08/21 21:00 07/08/21 21:17 DC Divalproex Sodium (Depakote Sprinkles) 500 mg DAILY PO 07/09/21 09:00 07/09/21 09:29 Divalproex Sodium (Depakote Sprinkles) 500 mg DAILY@1700 PO 07/09/21 17:00 07/09/21 16:59 Current Medications Medications (Trade) Dose Ordered Sig/Shannon Route PRN Reason Start Time Stop Time Status Last Admin Dose Admin Alprazolam (Xanax) 0.25 mg DAILY PO 07/09/21 09:00 07/11/21 10:00 07/09/21 09:28 Divalproex Sodium (Depakote Sprinkles) 500 mg DAILY PO 07/09/21 09:00 07/09/21 09:29 Divalproex Sodium (Depakote Sprinkles) 500 mg DAILY@1700 PO 07/09/21 17:00 07/09/21 16:59 I have reviewed the current psychotropics carefully including drug interactions. Risk benefit ratio favors no change other than as noted in my dictated progress note. Diagnosis: Problems: (1) Major neurocognitive disorder (2) Dementia in Alzheimer's disease with early onset with behavioral disturbance (3) Impulse control disorder, unspecified (4) Anxiety disorder, unspecified (5) Dementia, vascular, with depression (6) Dementia, vascular, with delusions (7) Dementia in Alzheimer's disease with depression (8) Dementia in Alzheimer's disease with delusions (9) Urinary retention HUNTER MEZA MD Jul 09, 2021 20:44
[2021-07-09] MEDS: oxyCODONE IR 5 MG TABLET PO PRN (22:48)
--- NOTE | 2021-07-09 23:21 | NUR ---
Patient is located outside the [facility] on assumption of care, sitting in a wheelchair next to a peer. He is in pleasant spirits this evening. When approached for assessments, he was cooperative and compliant with medications given crushed in chocolate pudding. Cooperative with HS cares. No physical or verbal aggression so far this shift. Patient has not voiced any hallucinations. Patient complained of breakthrough right shoulder pain, received PRN Roxicodone at 2250, with good effect. He appears to be sleeping comfortably at present time. Will continue to monitor.
[2021-07-10] MEDS: traZODone 50 MG TABLET. PO PRN ×3 (00:29→19:55)
[2021-07-10] MEDS: NALOXEGOL OXALATE 25 MG TABLET. PO SCH (05:33)
[2021-07-10 05:42] VITALS: BP 115/69
--- NOTE | 2021-07-10 07:37 | PDOC ---
Exam Note: Kam Note: This note is a late entry for 07/08/2021 covers elements not covered in my initial note. Subjective: The patient was seen individually in the evening of 07/08/2021 with Carter SANTA, discussed and reviewed the chart. The patient slept 6-3/4 hours previous night. He has had a difficult day. He has been agitated and aggressive, reportedly he ripped opened the hand of one of the nursing aids and nursing aid had to go to the emergency room for treatment. He was hallucinating in the morning, agitated, confused. Review of Systems: Ambulation impaired, in wheelchair. No CV, , pulmonary, ENT system symptoms on review. Reliability poor. Mental Status Exam: The patient is oriented to himself. Insight and judgment, recent and remote memory, attention and concentration, fund of knowledge is poor consistent with his diagnoses. Laboratory Data: Reviewed. Impression: Major neurocognitive disorder, Alzheimer, vascular with delusion, depression behavioral disturbance. Anxiety disorder unspecified. Impulse control disorder unspecified. Plan: Valproic acid level is 37 on Depakote 250 mg 0900 and 500 mg at 1600 hours. We will increase Depakote to 500 mg 9 a.m. and 5 p.m. Check CBC, CMP, valproic acid level in 3 days. Maintain rest of the psychotropics unchanged for now. We will reach therapeutic valproic acid level, if behaviors persist despite this we will adjust Seroquel further. Rest unchanged for now. Assessment: Vital Signs/I&O: Vital Signs Date Time Temp Pulse Resp B/P (MAP) Pulse Ox O2 Delivery O2 Flow Rate FiO2 07/10/21 05:42 97.2 98 16 115/69 (84) 93 07/09/21 15:31 Room Air I & O 0 07/09/21 07/09/21 07/10/21 15:00 23:00 07:00 Intake Total 480 ml 480 ml Balance 480 ml 480 ml Labs: Laboratory Tests Test 07/09/21 19:47 Glucose (Fingerstick) 134 mg/dL (70-99) H Current Medications: Meds: Laboratory Tests Test 07/09/21 19:47 Glucose (Fingerstick) 134 mg/dL Current Medications Medications (Trade) Dose Ordered Sig/Shannon Route PRN Reason Start Time Stop Time Status Last Admin Dose Admin Multi-Ingredient Ointment (Analgesic [place]) 1 demetria PRN QID PRN TP MUSCLE PAIN 06/30/21 15:15 Al Hydroxide/Mg Hydroxide (Mylanta Plus Xs) 15 ml PRN AFTMEALHC PRN PO DYSPEPSIA 06/30/21 15:15 Magnesium Hydroxide (Milk Of Magnesia) 2,400 mg PRN QHS PRN PO 2ND CHOICE CONSTIPATION 06/30/21 15:15 07/07/21 06:01 Acetaminophen (Tylenol) 500 mg BID PO 06/30/21 21:00 07/09/21 19:38 Albuterol Sulfate (Ventolin) 2.5 mg PRN Q4HRS PRN IH FOR ASTHMA 06/30/21 15:30 Alprazolam (Xanax) 0.5 mg TID PO 06/30/21 21:00 07/02/21 22:42 DC 07/02/21 20:38 Buspirone HCl (Buspar) 10 mg BID PO 06/30/21 21:00 07/09/21 19:37 Cyclobenzaprine HCl (Flexeril) 10 mg TID PO 06/30/21 21:00 07/09/21 19:37 Divalproex Sodium (Depakote Er) 250 mg BID PO 06/30/21 21:00 07/01/21 20:14 DC 07/01/21 08:36 Docusate Sodium (Colace) 200 mg PRN DAILY PRN PO 1ST CHOICE CONSTIPATION 06/30/21 15:30 07/05/21 08:12 Furosemide (Lasix) 40 mg BID PO 06/30/21 21:00 07/01/21 02:03 DC Haloperidol (Haldol) 1 mg PRN Q6HRS PRN PO ANXIETY / AGITATION 06/30/21 16:00 07/05/21 22:18 Haloperidol (Haldol) 2 mg TID PO 06/30/21 21:00 06/30/21 19:42 DC Hyoscyamine (Anaspaz) 0.125 mg PRN Q2HR PRN PO SECRETIONS 06/30/21 15:30 Loperamide HCl (Imodium) 2 mg PRN Q3HRS PRN PO DIARRHEA 06/30/21 15:30 Metoprolol Tartrate (Lopressor) 25 mg BID PO 06/30/21 21:00 07/09/21 09:27 Nicotine (Nicoderm Cq 14mg Patch) 1 patch DAILY TD 07/01/21 09:00 07/09/21 09:27 Nitroglycerin (Nitrostat) 0.4 mg PRN Q5MIN PRN SL CHEST PAIN 06/30/21 15:30 Oxycodone HCl (Roxicodone) 2.5 mg PRN Q4HRS PRN PO PAIN 06/30/21 15:30 07/09/21 22:48 Pantoprazole Sodium (Protonix) 40 mg DAILYAC PO 07/01/21 07:30 07/09/21 09:29 Risperidone (RisperDAL M) 0.5 mg BID PO 06/30/21 21:00 06/30/21 19:42 DC Sertraline HCl (Zoloft) 50 mg DAILY PO 07/01/21 09:00 07/01/21 11:58 DC 07/01/21 08:36 Ziprasidone (Geodon) 20 mg 1600 PO 06/30/21 16:00 06/30/21 19:42 DC Ziprasidone (Geodon) 20 mg DAILY PO 07/01/21 09:00 06/30/21 19:42 DC Ferrous Sulfate (Feosol) 325 mg DAILY PO 07/01/21 09:00 07/09/21 09:28 Insulin Glargine (Lantus Syringe) 16 unit DAILY SQ 07/01/21 09:00 07/09/21 09:25 Ondansetron HCl (Zofran Odt) 4 mg PRN Q4HRS PRN PO NAUSEA/VOMITING 06/30/21 16:15 Oxycodone HCl (Roxicodone) 5 mg BID PO 06/30/21 21:00 07/09/21 19:37 Non-Formulary Medication (Rivaroxaban (Xarelto)) 20 mg 1700 PO 06/30/21 17:00 07/01/21 17:35 DC Linagliptin (Tradjenta) 5 mg DAILY PO 07/01/21 09:00 07/09/21 09:28 Non-Formulary Medication (Tea Tree Oil ([place] Tea Tree Oil)) 1 demetria DAILY TP 07/01/21 09:00 06/30/21 16:14 DC Non-Formulary Medication (Vit E Acetate/ Gly/Dimeth/Water (Cetaphil Moisturizing Lotion)) 1 demetria DAILY TP 07/01/21 09:00 06/30/21 16:14 DC Olanzapine (ZyPREXA ZYDIS) 2.5 mg PRN Q2HR PRN PO PSYCHOSIS 06/30/21 15:30 07/10/21 01:44 Quetiapine Fumarate (SEROquel) 50 mg HS PO 06/30/21 21:00 07/09/21 19:37 Quetiapine Fumarate (SEROquel) 25 mg 0900,1300,1700 PO 07/01/21 09:00 07/03/21 19:55 DC 07/03/21 16:46 Trazodone HCl (Desyrel) 50 mg PRN QHS PRN PO insomnia 06/30/21 19:45 07/10/21 01:44 Furosemide (Lasix) 40 mg DAILY PO 07/01/21 09:00 07/09/21 09:29 Sertraline HCl (Zoloft) 75 mg DAILY PO 07/02/21 09:00 07/09/21 09:27 Tamsulosin HCl (Flomax) 0.4 mg QHS PO 07/01/21 21:00 07/09/21 19:38 Finasteride (Proscar) 5 mg DAILY PO 07/02/21 09:00 07/09/21 09:27 Divalproex Sodium (Depakote Sprinkles) 250 mg DAILY PO 07/02/21 09:00 07/08/21 21:24 DC 07/08/21 08:06 Divalproex Sodium (Depakote Sprinkles) 500 mg DAILY16 PO 07/02/21 16:00 07/08/21 21:24 DC 07/08/21 17:25 Alprazolam (Xanax) 0.25 mg TID PO 07/03/21 09:00 07/05/21 19:52 DC 07/05/21 13:40 Naloxegol (Movantik) 25 mg DAILY07 PO 07/04/21 07:00 07/10/21 05:33 Quetiapine Fumarate (SEROquel) 25 mg BID@0900,1700 PO 07/04/21 09:00 07/08/21 02:00 DC 07/07/21 16:55 Alprazolam (Xanax) 0.25 mg BID PO 07/06/21 09:00 07/08/21 22:00 DC 07/08/21 20:26 Alprazolam (Xanax) 0.25 mg DAILY PO 07/09/21 09:00 07/11/21 10:00 07/09/21 09:28 Quetiapine Fumarate (SEROquel) 25 mg DAILY PO 07/08/21 09:00 07/09/21 09:28 Quetiapine Fumarate (SEROquel) 50 mg DAILY@1700 PO 07/08/21 17:00 07/09/21 16:59 Tamsulosin HCl (Flomax) 0.4 mg QHS PO 07/08/21 21:00 07/08/21 21:17 DC Divalproex Sodium (Depakote Sprinkles) 500 mg DAILY PO 07/09/21 09:00 07/09/21 09:29 Divalproex Sodium (Depakote Sprinkles) 500 mg DAILY@1700 PO 07/09/21 17:00 07/09/21 16:59 Current Medications Medications (Trade) Dose Ordered Sig/Shannon Route PRN Reason Start Time Stop Time Status Last Admin Dose Admin Alprazolam (Xanax) 0.25 mg DAILY PO 07/09/21 09:00 07/11/21 10:00 07/09/21 09:28 Divalproex Sodium (Depakote Sprinkles) 500 mg DAILY PO 07/09/21 09:00 07/09/21 09:29 Divalproex Sodium (Depakote Sprinkles) 500 mg DAILY@1700 PO 07/09/21 17:00 07/09/21 16:59 I have reviewed the current psychotropics carefully including drug interactions. Risk benefit ratio favors no change other than as noted in my dictated progress note. Diagnosis: Problems: (1) Major neurocognitive disorder (2) Dementia in Alzheimer's disease with early onset with behavioral disturbance (3) Impulse control disorder, unspecified (4) Anxiety disorder, unspecified (5) Dementia, vascular, with depression (6) Dementia, vascular, with delusions (7) Dementia in Alzheimer's disease with depression (8) Dementia in Alzheimer's disease with delusions HUNTER MEZA MD Jul 10, 2021 07:37
--- NOTE | 2021-07-10 08:01 | PDOC ---
Exam Note: Kam Note: This note is a late entry for 07/09/2021 covers elements not covered in my initial note. Subjective: The patient was seen individually in the evening of 07/09/2021 with Reece SANTA, discussed and reviewed the chart. The patient slept 6-1/2 hours previous night. Overall he is doing about the same. He is confused but not aggressive. He wheels himself around the unit in a wheelchair. Review of Systems: Ambulation impaired in wheelchair. No CV, , pulmonary, eye, ENT system symptoms on review. Mental Status Exam: The patient is oriented to himself and situation. Speech coherent. Abstraction fair. Computation impaired. Language function intact. Mood and affect somewhat withdrawn. Laboratory Data: Reviewed. Impression: Major neurocognitive disorder, Alzheimer, vascular with delusion, depression behavioral disturbance. Anxiety disorder unspecified. Impulse control disorder unspecified. Plan: Continue current psychotropics. We have increased the Depakote. Check labs level in 3 days and maintain rest of the psychotropics for now. Assessment: Vital Signs/I&O: Vital Signs Date Time Temp Pulse Resp B/P (MAP) Pulse Ox O2 Delivery O2 Flow Rate FiO2 07/10/21 05:42 97.2 98 16 115/69 (84) 93 07/09/21 15:31 Room Air I & O 07/09/21 07/09/21 07/10/21 15:00 23:00 07:00 Intake Total 480 ml 480 ml Balance 480 ml 480 ml Labs: Laboratory Tests Test 07/09/21 19:47 07/10/21 07:41 Glucose (Fingerstick) 134 mg/dL (70-99) H 147 mg/dL (70-99) H Current Medications: Meds: Laboratory Tests Test 07/09/21 19:47 07/10/21 07:41 Glucose (Fingerstick) 134 mg/dL 147 mg/dL Current Medications Medications (Trade) Dose Ordered Sig/Shannon Route PRN Reason Start Time Stop Time Status Last Admin Dose Admin Multi-Ingredient Ointment (Analgesic [place]) 1 demetria PRN QID PRN TP MUSCLE PAIN 06/30/21 15:15 Al Hydroxide/Mg Hydroxide (Mylanta Plus Xs) 15 ml PRN AFTMEALHC PRN PO DYSPEPSIA 06/30/21 15:15 Magnesium Hydroxide (Milk Of Magnesia) 2,400 mg PRN QHS PRN PO 2ND CHOICE CONSTIPATION 06/30/21 15:15 07/07/21 06:01 Acetaminophen (Tylenol) 500 mg BID PO 06/30/21 21:00 07/09/21 19:38 Albuterol Sulfate (Ventolin) 2.5 mg PRN Q4HRS PRN IH FOR ASTHMA 06/30/21 15:30 Alprazolam (Xanax) 0.5 mg TID PO 06/30/21 21:00 07/02/21 22:42 DC 07/02/21 20:38 Buspirone HCl (Buspar) 10 mg BID PO 06/30/21 21:00 07/09/21 19:37 Cyclobenzaprine HCl (Flexeril) 10 mg TID PO 06/30/21 21:00 07/09/21 19:37 Divalproex Sodium (Depakote Er) 250 mg BID PO 06/30/21 21:00 07/01/21 20:14 DC 07/01/21 08:36 Docusate Sodium (Colace) 200 mg PRN DAILY PRN PO 1ST CHOICE CONSTIPATION 06/30/21 15:30 07/05/21 08:12 Furosemide (Lasix) 40 mg BID PO 06/30/21 21:00 07/01/21 02:03 DC Haloperidol (Haldol) 1 mg PRN Q6HRS PRN PO ANXIETY / AGITATION 06/30/21 16:00 07/05/21 22:18 Haloperidol (Haldol) 2 mg TID PO 06/30/21 21:00 06/30/21 19:42 DC Hyoscyamine (Anaspaz) 0.125 mg PRN Q2HR PRN PO SECRETIONS 06/30/21 15:30 Loperamide HCl (Imodium) 2 mg PRN Q3HRS PRN PO DIARRHEA 06/30/21 15:30 Metoprolol Tartrate (Lopressor) 25 mg BID PO 06/30/21 21:00 07/09/21 09:27 Nicotine (Nicoderm Cq 14mg Patch) 1 patch DAILY TD 07/01/21 09:00 07/09/21 09:27 Nitroglycerin (Nitrostat) 0.4 mg PRN Q5MIN PRN SL CHEST PAIN 06/30/21 15:30 Oxycodone HCl (Roxicodone) 2.5 mg PRN Q4HRS PRN PO PAIN 06/30/21 15:30 07/09/21 22:48 Pantoprazole Sodium (Protonix) 40 mg DAILYAC PO 07/01/21 07:30 07/09/21 09:29 Risperidone (RisperDAL M) 0.5 mg BID PO 06/30/21 21:00 06/30/21 19:42 DC Sertraline HCl (Zoloft) 50 mg DAILY PO 07/01/21 09:00 07/01/21 11:58 DC 07/01/21 08:36 Ziprasidone (Geodon) 20 mg 1600 PO 06/30/21 16:00 06/30/21 19:42 DC Ziprasidone (Geodon) 20 mg DAILY PO 07/01/21 09:00 06/30/21 19:42 DC Ferrous Sulfate (Feosol) 325 mg DAILY PO 07/01/21 09:00 07/09/21 09:28 Insulin Glargine (Lantus Syringe) 16 unit DAILY SQ 07/01/21 09:00 07/09/21 09:25 Ondansetron HCl (Zofran Odt) 4 mg PRN Q4HRS PRN PO NAUSEA/VOMITING 06/30/21 16:15 Oxycodone HCl (Roxicodone) 5 mg BID PO 06/30/21 21:00 07/09/21 19:37 Non-Formulary Medication (Rivaroxaban (Xarelto)) 20 mg 1700 PO 06/30/21 17:00 07/01/21 17:35 DC Linagliptin (Tradjenta) 5 mg DAILY PO 07/01/21 09:00 07/09/21 09:28 Non-Formulary Medication (Tea Tree Oil ([place] Tea Tree Oil)) 1 demetria DAILY TP 07/01/21 09:00 06/30/21 16:14 DC Non-Formulary Medication (Vit E Acetate/ Gly/Dimeth/Water (Cetaphil Moisturizing Lotion)) 1 demetria DAILY TP 07/01/21 09:00 06/30/21 16:14 DC Olanzapine (ZyPREXA ZYDIS) 2.5 mg PRN Q2HR PRN PO PSYCHOSIS 06/30/21 15:30 07/10/21 01:44 Quetiapine Fumarate (SEROquel) 50 mg HS PO 06/30/21 21:00 07/09/21 19:37 Quetiapine Fumarate (SEROquel) 25 mg 0900,1300,1700 PO 07/01/21 09:00 07/03/21 19:55 DC 07/03/21 16:46 Trazodone HCl (Desyrel) 50 mg PRN QHS PRN PO insomnia 06/30/21 19:45 07/10/21 01:44 Furosemide (Lasix) 40 mg DAILY PO 07/01/21 09:00 07/09/21 09:29 Sertraline HCl (Zoloft) 75 mg DAILY PO 07/02/21 09:00 07/09/21 09:27 Tamsulosin HCl (Flomax) 0.4 mg QHS PO 07/01/21 21:00 07/09/21 19:38 Finasteride (Proscar) 5 mg DAILY PO 07/02/21 09:00 07/09/21 09:27 Divalproex Sodium (Depakote Sprinkles) 250 mg DAILY PO 07/02/21 09:00 07/08/21 21:24 DC 07/08/21 08:06 Divalproex Sodium (Depakote Sprinkles) 500 mg DAILY16 PO 07/02/21 16:00 07/08/21 21:24 DC 07/08/21 17:25 Alprazolam (Xanax) 0.25 mg TID PO 07/03/21 09:00 07/05/21 19:52 DC 07/05/21 13:40 Naloxegol (Movantik) 25 mg DAILY07 PO 07/04/21 07:00 07/10/21 05:33 Quetiapine Fumarate (SEROquel) 25 mg BID@0900,1700 PO 07/04/21 09:00 07/08/21 02:00 DC 07/07/21 16:55 Alprazolam (Xanax) 0.25 mg BID PO 07/06/21 09:00 07/08/21 22:00 DC 07/08/21 20:26 Alprazolam (Xanax) 0.25 mg DAILY PO 07/09/21 09:00 07/11/21 10:00 07/09/21 09:28 Quetiapine Fumarate (SEROquel) 25 mg DAILY PO 07/08/21 09:00 07/09/21 09:28 Quetiapine Fumarate (SEROquel) 50 mg DAILY@1700 PO 07/08/21 17:00 07/09/21 16:59 Tamsulosin HCl (Flomax) 0.4 mg QHS PO 07/08/21 21:00 07/08/21 21:17 DC Divalproex Sodium (Depakote Sprinkles) 500 mg DAILY PO 07/09/21 09:00 07/09/21 09:29 Divalproex Sodium (Depakote Sprinkles) 500 mg DAILY@1700 PO 07/09/21 17:00 07/09/21 16:59 Current Medications Medications (Trade) Dose Ordered Sig/Shannon Route PRN Reason Start Time Stop Time Status Last Admin Dose Admin Alprazolam (Xanax) 0.25 mg DAILY PO 07/09/21 09:00 07/11/21 10:00 07/09/21 09:28 Divalproex Sodium (Depakote Sprinkles) 500 mg DAILY PO 07/09/21 09:00 07/09/21 09:29 Divalproex Sodium (Depakote Sprinkles) 500 mg DAILY@1700 PO 07/09/21 17:00 07/09/21 16:59 I have reviewed the current psychotropics carefully including drug interactions. Risk benefit ratio favors no change other than as noted in my dictated progress note. Diagnosis: Problems: (1) Major neurocognitive disorder (2) Dementia in Alzheimer's disease with early onset with behavioral disturbance (3) Impulse control disorder, unspecified (4) Anxiety disorder, unspecified (5) Dementia, vascular, with depression (6) Dementia, vascular, with delusions (7) Dementia in Alzheimer's disease with depression (8) Dementia in Alzheimer's disease with delusions HUNTER MEZA MD Jul 10, 2021 08:01
[2021-07-10] MEDS: NICOTINE 14MG PATCH. TD SCH (08:30)
[2021-07-10] MEDS: SERTRALINE 25 MG TABLET. PO SCH (08:32)
[2021-07-10] MEDS: ACETAMINOPHEN 500 MG TABLET PO SCH ×2 (08:32→19:53)
[2021-07-10] MEDS: FUROSEMIDE 40 MG TABLET PO SCH (08:32)
[2021-07-10] MEDS: METOPROLOL TART IMMED RELEASE 25 MG TABLET. PO SCH ×2 (08:32→19:56)
[2021-07-10] MEDS: oxyCODONE IR 5 MG TABLET PO SCH ×2 (08:32→19:56)
[2021-07-10] MEDS: QUEtiapine 25 MG TABLET. PO SCH ×2 (08:33→17:14)
[2021-07-10] MEDS: ALPRAZolam 0.25 MG TABLET PO SCH (08:33)
[2021-07-10] MEDS: CYCLOBENZAPRINE 10 MG TABLET. PO SCH ×3 (08:33→19:55)
[2021-07-10] MEDS: FERROUS SULFATE 325 MG TABLET. PO SCH (08:33)
[2021-07-10] MEDS: DIVALPROEX 125 MG CAP.SPRINK PO SCH ×2 (08:33→17:14)
[2021-07-10] MEDS: PANTOPRAZOLE 40 MG TABLET. PO SCH (08:33)
[2021-07-10] MEDS: LINAGLIPTIN 5 MG TABLET PO SCH (08:33)
[2021-07-10] MEDS: busPIRone 10 MG TABLET. PO SCH ×2 (08:33→19:56)
[2021-07-10] MEDS: FINASTERIDE 5 MG TABLET. PO SCH (08:33)
[2021-07-10] MEDS: INSULIN GLARGINE SYRINGE. SQ SCH (09:16)
[2021-07-10 15:32] VITALS: BP 129/70
--- NOTE | 2021-07-10 18:15 | NUR ---
Nursing note: Patient in dinning room for morning medication & assessment. He is compliant with medications crushed/floated in pudding. He is A/O to self, year & situation, unable to voice place. His bowel sounds are hypoactive, he had a BM 07/08. He propels self in w/c & self transfers, staff encouraged him to ask for assistance. Patient restless, hallucinating, & falling asleep in w/c but refuses to go to bed through the day. He c/o right shoulder pain; Xray ordered for tomorrow. This nurse straight cath patient due to no confirmed void during the day. He returned 100mL urine, tolerated well and voiced relief. Patient denies pain/discomfort at this time. He is currently resting in bed with eyes closed. Will continue to monitor.
[2021-07-10] MEDS: QUEtiapine 50 MG TABLET. PO SCH (19:52)
[2021-07-10] MEDS: TAMSULOSIN 0.4 MG CAP.ER.24H. PO SCH (19:53)
--- NOTE | 2021-07-10 20:22 | PDOC ---
Exam Note: Kam Note: Please also refer to the separate dictated note~for this date of service dictated separately.~Patient seen individually. Discussed the patient with Nursing staff reviewed the chart.~Reviewed interim history and current functioning. Reviewed vital signs,~Labs/ Radiology~and current medications noted below. Continue current treatment with the changes noted in the dictated addendum note Assessment: Vital Signs/I&O: Vital Signs Date Time Temp Pulse Resp B/P (MAP) Pulse Ox O2 Delivery O2 Flow Rate FiO2 07/10/21 19:56 96 07/10/21 19:56 82 129/70 07/10/21 15:32 97.8 16 07/09/21 15:31 Room Air I & O 07/09/21 07/09/21 07/10/21 15:00 23:00 07:00 Intake Total 480 ml 480 ml Balance 480 ml 480 ml Labs: Laboratory Tests Test 07/10/21 07:41 Glucose (Fingerstick) 147 mg/dL (70-99) H Current Medications: Meds: Laboratory Tests Test 07/10/21 07:41 Glucose (Fingerstick) 147 mg/dL Current Medications Medications (Trade) Dose Ordered Sig/Shannon Route PRN Reason Start Time Stop Time Status Last Admin Dose Admin Multi-Ingredient Ointment (Analgesic [place]) 1 demetria PRN QID PRN TP MUSCLE PAIN 06/30/21 15:15 Al Hydroxide/Mg Hydroxide (Mylanta Plus Xs) 15 ml PRN AFTMEALHC PRN PO DYSPEPSIA 06/30/21 15:15 Magnesium Hydroxide (Milk Of Magnesia) 2,400 mg PRN QHS PRN PO 2ND CHOICE CONSTIPATION 06/30/21 15:15 07/07/21 06:01 Acetaminophen (Tylenol) 500 mg BID PO 06/30/21 21:00 07/10/21 19:53 Albuterol Sulfate (Ventolin) 2.5 mg PRN Q4HRS PRN IH FOR ASTHMA 06/30/21 15:30 Alprazolam (Xanax) 0.5 mg TID PO 06/30/21 21:00 07/02/21 22:42 DC 07/02/21 20:38 Buspirone HCl (Buspar) 10 mg BID PO 06/30/21 21:00 07/10/21 19:56 Cyclobenzaprine HCl (Flexeril) 10 mg TID PO 06/30/21 21:00 07/10/21 19:55 Divalproex Sodium (Depakote Er) 250 mg BID PO 06/30/21 21:00 07/01/21 20:14 DC 07/01/21 08:36 Docusate Sodium (Colace) 200 mg PRN DAILY PRN PO 1ST CHOICE CONSTIPATION 06/30/21 15:30 07/05/21 08:12 Furosemide (Lasix) 40 mg BID PO 06/30/21 21:00 07/01/21 02:03 DC Haloperidol (Haldol) 1 mg PRN Q6HRS PRN PO ANXIETY / AGITATION 06/30/21 16:00 07/05/21 22:18 Haloperidol (Haldol) 2 mg TID PO 06/30/21 21:00 06/30/21 19:42 DC Hyoscyamine (Anaspaz) 0.125 mg PRN Q2HR PRN PO SECRETIONS 06/30/21 15:30 Loperamide HCl (Imodium) 2 mg PRN Q3HRS PRN PO DIARRHEA 06/30/21 15:30 Metoprolol Tartrate (Lopressor) 25 mg BID PO 06/30/21 21:00 07/10/21 19:56 Nicotine (Nicoderm Cq 14mg Patch) 1 patch DAILY TD 07/01/21 09:00 07/10/21 08:30 Nitroglycerin (Nitrostat) 0.4 mg PRN Q5MIN PRN SL CHEST PAIN 06/30/21 15:30 Oxycodone HCl (Roxicodone) 2.5 mg PRN Q4HRS PRN PO PAIN 06/30/21 15:30 07/09/21 22:48 Pantoprazole Sodium (Protonix) 40 mg DAILYAC PO 07/01/21 07:30 07/10/21 08:33 Risperidone (RisperDAL M) 0.5 mg BID PO 06/30/21 21:00 06/30/21 19:42 DC Sertraline HCl (Zoloft) 50 mg DAILY PO 07/01/21 09:00 07/01/21 11:58 DC 07/01/21 08:36 Ziprasidone (Geodon) 20 mg 1600 PO 06/30/21 16:00 06/30/21 19:42 DC Ziprasidone (Geodon) 20 mg DAILY PO 07/01/21 09:00 06/30/21 19:42 DC Ferrous Sulfate (Feosol) 325 mg DAILY PO 07/01/21 09:00 07/10/21 08:33 Insulin Glargine (Lantus Syringe) 16 unit DAILY SQ 07/01/21 09:00 07/10/21 09:16 Ondansetron HCl (Zofran Odt) 4 mg PRN Q4HRS PRN PO NAUSEA/VOMITING 06/30/21 16:15 Oxycodone HCl (Roxicodone) 5 mg BID PO 06/30/21 21:00 07/10/21 19:56 Non-Formulary Medication (Rivaroxaban (Xarelto)) 20 mg 1700 PO 06/30/21 17:00 07/01/21 17:35 DC Linagliptin (Tradjenta) 5 mg DAILY PO 07/01/21 09:00 07/10/21 08:33 Non-Formulary Medication (Tea Tree Oil ([place] Tea Tree Oil)) 1 demetria DAILY TP 07/01/21 09:00 06/30/21 16:14 DC Non-Formulary Medication (Vit E Acetate/ Gly/Dimeth/Water (Cetaphil Moisturizing Lotion)) 1 demetria DAILY TP 07/01/21 09:00 06/30/21 16:14 DC Olanzapine (ZyPREXA ZYDIS) 2.5 mg PRN Q2HR PRN PO PSYCHOSIS 06/30/21 15:30 07/10/21 19:57 Quetiapine Fumarate (SEROquel) 50 mg HS PO 06/30/21 21:00 07/10/21 19:52 Quetiapine Fumarate (SEROquel) 25 mg 0900,1300,1700 PO 07/01/21 09:00 07/03/21 19:55 DC 07/03/21 16:46 Trazodone HCl (Desyrel) 50 mg PRN QHS PRN PO insomnia 06/30/21 19:45 07/10/21 19:55 Furosemide (Lasix) 40 mg DAILY PO 07/01/21 09:00 07/10/21 08:32 Sertraline HCl (Zoloft) 75 mg DAILY PO 07/02/21 09:00 07/10/21 08:32 Tamsulosin HCl (Flomax) 0.4 mg QHS PO 07/01/21 21:00 07/10/21 19:53 Finasteride (Proscar) 5 mg DAILY PO 07/02/21 09:00 07/10/21 08:33 Divalproex Sodium (Depakote Sprinkles) 250 mg DAILY PO 07/02/21 09:00 07/08/21 21:24 DC 07/08/21 08:06 Divalproex Sodium (Depakote Sprinkles) 500 mg DAILY16 PO 07/02/21 16:00 07/08/21 21:24 DC 07/08/21 17:25 Alprazolam (Xanax) 0.25 mg TID PO 07/03/21 09:00 07/05/21 19:52 DC 07/05/21 13:40 Naloxegol (Movantik) 25 mg DAILY07 PO 07/04/21 07:00 07/10/21 05:33 Quetiapine Fumarate (SEROquel) 25 mg BID@0900,1700 PO 07/04/21 09:00 07/08/21 02:00 DC 07/07/21 16:55 Alprazolam (Xanax) 0.25 mg BID PO 07/06/21 09:00 07/08/21 22:00 DC 07/08/21 20:26 Alprazolam (Xanax) 0.25 mg DAILY PO 07/09/21 09:00 07/11/21 10:00 07/10/21 08:33 Quetiapine Fumarate (SEROquel) 25 mg DAILY PO 07/08/21 09:00 07/10/21 08:33 Quetiapine Fumarate (SEROquel) 50 mg DAILY@1700 PO 07/08/21 17:00 07/10/21 17:14 Tamsulosin HCl (Flomax) 0.4 mg QHS PO 07/08/21 21:00 07/08/21 21:17 DC Divalproex Sodium (Depakote Sprinkles) 500 mg DAILY PO 07/09/21 09:00 07/10/21 08:33 Divalproex Sodium (Depakote Sprinkles) 500 mg DAILY@1700 PO 07/09/21 17:00 07/10/21 17:14 I have reviewed the current psychotropics carefully including drug interactions. Risk benefit ratio favors no change other than as noted in my dictated progress note. Diagnosis: Problems: (1) Major neurocognitive disorder (2) Dementia in Alzheimer's disease with early onset with behavioral disturbance (3) Impulse control disorder, unspecified (4) Anxiety disorder, unspecified (5) Dementia, vascular, with depression (6) Dementia, vascular, with delusions (7) Dementia in Alzheimer's disease with depression (8) Dementia in Alzheimer's disease with delusions HUNTER MEZA MD Jul 10, 2021 20:22
--- NOTE | 2021-07-10 23:15 | NUR ---
Patient is located in his room on assumption of care, awake in bed. He is disorganized, confused, restless. Escorted into the day room for closer supervision after trying to ambulate unassisted several times. Patient experienced visual hallucinations, tried handing this nurse some broken glasses that weren't there several times. PRN Trazodone and Zydis given with HS meds. No physical or verbal aggression so far this shift. He appears to be sleeping comfortably at present time. Will continue to monitor.
[2021-07-11] MEDS: NALOXEGOL OXALATE 25 MG TABLET. PO SCH (05:51)
[2021-07-11 06:07] VITALS: BP 124/69
--- NOTE | 2021-07-11 06:56 | PDOC ---
Exam Note: Kam Note: This note is a late entry for 07/10/2021 covers elements not covered in my initial note. Subjective: The patient was seen individually in the evening of 07/10/2021 with Carter SANTA, discussed and reviewed the chart. The patient slept 5 hours previous night. He slept poorly last night. He woke up complaining of shoulder pain and there is change from one shoulder to the other. Apparently an x-ray would be done in the morning per Dr. Ambrose. He has been hallucinating intermittently, seeking snakes and broken glass on his hand. I met with him in the dining room. Review of Systems: Ambulation impaired in wheelchair. No CV, , pulmonary, eye, ENT system symptoms on review. Mental Status Exam: The patient is oriented to himself and situation. Speech coherent. Abstraction fair. Computation impaired. Language function intact. Mood and affect somewhat withdrawn. Laboratory Data: Reviewed. Impression: Major neurocognitive disorder, Alzheimer, vascular with delusion, depression behavioral disturbance. Anxiety disorder unspecified. Impulse control disorder unspecified. Plan: Increase h.s. Seroquel from 50 mg to 75 mg. Maintain rest of the psychotropics unchanged including daytime Seroquel, BuSpar, Depakote, trazodone and Xanax is being tapered. Zyprexa is p.r.n. Assessment: Vital Signs/I&O: Vital Signs Date Time Temp Pulse Resp B/P (MAP) Pulse Ox O2 Delivery O2 Flow Rate FiO2 07/11/21 06:07 97.6 83 16 124/69 (87) 91 07/09/21 15:31 Room Air I & O 07/10/21 07/10/21 07/11/21 15:00 23:00 07:00 Intake Total 880 ml 460 ml Output Total 850 ml Balance 880 ml 460 ml -850 ml Labs: Laboratory Tests Test 07/10/21 07:41 Glucose (Fingerstick) 147 mg/dL (70-99) H Current Medications: Meds: Laboratory Tests Test 07/10/21 07:41 Glucose (Fingerstick) 147 mg/dL Current Medications Medications (Trade) Dose Ordered Sig/Shannon Route PRN Reason Start Time Stop Time Status Last Admin Dose Admin Multi-Ingredient Ointment (Analgesic [place]) 1 demetria PRN QID PRN TP MUSCLE PAIN 06/30/21 15:15 Al Hydroxide/Mg Hydroxide (Mylanta Plus Xs) 15 ml PRN AFTMEALHC PRN PO DYSPEPSIA 06/30/21 15:15 Magnesium Hydroxide (Milk Of Magnesia) 2,400 mg PRN QHS PRN PO 2ND CHOICE CONSTIPATION 06/30/21 15:15 07/07/21 06:01 Acetaminophen (Tylenol) 500 mg BID PO 06/30/21 21:00 07/10/21 19:53 Albuterol Sulfate (Ventolin) 2.5 mg PRN Q4HRS PRN IH FOR ASTHMA 06/30/21 15:30 Alprazolam (Xanax) 0.5 mg TID PO 06/30/21 21:00 07/02/21 22:42 DC 07/02/21 20:38 Buspirone HCl (Buspar) 10 mg BID PO 06/30/21 21:00 07/10/21 19:56 Cyclobenzaprine HCl (Flexeril) 10 mg TID PO 06/30/21 21:00 07/10/21 19:55 Divalproex Sodium (Depakote Er) 250 mg BID PO 06/30/21 21:00 07/01/21 20:14 DC 07/01/21 08:36 Docusate Sodium (Colace) 200 mg PRN DAILY PRN PO 1ST CHOICE CONSTIPATION 06/30/21 15:30 07/05/21 08:12 Furosemide (Lasix) 40 mg BID PO 06/30/21 21:00 07/01/21 02:03 DC Haloperidol (Haldol) 1 mg PRN Q6HRS PRN PO ANXIETY / AGITATION 06/30/21 16:00 07/05/21 22:18 Haloperidol (Haldol) 2 mg TID PO 06/30/21 21:00 06/30/21 19:42 DC Hyoscyamine (Anaspaz) 0.125 mg PRN Q2HR PRN PO SECRETIONS 06/30/21 15:30 Loperamide HCl (Imodium) 2 mg PRN Q3HRS PRN PO DIARRHEA 06/30/21 15:30 Metoprolol Tartrate (Lopressor) 25 mg BID PO 06/30/21 21:00 07/10/21 19:56 Nicotine (Nicoderm Cq 14mg Patch) 1 patch DAILY TD 07/01/21 09:00 07/10/21 08:30 Nitroglycerin (Nitrostat) 0.4 mg PRN Q5MIN PRN SL CHEST PAIN 06/30/21 15:30 Oxycodone HCl (Roxicodone) 2.5 mg PRN Q4HRS PRN PO PAIN 06/30/21 15:30 07/09/21 22:48 Pantoprazole Sodium (Protonix) 40 mg DAILYAC PO 07/01/21 07:30 07/10/21 08:33 Risperidone (RisperDAL M) 0.5 mg BID PO 06/30/21 21:00 06/30/21 19:42 DC Sertraline HCl (Zoloft) 50 mg DAILY PO 07/01/21 09:00 07/01/21 11:58 DC 07/01/21 08:36 Ziprasidone (Geodon) 20 mg 1600 PO 06/30/21 16:00 06/30/21 19:42 DC Ziprasidone (Geodon) 20 mg DAILY PO 07/01/21 09:00 06/30/21 19:42 DC Ferrous Sulfate (Feosol) 325 mg DAILY PO 07/01/21 09:00 07/10/21 08:33 Insulin Glargine (Lantus Syringe) 16 unit DAILY SQ 07/01/21 09:00 07/10/21 09:16 Ondansetron HCl (Zofran Odt) 4 mg PRN Q4HRS PRN PO NAUSEA/VOMITING 06/30/21 16:15 Oxycodone HCl (Roxicodone) 5 mg BID PO 06/30/21 21:00 07/10/21 19:56 Non-Formulary Medication (Rivaroxaban (Xarelto)) 20 mg 1700 PO 06/30/21 17:00 07/01/21 17:35 DC Linagliptin (Tradjenta) 5 mg DAILY PO 07/01/21 09:00 07/10/21 08:33 Non-Formulary Medication (Tea Tree Oil ([place] Tea Tree Oil)) 1 demetria DAILY TP 07/01/21 09:00 06/30/21 16:14 DC Non-Formulary Medication (Vit E Acetate/ Gly/Dimeth/Water (Cetaphil Moisturizing Lotion)) 1 demetria DAILY TP 07/01/21 09:00 06/30/21 16:14 DC Olanzapine (ZyPREXA ZYDIS) 2.5 mg PRN Q2HR PRN PO PSYCHOSIS 06/30/21 15:30 07/10/21 19:57 Quetiapine Fumarate (SEROquel) 50 mg HS PO 06/30/21 21:00 07/11/21 00:39 DC 07/10/21 19:52 Quetiapine Fumarate (SEROquel) 25 mg 0900,1300,1700 PO 07/01/21 09:00 07/03/21 19:55 DC 07/03/21 16:46 Trazodone HCl (Desyrel) 50 mg PRN QHS PRN PO insomnia 06/30/21 19:45 07/10/21 19:55 Furosemide (Lasix) 40 mg DAILY PO 07/01/21 09:00 07/10/21 08:32 Sertraline HCl (Zoloft) 75 mg DAILY PO 07/02/21 09:00 07/10/21 08:32 Tamsulosin HCl (Flomax) 0.4 mg QHS PO 07/01/21 21:00 07/10/21 19:53 Finasteride (Proscar) 5 mg DAILY PO 07/02/21 09:00 07/10/21 08:33 Divalproex Sodium (Depakote Sprinkles) 250 mg DAILY PO 07/02/21 09:00 07/08/21 21:24 DC 07/08/21 08:06 Divalproex Sodium (Depakote Sprinkles) 500 mg DAILY16 PO 07/02/21 16:00 07/08/21 21:24 DC 07/08/21 17:25 Alprazolam (Xanax) 0.25 mg TID PO 07/03/21 09:00 07/05/21 19:52 DC 07/05/21 13:40 Naloxegol (Movantik) 25 mg DAILY07 PO 07/04/21 07:00 07/11/21 05:51 Quetiapine Fumarate (SEROquel) 25 mg BID@0900,1700 PO 07/04/21 09:00 07/08/21 02:00 DC 07/07/21 16:55 Alprazolam (Xanax) 0.25 mg BID PO 07/06/21 09:00 07/08/21 22:00 DC 07/08/21 20:26 Alprazolam (Xanax) 0.25 mg DAILY PO 07/09/21 09:00 07/11/21 10:00 07/10/21 08:33 Quetiapine Fumarate (SEROquel) 25 mg DAILY PO 07/08/21 09:00 07/10/21 08:33 Quetiapine Fumarate (SEROquel) 50 mg DAILY@1700 PO 07/08/21 17:00 07/10/21 17:14 Tamsulosin HCl (Flomax) 0.4 mg QHS PO 07/08/21 21:00 07/08/21 21:17 DC Divalproex Sodium (Depakote Sprinkles) 500 mg DAILY PO 07/09/21 09:00 07/10/21 08:33 Divalproex Sodium (Depakote Sprinkles) 500 mg DAILY@1700 PO 07/09/21 17:00 07/10/21 17:14 Quetiapine Fumarate (SEROquel) 75 mg HS PO 07/11/21 21:00 I have reviewed the current psychotropics carefully including drug interactions. Risk benefit ratio favors no change other than as noted in my dictated progress note. Diagnosis: Problems: (1) Major neurocognitive disorder (2) Dementia in Alzheimer's disease with early onset with behavioral disturbance (3) Impulse control disorder, unspecified (4) Anxiety disorder, unspecified (5) Dementia, vascular, with depression (6) Dementia, vascular, with delusions (7) Dementia in Alzheimer's disease with depression (8) Dementia in Alzheimer's disease with delusions (9) Urinary retention HUNTER MEZA MD Jul 11, 2021 06:56
--- NOTE | 2021-07-11 08:08 | RAD ---
EXAM: 3 views of the right shoulder and 3 views of the left shoulder, 2 views of the right clavicle DATE: 07/11/2021 7:52 AM INDICATION: Reason: c/o pain / Spl. Instructions: / History: COMPARISON: No Prior FINDINGS: Right shoulder: There is no evidence for acute fracture or dislocation. AC joint is congruent. Mild t o moderate osteoarthritis of the shoulder. Humeral head is high riding. Soft tissues are grossly unre markable. Right clavicle: There is no evidence of fracture or dislocation. On the moderate degenerative osteoph ytes present at the acromioclavicular joint. Left shoulder:There is no evidence for acute fracture or dislocation. AC joint is congruent. Mild to moderate osteoarthritis of the shoulder. Humeral head is high riding. Soft tissues are grossly unrema rkable. IMPRESSION: 1. No acute fracture or dislocation of bilateral shoulders and right clavicle. 2. Mild to moderate degenerative osteoarthritis. Electronically signed by: Houston Bone DO (07/11/2021 8:06 AM) [id number]
[2021-07-11] MEDS: NICOTINE 14MG PATCH. TD SCH (08:12)
[2021-07-11] MEDS: FUROSEMIDE 40 MG TABLET PO SCH (08:12)
[2021-07-11] MEDS: FERROUS SULFATE 325 MG TABLET. PO SCH (08:12)
[2021-07-11] MEDS: oxyCODONE IR 5 MG TABLET PO SCH ×2 (08:15→19:58)
[2021-07-11] MEDS: DIVALPROEX 125 MG CAP.SPRINK PO SCH ×2 (08:16→17:17)
[2021-07-11] MEDS: busPIRone 10 MG TABLET. PO SCH ×2 (08:16→19:55)
[2021-07-11] MEDS: FINASTERIDE 5 MG TABLET. PO SCH (08:16)
[2021-07-11] MEDS: PANTOPRAZOLE 40 MG TABLET. PO SCH (08:16)
[2021-07-11] MEDS: ALPRAZolam 0.25 MG TABLET PO SCH (08:16)
[2021-07-11] MEDS: CYCLOBENZAPRINE 10 MG TABLET. PO SCH ×3 (08:16→19:55)
[2021-07-11] MEDS: QUEtiapine 25 MG TABLET. PO SCH ×2 (08:17→17:17)
[2021-07-11] MEDS: SERTRALINE 25 MG TABLET. PO SCH (08:17)
[2021-07-11] MEDS: ACETAMINOPHEN 500 MG TABLET PO SCH ×2 (08:17→19:55)
[2021-07-11] MEDS: METOPROLOL TART IMMED RELEASE 25 MG TABLET. PO SCH ×2 (08:17→19:56)
[2021-07-11] MEDS: LINAGLIPTIN 5 MG TABLET PO SCH (08:18)
[2021-07-11] MEDS: INSULIN GLARGINE SYRINGE. SQ SCH (09:29)
[2021-07-11] MEDS: TAMSULOSIN 0.4 MG CAP.ER.24H. PO SCH ×2 (12:18→19:55)
[2021-07-11 15:29] VITALS: BP 98/59
--- NOTE | 2021-07-11 18:09 | NUR ---
Nursing note: Patient in dinning room for morning medication & assessment. He is compliant with medications crushed/floated in pudding. He is A/O to self, & date, unable to voice place or situation. His bowel sounds are hypoactive, he had a BM 07/08 & has been passing gas several times today. He propels self in w/c & self transfers, staff encouraged him to ask for assistance. Patient restless, hallucinating, & falling asleep in w/c but refuses to go to bed through the day. He c/o right shoulder pain; Xray taken with negative results. This nurse straight cath patient due to no confirmed void during the day. He returned no urine, and did not tolerate well with a small amount of bloody discharge noted. Patient reports 10/10 right shoulder pain, scheduled pain medication given per order. He is currently resting in bed with eyes closed. Will continue to monitor.
[2021-07-11] MEDS: QUEtiapine 50 MG TABLET. PO SCH (19:58)
--- NOTE | 2021-07-11 20:17 | NUR ---
Patient urinated a large amount of urine in the toilet. Will continue to monitor.
--- NOTE | 2021-07-11 21:10 | PDOC ---
Exam Note: Kam Note: Please also refer to the separate dictated note~for this date of service dictated separately.~Patient seen individually. Discussed the patient with Nursing staff reviewed the chart.~Reviewed interim history and current functioning. Reviewed vital signs,~Labs/ Radiology~and current medications noted below. Continue current treatment with the changes noted in the dictated addendum note Assessment: Vital Signs/I&O: Vital Signs Date Time Temp Pulse Resp B/P (MAP) Pulse Ox O2 Delivery O2 Flow Rate FiO2 07/11/21 19:58 92 07/11/21 19:56 85 98/59 07/11/21 15:29 97.9 16 07/09/21 15:31 Room Air I & O 07/10/21 07/10/21 07/11/21 14:59 22:59 06:59 Intake Total 880 ml 460 ml Output Total 850 ml Balance 880 ml 460 ml -850 ml Labs: Laboratory Tests Test 07/11/21 07:33 Glucose (Fingerstick) 103 mg/dL (70-99) H Current Medications: Meds: Laboratory Tests Test 07/11/21 07:33 Glucose (Fingerstick) 103 mg/dL Current Medications Medications (Trade) Dose Ordered Sig/Shannon Route PRN Reason Start Time Stop Time Status Last Admin Dose Admin Multi-Ingredient Ointment (Analgesic [place]) 1 demetria PRN QID PRN TP MUSCLE PAIN 06/30/21 15:15 Al Hydroxide/Mg Hydroxide (Mylanta Plus Xs) 15 ml PRN AFTMEALHC PRN PO DYSPEPSIA 06/30/21 15:15 Magnesium Hydroxide (Milk Of Magnesia) 2,400 mg PRN QHS PRN PO 2ND CHOICE CONSTIPATION 06/30/21 15:15 07/07/21 06:01 Acetaminophen (Tylenol) 500 mg BID PO 06/30/21 21:00 07/11/21 19:55 Albuterol Sulfate (Ventolin) 2.5 mg PRN Q4HRS PRN IH FOR ASTHMA 06/30/21 15:30 Alprazolam (Xanax) 0.5 mg TID PO 06/30/21 21:00 07/02/21 22:42 DC 07/02/21 20:38 Buspirone HCl (Buspar) 10 mg BID PO 06/30/21 21:00 07/11/21 19:55 Cyclobenzaprine HCl (Flexeril) 10 mg TID PO 06/30/21 21:00 07/11/21 19:55 Divalproex Sodium (Depakote Er) 250 mg BID PO 06/30/21 21:00 07/01/21 20:14 DC 07/01/21 08:36 Docusate Sodium (Colace) 200 mg PRN DAILY PRN PO 1ST CHOICE CONSTIPATION 06/30/21 15:30 07/05/21 08:12 Furosemide (Lasix) 40 mg BID PO 06/30/21 21:00 07/01/21 02:03 DC Haloperidol (Haldol) 1 mg PRN Q6HRS PRN PO ANXIETY / AGITATION 06/30/21 16:00 07/05/21 22:18 Haloperidol (Haldol) 2 mg TID PO 06/30/21 21:00 06/30/21 19:42 DC Hyoscyamine (Anaspaz) 0.125 mg PRN Q2HR PRN PO SECRETIONS 06/30/21 15:30 Loperamide HCl (Imodium) 2 mg PRN Q3HRS PRN PO DIARRHEA 06/30/21 15:30 Metoprolol Tartrate (Lopressor) 25 mg BID PO 06/30/21 21:00 07/11/21 08:17 Nicotine (Nicoderm Cq 14mg Patch) 1 patch DAILY TD 07/01/21 09:00 07/11/21 08:12 Nitroglycerin (Nitrostat) 0.4 mg PRN Q5MIN PRN SL CHEST PAIN 06/30/21 15:30 Oxycodone HCl (Roxicodone) 2.5 mg PRN Q4HRS PRN PO PAIN 06/30/21 15:30 07/09/21 22:48 Pantoprazole Sodium (Protonix) 40 mg DAILYAC PO 07/01/21 07:30 07/11/21 08:16 Risperidone (RisperDAL M) 0.5 mg BID PO 06/30/21 21:00 06/30/21 19:42 DC Sertraline HCl (Zoloft) 50 mg DAILY PO 07/01/21 09:00 07/01/21 11:58 DC 07/01/21 08:36 Ziprasidone (Geodon) 20 mg 1600 PO 06/30/21 16:00 06/30/21 19:42 DC Ziprasidone (Geodon) 20 mg DAILY PO 07/01/21 09:00 06/30/21 19:42 DC Ferrous Sulfate (Feosol) 325 mg DAILY PO 07/01/21 09:00 07/11/21 08:12 Insulin Glargine (Lantus Syringe) 16 unit DAILY SQ 07/01/21 09:00 07/11/21 09:29 Ondansetron HCl (Zofran Odt) 4 mg PRN Q4HRS PRN PO NAUSEA/VOMITING 06/30/21 16:15 Oxycodone HCl (Roxicodone) 5 mg BID PO 06/30/21 21:00 07/11/21 19:58 Non-Formulary Medication (Rivaroxaban (Xarelto)) 20 mg 1700 PO 06/30/21 17:00 07/01/21 17:35 DC Linagliptin (Tradjenta) 5 mg DAILY PO 07/01/21 09:00 07/11/21 08:18 Non-Formulary Medication (Tea Tree Oil ([place] Tea Tree Oil)) 1 demetria DAILY TP 07/01/21 09:00 06/30/21 16:14 DC Non-Formulary Medication (Vit E Acetate/ Gly/Dimeth/Water (Cetaphil Moisturizing Lotion)) 1 demetria DAILY TP 07/01/21 09:00 06/30/21 16:14 DC Olanzapine (ZyPREXA ZYDIS) 2.5 mg PRN Q2HR PRN PO PSYCHOSIS 06/30/21 15:30 07/10/21 19:57 Quetiapine Fumarate (SEROquel) 50 mg HS PO 06/30/21 21:00 07/11/21 00:39 DC 07/10/21 19:52 Quetiapine Fumarate (SEROquel) 25 mg 0900,1300,1700 PO 07/01/21 09:00 07/03/21 19:55 DC 07/03/21 16:46 Trazodone HCl (Desyrel) 50 mg PRN QHS PRN PO insomnia 06/30/21 19:45 07/10/21 19:55 Furosemide (Lasix) 40 mg DAILY PO 07/01/21 09:00 07/11/21 08:12 Sertraline HCl (Zoloft) 75 mg DAILY PO 07/02/21 09:00 07/11/21 08:17 Tamsulosin HCl (Flomax) 0.4 mg QHS PO 07/01/21 21:00 07/11/21 11:18 DC 07/10/21 19:53 Finasteride (Proscar) 5 mg DAILY PO 07/02/21 09:00 07/11/21 08:16 Divalproex Sodium (Depakote Sprinkles) 250 mg DAILY PO 07/02/21 09:00 07/08/21 21:24 DC 07/08/21 08:06 Divalproex Sodium (Depakote Sprinkles) 500 mg DAILY16 PO 07/02/21 16:00 07/08/21 21:24 DC 07/08/21 17:25 Alprazolam (Xanax) 0.25 mg TID PO 07/03/21 09:00 07/05/21 19:52 DC 07/05/21 13:40 Naloxegol (Movantik) 25 mg DAILY07 PO 07/04/21 07:00 07/11/21 05:51 Quetiapine Fumarate (SEROquel) 25 mg BID@0900,1700 PO 07/04/21 09:00 07/08/21 02:00 DC 07/07/21 16:55 Alprazolam (Xanax) 0.25 mg BID PO 07/06/21 09:00 07/08/21 22:00 DC 07/08/21 20:26 Alprazolam (Xanax) 0.25 mg DAILY PO 07/09/21 09:00 07/11/21 10:00 DC 07/11/21 08:16 Quetiapine Fumarate (SEROquel) 25 mg DAILY PO 07/08/21 09:00 07/11/21 08:17 Quetiapine Fumarate (SEROquel) 50 mg DAILY@1700 PO 07/08/21 17:00 07/11/21 17:17 Tamsulosin HCl (Flomax) 0.4 mg QHS PO 07/08/21 21:00 07/08/21 21:17 DC Divalproex Sodium (Depakote Sprinkles) 500 mg DAILY PO 07/09/21 09:00 07/11/21 08:16 Divalproex Sodium (Depakote Sprinkles) 500 mg DAILY@1700 PO 07/09/21 17:00 07/11/21 17:17 Quetiapine Fumarate (SEROquel) 75 mg HS PO 07/11/21 21:00 07/11/21 19:58 Tamsulosin HCl (Flomax) 0.4 mg BID PO 07/11/21 11:30 07/11/21 19:55 Current Medications Medications (Trade) Dose Ordered Sig/Shannon Route PRN Reason Start Time Stop Time Status Last Admin Dose Admin Quetiapine Fumarate (SEROquel) 75 mg HS PO 07/11/21 21:00 07/11/21 19:58 Tamsulosin HCl (Flomax) 0.4 mg BID PO 07/11/21 11:30 07/11/21 19:55 I have reviewed the current psychotropics carefully including drug interactions. Risk benefit ratio favors no change other than as noted in my dictated progress note. Diagnosis: Problems: (1) Major neurocognitive disorder (2) Dementia in Alzheimer's disease with early onset with behavioral disturbance (3) Impulse control disorder, unspecified (4) Anxiety disorder, unspecified (5) Dementia, vascular, with depression (6) Dementia, vascular, with delusions (7) Dementia in Alzheimer's disease with depression (8) Dementia in Alzheimer's disease with delusions HUNTER MEZA MD Jul 11, 2021 21:10
--- NOTE | 2021-07-11 23:45 | NUR ---
Patient compliant with HS medications given crushed in pudding. He spilled the glass of water in the hallway r/t hand tremor. Patient reports neck pain while laying in bed despite having taken his scheduled HS pain medications. Patient is delusional, stating that his blanket was a coat and handing it to KIET Villafuerte to choose the left or right pocket for which item was better. Patient eventually went to sleep. Will continue to monitor.
--- NOTE | 2021-07-12 05:27 | NUR ---
Patient unable to void on toilet. Straight Cath performed 175cc yellow urine removed. Patient tolerated the procedure but did report pain on catheter insertion.
[2021-07-12 06:27] VITALS: BP 143/77
[2021-07-12 06:41] LABS: BASO % 0 % (0-3); EOS # 0.2 x10^3/uL (0.0-0.7); EOS % 2 % (0-3); HEMATOCRIT 31.7 % (39.0-53.0); LYMPH # 0.9 x10^3/uL (1.0-4.8); LYMPH % 10 % (24-48); MEAN CORPUSCULAR HEMOGLOBIN 25 pg (25-35); MEAN CORPUSCULAR HGB CONC 32 g/dL (31-37); MEAN CORPUSCULAR VOLUME 80 fL (79-100); MONO # 1.1 x10^3/uL (0.0-1.1); MONO % 12 % (0-9); NEUT # 6.9 x10^3uL (1.8-7.7); NEUT % 76 % (31-73); PLATELET COUNT 284 x10^3/uL (140-400); RED BLOOD COUNT 3.95 x10^6/uL (4.30-5.70); RED CELL DISTRIBUTION WIDTH 14.7 % (11.5-14.5); WHITE BLOOD COUNT 9.1 x10^3/uL (4.0-11.0)
[2021-07-12 07:05] LABS: ALBUMIN 2.6 g/dL (3.4-5.0); ALBUMIN/GLOBULIN RATIO 0.7 (1.0-1.7); ALK PHOS 135 U/L (46-116); ALT (SGPT) 8 U/L (16-63); ANION GAP 3 (6-14); AST (SGOT) 11 U/L (15-37); BLOOD UREA NITROGEN 17 mg/dL (8-26); BUN/CREATININE RATIO 21 (6-20); CALCIUM 8.6 mg/dL (8.5-10.1); CARBON DIOXIDE 34 mmol/L (21-32); CHLORIDE 103 mmol/L (98-107); CREATININE 0.8 mg/dL (0.7-1.3); GFR 98.3; GLUCOSE 141 mg/dL (70-99); SODIUM 140 mmol/L (136-145); TOTAL BILIRUBIN 0.3 mg/dL (0.2-1.0); TOTAL PROTEIN 6.4 g/dL (6.4-8.2)
[2021-07-12 07:17] LABS: VAL ACID 47 mcg/mL (50-100)
[2021-07-12] MEDS: NICOTINE 14MG PATCH. TD SCH (08:20)
[2021-07-12] MEDS: CYCLOBENZAPRINE 10 MG TABLET. PO SCH ×3 (08:20→20:13)
[2021-07-12] MEDS: oxyCODONE IR 5 MG TABLET PO SCH ×2 (08:21→20:14)
[2021-07-12] MEDS: TAMSULOSIN 0.4 MG CAP.ER.24H. PO SCH ×2 (08:22→20:13)
[2021-07-12] MEDS: NALOXEGOL OXALATE 25 MG TABLET. PO SCH (08:22)
[2021-07-12] MEDS: FINASTERIDE 5 MG TABLET. PO SCH (08:22)
[2021-07-12] MEDS: METOPROLOL TART IMMED RELEASE 25 MG TABLET. PO SCH ×2 (08:22→20:14)
[2021-07-12] MEDS: FERROUS SULFATE 325 MG TABLET. PO SCH (08:22)
[2021-07-12] MEDS: ACETAMINOPHEN 500 MG TABLET PO SCH ×2 (08:22→20:14)
[2021-07-12] MEDS: busPIRone 10 MG TABLET. PO SCH ×2 (08:22→20:13)
[2021-07-12] MEDS: PANTOPRAZOLE 40 MG TABLET. PO SCH (08:22)
[2021-07-12] MEDS: SERTRALINE 25 MG TABLET. PO SCH (08:23)
[2021-07-12] MEDS: QUEtiapine 25 MG TABLET. PO SCH ×2 (08:23→17:06)
[2021-07-12] MEDS: DIVALPROEX 125 MG CAP.SPRINK PO SCH ×2 (08:23→17:06)
[2021-07-12] MEDS: LINAGLIPTIN 5 MG TABLET PO SCH (08:23)
[2021-07-12] MEDS: FUROSEMIDE 40 MG TABLET PO SCH (08:24)
[2021-07-12] MEDS: INSULIN GLARGINE SYRINGE. SQ SCH (08:29)
[2021-07-12] MEDS: MAGNESIUM HYDROXIDE 2,400 MG/30 ML ORAL.SUSP. PO PRN (12:00)
[2021-07-12] MEDS: DOCUSATE SODIUM 100 MG CAPSULE PO PRN (12:01)
[2021-07-12] MEDS: HALOPERIDOL 1 MG TABLET PO PRN (12:44)
--- NOTE | 2021-07-12 14:10 | NUR ---
Nursing note: Patient in dinning room for morning medication & assessment. He is compliant with medications crushed/floated in pudding. He is A/O to self, & date, unable to voice place or situation. His bowel sounds are hypoactive, PRN given per order, he continues to pass barbara. He propels self in w/c & self transfers, staff encouraged him to ask for assistance. Patient restless, hallucinating, & falling asleep in w/c. He laid down for half an hour before lunch. Patient was highly restless, anxious, and agitated; PRN given per order. Patient reports 9/ right shoulder pain, scheduled pain medication given per order. He is currently sitting in the day room participating in group. Will continue to monitor. Addendum: 07/12/21 at 1426 by NEO NELSON RN RN Patient became hypotensive when walking with PT after breakfast. The staff initiated seated strength building exercises. Addendum: 07/12/21 at 2440 by NEO NELSON RN RN Patient has been voiding, bladder scan showed 190cc. This nurse did not cath patient.
[2021-07-12 15:55] VITALS: BP 142/73
[2021-07-12] MEDS: traZODone 50 MG TABLET. PO PRN (20:14)
[2021-07-12] MEDS: QUEtiapine 50 MG TABLET. PO SCH (20:14)
--- NOTE | 2021-07-12 20:34 | PDOC ---
Exam Note: Kam Note: Please also refer to the separate dictated note~for this date of service dictated separately.~Patient seen individually. Discussed the patient with Nursing staff reviewed the chart.~Reviewed interim history and current functioning. Reviewed vital signs,~Labs/ Radiology~and current medications noted below. Continue current treatment with the changes noted in the dictated addendum note Assessment: Vital Signs/I&O: Vital Signs Date Time Temp Pulse Resp B/P (MAP) Pulse Ox O2 Delivery O2 Flow Rate FiO2 07/12/21 20:14 93 07/12/21 20:14 84 142/73 07/12/21 15:55 98.0 18 07/09/21 15:31 Room Air I & O 07/11/21 07/11/21 07/12/21 15:00 23:00 07:00 Intake Total 840 ml 600 ml Output Total 175 ml Balance 840 ml 600 ml -175 ml Labs: Laboratory Tests Test 07/12/21 06:11 07/12/21 07:19 White Blood Count 9.1 x10^3/uL (4.0-11.0) Red Blood Count 3.95 x10^6/uL (4.30-5.70) L Hemoglobin 10.0 g/dL (13.0-17.5) L Hematocrit 31.7 % (39.0-53.0) L Mean Corpuscular Volume 80 fL (79-100) Mean Corpuscular Hemoglobin 25 pg (25-35) Mean Corpuscular Hemoglobin Concent 32 g/dL (31-37) Red Cell Distribution Width 14.7 % (11.5-14.5) H Platelet Count 284 x10^3/uL (140-400) Neutrophils (%) (Auto) 76 % (31-73) H Lymphocytes (%) (Auto) 10 % (24-48) L Monocytes (%) (Auto) 12 % (0-9) H Eosinophils (%) (Auto) 2 % (0-3) Basophils (%) (Auto) 0 % (0-3) Neutrophils # (Auto) 6.9 x10^3uL (1.8-7.7) Lymphocytes # (Auto) 0.9 x10^3/uL (1.0-4.8) L Monocytes # (Auto) 1.1 x10^3/uL (0.0-1.1) Eosinophils # (Auto) 0.2 x10^3/uL (0.0-0.7) Basophils # (Auto) 0.0 x10^3/uL (0.0-0.2) Sodium Level 140 mmol/L (136-145) Potassium Level 4.0 mmol/L (3.5-5.1) Chloride Level 103 mmol/L (98-107) Carbon Dioxide Level 34 mmol/L (21-32) H Anion Gap 3 (6-14) L Blood Urea Nitrogen 17 mg/dL (8-26) Creatinine 0.8 mg/dL (0.7-1.3) Estimated GFR (Cockcroft-Gault) 98.3 BUN/Creatinine Ratio 21 (6-20) H Glucose Level 141 mg/dL (70-99) H Calcium Level 8.6 mg/dL (8.5-10.1) Total Bilirubin 0.3 mg/dL (0.2-1.0) Aspartate Amino Transferase (AST) 11 U/L (15-37) L Alanine Aminotransferase (ALT) 8 U/L (16-63) L Alkaline Phosphatase 135 U/L (46-116) H Total Protein 6.4 g/dL (6.4-8.2) Albumin 2.6 g/dL (3.4-5.0) L Albumin/Globulin Ratio 0.7 (1.0-1.7) L Valproic Acid Level 47 mcg/mL (50-100) L Valproic Acid Last Dose Date 07/11/21 Valproic Acid Last Dose Time 1700 Glucose (Fingerstick) 130 mg/dL (70-99) H Current Medications: Meds: Laboratory Tests Test 07/12/21 06:11 07/12/21 07:19 White Blood Count 9.1 x10^3/uL Red Blood Count 3.95 x10^6/uL Hemoglobin 10.0 g/dL Hematocrit 31.7 % Mean Corpuscular Volume 80 fL Mean Corpuscular Hemoglobin 25 pg Mean Corpuscular Hemoglobin Concent 32 g/dL Red Cell Distribution Width 14.7 % Platelet Count 284 x10^3/uL Neutrophils (%) (Auto) 76 % Lymphocytes (%) (Auto) 10 % Monocytes (%) (Auto) 12 % Eosinophils (%) (Auto) 2 % Basophils (%) (Auto) 0 % Neutrophils # (Auto) 6.9 x10^3uL Lymphocytes # (Auto) 0.9 x10^3/uL Monocytes # (Auto) 1.1 x10^3/uL Eosinophils # (Auto) 0.2 x10^3/uL Basophils # (Auto) 0.0 x10^3/uL Sodium Level 140 mmol/L Potassium Level 4.0 mmol/L Chloride Level 103 mmol/L Carbon Dioxide Level 34 mmol/L Anion Gap 3 Blood Urea Nitrogen 17 mg/dL Creatinine 0.8 mg/dL Estimated GFR (Cockcroft-Gault) 98.3 BUN/Creatinine Ratio 21 Glucose Level 141 mg/dL Calcium Level 8.6 mg/dL Total Bilirubin 0.3 mg/dL Aspartate Amino Transf (AST/SGOT) 11 U/L Alanine Aminotransferase (ALT/SGPT) 8 U/L Alkaline Phosphatase 135 U/L Total Protein 6.4 g/dL Albumin 2.6 g/dL Albumin/Globulin Ratio 0.7 Valproic Acid (Depakene) Level 47 mcg/mL Valproic Acid Last Dose Date 07/11/21 Valproic Acid Last Dose Time 1700 Glucose (Fingerstick) 130 mg/dL Current Medications Medications (Trade) Dose Ordered Sig/Shannon Route PRN Reason Start Time Stop Time Status Last Admin Dose Admin Multi-Ingredient Ointment (Analgesic [place]) 1 demetria PRN QID PRN TP MUSCLE PAIN 06/30/21 15:15 Al Hydroxide/Mg Hydroxide (Mylanta Plus Xs) 15 ml PRN AFTMEALHC PRN PO DYSPEPSIA 06/30/21 15:15 Magnesium Hydroxide (Milk Of Magnesia) 2,400 mg PRN QHS PRN PO 2ND CHOICE CONSTIPATION 06/30/21 15:15 07/12/21 12:00 Acetaminophen (Tylenol) 500 mg BID PO 06/30/21 21:00 07/12/21 20:14 Albuterol Sulfate (Ventolin) 2.5 mg PRN Q4HRS PRN IH FOR ASTHMA 06/30/21 15:30 Alprazolam (Xanax) 0.5 mg TID PO 06/30/21 21:00 07/02/21 22:42 DC 07/02/21 20:38 Buspirone HCl (Buspar) 10 mg BID PO 06/30/21 21:00 07/12/21 20:13 Cyclobenzaprine HCl (Flexeril) 10 mg TID PO 06/30/21 21:00 07/12/21 20:13 Divalproex Sodium (Depakote Er) 250 mg BID PO 06/30/21 21:00 07/01/21 20:14 DC 07/01/21 08:36 Docusate Sodium (Colace) 200 mg PRN DAILY PRN PO 1ST CHOICE CONSTIPATION 06/30/21 15:30 07/12/21 12:01 Furosemide (Lasix) 40 mg BID PO 06/30/21 21:00 07/01/21 02:03 DC Haloperidol (Haldol) 1 mg PRN Q6HRS PRN PO ANXIETY / AGITATION 06/30/21 16:00 07/12/21 12:44 Haloperidol (Haldol) 2 mg TID PO 06/30/21 21:00 06/30/21 19:42 DC Hyoscyamine (Anaspaz) 0.125 mg PRN Q2HR PRN PO SECRETIONS 06/30/21 15:30 Loperamide HCl (Imodium) 2 mg PRN Q3HRS PRN PO DIARRHEA 06/30/21 15:30 Metoprolol Tartrate (Lopressor) 25 mg BID PO 06/30/21 21:00 07/12/21 08:22 Nicotine (Nicoderm Cq 14mg Patch) 1 patch DAILY TD 07/01/21 09:00 07/12/21 08:20 Nitroglycerin (Nitrostat) 0.4 mg PRN Q5MIN PRN SL CHEST PAIN 06/30/21 15:30 Oxycodone HCl (Roxicodone) 2.5 mg PRN Q4HRS PRN PO PAIN 06/30/21 15:30 07/09/21 22:48 Pantoprazole Sodium (Protonix) 40 mg DAILYAC PO 07/01/21 07:30 07/12/21 08:22 Risperidone (RisperDAL M) 0.5 mg BID PO 06/30/21 21:00 06/30/21 19:42 DC Sertraline HCl (Zoloft) 50 mg DAILY PO 07/01/21 09:00 07/01/21 11:58 DC 07/01/21 08:36 Ziprasidone (Geodon) 20 mg 1600 PO 06/30/21 16:00 06/30/21 19:42 DC Ziprasidone (Geodon) 20 mg DAILY PO 07/01/21 09:00 06/30/21 19:42 DC Ferrous Sulfate (Feosol) 325 mg DAILY PO 07/01/21 09:00 07/12/21 08:22 Insulin Glargine (Lantus Syringe) 16 unit DAILY SQ 07/01/21 09:00 07/12/21 08:29 Ondansetron HCl (Zofran Odt) 4 mg PRN Q4HRS PRN PO NAUSEA/VOMITING 06/30/21 16:15 Oxycodone HCl (Roxicodone) 5 mg BID PO 06/30/21 21:00 07/12/21 20:14 Non-Formulary Medication (Rivaroxaban (Xarelto)) 20 mg 1700 PO 06/30/21 17:00 07/01/21 17:35 DC Linagliptin (Tradjenta) 5 mg DAILY PO 07/01/21 09:00 07/12/21 08:23 Non-Formulary Medication (Tea Tree Oil ([place]namese Tea Tree Oil)) 1 demetria DAILY TP 07/01/21 09:00 06/30/21 16:14 DC Non-Formulary Medication (Vit E Acetate/ Gly/Dimeth/Water (Cetaphil Moisturizing Lotion)) 1 demetria DAILY TP 07/01/21 09:00 06/30/21 16:14 DC Olanzapine (ZyPREXA ZYDIS) 2.5 mg PRN Q2HR PRN PO PSYCHOSIS 06/30/21 15:30 07/10/21 19:57 Quetiapine Fumarate (SEROquel) 50 mg HS PO 06/30/21 21:00 07/11/21 00:39 DC 07/10/21 19:52 Quetiapine Fumarate (SEROquel) 25 mg 0900,1300,1700 PO 07/01/21 09:00 07/03/21 19:55 DC 07/03/21 16:46 Trazodone HCl (Desyrel) 50 mg PRN QHS PRN PO insomnia 06/30/21 19:45 07/12/21 20:14 Furosemide (Lasix) 40 mg DAILY PO 07/01/21 09:00 07/12/21 08:24 Sertraline HCl (Zoloft) 75 mg DAILY PO 07/02/21 09:00 07/12/21 08:23 Tamsulosin HCl (Flomax) 0.4 mg QHS PO 07/01/21 21:00 07/11/21 11:18 DC 07/10/21 19:53 Finasteride (Proscar) 5 mg DAILY PO 07/02/21 09:00 07/12/21 08:22 Divalproex Sodium (Depakote Sprinkles) 250 mg DAILY PO 07/02/21 09:00 07/08/21 21:24 DC 07/08/21 08:06 Divalproex Sodium (Depakote Sprinkles) 500 mg DAILY16 PO 07/02/21 16:00 07/08/21 21:24 DC 07/08/21 17:25 Alprazolam (Xanax) 0.25 mg TID PO 07/03/21 09:00 07/05/21 19:52 DC 07/05/21 13:40 Naloxegol (Movantik) 25 mg DAILY07 PO 07/04/21 07:00 07/12/21 08:22 Quetiapine Fumarate (SEROquel) 25 mg BID@0900,1700 PO 07/04/21 09:00 07/08/21 02:00 DC 07/07/21 16:55 Alprazolam (Xanax) 0.25 mg BID PO 07/06/21 09:00 07/08/21 22:00 DC 07/08/21 20:26 Alprazolam (Xanax) 0.25 mg DAILY PO 07/09/21 09:00 07/11/21 10:00 DC 07/11/21 08:16 Quetiapine Fumarate (SEROquel) 25 mg DAILY PO 07/08/21 09:00 07/12/21 08:23 Quetiapine Fumarate (SEROquel) 50 mg DAILY@1700 PO 07/08/21 17:00 07/12/21 17:06 Tamsulosin HCl (Flomax) 0.4 mg QHS PO 07/08/21 21:00 07/08/21 21:17 DC Divalproex Sodium (Depakote Sprinkles) 500 mg DAILY PO 07/09/21 09:00 07/12/21 08:23 Divalproex Sodium (Depakote Sprinkles) 500 mg DAILY@1700 PO 07/09/21 17:00 07/12/21 17:06 Quetiapine Fumarate (SEROquel) 75 mg HS PO 07/11/21 21:00 07/12/21 20:14 Tamsulosin HCl (Flomax) 0.4 mg BID PO 07/11/21 11:30 07/12/21 20:13 Current Medications Medications (Trade) Dose Ordered Sig/Shannon Route PRN Reason Start Time Stop Time Status Last Admin Dose Admin Quetiapine Fumarate (SEROquel) 75 mg HS PO 07/11/21 21:00 07/12/21 20:14 I have reviewed the current psychotropics carefully including drug interactions. Risk benefit ratio favors no change other than as noted in my dictated progress note. Diagnosis: Problems: (1) Major neurocognitive disorder (2) Dementia in Alzheimer's disease with early onset with behavioral disturbance (3) Impulse control disorder, unspecified (4) Anxiety disorder, unspecified (5) Dementia, vascular, with depression (6) Dementia, vascular, with delusions (7) Dementia in Alzheimer's disease with depression (8) Dementia in Alzheimer's disease with delusions HUNTER MEZA MD Jul 12, 2021 20:34
--- NOTE | 2021-07-12 21:49 | NUR ---
Nursing Note: Agitated in the day room, irritable trying to get out of chair. Doesn't listen to staff, traz given. Compliant with meds crushed. Now resting.
[2021-07-13] MEDS: NALOXEGOL OXALATE 25 MG TABLET. PO SCH (05:25)
[2021-07-13 05:45] VITALS: BP 149/80
--- NOTE | 2021-07-13 06:15 | PDOC ---
Exam Note: Kam Note: This note is a late entry for 07/11/2021 covers elements not covered in my initial note. Subjective: The patient was seen individually in the evening of 07/11/2021 with Tanisha SANTA, discussed and reviewed the chart. The patient slept 7 hours previous night. He remains confused, has been urinating a lot in the toilet, more cooperative. X-ray of his shoulder was clinically insignificant and Flomax is helping the urine flow. Review of Systems: Ambulation impaired, in wheelchair. No CV, , pulmonary, eye, ENT system symptoms on review. Reliability poor. Mental Status Exam: The patient is oriented to himself and situation. Speech coherent. Abstraction fair. Computation impaired. Language function intact. Mood and affect somewhat withdrawn. Laboratory Data: Reviewed. Impression: Major neurocognitive disorder, Alzheimer, vascular with delusion, depression behavioral disturbance. Anxiety disorder unspecified. Impulse control disorder unspecified. Plan: Increase h.s. Seroquel from 50 mg to 75 mg. Maintain rest of the psychotropics unchanged including daytime Seroquel, BuSpar, Depakote, trazodone and Xanax is being tapered. Zyprexa is p.r.n. Assessment: Vital Signs/I&O: Vital Signs Date Time Temp Pulse Resp B/P (MAP) Pulse Ox O2 Delivery O2 Flow Rate FiO2 07/13/21 05:45 97.8 102 20 149/80 (103) 92 07/09/21 15:31 Room Air I & O 0 07/12/21 07/12/21 07/13/21 14:59 22:59 06:59 Intake Total 900 ml 320 ml Balance 900 ml 320 ml Labs: Laboratory Tests Test 07/12/21 07:19 Glucose (Fingerstick) 130 mg/dL (70-99) H Current Medications: Meds: Laboratory Tests Test 07/12/21 07:19 Glucose (Fingerstick) 130 mg/dL Current Medications Medications (Trade) Dose Ordered Sig/Shannon Route PRN Reason Start Time Stop Time Status Last Admin Dose Admin Multi-Ingredient Ointment (Analgesic [place]) 1 demetria PRN QID PRN TP MUSCLE PAIN 06/30/21 15:15 Al Hydroxide/Mg Hydroxide (Mylanta Plus Xs) 15 ml PRN AFTMEALHC PRN PO DYSPEPSIA 06/30/21 15:15 Magnesium Hydroxide (Milk Of Magnesia) 2,400 mg PRN QHS PRN PO 2ND CHOICE CONSTIPATION 06/30/21 15:15 07/12/21 12:00 Acetaminophen (Tylenol) 500 mg BID PO 06/30/21 21:00 07/12/21 20:14 Albuterol Sulfate (Ventolin) 2.5 mg PRN Q4HRS PRN IH FOR ASTHMA 06/30/21 15:30 Alprazolam (Xanax) 0.5 mg TID PO 06/30/21 21:00 07/02/21 22:42 DC 07/02/21 20:38 Buspirone HCl (Buspar) 10 mg BID PO 06/30/21 21:00 07/12/21 20:13 Cyclobenzaprine HCl (Flexeril) 10 mg TID PO 06/30/21 21:00 07/12/21 20:13 Divalproex Sodium (Depakote Er) 250 mg BID PO 06/30/21 21:00 07/01/21 20:14 DC 07/01/21 08:36 Docusate Sodium (Colace) 200 mg PRN DAILY PRN PO 1ST CHOICE CONSTIPATION 06/30/21 15:30 07/12/21 12:01 Furosemide (Lasix) 40 mg BID PO 06/30/21 21:00 07/01/21 02:03 DC Haloperidol (Haldol) 1 mg PRN Q6HRS PRN PO ANXIETY / AGITATION 06/30/21 16:00 07/12/21 12:44 Haloperidol (Haldol) 2 mg TID PO 06/30/21 21:00 06/30/21 19:42 DC Hyoscyamine (Anaspaz) 0.125 mg PRN Q2HR PRN PO SECRETIONS 06/30/21 15:30 Loperamide HCl (Imodium) 2 mg PRN Q3HRS PRN PO DIARRHEA 06/30/21 15:30 Metoprolol Tartrate (Lopressor) 25 mg BID PO 06/30/21 21:00 07/12/21 08:22 Nicotine (Nicoderm Cq 14mg Patch) 1 patch DAILY TD 07/01/21 09:00 07/12/21 08:20 Nitroglycerin (Nitrostat) 0.4 mg PRN Q5MIN PRN SL CHEST PAIN 06/30/21 15:30 Oxycodone HCl (Roxicodone) 2.5 mg PRN Q4HRS PRN PO PAIN 06/30/21 15:30 07/09/21 22:48 Pantoprazole Sodium (Protonix) 40 mg DAILYAC PO 07/01/21 07:30 07/12/21 08:22 Risperidone (RisperDAL M) 0.5 mg BID PO 06/30/21 21:00 06/30/21 19:42 DC Sertraline HCl (Zoloft) 50 mg DAILY PO 07/01/21 09:00 07/01/21 11:58 DC 07/01/21 08:36 Ziprasidone (Geodon) 20 mg 1600 PO 06/30/21 16:00 06/30/21 19:42 DC Ziprasidone (Geodon) 20 mg DAILY PO 07/01/21 09:00 06/30/21 19:42 DC Ferrous Sulfate (Feosol) 325 mg DAILY PO 07/01/21 09:00 07/12/21 08:22 Insulin Glargine (Lantus Syringe) 16 unit DAILY SQ 07/01/21 09:00 07/12/21 08:29 Ondansetron HCl (Zofran Odt) 4 mg PRN Q4HRS PRN PO NAUSEA/VOMITING 06/30/21 16:15 Oxycodone HCl (Roxicodone) 5 mg BID PO 06/30/21 21:00 07/12/21 20:14 Non-Formulary Medication (Rivaroxaban (Xarelto)) 20 mg 1700 PO 06/30/21 17:00 07/01/21 17:35 DC Linagliptin (Tradjenta) 5 mg DAILY PO 07/01/21 09:00 07/12/21 08:23 Non-Formulary Medication (Tea Tree Oil ([place] Tea Tree Oil)) 1 demetria DAILY TP 07/01/21 09:00 06/30/21 16:14 DC Non-Formulary Medication (Vit E Acetate/ Gly/Dimeth/Water (Cetaphil Moisturizing Lotion)) 1 demetria DAILY TP 07/01/21 09:00 06/30/21 16:14 DC Olanzapine (ZyPREXA ZYDIS) 2.5 mg PRN Q2HR PRN PO PSYCHOSIS 06/30/21 15:30 07/10/21 19:57 Quetiapine Fumarate (SEROquel) 50 mg HS PO 06/30/21 21:00 07/11/21 00:39 DC 07/10/21 19:52 Quetiapine Fumarate (SEROquel) 25 mg 0900,1300,1700 PO 07/01/21 09:00 07/03/21 19:55 DC 07/03/21 16:46 Trazodone HCl (Desyrel) 50 mg PRN QHS PRN PO insomnia 06/30/21 19:45 07/12/21 20:14 Furosemide (Lasix) 40 mg DAILY PO 07/01/21 09:00 07/12/21 08:24 Sertraline HCl (Zoloft) 75 mg DAILY PO 07/02/21 09:00 07/12/21 08:23 Tamsulosin HCl (Flomax) 0.4 mg QHS PO 07/01/21 21:00 07/11/21 11:18 DC 07/10/21 19:53 Finasteride (Proscar) 5 mg DAILY PO 07/02/21 09:00 07/12/21 08:22 Divalproex Sodium (Depakote Sprinkles) 250 mg DAILY PO 07/02/21 09:00 07/08/21 21:24 DC 07/08/21 08:06 Divalproex Sodium (Depakote Sprinkles) 500 mg DAILY16 PO 07/02/21 16:00 07/08/21 21:24 DC 07/08/21 17:25 Alprazolam (Xanax) 0.25 mg TID PO 07/03/21 09:00 07/05/21 19:52 DC 07/05/21 13:40 Naloxegol (Movantik) 25 mg DAILY07 PO 07/04/21 07:00 07/13/21 05:25 Quetiapine Fumarate (SEROquel) 25 mg BID@0900,1700 PO 07/04/21 09:00 07/08/21 02:00 DC 07/07/21 16:55 Alprazolam (Xanax) 0.25 mg BID PO 07/06/21 09:00 07/08/21 22:00 DC 07/08/21 20:26 Alprazolam (Xanax) 0.25 mg DAILY PO 07/09/21 09:00 07/11/21 10:00 DC 07/11/21 08:16 Quetiapine Fumarate (SEROquel) 25 mg DAILY PO 07/08/21 09:00 07/12/21 08:23 Quetiapine Fumarate (SEROquel) 50 mg DAILY@1700 PO 07/08/21 17:00 07/12/21 17:06 Tamsulosin HCl (Flomax) 0.4 mg QHS PO 07/08/21 21:00 07/08/21 21:17 DC Divalproex Sodium (Depakote Sprinkles) 500 mg DAILY PO 07/09/21 09:00 07/12/21 08:23 Divalproex Sodium (Depakote Sprinkles) 500 mg DAILY@1700 PO 07/09/21 17:00 07/12/21 17:06 Quetiapine Fumarate (SEROquel) 75 mg HS PO 07/11/21 21:00 07/12/21 20:14 Tamsulosin HCl (Flomax) 0.4 mg BID PO 07/11/21 11:30 07/12/21 20:13 I have reviewed the current psychotropics carefully including drug interactions. Risk benefit ratio favors no change other than as noted in my dictated progress note. Diagnosis: Problems: (1) Major neurocognitive disorder (2) Dementia in Alzheimer's disease with early onset with behavioral disturbance (3) Impulse control disorder, unspecified (4) Anxiety disorder, unspecified (5) Dementia, vascular, with depression (6) Dementia, vascular, with delusions (7) Dementia in Alzheimer's disease with depression (8) Dementia in Alzheimer's disease with delusions HUNTER MEZA MD Jul 13, 2021 06:15
--- NOTE | 2021-07-13 06:34 | PDOC ---
Exam Note: Kam Note: This note is a late entry for 07/12/2021 covers elements not covered in my initial note. Subjective: The patient was seen individually in the evening of 07/12/2021 with Stephany SANTA, discussed and reviewed the chart. The patient slept 7-1/4 hours previous night. Patient has been somewhat hypotensive and is getting straight catheter for bladder retention. Valproic acid level is 47. We will defer to Dr. Goins to hold the Toprol since blood pressure is low. Review of Systems: Ambulation impaired, in wheelchair. No CV, , pulmonary, eye, ENT system symptoms on review. Reliability poor. Mental Status Exam: The patient is oriented to himself and situation. Speech coherent. Abstraction fair. Computation impaired. Language function intact. Mood and affect somewhat withdrawn. Laboratory Data: Reviewed. Impression: Major neurocognitive disorder, Alzheimer, vascular with delusion, depression behavioral disturbance. Anxiety disorder unspecified. Impulse control disorder unspecified. Plan: No change from initial note. Assessment: Vital Signs/I&O: Vital Signs Date Time Temp Pulse Resp B/P (MAP) Pulse Ox O2 Delivery O2 Flow Rate FiO2 07/13/21 05:45 97.8 102 20 149/80 (103) 92 07/09/21 15:31 Room Air I & O 07/12/21 07/12/21 07/13/21 15:00 23:00 07:00 Intake Total 900 ml 320 ml Balance 900 ml 320 ml Labs: Laboratory Tests Test 07/12/21 07:19 Glucose (Fingerstick) 130 mg/dL (70-99) H Current Medications: Meds: Laboratory Tests Test 07/12/21 07:19 Glucose (Fingerstick) 130 mg/dL Current Medications Medications (Trade) Dose Ordered Sig/Shannon Route PRN Reason Start Time Stop Time Status Last Admin Dose Admin Multi-Ingredient Ointment (Analgesic [place]) 1 demetria PRN QID PRN TP MUSCLE PAIN 06/30/21 15:15 Al Hydroxide/Mg Hydroxide (Mylanta Plus Xs) 15 ml PRN AFTMEALHC PRN PO DYSPEPSIA 06/30/21 15:15 Magnesium Hydroxide (Milk Of Magnesia) 2,400 mg PRN QHS PRN PO 2ND CHOICE CONSTIPATION 06/30/21 15:15 07/12/21 12:00 Acetaminophen (Tylenol) 500 mg BID PO 06/30/21 21:00 07/12/21 20:14 Albuterol Sulfate (Ventolin) 2.5 mg PRN Q4HRS PRN IH FOR ASTHMA 06/30/21 15:30 Alprazolam (Xanax) 0.5 mg TID PO 06/30/21 21:00 07/02/21 22:42 DC 07/02/21 20:38 Buspirone HCl (Buspar) 10 mg BID PO 06/30/21 21:00 07/12/21 20:13 Cyclobenzaprine HCl (Flexeril) 10 mg TID PO 06/30/21 21:00 07/12/21 20:13 Divalproex Sodium (Depakote Er) 250 mg BID PO 06/30/21 21:00 07/01/21 20:14 DC 07/01/21 08:36 Docusate Sodium (Colace) 200 mg PRN DAILY PRN PO 1ST CHOICE CONSTIPATION 06/30/21 15:30 07/12/21 12:01 Furosemide (Lasix) 40 mg BID PO 06/30/21 21:00 07/01/21 02:03 DC Haloperidol (Haldol) 1 mg PRN Q6HRS PRN PO ANXIETY / AGITATION 06/30/21 16:00 07/12/21 12:44 Haloperidol (Haldol) 2 mg TID PO 06/30/21 21:00 06/30/21 19:42 DC Hyoscyamine (Anaspaz) 0.125 mg PRN Q2HR PRN PO SECRETIONS 06/30/21 15:30 Loperamide HCl (Imodium) 2 mg PRN Q3HRS PRN PO DIARRHEA 06/30/21 15:30 Metoprolol Tartrate (Lopressor) 25 mg BID PO 06/30/21 21:00 07/12/21 08:22 Nicotine (Nicoderm Cq 14mg Patch) 1 patch DAILY TD 07/01/21 09:00 07/12/21 08:20 Nitroglycerin (Nitrostat) 0.4 mg PRN Q5MIN PRN SL CHEST PAIN 06/30/21 15:30 Oxycodone HCl (Roxicodone) 2.5 mg PRN Q4HRS PRN PO PAIN 06/30/21 15:30 07/09/21 22:48 Pantoprazole Sodium (Protonix) 40 mg DAILYAC PO 07/01/21 07:30 07/12/21 08:22 Risperidone (RisperDAL M) 0.5 mg BID PO 06/30/21 21:00 06/30/21 19:42 DC Sertraline HCl (Zoloft) 50 mg DAILY PO 07/01/21 09:00 07/01/21 11:58 DC 07/01/21 08:36 Ziprasidone (Geodon) 20 mg 1600 PO 06/30/21 16:00 06/30/21 19:42 DC Ziprasidone (Geodon) 20 mg DAILY PO 07/01/21 09:00 06/30/21 19:42 DC Ferrous Sulfate (Feosol) 325 mg DAILY PO 07/01/21 09:00 07/12/21 08:22 Insulin Glargine (Lantus Syringe) 16 unit DAILY SQ 07/01/21 09:00 07/12/21 08:29 Ondansetron HCl (Zofran Odt) 4 mg PRN Q4HRS PRN PO NAUSEA/VOMITING 06/30/21 16:15 Oxycodone HCl (Roxicodone) 5 mg BID PO 06/30/21 21:00 07/12/21 20:14 Non-Formulary Medication (Rivaroxaban (Xarelto)) 20 mg 1700 PO 06/30/21 17:00 07/01/21 17:35 DC Linagliptin (Tradjenta) 5 mg DAILY PO 07/01/21 09:00 07/12/21 08:23 Non-Formulary Medication (Tea Tree Oil ([place] Tea Tree Oil)) 1 demetria DAILY TP 07/01/21 09:00 06/30/21 16:14 DC Non-Formulary Medication (Vit E Acetate/ Gly/Dimeth/Water (Cetaphil Moisturizing Lotion)) 1 demetria DAILY TP 07/01/21 09:00 06/30/21 16:14 DC Olanzapine (ZyPREXA ZYDIS) 2.5 mg PRN Q2HR PRN PO PSYCHOSIS 06/30/21 15:30 07/10/21 19:57 Quetiapine Fumarate (SEROquel) 50 mg HS PO 06/30/21 21:00 07/11/21 00:39 DC 07/10/21 19:52 Quetiapine Fumarate (SEROquel) 25 mg 0900,1300,1700 PO 07/01/21 09:00 07/03/21 19:55 DC 07/03/21 16:46 Trazodone HCl (Desyrel) 50 mg PRN QHS PRN PO insomnia 06/30/21 19:45 07/12/21 20:14 Furosemide (Lasix) 40 mg DAILY PO 07/01/21 09:00 07/12/21 08:24 Sertraline HCl (Zoloft) 75 mg DAILY PO 07/02/21 09:00 07/12/21 08:23 Tamsulosin HCl (Flomax) 0.4 mg QHS PO 07/01/21 21:00 07/11/21 11:18 DC 07/10/21 19:53 Finasteride (Proscar) 5 mg DAILY PO 07/02/21 09:00 07/12/21 08:22 Divalproex Sodium (Depakote Sprinkles) 250 mg DAILY PO 07/02/21 09:00 07/08/21 21:24 DC 07/08/21 08:06 Divalproex Sodium (Depakote Sprinkles) 500 mg DAILY16 PO 07/02/21 16:00 07/08/21 21:24 DC 07/08/21 17:25 Alprazolam (Xanax) 0.25 mg TID PO 07/03/21 09:00 07/05/21 19:52 DC 07/05/21 13:40 Naloxegol (Movantik) 25 mg DAILY07 PO 07/04/21 07:00 07/13/21 05:25 Quetiapine Fumarate (SEROquel) 25 mg BID@0900,1700 PO 07/04/21 09:00 07/08/21 02:00 DC 07/07/21 16:55 Alprazolam (Xanax) 0.25 mg BID PO 07/06/21 09:00 07/08/21 22:00 DC 07/08/21 20:26 Alprazolam (Xanax) 0.25 mg DAILY PO 07/09/21 09:00 07/11/21 10:00 DC 07/11/21 08:16 Quetiapine Fumarate (SEROquel) 25 mg DAILY PO 07/08/21 09:00 07/12/21 08:23 Quetiapine Fumarate (SEROquel) 50 mg DAILY@1700 PO 07/08/21 17:00 07/12/21 17:06 Tamsulosin HCl (Flomax) 0.4 mg QHS PO 07/08/21 21:00 07/08/21 21:17 DC Divalproex Sodium (Depakote Sprinkles) 500 mg DAILY PO 07/09/21 09:00 07/12/21 08:23 Divalproex Sodium (Depakote Sprinkles) 500 mg DAILY@1700 PO 07/09/21 17:00 07/12/21 17:06 Quetiapine Fumarate (SEROquel) 75 mg HS PO 07/11/21 21:00 07/12/21 20:14 Tamsulosin HCl (Flomax) 0.4 mg BID PO 07/11/21 11:30 07/12/21 20:13 I have reviewed the current psychotropics carefully including drug interactions. Risk benefit ratio favors no change other than as noted in my dictated progress note. Diagnosis: Problems: (1) Major neurocognitive disorder (2) Dementia in Alzheimer's disease with early onset with behavioral disturbance (3) Impulse control disorder, unspecified (4) Anxiety disorder, unspecified (5) Dementia, vascular, with depression (6) Dementia, vascular, with delusions (7) Dementia in Alzheimer's disease with depression (8) Dementia in Alzheimer's disease with delusions HUNTER MEZA MD Jul 13, 2021 06:34
[2021-07-13 07:40] LABS: AMORPHOUS SEDIMENT,UR PRESENT /HPF; BACTERIA,URINE 0 /HPF (0-FEW); BILIRUBIN,URINE NEG (NEG); CLARITY,URINE CLOUDY; COLOR,URINE YELLOW; GLUCOSE,URINE 100 mg/dL (NEG); NITRITE,URINE NEG (NEG); UROBILINOGEN,URINE 0.2 mg/dL (0.2 mg/dL); WBC,URINE OCC /HPF (0-4)
[2021-07-13] MEDS: LINAGLIPTIN 5 MG TABLET PO SCH (08:36)
[2021-07-13] MEDS: ACETAMINOPHEN 500 MG TABLET PO SCH ×2 (08:36→20:24)
[2021-07-13] MEDS: FUROSEMIDE 40 MG TABLET PO SCH (08:36)
[2021-07-13] MEDS: FINASTERIDE 5 MG TABLET. PO SCH (08:36)
[2021-07-13] MEDS: FERROUS SULFATE 325 MG TABLET. PO SCH (08:37)
[2021-07-13] MEDS: DIVALPROEX 125 MG CAP.SPRINK PO SCH ×2 (08:37→16:56)
[2021-07-13] MEDS: SERTRALINE 25 MG TABLET. PO SCH (08:37)
[2021-07-13] MEDS: QUEtiapine 25 MG TABLET. PO SCH ×2 (08:37→16:56)
[2021-07-13] MEDS: busPIRone 10 MG TABLET. PO SCH ×2 (08:37→20:26)
[2021-07-13] MEDS: oxyCODONE IR 5 MG TABLET PO SCH ×2 (08:37→20:24)
[2021-07-13] MEDS: METOPROLOL TART IMMED RELEASE 25 MG TABLET. PO SCH ×2 (08:38→20:27)
[2021-07-13] MEDS: CYCLOBENZAPRINE 10 MG TABLET. PO SCH ×3 (08:38→20:24)
[2021-07-13] MEDS: TAMSULOSIN 0.4 MG CAP.ER.24H. PO SCH ×2 (08:38→20:24)
[2021-07-13] MEDS: PANTOPRAZOLE 40 MG TABLET. PO SCH (08:38)
[2021-07-13] MEDS: NICOTINE 14MG PATCH. TD SCH (08:41)
[2021-07-13] MEDS: INSULIN GLARGINE SYRINGE. SQ SCH (09:26)
[2021-07-13] MEDS: MAGNESIUM HYDROXIDE 2,400 MG/30 ML ORAL.SUSP. PO PRN (09:26)
--- NOTE | 2021-07-13 14:30 | NUR ---
RN Day Shift Note: Pt presents with neutral mood/affect. Pt is low odonnell on the unit today. Pt is calm and cooperative. Pt is medication compliant. Pt is noted to spend time in the day room with peers and staff. Pt is pleasant. Pt had a large bowel movement this am. Pt slept 7.25 hours last night. Pt is noted to have eaten 50% of breakfast and 25% of his lunch. When asked pt reported he has been urinating in the toilet today. Will continue to monitor.
[2021-07-13 15:40] VITALS: BP 103/66
[2021-07-13] MEDS: DOCUSATE SODIUM 100 MG CAPSULE PO SCH (17:35)
--- NOTE | 2021-07-13 18:41 | NUR ---
Pt was witnessed by staff voiding in toilet at dinner time ([id number]). Was unable to measure the void because pt had to be brought very quickly to the toilet to make it on time. It is estimated pt voided about 500 ml at that time. Pt self reported voiding throughout the day in the toilet. Pt was not straight catheterized because of the self voiding.
[2021-07-13] MEDS: QUEtiapine 50 MG TABLET. PO SCH (20:26)
[2021-07-13] MEDS: traZODone 50 MG TABLET. PO PRN (20:36)
--- NOTE | 2021-07-13 20:47 | PDOC ---
Exam Note: Kam Note: Please also refer to the separate dictated note~for this date of service dictated separately.~Patient seen individually. Discussed the patient with Nursing staff reviewed the chart.~Reviewed interim history and current functioning. Reviewed vital signs,~Labs/ Radiology~and current medications noted below. Continue current treatment with the changes noted in the dictated addendum note Assessment: Vital Signs/I&O: Vital Signs Date Time Temp Pulse Resp B/P (MAP) Pulse Ox O2 Delivery O2 Flow Rate FiO2 07/13/21 20:27 82 103/66 07/13/21 20:24 92 07/13/21 15:40 98.4 16 Room Air I & O 07/12/21 07/12/21 07/13/21 15:00 23:00 07:00 Intake Total 900 ml 320 ml Balance 900 ml 320 ml Labs: Laboratory Tests Test 07/13/21 06:00 07/13/21 07:43 Urine Collection Type Unknown Urine Color Yellow Urine Clarity Cloudy Urine pH 7.0 Urine Specific Garrett 1.015 Urine Protein Neg (NEG-TRACE) Urine Glucose (UA) 100 mg/dL (NEG) Urine Ketones (Stick) Neg mg/dL (NEG) Urine Blood Trace (NEG) Urine Nitrite Neg (NEG) Urine Bilirubin Neg (NEG) Urine Urobilinogen Dipstick 0.2 mg/dL (0.2 mg/dL) Urine Leukocyte Esterase Neg (NEG) Urine RBC 3-5 /HPF (0-2) Urine WBC Occ /HPF (0-4) Urine Squamous Epithelial Cells None /LPF Urine Amorphous Sediment Present /HPF Urine Bacteria 0 /HPF (0-FEW) SARS-CoV-2 (PCR) Not detected (NOT DETECTD) Glucose (Fingerstick) 159 mg/dL (70-99) H Current Medications: Meds: Laboratory Tests Test 07/13/21 06:00 07/13/21 07:43 Urine Collection Type Unknown Urine Color Yellow Urine Clarity Cloudy Urine pH 7.0 Urine Specific Garrett 1.015 Urine Protein Neg Urine Glucose (UA) 100 mg/dL Urine Ketones (Stick) Neg mg/dL Urine Blood Trace Urine Nitrite Neg Urine Bilirubin Neg Urine Urobilinogen Dipstick 0.2 mg/dL Urine Leukocyte Esterase Neg Urine RBC 3-5 /HPF Urine WBC Occ /HPF Urine Squamous Epithelial Cells None /LPF Urine Amorphous Sediment Present /HPF Urine Bacteria 0 /HPF Coronavirus (COVID-19)(PCR) Not detected Glucose (Fingerstick) 159 mg/dL Current Medications Medications (Trade) Dose Ordered Sig/Shannon Route PRN Reason Start Time Stop Time Status Last Admin Dose Admin Multi-Ingredient Ointment (Analgesic [place]) 1 demetria PRN QID PRN TP MUSCLE PAIN 06/30/21 15:15 Al Hydroxide/Mg Hydroxide (Mylanta Plus Xs) 15 ml PRN AFTMEALHC PRN PO DYSPEPSIA 06/30/21 15:15 Magnesium Hydroxide (Milk Of Magnesia) 2,400 mg PRN QHS PRN PO 2ND CHOICE CONSTIPATION 06/30/21 15:15 07/13/21 09:26 Acetaminophen (Tylenol) 500 mg BID PO 06/30/21 21:00 07/13/21 20:24 Albuterol Sulfate (Ventolin) 2.5 mg PRN Q4HRS PRN IH FOR ASTHMA 06/30/21 15:30 Alprazolam (Xanax) 0.5 mg TID PO 06/30/21 21:00 07/02/21 22:42 DC 07/02/21 20:38 Buspirone HCl (Buspar) 10 mg BID PO 06/30/21 21:00 07/13/21 20:26 Cyclobenzaprine HCl (Flexeril) 10 mg TID PO 06/30/21 21:00 07/13/21 20:24 Divalproex Sodium (Depakote Er) 250 mg BID PO 06/30/21 21:00 07/01/21 20:14 DC 07/01/21 08:36 Docusate Sodium (Colace) 200 mg PRN DAILY PRN PO 1ST CHOICE CONSTIPATION 06/30/21 15:30 07/13/21 17:16 DC 07/12/21 12:01 Furosemide (Lasix) 40 mg BID PO 06/30/21 21:00 07/01/21 02:03 DC Haloperidol (Haldol) 1 mg PRN Q6HRS PRN PO ANXIETY / AGITATION 06/30/21 16:00 07/12/21 12:44 Haloperidol (Haldol) 2 mg TID PO 06/30/21 21:00 06/30/21 19:42 DC Hyoscyamine (Anaspaz) 0.125 mg PRN Q2HR PRN PO SECRETIONS 06/30/21 15:30 Loperamide HCl (Imodium) 2 mg PRN Q3HRS PRN PO DIARRHEA 06/30/21 15:30 Metoprolol Tartrate (Lopressor) 25 mg BID PO 06/30/21 21:00 07/13/21 08:38 Nicotine (Nicoderm Cq 14mg Patch) 1 patch DAILY TD 07/01/21 09:00 07/13/21 08:41 Nitroglycerin (Nitrostat) 0.4 mg PRN Q5MIN PRN SL CHEST PAIN 06/30/21 15:30 Oxycodone HCl (Roxicodone) 2.5 mg PRN Q4HRS PRN PO PAIN 06/30/21 15:30 07/09/21 22:48 Pantoprazole Sodium (Protonix) 40 mg DAILYAC PO 07/01/21 07:30 07/13/21 08:38 Risperidone (RisperDAL M) 0.5 mg BID PO 06/30/21 21:00 06/30/21 19:42 DC Sertraline HCl (Zoloft) 50 mg DAILY PO 07/01/21 09:00 07/01/21 11:58 DC 07/01/21 08:36 Ziprasidone (Geodon) 20 mg 1600 PO 06/30/21 16:00 06/30/21 19:42 DC Ziprasidone (Geodon) 20 mg DAILY PO 07/01/21 09:00 06/30/21 19:42 DC Ferrous Sulfate (Feosol) 325 mg DAILY PO 07/01/21 09:00 07/13/21 08:37 Insulin Glargine (Lantus Syringe) 16 unit DAILY SQ 07/01/21 09:00 07/13/21 09:26 Ondansetron HCl (Zofran Odt) 4 mg PRN Q4HRS PRN PO NAUSEA/VOMITING 06/30/21 16:15 Oxycodone HCl (Roxicodone) 5 mg BID PO 06/30/21 21:00 07/13/21 20:24 Non-Formulary Medication (Rivaroxaban (Xarelto)) 20 mg 1700 PO 06/30/21 17:00 07/01/21 17:35 DC Linagliptin (Tradjenta) 5 mg DAILY PO 07/01/21 09:00 07/13/21 08:36 Non-Formulary Medication (Tea Tree Oil ([place]izen [place] Tea Tree Oil)) 1 demetria DAILY TP 07/01/21 09:00 06/30/21 16:14 DC Non-Formulary Medication (Vit E Acetate/ Gly/Dimeth/Water (Cetaphil Moisturizing Lotion)) 1 demetria DAILY TP 07/01/21 09:00 06/30/21 16:14 DC Olanzapine (ZyPREXA ZYDIS) 2.5 mg PRN Q2HR PRN PO PSYCHOSIS 06/30/21 15:30 07/10/21 19:57 Quetiapine Fumarate (SEROquel) 50 mg HS PO 06/30/21 21:00 07/11/21 00:39 DC 07/10/21 19:52 Quetiapine Fumarate (SEROquel) 25 mg 0900,1300,1700 PO 07/01/21 09:00 07/03/21 19:55 DC 07/03/21 16:46 Trazodone HCl (Desyrel) 50 mg PRN QHS PRN PO insomnia 06/30/21 19:45 07/13/21 20:36 Furosemide (Lasix) 40 mg DAILY PO 07/01/21 09:00 07/13/21 08:36 Sertraline HCl (Zoloft) 75 mg DAILY PO 07/02/21 09:00 07/13/21 08:37 Tamsulosin HCl (Flomax) 0.4 mg QHS PO 07/01/21 21:00 07/11/21 11:18 DC 07/10/21 19:53 Finasteride (Proscar) 5 mg DAILY PO 07/02/21 09:00 07/13/21 08:36 Divalproex Sodium (Depakote Sprinkles) 250 mg DAILY PO 07/02/21 09:00 07/08/21 21:24 DC 07/08/21 08:06 Divalproex Sodium (Depakote Sprinkles) 500 mg DAILY16 PO 07/02/21 16:00 07/08/21 21:24 DC 07/08/21 17:25 Alprazolam (Xanax) 0.25 mg TID PO 07/03/21 09:00 07/05/21 19:52 DC 07/05/21 13:40 Naloxegol (Movantik) 25 mg DAILY07 PO 07/04/21 07:00 07/13/21 05:25 Quetiapine Fumarate (SEROquel) 25 mg BID@0900,1700 PO 07/04/21 09:00 07/08/21 02:00 DC 07/07/21 16:55 Alprazolam (Xanax) 0.25 mg BID PO 07/06/21 09:00 07/08/21 22:00 DC 07/08/21 20:26 Alprazolam (Xanax) 0.25 mg DAILY PO 07/09/21 09:00 07/11/21 10:00 DC 07/11/21 08:16 Quetiapine Fumarate (SEROquel) 25 mg DAILY PO 07/08/21 09:00 07/13/21 08:37 Quetiapine Fumarate (SEROquel) 50 mg DAILY@1700 PO 07/08/21 17:00 07/13/21 16:56 Tamsulosin HCl (Flomax) 0.4 mg QHS PO 07/08/21 21:00 07/08/21 21:17 DC Divalproex Sodium (Depakote Sprinkles) 500 mg DAILY PO 07/09/21 09:00 07/13/21 08:37 Divalproex Sodium (Depakote Sprinkles) 500 mg DAILY@1700 PO 07/09/21 17:00 07/13/21 16:56 Quetiapine Fumarate (SEROquel) 75 mg HS PO 07/11/21 21:00 07/13/21 20:26 Tamsulosin HCl (Flomax) 0.4 mg BID PO 07/11/21 11:30 07/13/21 20:24 Docusate Sodium (Colace) 200 mg DAILY PO 07/13/21 17:15 07/13/21 17:35 Current Medications Medications (Trade) Dose Ordered Sig/Shannon Route PRN Reason Start Time Stop Time Status Last Admin Dose Admin Docusate Sodium (Colace) 200 mg DAILY PO 07/13/21 17:15 07/13/21 17:35 I have reviewed the current psychotropics carefully including drug interactions. Risk benefit ratio favors no change other than as noted in my dictated progress note. Diagnosis: Problems: (1) Major neurocognitive disorder (2) Dementia in Alzheimer's disease with early onset with behavioral disturbance (3) Impulse control disorder, unspecified (4) Anxiety disorder, unspecified (5) Dementia, vascular, with depression (6) Dementia, vascular, with delusions (7) Dementia in Alzheimer's disease with depression (8) Dementia in Alzheimer's disease with delusions HUNTER MEZA MD Jul 13, 2021 20:47
--- NOTE | 2021-07-13 22:41 | NUR ---
Nursing Note In room in bed asleep during assessment. Awakens to voice is compliant and cooperative. Has been voiding all day on and off and having bowel movements. No complaints, goes back to sleep right after interaction.
[2021-07-14 06:09] VITALS: BP 111/65
[2021-07-14] MEDS: NALOXEGOL OXALATE 25 MG TABLET. PO SCH (07:00)
--- NOTE | 2021-07-14 07:02 | PDOC ---
Exam Note: Kam Note: This note is a late entry for 07/13/2021 covers elements not covered in my initial note. Subjective: The patient was seen individually in the evening of 07/13/2021 with Stephany SANTA, discussed and reviewed the chart. The patient slept 7-1/4 hours previous night. Overall he remains confused. He did have a straight catheter of his urinary bladder this morning and 900 mL was obtained. He has had a bowel movement and has been voiding much of the day by himself. Review of Systems: Ambulation impaired, in wheelchair. No CV, , pulmonary, eye, ENT system symptoms on review. Reliability poor. Mental Status Exam: The patient is oriented to himself and situation. Speech coherent. Abstraction fair. Computation impaired. Language function intact. Mood and affect somewhat withdrawn. Laboratory Data: Reviewed. Impression: Major neurocognitive disorder, Alzheimer, vascular with delusion, depression behavioral disturbance. Anxiety disorder unspecified. Impulse control disorder unspecified. Plan: No change from initial note. Assessment: Vital Signs/I&O: Vital Signs Date Time Temp Pulse Resp B/P (MAP) Pulse Ox O2 Delivery O2 Flow Rate FiO2 07/14/21 06:09 98.0 85 16 111/65 (80) 93 2.0 07/13/21 15:40 Room Air I & O 07/13/21 07/13/21 07/14/21 15:00 23:00 07:00 Intake Total 600 ml 360 ml Balance 600 ml 360 ml Labs: Laboratory Tests Test 07/13/21 07:43 Glucose (Fingerstick) 159 mg/dL (70-99) H Current Medications: Meds: Laboratory Tests Test 07/13/21 07:43 Glucose (Fingerstick) 159 mg/dL Current Medications Medications (Trade) Dose Ordered Sig/Shannon Route PRN Reason Start Time Stop Time Status Last Admin Dose Admin Multi-Ingredient Ointment (Analgesic [place]) 1 demetria PRN QID PRN TP MUSCLE PAIN 06/30/21 15:15 Al Hydroxide/Mg Hydroxide (Mylanta Plus Xs) 15 ml PRN AFTMEALHC PRN PO DYSPEPSIA 06/30/21 15:15 Magnesium Hydroxide (Milk Of Magnesia) 2,400 mg PRN QHS PRN PO 2ND CHOICE CONSTIPATION 06/30/21 15:15 07/13/21 09:26 Acetaminophen (Tylenol) 500 mg BID PO 06/30/21 21:00 07/13/21 20:24 Albuterol Sulfate (Ventolin) 2.5 mg PRN Q4HRS PRN IH FOR ASTHMA 06/30/21 15:30 Alprazolam (Xanax) 0.5 mg TID PO 06/30/21 21:00 07/02/21 22:42 DC 07/02/21 20:38 Buspirone HCl (Buspar) 10 mg BID PO 06/30/21 21:00 07/13/21 20:26 Cyclobenzaprine HCl (Flexeril) 10 mg TID PO 06/30/21 21:00 07/13/21 20:24 Divalproex Sodium (Depakote Er) 250 mg BID PO 06/30/21 21:00 07/01/21 20:14 DC 07/01/21 08:36 Docusate Sodium (Colace) 200 mg PRN DAILY PRN PO 1ST CHOICE CONSTIPATION 06/30/21 15:30 07/13/21 17:16 DC 07/12/21 12:01 Furosemide (Lasix) 40 mg BID PO 06/30/21 21:00 07/01/21 02:03 DC Haloperidol (Haldol) 1 mg PRN Q6HRS PRN PO ANXIETY / AGITATION 06/30/21 16:00 07/12/21 12:44 Haloperidol (Haldol) 2 mg TID PO 06/30/21 21:00 06/30/21 19:42 DC Hyoscyamine (Anaspaz) 0.125 mg PRN Q2HR PRN PO SECRETIONS 06/30/21 15:30 Loperamide HCl (Imodium) 2 mg PRN Q3HRS PRN PO DIARRHEA 06/30/21 15:30 Metoprolol Tartrate (Lopressor) 25 mg BID PO 06/30/21 21:00 07/13/21 08:38 Nicotine (Nicoderm Cq 14mg Patch) 1 patch DAILY TD 07/01/21 09:00 07/13/21 08:41 Nitroglycerin (Nitrostat) 0.4 mg PRN Q5MIN PRN SL CHEST PAIN 06/30/21 15:30 Oxycodone HCl (Roxicodone) 2.5 mg PRN Q4HRS PRN PO PAIN 06/30/21 15:30 07/09/21 22:48 Pantoprazole Sodium (Protonix) 40 mg DAILYAC PO 07/01/21 07:30 07/13/21 08:38 Risperidone (RisperDAL M) 0.5 mg BID PO 06/30/21 21:00 06/30/21 19:42 DC Sertraline HCl (Zoloft) 50 mg DAILY PO 07/01/21 09:00 07/01/21 11:58 DC 07/01/21 08:36 Ziprasidone (Geodon) 20 mg 1600 PO 06/30/21 16:00 06/30/21 19:42 DC Ziprasidone (Geodon) 20 mg DAILY PO 07/01/21 09:00 06/30/21 19:42 DC Ferrous Sulfate (Feosol) 325 mg DAILY PO 07/01/21 09:00 07/13/21 08:37 Insulin Glargine (Lantus Syringe) 16 unit DAILY SQ 07/01/21 09:00 07/13/21 09:26 Ondansetron HCl (Zofran Odt) 4 mg PRN Q4HRS PRN PO NAUSEA/VOMITING 06/30/21 16:15 Oxycodone HCl (Roxicodone) 5 mg BID PO 06/30/21 21:00 07/13/21 20:24 Non-Formulary Medication (Rivaroxaban (Xarelto)) 20 mg 1700 PO 06/30/21 17:00 07/01/21 17:35 DC Linagliptin (Tradjenta) 5 mg DAILY PO 07/01/21 09:00 07/13/21 08:36 Non-Formulary Medication (Tea Tree Oil ([place] Tea Tree Oil)) 1 demetria DAILY TP 07/01/21 09:00 06/30/21 16:14 DC Non-Formulary Medication (Vit E Acetate/ Gly/Dimeth/Water (Cetaphil Moisturizing Lotion)) 1 demetria DAILY TP 07/01/21 09:00 06/30/21 16:14 DC Olanzapine (ZyPREXA ZYDIS) 2.5 mg PRN Q2HR PRN PO PSYCHOSIS 06/30/21 15:30 07/10/21 19:57 Quetiapine Fumarate (SEROquel) 50 mg HS PO 06/30/21 21:00 07/11/21 00:39 DC 07/10/21 19:52 Quetiapine Fumarate (SEROquel) 25 mg 0900,1300,1700 PO 07/01/21 09:00 07/03/21 19:55 DC 07/03/21 16:46 Trazodone HCl (Desyrel) 50 mg PRN QHS PRN PO insomnia 06/30/21 19:45 07/13/21 20:36 Furosemide (Lasix) 40 mg DAILY PO 07/01/21 09:00 07/13/21 08:36 Sertraline HCl (Zoloft) 75 mg DAILY PO 07/02/21 09:00 07/13/21 08:37 Tamsulosin HCl (Flomax) 0.4 mg QHS PO 07/01/21 21:00 07/11/21 11:18 DC 07/10/21 19:53 Finasteride (Proscar) 5 mg DAILY PO 07/02/21 09:00 07/13/21 08:36 Divalproex Sodium (Depakote Sprinkles) 250 mg DAILY PO 07/02/21 09:00 07/08/21 21:24 DC 07/08/21 08:06 Divalproex Sodium (Depakote Sprinkles) 500 mg DAILY16 PO 07/02/21 16:00 07/08/21 21:24 DC 07/08/21 17:25 Alprazolam (Xanax) 0.25 mg TID PO 07/03/21 09:00 07/05/21 19:52 DC 07/05/21 13:40 Naloxegol (Movantik) 25 mg DAILY07 PO 07/04/21 07:00 07/13/21 05:25 Quetiapine Fumarate (SEROquel) 25 mg BID@0900,1700 PO 07/04/21 09:00 07/08/21 02:00 DC 07/07/21 16:55 Alprazolam (Xanax) 0.25 mg BID PO 07/06/21 09:00 07/08/21 22:00 DC 07/08/21 20:26 Alprazolam (Xanax) 0.25 mg DAILY PO 07/09/21 09:00 07/11/21 10:00 DC 07/11/21 08:16 Quetiapine Fumarate (SEROquel) 25 mg DAILY PO 07/08/21 09:00 07/13/21 08:37 Quetiapine Fumarate (SEROquel) 50 mg DAILY@1700 PO 07/08/21 17:00 07/13/21 16:56 Tamsulosin HCl (Flomax) 0.4 mg QHS PO 07/08/21 21:00 07/08/21 21:17 DC Divalproex Sodium (Depakote Sprinkles) 500 mg DAILY PO 07/09/21 09:00 07/13/21 08:37 Divalproex Sodium (Depakote Sprinkles) 500 mg DAILY@1700 PO 07/09/21 17:00 07/13/21 16:56 Quetiapine Fumarate (SEROquel) 75 mg HS PO 07/11/21 21:00 07/13/21 20:26 Tamsulosin HCl (Flomax) 0.4 mg BID PO 07/11/21 11:30 07/13/21 20:24 Docusate Sodium (Colace) 200 mg DAILY PO 07/13/21 17:15 07/13/21 17:35 Current Medications Medications (Trade) Dose Ordered Sig/Shannon Route PRN Reason Start Time Stop Time Status Last Admin Dose Admin Docusate Sodium (Colace) 200 mg DAILY PO 07/13/21 17:15 07/13/21 17:35 I have reviewed the current psychotropics carefully including drug interactions. Risk benefit ratio favors no change other than as noted in my dictated progress note. Diagnosis: Problems: (1) Major neurocognitive disorder (2) Dementia in Alzheimer's disease with early onset with behavioral disturbance (3) Impulse control disorder, unspecified (4) Anxiety disorder, unspecified (5) Dementia, vascular, with depression (6) Dementia, vascular, with delusions (7) Dementia in Alzheimer's disease with depression (8) Dementia in Alzheimer's disease with delusions HUNTER MEZA MD Jul 14, 2021 07:02
[2021-07-14] MEDS: PANTOPRAZOLE 40 MG TABLET. PO SCH (08:15)
[2021-07-14] MEDS: NICOTINE 14MG PATCH. TD SCH (08:15)
[2021-07-14] MEDS: busPIRone 10 MG TABLET. PO SCH ×2 (08:15→19:56)
[2021-07-14] MEDS: DOCUSATE SODIUM 100 MG CAPSULE PO SCH (08:16)
[2021-07-14] MEDS: TAMSULOSIN 0.4 MG CAP.ER.24H. PO SCH ×2 (08:16→19:55)
[2021-07-14] MEDS: ACETAMINOPHEN 500 MG TABLET PO SCH ×2 (08:16→19:56)
[2021-07-14] MEDS: SERTRALINE 25 MG TABLET. PO SCH (08:16)
[2021-07-14] MEDS: oxyCODONE IR 5 MG TABLET PO SCH ×2 (08:17→19:57)
[2021-07-14] MEDS: CYCLOBENZAPRINE 10 MG TABLET. PO SCH ×3 (08:17→19:55)
[2021-07-14] MEDS: METOPROLOL TART IMMED RELEASE 25 MG TABLET. PO SCH ×2 (08:17→19:55)
[2021-07-14] MEDS: QUEtiapine 25 MG TABLET. PO SCH ×2 (08:17→16:49)
[2021-07-14] MEDS: LINAGLIPTIN 5 MG TABLET PO SCH (08:18)
[2021-07-14] MEDS: FINASTERIDE 5 MG TABLET. PO SCH (08:18)
[2021-07-14] MEDS: FERROUS SULFATE 325 MG TABLET. PO SCH (08:18)
[2021-07-14] MEDS: DIVALPROEX 125 MG CAP.SPRINK PO SCH ×2 (08:18→16:49)
[2021-07-14] MEDS: FUROSEMIDE 40 MG TABLET PO SCH (08:18)
[2021-07-14] MEDS: INSULIN GLARGINE SYRINGE. SQ SCH (09:13)
--- NOTE | 2021-07-14 09:55 | NUR ---
WEEKLY ACTIVITY THERAPY NOTE Date of Admission:06/30/21 Date of AT Assessment:07/01 Precipitating behaviors that initiated intake and admission: aggressive-hits staff, yells at staff & curses, exit seeking, throws cups of water, resistive, balls up fists Goal aimed: increase socialization and engagement Initial Goal: Pt will participate in at least three Activity Therapy sessions per week Weekly progress towards goal: achieved, 5/3 Group participation level: 3 min, 1 mod, 1 full Weekly highlights: tossing horseshoes independently Sunday, contributed to group discussion Sunday Behaviors observed: hallucinating about a baby with something wrapped around its arm Sunday, rambling Plan: no change to goal Beneficial adaptations: socialization and engagement
--- NOTE | 2021-07-14 10:35 | NUR ---
Pt cooperative and med compliant this shift. He is able to make his needs known and is appropriate for the most part on the unit (aside from the occasional swear word when he talks casually). Absent of physical/verbal aggression, A&O to name and , absent of SI/HI/VH/AH/delusions/pain. His interactions with staff and peers has been appropriate. Plan of care continues, will pass to next shift.
--- NOTE | 2021-07-14 12:47 | TX PLAN ---
Interdisciplinary Tx Plan Admission Information Jun 30, 2021 at 15:21 Legal Status (on Admission): Voluntary, DPOA DPOA/Guardian Name: Kristina Matthews-daughter Contact Other Contact Name: Marichuy- aquatic facility manager Other Contact Verified Code Status: DNR Allergies: Coded Allergies: hydrocodone (Verified Allergy, Unknown, 06/30/21) morphine (Verified Allergy, Unknown, 06/30/21) Estimated Length of Stay: 14 Diagnoses Primary Diagnosis: Major neurocognitive d/o, vascular, Alzheimer's, with delusions, depression; Anxiety d/o; Impulse Control d/o Reasons for Admission: Aggressive, Agitated, Angry, Combative, Confusion/Disoriented, Poor impulse control Problem in Patient's Words: As noted above. Additional Admission Comments: Per intake record, aggressive hitting staff, yelling at staff and cursing, exit seeking, throwing cups of water, resists care assistance, and balls up fists. Problems Active Problems: Aggressive Verabally abusive Combative Depressed Resists cares Inactive Problems: Slept seven hours last night Meds crushed in pudding Pt Strengths/Limitations Ability for [place]: Poor Cognitive Functioning/Ability: Poor Communication Skills/Ability: Fair Financial Resources: Fair Insight/Judgement: Poor Intellectual Ability: Fair Physical Health: Fair Social Skills: Fair Stability in Family: Fair Verbal Skills: Fair Discharge Criteria Discharge Criteria: Adequate arrangements @DC, Improved behavior, Improved mood/thought Preliminary Discharge Plan Preliminary DC Plan: Long-Term Special Precautions Special Precautions: Agitation/Assault Fall Risk: High Initial D/C Plan Darryl is in need of new long term care phlebotomist care placement as 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 However, if alternate placement is not obtained, Darryl will return to [facility] and they will continue to work on alternate placement. Identified Discharge Needs: [facility] is closing at the end of the year due to low census and staffing. Referrals will be sent out to facilities that [facility] has provided to [facility]. Darryl will return to [facility] if alternate placement is not found. Currently Utilized Resources Currently Utilized Resources/P: PCP 24 hour care Referrals Community Resources: Out patient psychiatry if available Identified Problems/Hx/Goals Objectives/Short-Term Goals Short Term Goals: Control abnormal behavior, Dec. Aggression, Dec. Outbursts, Medication Stabilization, Monitor Med Effects Short Term Goals in Patient's: Per POA, mood and beahavior stabilization. Interventions/Frequency Staff Interventions/Frequency&: Nursing to provide routine safety checks, medication administration, and adl assist. Psychiatry to see three times weekly. SW to see twice weekly. PT/OT eval and treat as indicated. SW and recreational therapy groups as Darryl desires. 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 Social: Darryl enjoyed playing chess, spending time with his family, and fishing. Education: Darryl attended school thru the eighth grade. He reported having to go to work to help support his family. Community Follow-up PCP Out patient psychiatry if available Community Provider/Family Inpu: Darryl arrived to [facility] on 06/30/21 and was sedated and drowsy upon admit. Pain and swelling was noted to his right leg and CT scan showed no fracture. Darryl is experiencing urinary retention and has been straight cathed. He was combative with cares last night. He has been medication compliant this date. He attended group in the day room this morning but was reported to pick fights with male peers. Geodon, Haldol, and risperdol have been discontinued. Sertraline will be increased to 75mg daily. Treatment Plan Explained Patient/Correction Officer [facility] had this treatment plan explained to him/her as indicated by the signature below and has been given the opportunity to ask questions and make suggestions: Date: Patient/Correction Officer [facility] Signature: Status Update Update WEEKLY NOTE/UPDATE: Darryl is averaging 75% of meal intakes and 6.5 hours of sleep at night. He has been medication complaint with meds crushed in pudding. He has been cooperative with cares of [facility]. Nursing provides support with adl's, straight cathing, and supervision for safety. Darryl has been involved in five group activities this past week and was increasingly engaged as the week progressed. He particularly enjoyed horseshoes and group discussion. Darryl benefits from safety reminders related to fall risk. He has periods of hallucinating and increased confusion but is typically able to make his needs known. Kristina, daughter, participated in team meeting via phone on this date. Tentative d/c on 07/19/21. SW will fax referrals to LTC communities that Kristina is agreeable to. EDUARDO JOHNSON Jul 14, 2021 12:47
--- NOTE | 2021-07-14 12:48 | NUR ---
[facility] faxed called and faxed referral to the following [facility] communities in preparation for tentative d/c on 07/19/21: [place] at [facility], [facility] and [facility], Luci at [facility], and Jose Cruz at [facility]. [facility] also faxed update to JULIAN Evans at [facility] as requested. Awaiting admission decision from the above communities. Addendum: 07/14/21 at 1435 by EDUARDO AQUINO [facility] received voice message from Luci at [facility] indicating they are not accepting new residents at this time.
[2021-07-14 15:28] VITALS: BP 107/61
--- NOTE | 2021-07-14 18:48 | NUR ---
Straight cath performed. Pt educated on procedure and purpose, he was assisted into a supine position with assistance of 1 additional staff. During cath pt then assisted to a reverse trendelenberg position. Approx 600 mL of clear yellow urine was obtained; absent of sediment, odor, or blood. Pt tolerated cath well with staff assistance. Pt cleaned up and dressed by staff.
[2021-07-14] MEDS: traZODone 50 MG TABLET. PO PRN (19:55)
[2021-07-14] MEDS: QUEtiapine 50 MG TABLET. PO SCH (19:55)
--- NOTE | 2021-07-14 20:45 | PDOC ---
Exam Note: Kam Note: Please also refer to the separate dictated note~for this date of service dictated separately.~Patient seen individually. Discussed the patient with Nursing staff reviewed the chart.~Reviewed interim history and current functioning. Reviewed vital signs,~Labs/ Radiology~and current medications noted below. Continue current treatment with the changes noted in the dictated addendum note Assessment: Vital Signs/I&O: Vital Signs Date Time Temp Pulse Resp B/P (MAP) Pulse Ox O2 Delivery O2 Flow Rate FiO2 07/14/21 19:57 93 07/14/21 19:55 85 107/61 07/14/21 15:28 98.0 16 Room Air 07/14/21 06:09 2.0 I & O 07/13/21 07/13/21 07/14/21 15:00 23:00 07:00 Intake Total 600 ml 360 ml Balance 600 ml 360 ml Labs: Laboratory Tests Test 07/14/21 07:34 Glucose (Fingerstick) 247 mg/dL (70-99) H Current Medications: Meds: Laboratory Tests Test 07/14/21 07:34 Glucose (Fingerstick) 247 mg/dL Current Medications Medications (Trade) Dose Ordered Sig/Shannon Route PRN Reason Start Time Stop Time Status Last Admin Dose Admin Multi-Ingredient Ointment (Analgesic [place]) 1 demetria PRN QID PRN TP MUSCLE PAIN 06/30/21 15:15 Al Hydroxide/Mg Hydroxide (Mylanta Plus Xs) 15 ml PRN AFTMEALHC PRN PO DYSPEPSIA 06/30/21 15:15 Magnesium Hydroxide (Milk Of Magnesia) 2,400 mg PRN QHS PRN PO 2ND CHOICE CONSTIPATION 06/30/21 15:15 07/13/21 09:26 Acetaminophen (Tylenol) 500 mg BID PO 06/30/21 21:00 07/14/21 19:56 Albuterol Sulfate (Ventolin) 2.5 mg PRN Q4HRS PRN IH FOR ASTHMA 06/30/21 15:30 Alprazolam (Xanax) 0.5 mg TID PO 06/30/21 21:00 07/02/21 22:42 DC 07/02/21 20:38 Buspirone HCl (Buspar) 10 mg BID PO 06/30/21 21:00 07/14/21 19:56 Cyclobenzaprine HCl (Flexeril) 10 mg TID PO 06/30/21 21:00 07/14/21 19:55 Divalproex Sodium (Depakote Er) 250 mg BID PO 06/30/21 21:00 07/01/21 20:14 DC 07/01/21 08:36 Docusate Sodium (Colace) 200 mg PRN DAILY PRN PO 1ST CHOICE CONSTIPATION 06/30/21 15:30 07/13/21 17:16 DC 07/12/21 12:01 Furosemide (Lasix) 40 mg BID PO 06/30/21 21:00 07/01/21 02:03 DC Haloperidol (Haldol) 1 mg PRN Q6HRS PRN PO ANXIETY / AGITATION 06/30/21 16:00 07/12/21 12:44 Haloperidol (Haldol) 2 mg TID PO 06/30/21 21:00 06/30/21 19:42 DC Hyoscyamine (Anaspaz) 0.125 mg PRN Q2HR PRN PO SECRETIONS 06/30/21 15:30 Loperamide HCl (Imodium) 2 mg PRN Q3HRS PRN PO DIARRHEA 06/30/21 15:30 Metoprolol Tartrate (Lopressor) 25 mg BID PO 06/30/21 21:00 07/14/21 19:55 Nicotine (Nicoderm Cq 14mg Patch) 1 patch DAILY TD 07/01/21 09:00 07/14/21 08:15 Nitroglycerin (Nitrostat) 0.4 mg PRN Q5MIN PRN SL CHEST PAIN 06/30/21 15:30 Oxycodone HCl (Roxicodone) 2.5 mg PRN Q4HRS PRN PO PAIN 06/30/21 15:30 07/09/21 22:48 Pantoprazole Sodium (Protonix) 40 mg DAILYAC PO 07/01/21 07:30 07/14/21 08:15 Risperidone (RisperDAL M) 0.5 mg BID PO 06/30/21 21:00 06/30/21 19:42 DC Sertraline HCl (Zoloft) 50 mg DAILY PO 07/01/21 09:00 07/01/21 11:58 DC 07/01/21 08:36 Ziprasidone (Geodon) 20 mg 1600 PO 06/30/21 16:00 06/30/21 19:42 DC Ziprasidone (Geodon) 20 mg DAILY PO 07/01/21 09:00 06/30/21 19:42 DC Ferrous Sulfate (Feosol) 325 mg DAILY PO 07/01/21 09:00 07/14/21 08:18 Insulin Glargine (Lantus Syringe) 16 unit DAILY SQ 07/01/21 09:00 07/14/21 09:13 Ondansetron HCl (Zofran Odt) 4 mg PRN Q4HRS PRN PO NAUSEA/VOMITING 06/30/21 16:15 Oxycodone HCl (Roxicodone) 5 mg BID PO 06/30/21 21:00 07/14/21 19:57 Non-Formulary Medication (Rivaroxaban (Xarelto)) 20 mg 1700 PO 06/30/21 17:00 07/01/21 17:35 DC Linagliptin (Tradjenta) 5 mg DAILY PO 07/01/21 09:00 07/14/21 08:18 Non-Formulary Medication (Tea Tree Oil (Indonesian Tea Tree Oil)) 1 demetria DAILY TP 07/01/21 09:00 06/30/21 16:14 DC Non-Formulary Medication (Vit E Acetate/ Gly/Dimeth/Water (Cetaphil Moisturizing Lotion)) 1 demetria DAILY TP 07/01/21 09:00 06/30/21 16:14 DC Olanzapine (ZyPREXA ZYDIS) 2.5 mg PRN Q2HR PRN PO PSYCHOSIS 06/30/21 15:30 07/10/21 19:57 Quetiapine Fumarate (SEROquel) 50 mg HS PO 06/30/21 21:00 07/11/21 00:39 DC 07/10/21 19:52 Quetiapine Fumarate (SEROquel) 25 mg 0900,1300,1700 PO 07/01/21 09:00 07/03/21 19:55 DC 07/03/21 16:46 Trazodone HCl (Desyrel) 50 mg PRN QHS PRN PO insomnia 06/30/21 19:45 07/14/21 19:55 Furosemide (Lasix) 40 mg DAILY PO 07/01/21 09:00 07/14/21 08:18 Sertraline HCl (Zoloft) 75 mg DAILY PO 07/02/21 09:00 07/14/21 08:16 Tamsulosin HCl (Flomax) 0.4 mg QHS PO 07/01/21 21:00 07/11/21 11:18 DC 07/10/21 19:53 Finasteride (Proscar) 5 mg DAILY PO 07/02/21 09:00 07/14/21 08:18 Divalproex Sodium (Depakote Sprinkles) 250 mg DAILY PO 07/02/21 09:00 07/08/21 21:24 DC 07/08/21 08:06 Divalproex Sodium (Depakote Sprinkles) 500 mg DAILY16 PO 07/02/21 16:00 07/08/21 21:24 DC 07/08/21 17:25 Alprazolam (Xanax) 0.25 mg TID PO 07/03/21 09:00 07/05/21 19:52 DC 07/05/21 13:40 Naloxegol (Movantik) 25 mg DAILY07 PO 07/04/21 07:00 07/13/21 05:25 Quetiapine Fumarate (SEROquel) 25 mg BID@0900,1700 PO 07/04/21 09:00 07/08/21 02:00 DC 07/07/21 16:55 Alprazolam (Xanax) 0.25 mg BID PO 07/06/21 09:00 07/08/21 22:00 DC 07/08/21 20:26 Alprazolam (Xanax) 0.25 mg DAILY PO 07/09/21 09:00 07/11/21 10:00 DC 07/11/21 08:16 Quetiapine Fumarate (SEROquel) 25 mg DAILY PO 07/08/21 09:00 07/14/21 08:17 Quetiapine Fumarate (SEROquel) 50 mg DAILY@1700 PO 07/08/21 17:00 07/14/21 16:49 Tamsulosin HCl (Flomax) 0.4 mg QHS PO 07/08/21 21:00 07/08/21 21:17 DC Divalproex Sodium (Depakote Sprinkles) 500 mg DAILY PO 07/09/21 09:00 12/2/21 08:18 Divalproex Sodium (Depakote Sprinkles) 500 mg DAILY@1700 PO 07/09/21 17:00 07/14/21 16:49 Quetiapine Fumarate (SEROquel) 75 mg HS PO 07/11/21 21:00 07/14/21 19:55 Tamsulosin HCl (Flomax) 0.4 mg BID PO 07/11/21 11:30 07/14/21 19:55 Docusate Sodium (Colace) 200 mg DAILY PO 07/13/21 17:15 07/14/21 08:16 I have reviewed the current psychotropics carefully including drug interactions. Risk benefit ratio favors no change other than as noted in my dictated progress note. Diagnosis: Problems: (1) Major neurocognitive disorder (2) Dementia in Alzheimer's disease with early onset with behavioral disturbance (3) Impulse control disorder, unspecified (4) Anxiety disorder, unspecified (5) Dementia, vascular, with depression (6) Dementia, vascular, with delusions (7) Dementia in Alzheimer's disease with depression (8) Dementia in Alzheimer's disease with delusions HUNTER MEZA MD Jul 14, 2021 20:45
--- NOTE | 2021-07-15 00:24 | NUR ---
Nursing note Pt in room seemingly asleep, awakens to voice and asks for snacks with his meds. Pleasant calm and cooperative. Eating multiple snacks is content to sit in room and eat. Makes jokes smiles on approach.
[2021-07-15 06:24] VITALS: BP 123/70
--- NOTE | 2021-07-15 06:48 | PDOC ---
Exam Note: Kam Note: This note is a late entry for 07/14/2021 covers elements not covered in my initial note. Subjective: The patient was reviewed at treatment team meeting individually in the morning on 07/14/2021 with Rosanne Vargas, Sammie Freeman, and Linda Amos (social work lecturer), Natty, activity therapy, and Farhana RN, discussed and reviewed the chart. The patient slept 9 hours previous night. Patients daughter Kristina attended the treatment team meeting. We had a lengthy discussion about the patients diagnosis, progress and he is doing better. At times he has been using obscene words per nursing report but does redirect. He has attended 5 groups in the past one week. Nursing facility is closing and alternate placements may have to be sought. Also discussed with Stephany SANTA in the evening. He has been less irritable. Review of Systems: Ambulation impaired, in wheelchair. No CV, , pulmonary, eye, ENT system symptoms on review. Reliability poor. Mental Status Exam: The patient is oriented to himself and situation. Speech coherent. Abstraction fair. Computation impaired. Language function intact. Mood and affect somewhat withdrawn. Laboratory Data: Reviewed. Impression: Major neurocognitive disorder, Alzheimer, vascular with delusion, depression behavioral disturbance. Anxiety disorder unspecified. Impulse control disorder unspecified. Plan: No change from initial note. Assessment: Vital Signs/I&O: Vital Signs Date Time Temp Pulse Resp B/P (MAP) Pulse Ox O2 Delivery O2 Flow Rate FiO2 07/15/21 06:24 97.7 89 20 123/70 (87) 95 07/14/21 15:28 Room Air 07/14/21 06:09 2.0 I & O 07/14/21 07/14/21 07/15/21 15:00 23:00 07:00 Intake Total 840 ml 360 ml Output Total 600 ml Balance 840 ml -240 ml Labs: Laboratory Tests Test 07/14/21 07:34 Glucose (Fingerstick) 247 mg/dL (70-99) H Current Medications: Meds: Laboratory Tests Test 07/14/21 07:34 Glucose (Fingerstick) 247 mg/dL Current Medications Medications (Trade) Dose Ordered Sig/Shannon Route PRN Reason Start Time Stop Time Status Last Admin Dose Admin Multi-Ingredient Ointment (Analgesic [place]) 1 demetria PRN QID PRN TP MUSCLE PAIN 06/30/21 15:15 Al Hydroxide/Mg Hydroxide (Mylanta Plus Xs) 15 ml PRN AFTMEALHC PRN PO DYSPEPSIA 06/30/21 15:15 Magnesium Hydroxide (Milk Of Magnesia) 2,400 mg PRN QHS PRN PO 2ND CHOICE CONSTIPATION 06/30/21 15:15 07/13/21 09:26 Acetaminophen (Tylenol) 500 mg BID PO 06/30/21 21:00 07/14/21 19:56 Albuterol Sulfate (Ventolin) 2.5 mg PRN Q4HRS PRN IH FOR ASTHMA 06/30/21 15:30 Alprazolam (Xanax) 0.5 mg TID PO 06/30/21 21:00 07/02/21 22:42 DC 07/02/21 20:38 Buspirone HCl (Buspar) 10 mg BID PO 06/30/21 21:00 07/14/21 19:56 Cyclobenzaprine HCl (Flexeril) 10 mg TID PO 06/30/21 21:00 07/14/21 19:55 Divalproex Sodium (Depakote Er) 250 mg BID PO 06/30/21 21:00 07/01/21 20:14 DC 07/01/21 08:36 Docusate Sodium (Colace) 200 mg PRN DAILY PRN PO 1ST CHOICE CONSTIPATION 06/30/21 15:30 07/13/21 17:16 DC 07/12/21 12:01 Furosemide (Lasix) 40 mg BID PO 06/30/21 21:00 07/01/21 02:03 DC Haloperidol (Haldol) 1 mg PRN Q6HRS PRN PO ANXIETY / AGITATION 06/30/21 16:00 07/12/21 12:44 Haloperidol (Haldol) 2 mg TID PO 06/30/21 21:00 06/30/21 19:42 DC Hyoscyamine (Anaspaz) 0.125 mg PRN Q2HR PRN PO SECRETIONS 06/30/21 15:30 Loperamide HCl (Imodium) 2 mg PRN Q3HRS PRN PO DIARRHEA 06/30/21 15:30 Metoprolol Tartrate (Lopressor) 25 mg BID PO 06/30/21 21:00 07/14/21 19:55 Nicotine (Nicoderm Cq 14mg Patch) 1 patch DAILY TD 07/01/21 09:00 07/14/21 08:15 Nitroglycerin (Nitrostat) 0.4 mg PRN Q5MIN PRN SL CHEST PAIN 06/30/21 15:30 Oxycodone HCl (Roxicodone) 2.5 mg PRN Q4HRS PRN PO PAIN 06/30/21 15:30 07/09/21 22:48 Pantoprazole Sodium (Protonix) 40 mg DAILYAC PO 07/01/21 07:30 07/14/21 08:15 Risperidone (RisperDAL M) 0.5 mg BID PO 06/30/21 21:00 06/30/21 19:42 DC Sertraline HCl (Zoloft) 50 mg DAILY PO 07/01/21 09:00 07/01/21 11:58 DC 07/01/21 08:36 Ziprasidone (Geodon) 20 mg 1600 PO 06/30/21 16:00 06/30/21 19:42 DC Ziprasidone (Geodon) 20 mg DAILY PO 07/01/21 09:00 06/30/21 19:42 DC Ferrous Sulfate (Feosol) 325 mg DAILY PO 07/01/21 09:00 07/14/21 08:18 Insulin Glargine (Lantus Syringe) 16 unit DAILY SQ 07/01/21 09:00 07/14/21 09:13 Ondansetron HCl (Zofran Odt) 4 mg PRN Q4HRS PRN PO NAUSEA/VOMITING 06/30/21 16:15 Oxycodone HCl (Roxicodone) 5 mg BID PO 06/30/21 21:00 07/14/21 19:57 Non-Formulary Medication (Rivaroxaban (Xarelto)) 20 mg 1700 PO 06/30/21 17:00 07/01/21 17:35 DC Linagliptin (Tradjenta) 5 mg DAILY PO 07/01/21 09:00 07/14/21 08:18 Non-Formulary Medication (Tea Tree Oil (Peruvian Tea Tree Oil)) 1 demetria DAILY TP 07/01/21 09:00 06/30/21 16:14 DC Non-Formulary Medication (Vit E Acetate/ Gly/Dimeth/Water (Cetaphil Moisturizing Lotion)) 1 demetria DAILY TP 07/01/21 09:00 06/30/21 16:14 DC Olanzapine (ZyPREXA ZYDIS) 2.5 mg PRN Q2HR PRN PO PSYCHOSIS 06/30/21 15:30 07/10/21 19:57 Quetiapine Fumarate (SEROquel) 50 mg HS PO 06/30/21 21:00 07/11/21 00:39 DC 07/10/21 19:52 Quetiapine Fumarate (SEROquel) 25 mg 0900,1300,1700 PO 07/01/21 09:00 07/03/21 19:55 DC 07/03/21 16:46 Trazodone HCl (Desyrel) 50 mg PRN QHS PRN PO insomnia 06/30/21 19:45 07/14/21 19:55 Furosemide (Lasix) 40 mg DAILY PO 07/01/21 09:00 07/14/21 08:18 Sertraline HCl (Zoloft) 75 mg DAILY PO 07/02/21 09:00 07/14/21 08:16 Tamsulosin HCl (Flomax) 0.4 mg QHS PO 07/01/21 21:00 07/11/21 11:18 DC 07/10/21 19:53 Finasteride (Proscar) 5 mg DAILY PO 07/02/21 09:00 07/14/21 08:18 Divalproex Sodium (Depakote Sprinkles) 250 mg DAILY PO 07/02/21 09:00 07/08/21 21:24 DC 07/08/21 08:06 Divalproex Sodium (Depakote Sprinkles) 500 mg DAILY16 PO 07/02/21 16:00 07/08/21 21:24 DC 07/08/21 17:25 Alprazolam (Xanax) 0.25 mg TID PO 07/03/21 09:00 07/05/21 19:52 DC 07/05/21 13:40 Naloxegol (Movantik) 25 mg DAILY07 PO 07/04/21 07:00 07/13/21 05:25 Quetiapine Fumarate (SEROquel) 25 mg BID@0900,1700 PO 07/04/21 09:00 07/08/21 02:00 DC 07/07/21 16:55 Alprazolam (Xanax) 0.25 mg BID PO 07/06/21 09:00 07/08/21 22:00 DC 07/08/21 20:26 Alprazolam (Xanax) 0.25 mg DAILY PO 07/09/21 09:00 07/11/21 10:00 DC 07/11/21 08:16 Quetiapine Fumarate (SEROquel) 25 mg DAILY PO 07/08/21 09:00 07/14/21 08:17 Quetiapine Fumarate (SEROquel) 50 mg DAILY@1700 PO 07/08/21 17:00 07/14/21 16:49 Tamsulosin HCl (Flomax) 0.4 mg QHS PO 07/08/21 21:00 07/08/21 21:17 DC Divalproex Sodium (Depakote Sprinkles) 500 mg DAILY PO 07/09/21 09:00 07/14/21 08:18 Divalproex Sodium (Depakote Sprinkles) 500 mg DAILY@1700 PO 07/09/21 17:00 07/14/21 16:49 Quetiapine Fumarate (SEROquel) 75 mg HS PO 07/11/21 21:00 07/14/21 19:55 Tamsulosin HCl (Flomax) 0.4 mg BID PO 07/11/21 11:30 07/14/21 19:55 Docusate Sodium (Colace) 200 mg DAILY PO 07/13/21 17:15 07/14/21 08:16 I have reviewed the current psychotropics carefully including drug interactions. Risk benefit ratio favors no change other than as noted in my dictated progress note. Diagnosis: Problems: (1) Major neurocognitive disorder (2) Dementia in Alzheimer's disease with early onset with behavioral disturbance (3) Impulse control disorder, unspecified (4) Anxiety disorder, unspecified (5) Dementia, vascular, with depression (6) Dementia, vascular, with delusions (7) Dementia in Alzheimer's disease with depression (8) Dementia in Alzheimer's disease with delusions HUNTER MEZA MD Jul 15, 2021 06:48
[2021-07-15] MEDS: NALOXEGOL OXALATE 25 MG TABLET. PO SCH (07:00)
[2021-07-15] MEDS: METOPROLOL TART IMMED RELEASE 25 MG TABLET. PO SCH ×2 (08:03→21:03)
[2021-07-15] MEDS: SERTRALINE 25 MG TABLET. PO SCH (08:03)
[2021-07-15] MEDS: DOCUSATE SODIUM 100 MG CAPSULE PO SCH (08:03)
[2021-07-15] MEDS: PANTOPRAZOLE 40 MG TABLET. PO SCH (08:03)
[2021-07-15] MEDS: FERROUS SULFATE 325 MG TABLET. PO SCH (08:03)
[2021-07-15] MEDS: LINAGLIPTIN 5 MG TABLET PO SCH (08:03)
[2021-07-15] MEDS: QUEtiapine 25 MG TABLET. PO SCH ×2 (08:04→17:10)
[2021-07-15] MEDS: CYCLOBENZAPRINE 10 MG TABLET. PO SCH ×3 (08:04→21:03)
[2021-07-15] MEDS: oxyCODONE IR 5 MG TABLET PO SCH ×2 (08:04→21:00)
[2021-07-15] MEDS: FINASTERIDE 5 MG TABLET. PO SCH (08:05)
[2021-07-15] MEDS: ACETAMINOPHEN 500 MG TABLET PO SCH ×2 (08:05→21:05)
[2021-07-15] MEDS: TAMSULOSIN 0.4 MG CAP.ER.24H. PO SCH ×2 (08:05→21:04)
[2021-07-15] MEDS: busPIRone 10 MG TABLET. PO SCH ×2 (08:05→21:04)
[2021-07-15] MEDS: FUROSEMIDE 40 MG TABLET PO SCH (08:05)
[2021-07-15] MEDS: DIVALPROEX 125 MG CAP.SPRINK PO SCH ×2 (08:06→17:10)
[2021-07-15] MEDS: NICOTINE 14MG PATCH. TD SCH (08:07)
[2021-07-15] MEDS: INSULIN GLARGINE SYRINGE. SQ SCH (09:00)
--- NOTE | 2021-07-15 09:54 | NUR ---
Pt began the day in pleasant spirits, appropriate on the unit and compliant with medications. Absent of SI/HI behaviors/statements, absent of possible VH/AH. He is A&O to self only, confused and disorganized. Appetite adequate to meet his needs. Shortly after breakfast he became delusional and refused attempts at insulin administration, claiming that the pharmacist who delivered the syringe to the unit administered the medication to him. Despite explaining that the MAR does not have an administration documented and that I had a syringe in my hand...he insisted that the pharmacist administered the insulin. At this point I called pharmacy with pt by my side and while on speaker phone for pt to listen I asked pharmacist if she administered any medications to pt, which she denied. Pt became angry and insisted that pharmacist was "lying." Pt was only compliant with insulin administration when explained that the pharmacist would be terminated from employment if she gave him medication, and she does not appear to be an individual who would do something that could terminate employment. Pt has been absent of disruptive behaviors on the unit. He reports 9/10 pain in the L shoulder and neck, scheduled medications administered with reported effectiveness. Nicotine patch applied to L shoulder, pt states that Nicotine replacement is unnecessary d/t him being nicotine free for "2 years." Plan of care continues, will pass to next shift.
--- NOTE | 2021-07-15 14:37 | NUR ---
MILES placed follow up calls on referrals that were sent out for placement. [facility]. Referral was completed on this date to [facility] in [place] by Estrada AQUINO. [facility] has no availability. [facility] is still reviewing. [facility] does not feel they are adequately staffed to care for Darryl. MILES will follow. Addendum: 07/15/21 at 1515 by EDUARDO AQUINO MILES received voice message from Nicole at [facility] declining Darryl for admission as unable to meet his care needs. Nicole suggested another facility in [place], "[facility]". 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
[2021-07-15 15:33] VITALS: BP 122/67
--- NOTE | 2021-07-15 17:52 | NUR ---
Bladder scan revealed >500 mL of urine. Pt asked for an opportunity to void independent before a straight cath performed. Pt was able to void approx 600 mL or urine into a urinal while standing with standby assistance of staff. Urine clear and yellow; absent of blood, mucus, sediment, odor. Pt tolerated voiding well.
[2021-07-15] MEDS: QUEtiapine 50 MG TABLET. PO SCH (21:03)
--- NOTE | 2021-07-15 21:09 | PDOC ---
Exam Note: Kam Note: Please also refer to the separate dictated note~for this date of service dictated separately.~Patient seen individually. Discussed the patient with Nursing staff reviewed the chart.~Reviewed interim history and current functioning. Reviewed vital signs,~Labs/ Radiology~and current medications noted below. Continue current treatment with the changes noted in the dictated addendum note Assessment: Vital Signs/I&O: Vital Signs Date Time Temp Pulse Resp B/P (MAP) Pulse Ox O2 Delivery O2 Flow Rate FiO2 07/15/21 21:03 77 122/67 07/15/21 15:33 97.6 18 95 07/15/21 09:02 Room Air 07/14/21 06:09 2.0 I & O 07/14/21 07/14/21 07/15/21 15:00 23:00 07:00 Intake Total 840 ml 360 ml Output Total 600 ml Balance 840 ml -240 ml Labs: Laboratory Tests Test 07/15/21 07:14 Glucose (Fingerstick) 213 mg/dL (70-99) H Current Medications: Meds: Laboratory Tests Test 07/15/21 07:14 Glucose (Fingerstick) 213 mg/dL Current Medications Medications (Trade) Dose Ordered Sig/Shannon Route PRN Reason Start Time Stop Time Status Last Admin Dose Admin Multi-Ingredient Ointment (Analgesic [place]) 1 demetria PRN QID PRN TP MUSCLE PAIN 06/30/21 15:15 Al Hydroxide/Mg Hydroxide (Mylanta Plus Xs) 15 ml PRN AFTMEALHC PRN PO DYSPEPSIA 06/30/21 15:15 Magnesium Hydroxide (Milk Of Magnesia) 2,400 mg PRN QHS PRN PO 2ND CHOICE CONSTIPATION 06/30/21 15:15 07/13/21 09:26 Acetaminophen (Tylenol) 500 mg BID PO 06/30/21 21:00 07/15/21 21:05 Albuterol Sulfate (Ventolin) 2.5 mg PRN Q4HRS PRN IH FOR ASTHMA 06/30/21 15:30 Alprazolam (Xanax) 0.5 mg TID PO 06/30/21 21:00 07/02/21 22:42 DC 07/02/21 20:38 Buspirone HCl (Buspar) 10 mg BID PO 06/30/21 21:00 07/15/21 21:04 Cyclobenzaprine HCl (Flexeril) 10 mg TID PO 06/30/21 21:00 07/15/21 21:03 Divalproex Sodium (Depakote Er) 250 mg BID PO 06/30/21 21:00 07/01/21 20:14 DC 07/01/21 08:36 Docusate Sodium (Colace) 200 mg PRN DAILY PRN PO 1ST CHOICE CONSTIPATION 06/30/21 15:30 07/13/21 17:16 DC 07/12/21 12:01 Furosemide (Lasix) 40 mg BID PO 06/30/21 21:00 07/01/21 02:03 DC Haloperidol (Haldol) 1 mg PRN Q6HRS PRN PO ANXIETY / AGITATION 06/30/21 16:00 07/12/21 12:44 Haloperidol (Haldol) 2 mg TID PO 06/30/21 21:00 06/30/21 19:42 DC Hyoscyamine (Anaspaz) 0.125 mg PRN Q2HR PRN PO SECRETIONS 06/30/21 15:30 Loperamide HCl (Imodium) 2 mg PRN Q3HRS PRN PO DIARRHEA 06/30/21 15:30 Metoprolol Tartrate (Lopressor) 25 mg BID PO 06/30/21 21:00 07/15/21 21:03 Nicotine (Nicoderm Cq 14mg Patch) 1 patch DAILY TD 07/01/21 09:00 07/15/21 08:07 Nitroglycerin (Nitrostat) 0.4 mg PRN Q5MIN PRN SL CHEST PAIN 06/30/21 15:30 Oxycodone HCl (Roxicodone) 2.5 mg PRN Q4HRS PRN PO PAIN 06/30/21 15:30 07/09/21 22:48 Pantoprazole Sodium (Protonix) 40 mg DAILYAC PO 07/01/21 07:30 07/15/21 08:03 Risperidone (RisperDAL M) 0.5 mg BID PO 06/30/21 21:00 06/30/21 19:42 DC Sertraline HCl (Zoloft) 50 mg DAILY PO 07/01/21 09:00 07/01/21 11:58 DC 07/01/21 08:36 Ziprasidone (Geodon) 20 mg 1600 PO 06/30/21 16:00 06/30/21 19:42 DC Ziprasidone (Geodon) 20 mg DAILY PO 07/01/21 09:00 06/30/21 19:42 DC Ferrous Sulfate (Feosol) 325 mg DAILY PO 07/01/21 09:00 07/15/21 08:03 Insulin Glargine (Lantus Syringe) 16 unit DAILY SQ 07/01/21 09:00 07/15/21 09:00 Ondansetron HCl (Zofran Odt) 4 mg PRN Q4HRS PRN PO NAUSEA/VOMITING 06/30/21 16:15 Oxycodone HCl (Roxicodone) 5 mg BID PO 06/30/21 21:00 07/15/21 08:04 Non-Formulary Medication (Rivaroxaban (Xarelto)) 20 mg 1700 PO 06/30/21 17:00 07/01/21 17:35 DC Linagliptin (Tradjenta) 5 mg DAILY PO 07/01/21 09:00 07/15/21 08:03 Non-Formulary Medication (Tea Tree Oil (Dominican Tea Tree Oil)) 1 demetria DAILY TP 07/01/21 09:00 06/30/21 16:14 DC Non-Formulary Medication (Vit E Acetate/ Gly/Dimeth/Water (Cetaphil Moisturizing Lotion)) 1 demetria DAILY TP 07/01/21 09:00 06/30/21 16:14 DC Olanzapine (ZyPREXA ZYDIS) 2.5 mg PRN Q2HR PRN PO PSYCHOSIS 06/30/21 15:30 07/10/21 19:57 Quetiapine Fumarate (SEROquel) 50 mg HS PO 06/30/21 21:00 07/11/21 00:39 DC 07/10/21 19:52 Quetiapine Fumarate (SEROquel) 25 mg 0900,1300,1700 PO 07/01/21 09:00 07/03/21 19:55 DC 07/03/21 16:46 Trazodone HCl (Desyrel) 50 mg PRN QHS PRN PO insomnia 06/30/21 19:45 07/14/21 19:55 Furosemide (Lasix) 40 mg DAILY PO 07/01/21 09:00 07/15/21 08:05 Sertraline HCl (Zoloft) 75 mg DAILY PO 07/02/21 09:00 07/15/21 08:03 Tamsulosin HCl (Flomax) 0.4 mg QHS PO 07/01/21 21:00 07/11/21 11:18 DC 07/10/21 19:53 Finasteride (Proscar) 5 mg DAILY PO 07/02/21 09:00 07/15/21 08:05 Divalproex Sodium (Depakote Sprinkles) 250 mg DAILY PO 07/02/21 09:00 07/08/21 21:24 DC 07/08/21 08:06 Divalproex Sodium (Depakote Sprinkles) 500 mg DAILY16 PO 07/02/21 16:00 07/08/21 21:24 DC 07/08/21 17:25 Alprazolam (Xanax) 0.25 mg TID PO 07/03/21 09:00 07/05/21 19:52 DC 07/05/21 13:40 Naloxegol (Movantik) 25 mg DAILY07 PO 07/04/21 07:00 07/15/21 07:00 Quetiapine Fumarate (SEROquel) 25 mg BID@0900,1700 PO 07/04/21 09:00 07/08/21 02:00 DC 07/07/21 16:55 Alprazolam (Xanax) 0.25 mg BID PO 07/06/21 09:00 07/08/21 22:00 DC 07/08/21 20:26 Alprazolam (Xanax) 0.25 mg DAILY PO 07/09/21 09:00 07/11/21 10:00 DC 07/11/21 08:16 Quetiapine Fumarate (SEROquel) 25 mg DAILY PO 07/08/21 09:00 07/15/21 08:04 Quetiapine Fumarate (SEROquel) 50 mg DAILY@1700 PO 07/08/21 17:00 07/15/21 17:10 Tamsulosin HCl (Flomax) 0.4 mg QHS PO 07/08/21 21:00 07/08/21 21:17 DC Divalproex Sodium (Depakote Sprinkles) 500 mg DAILY PO 07/09/21 09:00 07/15/21 08:06 Divalproex Sodium (Depakote Sprinkles) 500 mg DAILY@1700 PO 07/09/21 17:00 07/15/21 17:10 Quetiapine Fumarate (SEROquel) 75 mg HS PO 07/11/21 21:00 07/15/21 21:03 Tamsulosin HCl (Flomax) 0.4 mg BID PO 07/11/21 11:30 07/15/21 21:04 Docusate Sodium (Colace) 200 mg DAILY PO 07/13/21 17:15 07/15/21 08:03 I have reviewed the current psychotropics carefully including drug interactions. Risk benefit ratio favors no change other than as noted in my dictated progress note. Diagnosis: Problems: (1) Major neurocognitive disorder (2) Dementia in Alzheimer's disease with early onset with behavioral disturbance (3) Impulse control disorder, unspecified (4) Anxiety disorder, unspecified (5) Dementia, vascular, with depression (6) Dementia, vascular, with delusions (7) Dementia in Alzheimer's disease with depression (8) Dementia in Alzheimer's disease with delusions HUNTER MEZA MD Jul 15, 2021 21:08
--- NOTE | 2021-07-16 02:46 | NUR ---
Nursing Note The patient was located in his room for his assessment and medication pass. The patient was calm and compliant. The patient was alert to the year and his name. The patient took his medication whole. Oxycodone was held due to drowsiness. The patient is currently sleeping in his room.
[2021-07-16 05:53] VITALS: BP 95/59
--- NOTE | 2021-07-16 06:51 | PDOC ---
Exam Note: Kam Note: This note is a late entry for 07/15/2021 covers elements not covered in my initial note. Subjective: The patient was seen individually in the evening of 07/15/2021 with Rafiq SANTA, discussed and reviewed the chart. The patient slept 7 hours previous night. Patient remains confused, arguing with nursing staff regarding administering his insulin but once he heard the pharmacist explain to the nursing staff he was agreeable to doing it as recommended. I met with him in his room evening of 07/15. Review of Systems: Gait unsteady. No CV, , pulmonary, eye, ENT system symptoms on review. Reliability poor. Mental Status Exam: The patient is oriented to himself. Insight and judgment, recent and remote memory, attention and concentration, fund of knowledge is poor consistent with his diagnosis. Laboratory Data: Reviewed. Impression: Major neurocognitive disorder, Alzheimer, vascular with delusion, depression behavioral disturbance. Anxiety disorder unspecified. Impulse control disorder unspecified. Plan: No change from initial note. Assessment: Vital Signs/I&O: Vital Signs Date Time Temp Pulse Resp B/P (MAP) Pulse Ox O2 Delivery O2 Flow Rate FiO2 07/16/21 05:53 97.4 83 20 95/59 (71) 93 07/15/21 09:02 Room Air 07/14/21 06:09 2.0 I & O 07/15/21 07/15/21 07/16/21 15:00 23:00 07:00 Intake Total 600 ml 600 ml Output Total 600 ml Balance 600 ml 0 ml Labs: Laboratory Tests Test 07/15/21 07:14 Glucose (Fingerstick) 213 mg/dL (70-99) H Current Medications: Meds: Laboratory Tests Test 07/15/21 07:14 Glucose (Fingerstick) 213 mg/dL Current Medications Medications (Trade) Dose Ordered Sig/Shannon Route PRN Reason Start Time Stop Time Status Last Admin Dose Admin Multi-Ingredient Ointment (Analgesic [place]) 1 demetria PRN QID PRN TP MUSCLE PAIN 06/30/21 15:15 Al Hydroxide/Mg Hydroxide (Mylanta Plus Xs) 15 ml PRN AFTMEALHC PRN PO DYSPEPSIA 06/30/21 15:15 Magnesium Hydroxide (Milk Of Magnesia) 2,400 mg PRN QHS PRN PO 2ND CHOICE CONSTIPATION 06/30/21 15:15 07/13/21 09:26 Acetaminophen (Tylenol) 500 mg BID PO 06/30/21 21:00 07/15/21 21:05 Albuterol Sulfate (Ventolin) 2.5 mg PRN Q4HRS PRN IH FOR ASTHMA 06/30/21 15:30 Alprazolam (Xanax) 0.5 mg TID PO 06/30/21 21:00 07/02/21 22:42 DC 07/02/21 20:38 Buspirone HCl (Buspar) 10 mg BID PO 06/30/21 21:00 07/15/21 21:04 Cyclobenzaprine HCl (Flexeril) 10 mg TID PO 06/30/21 21:00 07/15/21 21:03 Divalproex Sodium (Depakote Er) 250 mg BID PO 06/30/21 21:00 07/01/21 20:14 DC 07/01/21 08:36 Docusate Sodium (Colace) 200 mg PRN DAILY PRN PO 1ST CHOICE CONSTIPATION 06/30/21 15:30 07/13/21 17:16 DC 07/12/21 12:01 Furosemide (Lasix) 40 mg BID PO 06/30/21 21:00 07/01/21 02:03 DC Haloperidol (Haldol) 1 mg PRN Q6HRS PRN PO ANXIETY / AGITATION 06/30/21 16:00 07/12/21 12:44 Haloperidol (Haldol) 2 mg TID PO 06/30/21 21:00 06/30/21 19:42 DC Hyoscyamine (Anaspaz) 0.125 mg PRN Q2HR PRN PO SECRETIONS 06/30/21 15:30 Loperamide HCl (Imodium) 2 mg PRN Q3HRS PRN PO DIARRHEA 06/30/21 15:30 Metoprolol Tartrate (Lopressor) 25 mg BID PO 06/30/21 21:00 07/15/21 21:03 Nicotine (Nicoderm Cq 14mg Patch) 1 patch DAILY TD 07/01/21 09:00 07/15/21 08:07 Nitroglycerin (Nitrostat) 0.4 mg PRN Q5MIN PRN SL CHEST PAIN 06/30/21 15:30 Oxycodone HCl (Roxicodone) 2.5 mg PRN Q4HRS PRN PO PAIN 06/30/21 15:30 07/09/21 22:48 Pantoprazole Sodium (Protonix) 40 mg DAILYAC PO 07/01/21 07:30 07/15/21 08:03 Risperidone (RisperDAL M) 0.5 mg BID PO 06/30/21 21:00 06/30/21 19:42 DC Sertraline HCl (Zoloft) 50 mg DAILY PO 07/01/21 09:00 07/01/21 11:58 DC 07/01/21 08:36 Ziprasidone (Geodon) 20 mg 1600 PO 06/30/21 16:00 06/30/21 19:42 DC Ziprasidone (Geodon) 20 mg DAILY PO 07/01/21 09:00 06/30/21 19:42 DC Ferrous Sulfate (Feosol) 325 mg DAILY PO 07/01/21 09:00 07/15/21 08:03 Insulin Glargine (Lantus Syringe) 16 unit DAILY SQ 07/01/21 09:00 07/15/21 09:00 Ondansetron HCl (Zofran Odt) 4 mg PRN Q4HRS PRN PO NAUSEA/VOMITING 06/30/21 16:15 Oxycodone HCl (Roxicodone) 5 mg BID PO 06/30/21 21:00 07/15/21 08:04 Non-Formulary Medication (Rivaroxaban (Xarelto)) 20 mg 1700 PO 06/30/21 17:00 07/01/21 17:35 DC Linagliptin (Tradjenta) 5 mg DAILY PO 07/01/21 09:00 07/15/21 08:03 Non-Formulary Medication (Tea Tree Oil ([place] Tea Tree Oil)) 1 demetria DAILY TP 07/01/21 09:00 06/30/21 16:14 DC Non-Formulary Medication (Vit E Acetate/ Gly/Dimeth/Water (Cetaphil Moisturizing Lotion)) 1 demetria DAILY TP 07/01/21 09:00 06/30/21 16:14 DC Olanzapine (ZyPREXA ZYDIS) 2.5 mg PRN Q2HR PRN PO PSYCHOSIS 06/30/21 15:30 07/10/21 19:57 Quetiapine Fumarate (SEROquel) 50 mg HS PO 06/30/21 21:00 07/11/21 00:39 DC 07/10/21 19:52 Quetiapine Fumarate (SEROquel) 25 mg 0900,1300,1700 PO 07/01/21 09:00 07/03/21 19:55 DC 07/03/21 16:46 Trazodone HCl (Desyrel) 50 mg PRN QHS PRN PO insomnia 06/30/21 19:45 07/14/21 19:55 Furosemide (Lasix) 40 mg DAILY PO 07/01/21 09:00 07/15/21 08:05 Sertraline HCl (Zoloft) 75 mg DAILY PO 07/02/21 09:00 07/15/21 08:03 Tamsulosin HCl (Flomax) 0.4 mg QHS PO 07/01/21 21:00 07/11/21 11:18 DC 07/10/21 19:53 Finasteride (Proscar) 5 mg DAILY PO 07/02/21 09:00 07/15/21 08:05 Divalproex Sodium (Depakote Sprinkles) 250 mg DAILY PO 07/02/21 09:00 07/08/21 21:24 DC 07/08/21 08:06 Divalproex Sodium (Depakote Sprinkles) 500 mg DAILY16 PO 07/02/21 16:00 07/08/21 21:24 DC 07/08/21 17:25 Alprazolam (Xanax) 0.25 mg TID PO 07/03/21 09:00 07/05/21 19:52 DC 07/05/21 13:40 Naloxegol (Movantik) 25 mg DAILY07 PO 07/04/21 07:00 07/15/21 07:00 Quetiapine Fumarate (SEROquel) 25 mg BID@0900,1700 PO 07/04/21 09:00 07/08/21 02:00 DC 07/07/21 16:55 Alprazolam (Xanax) 0.25 mg BID PO 07/06/21 09:00 07/08/21 22:00 DC 07/08/21 20:26 Alprazolam (Xanax) 0.25 mg DAILY PO 07/09/21 09:00 07/11/21 10:00 DC 07/11/21 08:16 Quetiapine Fumarate (SEROquel) 25 mg DAILY PO 07/08/21 09:00 07/15/21 08:04 Quetiapine Fumarate (SEROquel) 50 mg DAILY@1700 PO 07/08/21 17:00 07/15/21 17:10 Tamsulosin HCl (Flomax) 0.4 mg QHS PO 07/08/21 21:00 07/08/21 21:17 DC Divalproex Sodium (Depakote Sprinkles) 500 mg DAILY PO 07/09/21 09:00 07/15/21 08:06 Divalproex Sodium (Depakote Sprinkles) 500 mg DAILY@1700 PO 07/09/21 17:00 07/15/21 17:10 Quetiapine Fumarate (SEROquel) 75 mg HS PO 07/11/21 21:00 07/15/21 21:03 Tamsulosin HCl (Flomax) 0.4 mg BID PO 07/11/21 11:30 07/15/21 21:04 Docusate Sodium (Colace) 200 mg DAILY PO 07/13/21 17:15 07/15/21 08:03 I have reviewed the current psychotropics carefully including drug interactions. Risk benefit ratio favors no change other than as noted in my dictated progress note. Diagnosis: Problems: (1) Major neurocognitive disorder (2) Dementia in Alzheimer's disease with early onset with behavioral disturbance (3) Impulse control disorder, unspecified (4) Anxiety disorder, unspecified (5) Dementia, vascular, with depression (6) Dementia, vascular, with delusions (7) Dementia in Alzheimer's disease with depression (8) Dementia in Alzheimer's disease with delusions HUNTER MEZA MD Jul 16, 2021 06:51
[2021-07-16] MEDS: NICOTINE 14MG PATCH. TD SCH (07:25)
[2021-07-16] MEDS: LINAGLIPTIN 5 MG TABLET PO SCH (08:20)
[2021-07-16] MEDS: DIVALPROEX 125 MG CAP.SPRINK PO SCH ×2 (08:20→17:00)
[2021-07-16] MEDS: FINASTERIDE 5 MG TABLET. PO SCH (08:20)
[2021-07-16] MEDS: SERTRALINE 25 MG TABLET. PO SCH (08:21)
[2021-07-16] MEDS: DOCUSATE SODIUM 100 MG CAPSULE PO SCH (08:21)
[2021-07-16] MEDS: FUROSEMIDE 40 MG TABLET PO SCH (08:21)
[2021-07-16] MEDS: QUEtiapine 25 MG TABLET. PO SCH ×2 (08:21→17:00)
[2021-07-16] MEDS: METOPROLOL TART IMMED RELEASE 25 MG TABLET. PO SCH ×2 (08:21→20:03)
[2021-07-16] MEDS: PANTOPRAZOLE 40 MG TABLET. PO SCH (08:22)
[2021-07-16] MEDS: CYCLOBENZAPRINE 10 MG TABLET. PO SCH ×3 (08:22→20:02)
[2021-07-16] MEDS: TAMSULOSIN 0.4 MG CAP.ER.24H. PO SCH ×2 (08:22→20:03)
[2021-07-16] MEDS: FERROUS SULFATE 325 MG TABLET. PO SCH (08:22)
[2021-07-16] MEDS: busPIRone 10 MG TABLET. PO SCH ×2 (08:22→20:03)
[2021-07-16] MEDS: ACETAMINOPHEN 500 MG TABLET PO SCH ×2 (08:23→20:05)
[2021-07-16] MEDS: NALOXEGOL OXALATE 25 MG TABLET. PO SCH (08:23)
[2021-07-16] MEDS: oxyCODONE IR 5 MG TABLET PO SCH ×2 (08:23→20:02)
[2021-07-16] MEDS: INSULIN GLARGINE SYRINGE. SQ SCH (09:00)
[2021-07-16 15:07] VITALS: BP 126/72
--- NOTE | 2021-07-16 17:01 | NUR ---
Pt up in wc for meals. Impulsive at times. Alarms in place. Has been compliant with meds and cares.
[2021-07-16] MEDS: QUEtiapine 50 MG TABLET. PO SCH (20:03)
--- NOTE | 2021-07-16 21:00 | PDOC ---
Exam Note: Kam Note: Please also refer to the separate dictated note~for this date of service dictated separately.~Patient seen individually. Discussed the patient with Nursing staff reviewed the chart.~Reviewed interim history and current functioning. Reviewed vital signs,~Labs/ Radiology~and current medications noted below. Continue current treatment with the changes noted in the dictated addendum note Assessment: Vital Signs/I&O: Vital Signs Date Time Temp Pulse Resp B/P (MAP) Pulse Ox O2 Delivery O2 Flow Rate FiO2 07/16/21 20:32 95 07/16/21 20:03 88 126/72 07/16/21 15:07 97.8 20 Room Air 07/14/21 06:09 2.0 I & O 07/15/21 07/15/21 07/16/21 15:00 23:00 07:00 Intake Total 600 ml 600 ml Output Total 600 ml Balance 600 ml 0 ml Labs: Laboratory Tests Test 07/16/21 07:37 07/16/21 19:11 Glucose (Fingerstick) 209 mg/dL (70-99) H 243 mg/dL (70-99) H Current Medications: Meds: Laboratory Tests Test 07/16/21 07:37 07/16/21 19:11 Glucose (Fingerstick) 209 mg/dL 243 mg/dL Current Medications Medications (Trade) Dose Ordered Sig/Shannon Route PRN Reason Start Time Stop Time Status Last Admin Dose Admin Multi-Ingredient Ointment (Analgesic [place]) 1 demetria PRN QID PRN TP MUSCLE PAIN 06/30/21 15:15 Al Hydroxide/Mg Hydroxide (Mylanta Plus Xs) 15 ml PRN AFTMEALHC PRN PO DYSPEPSIA 06/30/21 15:15 Magnesium Hydroxide (Milk Of Magnesia) 2,400 mg PRN QHS PRN PO CONSTIPATION 06/30/21 15:15 07/13/21 09:26 Acetaminophen (Tylenol) 500 mg BID PO 06/30/21 21:00 07/16/21 20:05 Albuterol Sulfate (Ventolin) 2.5 mg PRN Q4HRS PRN IH FOR ASTHMA 06/30/21 15:30 Alprazolam (Xanax) 0.5 mg TID PO 06/30/21 21:00 07/02/21 22:42 DC 07/02/21 20:38 Buspirone HCl (Buspar) 10 mg BID PO 06/30/21 21:00 07/16/21 20:03 Cyclobenzaprine HCl (Flexeril) 10 mg TID PO 06/30/21 21:00 07/16/21 20:02 Divalproex Sodium (Depakote Er) 250 mg BID PO 06/30/21 21:00 07/01/21 20:14 DC 07/01/21 08:36 Docusate Sodium (Colace) 200 mg PRN DAILY PRN PO 1ST CHOICE CONSTIPATION 06/30/21 15:30 07/13/21 17:16 DC 07/12/21 12:01 Furosemide (Lasix) 40 mg BID PO 06/30/21 21:00 07/01/21 02:03 DC Haloperidol (Haldol) 1 mg PRN Q6HRS PRN PO ANXIETY / AGITATION 06/30/21 16:00 07/12/21 12:44 Haloperidol (Haldol) 2 mg TID PO 06/30/21 21:00 06/30/21 19:42 DC Hyoscyamine (Anaspaz) 0.125 mg PRN Q2HR PRN PO SECRETIONS 06/30/21 15:30 Loperamide HCl (Imodium) 2 mg PRN Q3HRS PRN PO DIARRHEA 06/30/21 15:30 Metoprolol Tartrate (Lopressor) 25 mg BID PO 06/30/21 21:00 07/16/21 20:03 Nicotine (Nicoderm Cq 14mg Patch) 1 patch DAILY TD 07/01/21 09:00 07/16/21 11:00 DC 07/15/21 08:07 Nitroglycerin (Nitrostat) 0.4 mg PRN Q5MIN PRN SL CHEST PAIN 06/30/21 15:30 Oxycodone HCl (Roxicodone) 2.5 mg PRN Q4HRS PRN PO PAIN 06/30/21 15:30 07/09/21 22:48 Pantoprazole Sodium (Protonix) 40 mg DAILYAC PO 07/01/21 07:30 07/16/21 08:22 Risperidone (RisperDAL M) 0.5 mg BID PO 06/30/21 21:00 06/30/21 19:42 DC Sertraline HCl (Zoloft) 50 mg DAILY PO 07/01/21 09:00 07/01/21 11:58 DC 07/01/21 08:36 Ziprasidone (Geodon) 20 mg 1600 PO 06/30/21 16:00 06/30/21 19:42 DC Ziprasidone (Geodon) 20 mg DAILY PO 07/01/21 09:00 06/30/21 19:42 DC Ferrous Sulfate (Feosol) 325 mg DAILY PO 07/01/21 09:00 07/16/21 08:22 Insulin Glargine (Lantus Syringe) 16 unit DAILY SQ 07/01/21 09:00 07/16/21 09:00 Ondansetron HCl (Zofran Odt) 4 mg PRN Q4HRS PRN PO NAUSEA/VOMITING 06/30/21 16:15 Oxycodone HCl (Roxicodone) 5 mg BID PO 06/30/21 21:00 07/16/21 20:02 Non-Formulary Medication (Rivaroxaban (Xarelto)) 20 mg 1700 PO 06/30/21 17:00 07/01/21 17:35 DC Linagliptin (Tradjenta) 5 mg DAILY PO 07/01/21 09:00 07/16/21 08:20 Non-Formulary Medication (Tea Tree Oil ([place] Tea Tree Oil)) 1 demetria DAILY TP 07/01/21 09:00 06/30/21 16:14 DC Non-Formulary Medication (Vit E Acetate/ Gly/Dimeth/Water (Cetaphil Moisturizing Lotion)) 1 demetria DAILY TP 07/01/21 09:00 06/30/21 16:14 DC Olanzapine (ZyPREXA ZYDIS) 2.5 mg PRN Q2HR PRN PO PSYCHOSIS 06/30/21 15:30 07/10/21 19:57 Quetiapine Fumarate (SEROquel) 50 mg HS PO 06/30/21 21:00 07/11/21 00:39 DC 07/10/21 19:52 Quetiapine Fumarate (SEROquel) 25 mg 0900,1300,1700 PO 07/01/21 09:00 07/03/21 19:55 DC 07/03/21 16:46 Trazodone HCl (Desyrel) 50 mg PRN QHS PRN PO insomnia 06/30/21 19:45 12/2/21 19:55 Furosemide (Lasix) 40 mg DAILY PO 07/01/21 09:00 07/16/21 08:21 Sertraline HCl (Zoloft) 75 mg DAILY PO 07/02/21 09:00 07/16/21 08:21 Tamsulosin HCl (Flomax) 0.4 mg QHS PO 07/01/21 21:00 07/11/21 11:18 DC 07/10/21 19:53 Finasteride (Proscar) 5 mg DAILY PO 07/02/21 09:00 07/16/21 08:20 Divalproex Sodium (Depakote Sprinkles) 250 mg DAILY PO 07/02/21 09:00 07/08/21 21:24 DC 07/08/21 08:06 Divalproex Sodium (Depakote Sprinkles) 500 mg DAILY16 PO 07/02/21 16:00 07/08/21 21:24 DC 07/08/21 17:25 Alprazolam (Xanax) 0.25 mg TID PO 07/03/21 09:00 07/05/21 19:52 DC 07/05/21 13:40 Naloxegol (Movantik) 25 mg DAILY07 PO 07/04/21 07:00 07/16/21 08:23 Quetiapine Fumarate (SEROquel) 25 mg BID@0900,1700 PO 07/04/21 09:00 07/08/21 02:00 DC 07/07/21 16:55 Alprazolam (Xanax) 0.25 mg BID PO 07/06/21 09:00 07/08/21 22:00 DC 07/08/21 20:26 Alprazolam (Xanax) 0.25 mg DAILY PO 07/09/21 09:00 07/11/21 10:00 DC 07/11/21 08:16 Quetiapine Fumarate (SEROquel) 25 mg DAILY PO 07/08/21 09:00 07/16/21 08:21 Quetiapine Fumarate (SEROquel) 50 mg DAILY@1700 PO 07/08/21 17:00 07/16/21 17:00 Tamsulosin HCl (Flomax) 0.4 mg QHS PO 07/08/21 21:00 07/08/21 21:17 DC Divalproex Sodium (Depakote Sprinkles) 500 mg DAILY PO 07/09/21 09:00 07/16/21 08:20 Divalproex Sodium (Depakote Sprinkles) 500 mg DAILY@1700 PO 07/09/21 17:00 07/16/21 17:00 Quetiapine Fumarate (SEROquel) 75 mg HS PO 07/11/21 21:00 07/16/21 20:03 Tamsulosin HCl (Flomax) 0.4 mg BID PO 07/11/21 11:30 07/16/21 20:03 Docusate Sodium (Colace) 200 mg DAILY PO 07/13/21 17:15 07/16/21 08:21 I have reviewed the current psychotropics carefully including drug interactions. Risk benefit ratio favors no change other than as noted in my dictated progress note. Diagnosis: Problems: (1) Major neurocognitive disorder (2) Dementia in Alzheimer's disease with early onset with behavioral disturbance (3) Impulse control disorder, unspecified (4) Anxiety disorder, unspecified (5) Dementia, vascular, with depression (6) Dementia, vascular, with delusions (7) Dementia in Alzheimer's disease with depression (8) Dementia in Alzheimer's disease with delusions HUNTER MEZA MD Jul 16, 2021 21:00
--- NOTE | 2021-07-16 23:53 | NUR ---
Pt sitting calmly in the dayroom this evening. Pleasant and cooperative. Compliant with crushed medications. Pt currently sleeping in bed.
--- NOTE | 2021-07-17 05:17 | NUR ---
Pt did not void overnight. Straight cath performed. 600cc obtained. Pt tolerated well.
[2021-07-17 05:44] VITALS: BP 104/65
[2021-07-17] MEDS: NALOXEGOL OXALATE 25 MG TABLET. PO SCH (05:55)
[2021-07-17] MEDS: FINASTERIDE 5 MG TABLET. PO SCH (08:08)
[2021-07-17] MEDS: QUEtiapine 25 MG TABLET. PO SCH ×2 (08:08→16:58)
[2021-07-17] MEDS: TAMSULOSIN 0.4 MG CAP.ER.24H. PO SCH ×2 (08:08→20:01)
[2021-07-17] MEDS: ACETAMINOPHEN 500 MG TABLET PO SCH ×2 (08:08→20:04)
[2021-07-17] MEDS: LINAGLIPTIN 5 MG TABLET PO SCH (08:09)
[2021-07-17] MEDS: DOCUSATE SODIUM 100 MG CAPSULE PO SCH (08:09)
[2021-07-17] MEDS: oxyCODONE IR 5 MG TABLET PO SCH ×2 (08:09→20:03)
[2021-07-17] MEDS: busPIRone 10 MG TABLET. PO SCH ×2 (08:10→20:01)
[2021-07-17] MEDS: FERROUS SULFATE 325 MG TABLET. PO SCH (08:10)
[2021-07-17] MEDS: FUROSEMIDE 40 MG TABLET PO SCH (08:10)
[2021-07-17] MEDS: CYCLOBENZAPRINE 10 MG TABLET. PO SCH ×3 (08:10→20:01)
[2021-07-17] MEDS: METOPROLOL TART IMMED RELEASE 25 MG TABLET. PO SCH ×2 (08:10→20:01)
[2021-07-17] MEDS: PANTOPRAZOLE 40 MG TABLET. PO SCH (08:10)
[2021-07-17] MEDS: SERTRALINE 25 MG TABLET. PO SCH (08:11)
[2021-07-17] MEDS: DIVALPROEX 125 MG CAP.SPRINK PO SCH ×2 (08:12→16:58)
--- NOTE | 2021-07-17 08:47 | NUR ---
Pt calm and cooperative this morning. Pleasant in his interactions with staff and other patients. He appears to make an effort to join in and participate with conversations with his peers. Med compliant. He c/o 8/10 pain in lower back, scheduled Oxycodone and Acetaminophen administered, reassessment pending. A&Ox3, absent of verbal/physical aggression. He denies SI when asked. Plan of care continues, will pass to next shift.
[2021-07-17] MEDS: INSULIN GLARGINE SYRINGE. SQ SCH (09:00)
[2021-07-17 15:51] VITALS: BP 130/73
--- NOTE | 2021-07-17 15:55 | NUR ---
NURSING NOTE THIS RN TOOK OVER PT CARE THIS AFTERNOON, REPORT FROM SHYLA Villaseñor RN. PT WAS IN DAYROOM UPON ASSESSMENT. PT IS A&O X3 THIS AFTERNOON. PT HAS BEEN CALM AND COOPERATIVE. PT SLEEPING IN DAYROOM IN THE CHAIR. HAS BEEN INTERACTING APPROPRIATELY WITH OTHER PATIENTS. PT URINATED AND HAD A BOWEL MOVEMENT THIS AFTERNOON. WILL CONTINUE TO MONITOR. KIET MANSFIELD.
[2021-07-17] MEDS: QUEtiapine 50 MG TABLET. PO SCH (20:01)
--- NOTE | 2021-07-17 20:58 | PDOC ---
Exam Note: Kam Note: Please also refer to the separate dictated note~for this date of service dictated separately.~Patient seen individually. Discussed the patient with Nursing staff reviewed the chart.~Reviewed interim history and current functioning. Reviewed vital signs,~Labs/ Radiology~and current medications noted below. Continue current treatment with the changes noted in the dictated addendum note Assessment: Vital Signs/I&O: Vital Signs Date Time Temp Pulse Resp B/P (MAP) Pulse Ox O2 Delivery O2 Flow Rate FiO2 07/17/21 20:03 96 07/17/21 20:01 75 130/73 07/17/21 15:51 97.3 18 07/17/21 10:39 Room Air 07/14/21 06:09 2.0 I & O 07/16/21 07/16/21 07/17/21 15:00 23:00 07:00 Intake Total 600 ml 480 ml Output Total 600 ml Balance 600 ml 480 ml -600 ml Labs: Laboratory Tests Test 07/17/21 07:40 Glucose (Fingerstick) 128 mg/dL (70-99) H Current Medications: Meds: Laboratory Tests Test 07/17/21 07:40 Glucose (Fingerstick) 128 mg/dL Current Medications Medications (Trade) Dose Ordered Sig/Shannon Route PRN Reason Start Time Stop Time Status Last Admin Dose Admin Multi-Ingredient Ointment (Analgesic [place]) 1 demetria PRN QID PRN TP MUSCLE PAIN 06/30/21 15:15 Al Hydroxide/Mg Hydroxide (Mylanta Plus Xs) 15 ml PRN AFTMEALHC PRN PO DYSPEPSIA 06/30/21 15:15 Magnesium Hydroxide (Milk Of Magnesia) 2,400 mg PRN QHS PRN PO CONSTIPATION 06/30/21 15:15 07/13/21 09:26 Acetaminophen (Tylenol) 500 mg BID PO 06/30/21 21:00 07/17/21 20:04 Albuterol Sulfate (Ventolin) 2.5 mg PRN Q4HRS PRN IH FOR ASTHMA 06/30/21 15:30 Alprazolam (Xanax) 0.5 mg TID PO 06/30/21 21:00 07/02/21 22:42 DC 07/02/21 20:38 Buspirone HCl (Buspar) 10 mg BID PO 06/30/21 21:00 07/17/21 20:01 Cyclobenzaprine HCl (Flexeril) 10 mg TID PO 06/30/21 21:00 07/17/21 20:01 Divalproex Sodium (Depakote Er) 250 mg BID PO 06/30/21 21:00 07/01/21 20:14 DC 07/01/21 08:36 Docusate Sodium (Colace) 200 mg PRN DAILY PRN PO 1ST CHOICE CONSTIPATION 06/30/21 15:30 07/13/21 17:16 DC 07/12/21 12:01 Furosemide (Lasix) 40 mg BID PO 06/30/21 21:00 07/01/21 02:03 DC Haloperidol (Haldol) 1 mg PRN Q6HRS PRN PO ANXIETY / AGITATION 06/30/21 16:00 07/12/21 12:44 Haloperidol (Haldol) 2 mg TID PO 06/30/21 21:00 06/30/21 19:42 DC Hyoscyamine (Anaspaz) 0.125 mg PRN Q2HR PRN PO SECRETIONS 06/30/21 15:30 Loperamide HCl (Imodium) 2 mg PRN Q3HRS PRN PO DIARRHEA 06/30/21 15:30 Metoprolol Tartrate (Lopressor) 25 mg BID PO 06/30/21 21:00 07/17/21 20:01 Nicotine (Nicoderm Cq 14mg Patch) 1 patch DAILY TD 07/01/21 09:00 07/16/21 11:00 DC 07/15/21 08:07 Nitroglycerin (Nitrostat) 0.4 mg PRN Q5MIN PRN SL CHEST PAIN 06/30/21 15:30 Oxycodone HCl (Roxicodone) 2.5 mg PRN Q4HRS PRN PO PAIN 06/30/21 15:30 07/09/21 22:48 Pantoprazole Sodium (Protonix) 40 mg DAILYAC PO 07/01/21 07:30 07/17/21 08:10 Risperidone (RisperDAL M) 0.5 mg BID PO 06/30/21 21:00 06/30/21 19:42 DC Sertraline HCl (Zoloft) 50 mg DAILY PO 07/01/21 09:00 07/01/21 11:58 DC 07/01/21 08:36 Ziprasidone (Geodon) 20 mg 1600 PO 06/30/21 16:00 06/30/21 19:42 DC Ziprasidone (Geodon) 20 mg DAILY PO 07/01/21 09:00 06/30/21 19:42 DC Ferrous Sulfate (Feosol) 325 mg DAILY PO 07/01/21 09:00 07/17/21 08:10 Insulin Glargine (Lantus Syringe) 16 unit DAILY SQ 07/01/21 09:00 07/17/21 09:00 Ondansetron HCl (Zofran Odt) 4 mg PRN Q4HRS PRN PO NAUSEA/VOMITING 06/30/21 16:15 Oxycodone HCl (Roxicodone) 5 mg BID PO 06/30/21 21:00 07/17/21 20:03 Non-Formulary Medication (Rivaroxaban (Xarelto)) 20 mg 1700 PO 06/30/21 17:00 07/01/21 17:35 DC Linagliptin (Tradjenta) 5 mg DAILY PO 07/01/21 09:00 07/17/21 08:09 Non-Formulary Medication (Tea Tree Oil ([place] Tea Tree Oil)) 1 demetria DAILY TP 07/01/21 09:00 06/30/21 16:14 DC Non-Formulary Medication (Vit E Acetate/ Gly/Dimeth/Water (Cetaphil Moisturizing Lotion)) 1 demetria DAILY TP 07/01/21 09:00 06/30/21 16:14 DC Olanzapine (ZyPREXA ZYDIS) 2.5 mg PRN Q2HR PRN PO PSYCHOSIS 06/30/21 15:30 07/10/21 19:57 Quetiapine Fumarate (SEROquel) 50 mg HS PO 06/30/21 21:00 07/11/21 00:39 DC 07/10/21 19:52 Quetiapine Fumarate (SEROquel) 25 mg 0900,1300,1700 PO 07/01/21 09:00 07/03/21 19:55 DC 07/03/21 16:46 Trazodone HCl (Desyrel) 50 mg PRN QHS PRN PO insomnia 06/30/21 19:45 07/14/21 19:55 Furosemide (Lasix) 40 mg DAILY PO 07/01/21 09:00 07/17/21 08:10 Sertraline HCl (Zoloft) 75 mg DAILY PO 07/02/21 09:00 07/17/21 08:11 Tamsulosin HCl (Flomax) 0.4 mg QHS PO 07/01/21 21:00 07/11/21 11:18 DC 07/10/21 19:53 Finasteride (Proscar) 5 mg DAILY PO 07/02/21 09:00 07/17/21 08:08 Divalproex Sodium (Depakote Sprinkles) 250 mg DAILY PO 07/02/21 09:00 07/08/21 21:24 DC 07/08/21 08:06 Divalproex Sodium (Depakote Sprinkles) 500 mg DAILY16 PO 07/02/21 16:00 07/08/21 21:24 DC 07/08/21 17:25 Alprazolam (Xanax) 0.25 mg TID PO 07/03/21 09:00 07/05/21 19:52 DC 07/05/21 13:40 Naloxegol (Movantik) 25 mg DAILY07 PO 07/04/21 07:00 07/17/21 05:55 Quetiapine Fumarate (SEROquel) 25 mg BID@0900,1700 PO 07/04/21 09:00 07/08/21 02:00 DC 07/07/21 16:55 Alprazolam (Xanax) 0.25 mg BID PO 07/06/21 09:00 07/08/21 22:00 DC 07/08/21 20:26 Alprazolam (Xanax) 0.25 mg DAILY PO 07/09/21 09:00 07/11/21 10:00 DC 07/11/21 08:16 Quetiapine Fumarate (SEROquel) 25 mg DAILY PO 07/08/21 09:00 07/17/21 08:08 Quetiapine Fumarate (SEROquel) 50 mg DAILY@1700 PO 07/08/21 17:00 07/17/21 16:58 Tamsulosin HCl (Flomax) 0.4 mg QHS PO 07/08/21 21:00 07/08/21 21:17 DC Divalproex Sodium (Depakote Sprinkles) 500 mg DAILY PO 07/09/21 09:00 07/17/21 08:12 Divalproex Sodium (Depakote Sprinkles) 500 mg DAILY@1700 PO 07/09/21 17:00 07/17/21 16:58 Quetiapine Fumarate (SEROquel) 75 mg HS PO 07/11/21 21:00 07/17/21 20:01 Tamsulosin HCl (Flomax) 0.4 mg BID PO 07/11/21 11:30 07/17/21 20:01 Docusate Sodium (Colace) 200 mg DAILY PO 07/13/21 17:15 07/17/21 08:09 I have reviewed the current psychotropics carefully including drug interactions. Risk benefit ratio favors no change other than as noted in my dictated progress note. Diagnosis: Problems: (1) Major neurocognitive disorder (2) Dementia in Alzheimer's disease with early onset with behavioral disturbance (3) Impulse control disorder, unspecified (4) Anxiety disorder, unspecified (5) Dementia, vascular, with depression (6) Dementia, vascular, with delusions (7) Dementia in Alzheimer's disease with depression (8) Dementia in Alzheimer's disease with delusions HUNTER MEZA MD Jul 17, 2021 20:58
--- NOTE | 2021-07-17 22:20 | NUR ---
Pt located in the dayroom this evening watching the football game. Pt calm and pleasant. Complains of right shoulder pain 03/22. Compliant with crushed medications. Scheduled Roxicodone administered with medications. Pt currently awake in bed.
[2021-07-18 06:06] VITALS: BP 90/52
[2021-07-18 07:07] LABS: BASO % 0 % (0-3); EOS # 0.3 x10^3/uL (0.0-0.7); EOS % 3 % (0-3); HEMATOCRIT 34.8 % (39.0-53.0); LYMPH # 1.2 x10^3/uL (1.0-4.8); LYMPH % 15 % (24-48); MEAN CORPUSCULAR HEMOGLOBIN 25 pg (25-35); MEAN CORPUSCULAR HGB CONC 32 g/dL (31-37); MEAN CORPUSCULAR VOLUME 80 fL (79-100); MONO % 13 % (0-9); NEUT # 5.5 x10^3uL (1.8-7.7); NEUT % 69 % (31-73); PLATELET COUNT 272 x10^3/uL (140-400); RED BLOOD COUNT 4.35 x10^6/uL (4.30-5.70)
[2021-07-18 07:10] LABS: ALBUMIN/GLOBULIN RATIO 0.8 (1.0-1.7); CALCIUM 8.8 mg/dL (8.5-10.1); CREATININE 0.8 mg/dL (0.7-1.3); GFR 98.3; POTASSIUM 4.1 mmol/L (3.5-5.1); TOTAL BILIRUBIN 0.3 mg/dL (0.2-1.0); TOTAL PROTEIN 6.9 g/dL (6.4-8.2)
--- NOTE | 2021-07-18 07:21 | PDOC ---
Exam Note: Kam Note: This note is a late entry for 07/16/2021 covers elements not covered in my initial note. Subjective: The patient was seen individually in the evening of 07/16/2021 with Barbara SANTA, discussed and reviewed the chart. The patient slept 8 hours previous night. Patient remains confused. I met with him in his room. He has not been agitated or aggressive. Review of Systems: Ambulation impaired in wheelchair. No CV, , pulmonary, eye, ENT system symptoms on review. Reliability poor. Mental Status Exam: The patient is oriented to himself. Insight and judgment, recent and remote memory, attention and concentration, fund of knowledge is poor consistent with his diagnosis. Laboratory Data: Reviewed. Impression: Major neurocognitive disorder, Alzheimer, vascular with delusion, depression behavioral disturbance. Anxiety disorder unspecified. Impulse control disorder unspecified. Plan: No change from initial note. Assessment: Vital Signs/I&O: Vital Signs Date Time Temp Pulse Resp B/P (MAP) Pulse Ox O2 Delivery O2 Flow Rate FiO2 07/18/21 06:06 98.1 89 18 90/52 (65) 91 07/17/21 10:39 Room Air 07/14/21 06:09 2.0 I & O 07/17/21 07/17/21 07/18/21 14:59 22:59 06:59 Intake Total 360 ml 600 ml Balance 360 ml 600 ml Labs: Laboratory Tests Test 07/17/21 07:40 07/18/21 06:47 Glucose (Fingerstick) 128 mg/dL (70-99) H Sodium Level 141 mmol/L (136-145) Potassium Level 4.1 mmol/L (3.5-5.1) Chloride Level 103 mmol/L (98-107) Carbon Dioxide Level 33 mmol/L (21-32) H Anion Gap 5 (6-14) L Blood Urea Nitrogen 18 mg/dL (8-26) Creatinine 0.8 mg/dL (0.7-1.3) Estimated GFR (Cockcroft-Gault) 98.3 BUN/Creatinine Ratio 23 (6-20) H Glucose Level 126 mg/dL (70-99) H Calcium Level 8.8 mg/dL (8.5-10.1) Total Bilirubin 0.3 mg/dL (0.2-1.0) Aspartate Amino Transferase (AST) 10 U/L (15-37) L Alanine Aminotransferase (ALT) 10 U/L (16-63) L Alkaline Phosphatase 122 U/L (46-116) H Total Protein 6.9 g/dL (6.4-8.2) Albumin 3.0 g/dL (3.4-5.0) L Albumin/Globulin Ratio 0.8 (1.0-1.7) L Current Medications: Meds: Laboratory Tests Test 07/17/21 07:40 07/18/21 06:47 Glucose (Fingerstick) 128 mg/dL Sodium Level 141 mmol/L Potassium Level 4.1 mmol/L Chloride Level 103 mmol/L Carbon Dioxide Level 33 mmol/L Anion Gap 5 Blood Urea Nitrogen 18 mg/dL Creatinine 0.8 mg/dL Estimated GFR (Cockcroft-Gault) 98.3 BUN/Creatinine Ratio 23 Glucose Level 126 mg/dL Calcium Level 8.8 mg/dL Total Bilirubin 0.3 mg/dL Aspartate Amino Transf (AST/SGOT) 10 U/L Alanine Aminotransferase (ALT/SGPT) 10 U/L Alkaline Phosphatase 122 U/L Total Protein 6.9 g/dL Albumin 3.0 g/dL Albumin/Globulin Ratio 0.8 Current Medications Medications (Trade) Dose Ordered Sig/Shannon Route PRN Reason Start Time Stop Time Status Last Admin Dose Admin Multi-Ingredient Ointment (Analgesic [place]) 1 demetria PRN QID PRN TP MUSCLE PAIN 06/30/21 15:15 Al Hydroxide/Mg Hydroxide (Mylanta Plus Xs) 15 ml PRN AFTMEALHC PRN PO DYSPEPSIA 06/30/21 15:15 Magnesium Hydroxide (Milk Of Magnesia) 2,400 mg PRN QHS PRN PO CONSTIPATION 06/30/21 15:15 07/13/21 09:26 Acetaminophen (Tylenol) 500 mg BID PO 06/30/21 21:00 07/17/21 20:04 Albuterol Sulfate (Ventolin) 2.5 mg PRN Q4HRS PRN IH FOR ASTHMA 06/30/21 15:30 Alprazolam (Xanax) 0.5 mg TID PO 06/30/21 21:00 07/02/21 22:42 DC 07/02/21 20:38 Buspirone HCl (Buspar) 10 mg BID PO 06/30/21 21:00 07/17/21 20:01 Cyclobenzaprine HCl (Flexeril) 10 mg TID PO 06/30/21 21:00 07/17/21 20:01 Divalproex Sodium (Depakote Er) 250 mg BID PO 06/30/21 21:00 07/01/21 20:14 DC 07/01/21 08:36 Docusate Sodium (Colace) 200 mg PRN DAILY PRN PO 1ST CHOICE CONSTIPATION 06/30/21 15:30 07/13/21 17:16 DC 07/12/21 12:01 Furosemide (Lasix) 40 mg BID PO 06/30/21 21:00 07/01/21 02:03 DC Haloperidol (Haldol) 1 mg PRN Q6HRS PRN PO ANXIETY / AGITATION 06/30/21 16:00 07/12/21 12:44 Haloperidol (Haldol) 2 mg TID PO 06/30/21 21:00 06/30/21 19:42 DC Hyoscyamine (Anaspaz) 0.125 mg PRN Q2HR PRN PO SECRETIONS 06/30/21 15:30 Loperamide HCl (Imodium) 2 mg PRN Q3HRS PRN PO DIARRHEA 06/30/21 15:30 Metoprolol Tartrate (Lopressor) 25 mg BID PO 06/30/21 21:00 07/17/21 20:01 Nicotine (Nicoderm Cq 14mg Patch) 1 patch DAILY TD 07/01/21 09:00 07/16/21 11:00 DC 07/15/21 08:07 Nitroglycerin (Nitrostat) 0.4 mg PRN Q5MIN PRN SL CHEST PAIN 06/30/21 15:30 Oxycodone HCl (Roxicodone) 2.5 mg PRN Q4HRS PRN PO PAIN 06/30/21 15:30 07/09/21 22:48 Pantoprazole Sodium (Protonix) 40 mg DAILYAC PO 07/01/21 07:30 07/17/21 08:10 Risperidone (RisperDAL M) 0.5 mg BID PO 06/30/21 21:00 06/30/21 19:42 DC Sertraline HCl (Zoloft) 50 mg DAILY PO 07/01/21 09:00 07/01/21 11:58 DC 07/01/21 08:36 Ziprasidone (Geodon) 20 mg 1600 PO 06/30/21 16:00 06/30/21 19:42 DC Ziprasidone (Geodon) 20 mg DAILY PO 07/01/21 09:00 06/30/21 19:42 DC Ferrous Sulfate (Feosol) 325 mg DAILY PO 07/01/21 09:00 07/17/21 08:10 Insulin Glargine (Lantus Syringe) 16 unit DAILY SQ 07/01/21 09:00 07/17/21 09:00 Ondansetron HCl (Zofran Odt) 4 mg PRN Q4HRS PRN PO NAUSEA/VOMITING 06/30/21 16:15 Oxycodone HCl (Roxicodone) 5 mg BID PO 06/30/21 21:00 07/17/21 20:03 Non-Formulary Medication (Rivaroxaban (Xarelto)) 20 mg 1700 PO 06/30/21 17:00 07/01/21 17:35 DC Linagliptin (Tradjenta) 5 mg DAILY PO 07/01/21 09:00 07/17/21 08:09 Non-Formulary Medication (Tea Tree Oil (Swiss Tea Tree Oil)) 1 demetria DAILY TP 07/01/21 09:00 06/30/21 16:14 DC Non-Formulary Medication (Vit E Acetate/ Gly/Dimeth/Water (Cetaphil Moisturizing Lotion)) 1 demetria DAILY TP 07/01/21 09:00 06/30/21 16:14 DC Olanzapine (ZyPREXA ZYDIS) 2.5 mg PRN Q2HR PRN PO PSYCHOSIS 06/30/21 15:30 07/10/21 19:57 Quetiapine Fumarate (SEROquel) 50 mg HS PO 06/30/21 21:00 07/11/21 00:39 DC 07/10/21 19:52 Quetiapine Fumarate (SEROquel) 25 mg 0900,1300,1700 PO 07/01/21 09:00 07/03/21 19:55 DC 07/03/21 16:46 Trazodone HCl (Desyrel) 50 mg PRN QHS PRN PO insomnia 06/30/21 19:45 07/14/21 19:55 Furosemide (Lasix) 40 mg DAILY PO 07/01/21 09:00 07/17/21 08:10 Sertraline HCl (Zoloft) 75 mg DAILY PO 07/02/21 09:00 07/17/21 08:11 Tamsulosin HCl (Flomax) 0.4 mg QHS PO 07/01/21 21:00 07/11/21 11:18 DC 07/10/21 19:53 Finasteride (Proscar) 5 mg DAILY PO 07/02/21 09:00 07/17/21 08:08 Divalproex Sodium (Depakote Sprinkles) 250 mg DAILY PO 07/02/21 09:00 07/08/21 21:24 DC 07/08/21 08:06 Divalproex Sodium (Depakote Sprinkles) 500 mg DAILY16 PO 07/02/21 16:00 07/08/21 21:24 DC 07/08/21 17:25 Alprazolam (Xanax) 0.25 mg TID PO 07/03/21 09:00 07/05/21 19:52 DC 07/05/21 13:40 Naloxegol (Movantik) 25 mg DAILY07 PO 07/04/21 07:00 07/17/21 05:55 Quetiapine Fumarate (SEROquel) 25 mg BID@0900,1700 PO 07/04/21 09:00 07/08/21 02:00 DC 07/07/21 16:55 Alprazolam (Xanax) 0.25 mg BID PO 07/06/21 09:00 07/08/21 22:00 DC 07/08/21 20:26 Alprazolam (Xanax) 0.25 mg DAILY PO 07/09/21 09:00 07/11/21 10:00 DC 07/11/21 08:16 Quetiapine Fumarate (SEROquel) 25 mg DAILY PO 07/08/21 09:00 07/17/21 08:08 Quetiapine Fumarate (SEROquel) 50 mg DAILY@1700 PO 07/08/21 17:00 07/17/21 16:58 Tamsulosin HCl (Flomax) 0.4 mg QHS PO 07/08/21 21:00 07/08/21 21:17 DC Divalproex Sodium (Depakote Sprinkles) 500 mg DAILY PO 07/09/21 09:00 07/17/21 08:12 Divalproex Sodium (Depakote Sprinkles) 500 mg DAILY@1700 PO 07/09/21 17:00 07/17/21 16:58 Quetiapine Fumarate (SEROquel) 75 mg HS PO 07/11/21 21:00 07/17/21 20:01 Tamsulosin HCl (Flomax) 0.4 mg BID PO 07/11/21 11:30 07/17/21 20:01 Docusate Sodium (Colace) 200 mg DAILY PO 07/13/21 17:15 07/17/21 08:09 I have reviewed the current psychotropics carefully including drug interactions. Risk benefit ratio favors no change other than as noted in my dictated progress note. Diagnosis: Problems: (1) Major neurocognitive disorder (2) Dementia in Alzheimer's disease with early onset with behavioral disturbance (3) Impulse control disorder, unspecified (4) Anxiety disorder, unspecified (5) Dementia, vascular, with depression (6) Dementia, vascular, with delusions (7) Dementia in Alzheimer's disease with depression (8) Dementia in Alzheimer's disease with delusions HUNTER MEZA MD Jul 18, 2021 07:21
[2021-07-18] MEDS: NALOXEGOL OXALATE 25 MG TABLET. PO SCH (07:26)
--- NOTE | 2021-07-18 07:34 | PDOC ---
Exam Note: Kam Note: This note is a late entry for 07/17/2021 covers elements not covered in my initial note. Subjective: The patient was seen individually in the evening of 07/17/2021 with Barbara SANTA, discussed and reviewed the chart. The patient slept 7-3/4 hours previous night. I met with him in his room. He was lying in bed but did interact verbally as I met with him. Review of Systems: Ambulation impaired. No CV, , pulmonary, eye, ENT system symptoms on review. Reliability poor. Mental Status Exam: The patient is oriented to himself. Insight and judgment, recent and remote memory, attention and concentration, fund of knowledge is poor consistent with his diagnosis. Laboratory Data: Reviewed. Impression: Major neurocognitive disorder, Alzheimer, vascular with delusion, depression behavioral disturbance. Anxiety disorder unspecified. Impulse control disorder unspecified. Plan: No change from initial note. Assessment: Vital Signs/I&O: Vital Signs Date Time Temp Pulse Resp B/P (MAP) Pulse Ox O2 Delivery O2 Flow Rate FiO2 07/18/21 06:06 98.1 89 18 90/52 (65) 91 07/17/21 10:39 Room Air 07/14/21 06:09 2.0 I & O 07/17/21 07/17/21 07/18/21 15:00 23:00 07:00 Intake Total 360 ml 600 ml Balance 360 ml 600 ml Labs: Laboratory Tests Test 07/17/21 07:40 07/18/21 06:47 07/18/21 07:26 Glucose (Fingerstick) 128 mg/dL (70-99) H 149 mg/dL (70-99) H White Blood Count 8.0 x10^3/uL (4.0-11.0) Red Blood Count 4.35 x10^6/uL (4.30-5.70) Hemoglobin 11.0 g/dL (13.0-17.5) L Hematocrit 34.8 % (39.0-53.0) L Mean Corpuscular Volume 80 fL (79-100) Mean Corpuscular Hemoglobin 25 pg (25-35) Mean Corpuscular Hemoglobin Concent 32 g/dL (31-37) Red Cell Distribution Width 15.0 % (11.5-14.5) H Platelet Count 272 x10^3/uL (140-400) Neutrophils (%) (Auto) 69 % (31-73) Lymphocytes (%) (Auto) 15 % (24-48) L Monocytes (%) (Auto) 13 % (0-9) H Eosinophils (%) (Auto) 3 % (0-3) Basophils (%) (Auto) 0 % (0-3) Neutrophils # (Auto) 5.5 x10^3uL (1.8-7.7) Lymphocytes # (Auto) 1.2 x10^3/uL (1.0-4.8) Monocytes # (Auto) 1.0 x10^3/uL (0.0-1.1) Eosinophils # (Auto) 0.3 x10^3/uL (0.0-0.7) Basophils # (Auto) 0.0 x10^3/uL (0.0-0.2) Sodium Level 141 mmol/L (136-145) Potassium Level 4.1 mmol/L (3.5-5.1) Chloride Level 103 mmol/L (98-107) Carbon Dioxide Level 33 mmol/L (21-32) H Anion Gap 5 (6-14) L Blood Urea Nitrogen 18 mg/dL (8-26) Creatinine 0.8 mg/dL (0.7-1.3) Estimated GFR (Cockcroft-Gault) 98.3 BUN/Creatinine Ratio 23 (6-20) H Glucose Level 126 mg/dL (70-99) H Calcium Level 8.8 mg/dL (8.5-10.1) Total Bilirubin 0.3 mg/dL (0.2-1.0) Aspartate Amino Transferase (AST) 10 U/L (15-37) L Alanine Aminotransferase (ALT) 10 U/L (16-63) L Alkaline Phosphatase 122 U/L (46-116) H Total Protein 6.9 g/dL (6.4-8.2) Albumin 3.0 g/dL (3.4-5.0) L Albumin/Globulin Ratio 0.8 (1.0-1.7) L Current Medications: Meds: Laboratory Tests Test 07/17/21 07:40 07/18/21 06:47 07/18/21 07:26 Glucose (Fingerstick) 128 mg/dL 149 mg/dL White Blood Count 8.0 x10^3/uL Red Blood Count 4.35 x10^6/uL Hemoglobin 11.0 g/dL Hematocrit 34.8 % Mean Corpuscular Volume 80 fL Mean Corpuscular Hemoglobin 25 pg Mean Corpuscular Hemoglobin Concent 32 g/dL Red Cell Distribution Width 15.0 % Platelet Count 272 x10^3/uL Neutrophils (%) (Auto) 69 % Lymphocytes (%) (Auto) 15 % Monocytes (%) (Auto) 13 % Eosinophils (%) (Auto) 3 % Basophils (%) (Auto) 0 % Neutrophils # (Auto) 5.5 x10^3uL Lymphocytes # (Auto) 1.2 x10^3/uL Monocytes # (Auto) 1.0 x10^3/uL Eosinophils # (Auto) 0.3 x10^3/uL Basophils # (Auto) 0.0 x10^3/uL Sodium Level 141 mmol/L Potassium Level 4.1 mmol/L Chloride Level 103 mmol/L Carbon Dioxide Level 33 mmol/L Anion Gap 5 Blood Urea Nitrogen 18 mg/dL Creatinine 0.8 mg/dL Estimated GFR (Cockcroft-Gault) 98.3 BUN/Creatinine Ratio 23 Glucose Level 126 mg/dL Calcium Level 8.8 mg/dL Total Bilirubin 0.3 mg/dL Aspartate Amino Transf (AST/SGOT) 10 U/L Alanine Aminotransferase (ALT/SGPT) 10 U/L Alkaline Phosphatase 122 U/L Total Protein 6.9 g/dL Albumin 3.0 g/dL Albumin/Globulin Ratio 0.8 Current Medications Medications (Trade) Dose Ordered Sig/Shannon Route PRN Reason Start Time Stop Time Status Last Admin Dose Admin Multi-Ingredient Ointment (Analgesic [place]) 1 demetria PRN QID PRN TP MUSCLE PAIN 06/30/21 15:15 Al Hydroxide/Mg Hydroxide (Mylanta Plus Xs) 15 ml PRN AFTMEALHC PRN PO DYSPEPSIA 06/30/21 15:15 Magnesium Hydroxide (Milk Of Magnesia) 2,400 mg PRN QHS PRN PO CONSTIPATION 06/30/21 15:15 07/13/21 09:26 Acetaminophen (Tylenol) 500 mg BID PO 06/30/21 21:00 07/17/21 20:04 Albuterol Sulfate (Ventolin) 2.5 mg PRN Q4HRS PRN IH FOR ASTHMA 06/30/21 15:30 Alprazolam (Xanax) 0.5 mg TID PO 06/30/21 21:00 07/02/21 22:42 DC 07/02/21 20:38 Buspirone HCl (Buspar) 10 mg BID PO 06/30/21 21:00 07/17/21 20:01 Cyclobenzaprine HCl (Flexeril) 10 mg TID PO 06/30/21 21:00 07/17/21 20:01 Divalproex Sodium (Depakote Er) 250 mg BID PO 06/30/21 21:00 07/01/21 20:14 DC 07/01/21 08:36 Docusate Sodium (Colace) 200 mg PRN DAILY PRN PO 1ST CHOICE CONSTIPATION 06/30/21 15:30 07/13/21 17:16 DC 07/12/21 12:01 Furosemide (Lasix) 40 mg BID PO 06/30/21 21:00 07/01/21 02:03 DC Haloperidol (Haldol) 1 mg PRN Q6HRS PRN PO ANXIETY / AGITATION 06/30/21 16:00 07/12/21 12:44 Haloperidol (Haldol) 2 mg TID PO 06/30/21 21:00 06/30/21 19:42 DC Hyoscyamine (Anaspaz) 0.125 mg PRN Q2HR PRN PO SECRETIONS 06/30/21 15:30 Loperamide HCl (Imodium) 2 mg PRN Q3HRS PRN PO DIARRHEA 06/30/21 15:30 Metoprolol Tartrate (Lopressor) 25 mg BID PO 06/30/21 21:00 07/17/21 20:01 Nicotine (Nicoderm Cq 14mg Patch) 1 patch DAILY TD 07/01/21 09:00 07/16/21 11:00 DC 07/15/21 08:07 Nitroglycerin (Nitrostat) 0.4 mg PRN Q5MIN PRN SL CHEST PAIN 06/30/21 15:30 Oxycodone HCl (Roxicodone) 2.5 mg PRN Q4HRS PRN PO PAIN 06/30/21 15:30 07/09/21 22:48 Pantoprazole Sodium (Protonix) 40 mg DAILYAC PO 07/01/21 07:30 07/17/21 08:10 Risperidone (RisperDAL M) 0.5 mg BID PO 06/30/21 21:00 06/30/21 19:42 DC Sertraline HCl (Zoloft) 50 mg DAILY PO 07/01/21 09:00 07/01/21 11:58 DC 07/01/21 08:36 Ziprasidone (Geodon) 20 mg 1600 PO 06/30/21 16:00 06/30/21 19:42 DC Ziprasidone (Geodon) 20 mg DAILY PO 07/01/21 09:00 06/30/21 19:42 DC Ferrous Sulfate (Feosol) 325 mg DAILY PO 07/01/21 09:00 07/17/21 08:10 Insulin Glargine (Lantus Syringe) 16 unit DAILY SQ 07/01/21 09:00 07/17/21 09:00 Ondansetron HCl (Zofran Odt) 4 mg PRN Q4HRS PRN PO NAUSEA/VOMITING 06/30/21 16:15 Oxycodone HCl (Roxicodone) 5 mg BID PO 06/30/21 21:00 07/17/21 20:03 Non-Formulary Medication (Rivaroxaban (Xarelto)) 20 mg 1700 PO 06/30/21 17:00 07/01/21 17:35 DC Linagliptin (Tradjenta) 5 mg DAILY PO 07/01/21 09:00 07/17/21 08:09 Non-Formulary Medication (Tea Tree Oil (Armenian Tea Tree Oil)) 1 demetria DAILY TP 07/01/21 09:00 06/30/21 16:14 DC Non-Formulary Medication (Vit E Acetate/ Gly/Dimeth/Water (Cetaphil Moisturizing Lotion)) 1 demetria DAILY TP 07/01/21 09:00 06/30/21 16:14 DC Olanzapine (ZyPREXA ZYDIS) 2.5 mg PRN Q2HR PRN PO PSYCHOSIS 06/30/21 15:30 07/10/21 19:57 Quetiapine Fumarate (SEROquel) 50 mg HS PO 06/30/21 21:00 07/11/21 00:39 DC 07/10/21 19:52 Quetiapine Fumarate (SEROquel) 25 mg 0900,1300,1700 PO 07/01/21 09:00 07/03/21 19:55 DC 07/03/21 16:46 Trazodone HCl (Desyrel) 50 mg PRN QHS PRN PO insomnia 06/30/21 19:45 07/14/21 19:55 Furosemide (Lasix) 40 mg DAILY PO 07/01/21 09:00 07/17/21 08:10 Sertraline HCl (Zoloft) 75 mg DAILY PO 07/02/21 09:00 07/17/21 08:11 Tamsulosin HCl (Flomax) 0.4 mg QHS PO 07/01/21 21:00 07/11/21 11:18 DC 07/10/21 19:53 Finasteride (Proscar) 5 mg DAILY PO 07/02/21 09:00 07/17/21 08:08 Divalproex Sodium (Depakote Sprinkles) 250 mg DAILY PO 07/02/21 09:00 07/08/21 21:24 DC 07/08/21 08:06 Divalproex Sodium (Depakote Sprinkles) 500 mg DAILY16 PO 07/02/21 16:00 07/08/21 21:24 DC 07/08/21 17:25 Alprazolam (Xanax) 0.25 mg TID PO 07/03/21 09:00 07/05/21 19:52 DC 07/05/21 13:40 Naloxegol (Movantik) 25 mg DAILY07 PO 07/04/21 07:00 07/18/21 07:26 Quetiapine Fumarate (SEROquel) 25 mg BID@0900,1700 PO 07/04/21 09:00 07/08/21 02:00 DC 07/07/21 16:55 Alprazolam (Xanax) 0.25 mg BID PO 07/06/21 09:00 07/08/21 22:00 DC 07/08/21 20:26 Alprazolam (Xanax) 0.25 mg DAILY PO 07/09/21 09:00 07/11/21 10:00 DC 07/11/21 08:16 Quetiapine Fumarate (SEROquel) 25 mg DAILY PO 07/08/21 09:00 07/17/21 08:08 Quetiapine Fumarate (SEROquel) 50 mg DAILY@1700 PO 07/08/21 17:00 07/17/21 16:58 Tamsulosin HCl (Flomax) 0.4 mg QHS PO 07/08/21 21:00 07/08/21 21:17 DC Divalproex Sodium (Depakote Sprinkles) 500 mg DAILY PO 07/09/21 09:00 07/17/21 08:12 Divalproex Sodium (Depakote Sprinkles) 500 mg DAILY@1700 PO 07/09/21 17:00 07/17/21 16:58 Quetiapine Fumarate (SEROquel) 75 mg HS PO 07/11/21 21:00 07/17/21 20:01 Tamsulosin HCl (Flomax) 0.4 mg BID PO 07/11/21 11:30 07/17/21 20:01 Docusate Sodium (Colace) 200 mg DAILY PO 07/13/21 17:15 07/17/21 08:09 I have reviewed the current psychotropics carefully including drug interactions. Risk benefit ratio favors no change other than as noted in my dictated progress note. Diagnosis: Problems: (1) Major neurocognitive disorder (2) Dementia in Alzheimer's disease with early onset with behavioral disturbance (3) Impulse control disorder, unspecified (4) Anxiety disorder, unspecified (5) Dementia, vascular, with depression (6) Dementia, vascular, with delusions (7) Dementia in Alzheimer's disease with depression (8) Dementia in Alzheimer's disease with delusions HUNTER MEZA MD Jul 18, 2021 07:34
[2021-07-18] MEDS: INSULIN GLARGINE SYRINGE. SQ SCH (08:32)
[2021-07-18] MEDS: PANTOPRAZOLE 40 MG TABLET. PO SCH (08:33)
[2021-07-18] MEDS: SERTRALINE 25 MG TABLET. PO SCH (08:34)
[2021-07-18] MEDS: FUROSEMIDE 40 MG TABLET PO SCH (08:34)
[2021-07-18] MEDS: DIVALPROEX 125 MG CAP.SPRINK PO SCH ×2 (08:34→17:17)
[2021-07-18] MEDS: CYCLOBENZAPRINE 10 MG TABLET. PO SCH ×3 (08:34→20:01)
[2021-07-18] MEDS: FINASTERIDE 5 MG TABLET. PO SCH (08:34)
[2021-07-18] MEDS: ACETAMINOPHEN 500 MG TABLET PO SCH ×2 (08:35→20:01)
[2021-07-18] MEDS: oxyCODONE IR 5 MG TABLET PO SCH ×2 (08:35→20:02)
[2021-07-18] MEDS: TAMSULOSIN 0.4 MG CAP.ER.24H. PO SCH ×2 (08:35→20:00)
[2021-07-18] MEDS: LINAGLIPTIN 5 MG TABLET PO SCH (08:35)
[2021-07-18] MEDS: FERROUS SULFATE 325 MG TABLET. PO SCH (08:35)
[2021-07-18] MEDS: busPIRone 10 MG TABLET. PO SCH ×2 (08:36→20:00)
[2021-07-18] MEDS: QUEtiapine 25 MG TABLET. PO SCH ×2 (08:36→17:17)
[2021-07-18] MEDS: DOCUSATE SODIUM 100 MG CAPSULE PO SCH (08:36)
[2021-07-18] MEDS: METOPROLOL TART IMMED RELEASE 25 MG TABLET. PO SCH ×2 (08:38→20:00)
[2021-07-18 15:18] VITALS: BP 124/75
--- NOTE | 2021-07-18 15:51 | NUR ---
MILES received phone call from Brittney, director of security at [facility], indicating that Darryl has been accepted for admission on 07/21/21. 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 MILES contacted JULIAN Tello at [facility], to inquire if they would be able to provide transport on that date since Darryl is technically still their resident but has to find alternate living arrangements since their facility is closing. Elisha stated she would discuss with the storage facility rental clerk and get back with this worker. Call placed to Darryl daughter, Kristina, to update on above.
--- NOTE | 2021-07-18 18:04 | NUR ---
Nursing note: Patient in dinning room for morning medication & assessment. He is compliant with medications crushed/floated in pudding. He is A/O X3, unable to voice location. His bowel sounds are hypoactive. He propels self in w/c & self transfers, staff encouraged him to ask for assistance. Patient restless, hallucinating, & falling asleep in w/c. He participated in groups in the am then laid down after lunch. Patient reports head & neck pain, scheduled pain medication given per order. He is currently laying in bed. Will continue to monitor.
[2021-07-18] MEDS: QUEtiapine 50 MG TABLET. PO SCH (20:03)
--- NOTE | 2021-07-18 20:30 | PDOC ---
Exam Note: Kam Note: Please also refer to the separate dictated note~for this date of service dictated separately.~Patient seen individually. Discussed the patient with Nursing staff reviewed the chart.~Reviewed interim history and current functioning. Reviewed vital signs,~Labs/ Radiology~and current medications noted below. Continue current treatment with the changes noted in the dictated addendum note Assessment: Vital Signs/I&O: Vital Signs Date Time Temp Pulse Resp B/P (MAP) Pulse Ox O2 Delivery O2 Flow Rate FiO2 07/18/21 20:02 95 07/18/21 20:00 82 124/75 07/18/21 15:18 97.8 16 07/17/21 10:39 Room Air 07/14/21 06:09 2.0 I & O 07/17/21 07/17/21 07/18/21 15:00 23:00 07:00 Intake Total 360 ml 600 ml Balance 360 ml 600 ml Labs: Laboratory Tests Test 07/18/21 06:47 07/18/21 07:26 White Blood Count 8.0 x10^3/uL (4.0-11.0) Red Blood Count 4.35 x10^6/uL (4.30-5.70) Hemoglobin 11.0 g/dL (13.0-17.5) L Hematocrit 34.8 % (39.0-53.0) L Mean Corpuscular Volume 80 fL (79-100) Mean Corpuscular Hemoglobin 25 pg (25-35) Mean Corpuscular Hemoglobin Concent 32 g/dL (31-37) Red Cell Distribution Width 15.0 % (11.5-14.5) H Platelet Count 272 x10^3/uL (140-400) Neutrophils (%) (Auto) 69 % (31-73) Lymphocytes (%) (Auto) 15 % (24-48) L Monocytes (%) (Auto) 13 % (0-9) H Eosinophils (%) (Auto) 3 % (0-3) Basophils (%) (Auto) 0 % (0-3) Neutrophils # (Auto) 5.5 x10^3uL (1.8-7.7) Lymphocytes # (Auto) 1.2 x10^3/uL (1.0-4.8) Monocytes # (Auto) 1.0 x10^3/uL (0.0-1.1) Eosinophils # (Auto) 0.3 x10^3/uL (0.0-0.7) Basophils # (Auto) 0.0 x10^3/uL (0.0-0.2) Sodium Level 141 mmol/L (136-145) Potassium Level 4.1 mmol/L (3.5-5.1) Chloride Level 103 mmol/L (98-107) Carbon Dioxide Level 33 mmol/L (21-32) H Anion Gap 5 (6-14) L Blood Urea Nitrogen 18 mg/dL (8-26) Creatinine 0.8 mg/dL (0.7-1.3) Estimated GFR (Cockcroft-Gault) 98.3 BUN/Creatinine Ratio 23 (6-20) H Glucose Level 126 mg/dL (70-99) H Calcium Level 8.8 mg/dL (8.5-10.1) Total Bilirubin 0.3 mg/dL (0.2-1.0) Aspartate Amino Transferase (AST) 10 U/L (15-37) L Alanine Aminotransferase (ALT) 10 U/L (16-63) L Alkaline Phosphatase 122 U/L (46-116) H Total Protein 6.9 g/dL (6.4-8.2) Albumin 3.0 g/dL (3.4-5.0) L Albumin/Globulin Ratio 0.8 (1.0-1.7) L Glucose (Fingerstick) 149 mg/dL (70-99) H Current Medications: Meds: Laboratory Tests Test 07/18/21 06:47 07/18/21 07:26 White Blood Count 8.0 x10^3/uL Red Blood Count 4.35 x10^6/uL Hemoglobin 11.0 g/dL Hematocrit 34.8 % Mean Corpuscular Volume 80 fL Mean Corpuscular Hemoglobin 25 pg Mean Corpuscular Hemoglobin Concent 32 g/dL Red Cell Distribution Width 15.0 % Platelet Count 272 x10^3/uL Neutrophils (%) (Auto) 69 % Lymphocytes (%) (Auto) 15 % Monocytes (%) (Auto) 13 % Eosinophils (%) (Auto) 3 % Basophils (%) (Auto) 0 % Neutrophils # (Auto) 5.5 x10^3uL Lymphocytes # (Auto) 1.2 x10^3/uL Monocytes # (Auto) 1.0 x10^3/uL Eosinophils # (Auto) 0.3 x10^3/uL Basophils # (Auto) 0.0 x10^3/uL Sodium Level 141 mmol/L Potassium Level 4.1 mmol/L Chloride Level 103 mmol/L Carbon Dioxide Level 33 mmol/L Anion Gap 5 Blood Urea Nitrogen 18 mg/dL Creatinine 0.8 mg/dL Estimated GFR (Cockcroft-Gault) 98.3 BUN/Creatinine Ratio 23 Glucose Level 126 mg/dL Calcium Level 8.8 mg/dL Total Bilirubin 0.3 mg/dL Aspartate Amino Transf (AST/SGOT) 10 U/L Alanine Aminotransferase (ALT/SGPT) 10 U/L Alkaline Phosphatase 122 U/L Total Protein 6.9 g/dL Albumin 3.0 g/dL Albumin/Globulin Ratio 0.8 Glucose (Fingerstick) 149 mg/dL Current Medications Medications (Trade) Dose Ordered Sig/Shannon Route PRN Reason Start Time Stop Time Status Last Admin Dose Admin Multi-Ingredient Ointment (Analgesic [place]) 1 demetria PRN QID PRN TP MUSCLE PAIN 06/30/21 15:15 Al Hydroxide/Mg Hydroxide (Mylanta Plus Xs) 15 ml PRN AFTMEALHC PRN PO DYSPEPSIA 06/30/21 15:15 Magnesium Hydroxide (Milk Of Magnesia) 2,400 mg PRN QHS PRN PO CONSTIPATION 06/30/21 15:15 07/13/21 09:26 Acetaminophen (Tylenol) 500 mg BID PO 06/30/21 21:00 07/18/21 20:01 Albuterol Sulfate (Ventolin) 2.5 mg PRN Q4HRS PRN IH FOR ASTHMA 06/30/21 15:30 Alprazolam (Xanax) 0.5 mg TID PO 06/30/21 21:00 07/02/21 22:42 DC 07/02/21 20:38 Buspirone HCl (Buspar) 10 mg BID PO 06/30/21 21:00 07/18/21 20:00 Cyclobenzaprine HCl (Flexeril) 10 mg TID PO 06/30/21 21:00 07/18/21 20:01 Divalproex Sodium (Depakote Er) 250 mg BID PO 06/30/21 21:00 07/01/21 20:14 DC 07/01/21 08:36 Docusate Sodium (Colace) 200 mg PRN DAILY PRN PO 1ST CHOICE CONSTIPATION 06/30/21 15:30 07/13/21 17:16 DC 07/12/21 12:01 Furosemide (Lasix) 40 mg BID PO 06/30/21 21:00 07/01/21 02:03 DC Haloperidol (Haldol) 1 mg PRN Q6HRS PRN PO ANXIETY / AGITATION 06/30/21 16:00 07/12/21 12:44 Haloperidol (Haldol) 2 mg TID PO 06/30/21 21:00 06/30/21 19:42 DC Hyoscyamine (Anaspaz) 0.125 mg PRN Q2HR PRN PO SECRETIONS 06/30/21 15:30 Loperamide HCl (Imodium) 2 mg PRN Q3HRS PRN PO DIARRHEA 06/30/21 15:30 Metoprolol Tartrate (Lopressor) 25 mg BID PO 06/30/21 21:00 07/18/21 20:00 Nicotine (Nicoderm Cq 14mg Patch) 1 patch DAILY TD 07/01/21 09:00 07/16/21 11:00 DC 07/15/21 08:07 Nitroglycerin (Nitrostat) 0.4 mg PRN Q5MIN PRN SL CHEST PAIN 06/30/21 15:30 Oxycodone HCl (Roxicodone) 2.5 mg PRN Q4HRS PRN PO PAIN 06/30/21 15:30 07/09/21 22:48 Pantoprazole Sodium (Protonix) 40 mg DAILYAC PO 07/01/21 07:30 07/18/21 08:33 Risperidone (RisperDAL M) 0.5 mg BID PO 06/30/21 21:00 06/30/21 19:42 DC Sertraline HCl (Zoloft) 50 mg DAILY PO 07/01/21 09:00 07/01/21 11:58 DC 07/01/21 08:36 Ziprasidone (Geodon) 20 mg 1600 PO 06/30/21 16:00 06/30/21 19:42 DC Ziprasidone (Geodon) 20 mg DAILY PO 07/01/21 09:00 06/30/21 19:42 DC Ferrous Sulfate (Feosol) 325 mg DAILY PO 07/01/21 09:00 07/18/21 08:35 Insulin Glargine (Lantus Syringe) 16 unit DAILY SQ 07/01/21 09:00 07/18/21 08:32 Ondansetron HCl (Zofran Odt) 4 mg PRN Q4HRS PRN PO NAUSEA/VOMITING 06/30/21 16:15 Oxycodone HCl (Roxicodone) 5 mg BID PO 06/30/21 21:00 07/18/21 20:02 Non-Formulary Medication (Rivaroxaban (Xarelto)) 20 mg 1700 PO 06/30/21 17:00 07/01/21 17:35 DC Linagliptin (Tradjenta) 5 mg DAILY PO 07/01/21 09:00 07/18/21 08:35 Non-Formulary Medication (Tea Tree Oil ([place]cuadorean Tea Tree Oil)) 1 demetria DAILY TP 07/01/21 09:00 06/30/21 16:14 DC Non-Formulary Medication (Vit E Acetate/ Gly/Dimeth/Water (Cetaphil Moisturizing Lotion)) 1 demetria DAILY TP 07/01/21 09:00 06/30/21 16:14 DC Olanzapine (ZyPREXA ZYDIS) 2.5 mg PRN Q2HR PRN PO PSYCHOSIS 06/30/21 15:30 07/10/21 19:57 Quetiapine Fumarate (SEROquel) 50 mg HS PO 06/30/21 21:00 07/11/21 00:39 DC 07/10/21 19:52 Quetiapine Fumarate (SEROquel) 25 mg 0900,1300,1700 PO 07/01/21 09:00 07/03/21 19:55 DC 07/03/21 16:46 Trazodone HCl (Desyrel) 50 mg PRN QHS PRN PO insomnia 06/30/21 19:45 07/14/21 19:55 Furosemide (Lasix) 40 mg DAILY PO 07/01/21 09:00 07/18/21 08:34 Sertraline HCl (Zoloft) 75 mg DAILY PO 07/02/21 09:00 07/18/21 08:34 Tamsulosin HCl (Flomax) 0.4 mg QHS PO 07/01/21 21:00 07/11/21 11:18 DC 07/10/21 19:53 Finasteride (Proscar) 5 mg DAILY PO 07/02/21 09:00 07/18/21 08:34 Divalproex Sodium (Depakote Sprinkles) 250 mg DAILY PO 07/02/21 09:00 07/08/21 21:24 DC 07/08/21 08:06 Divalproex Sodium (Depakote Sprinkles) 500 mg DAILY16 PO 07/02/21 16:00 07/08/21 21:24 DC 07/08/21 17:25 Alprazolam (Xanax) 0.25 mg TID PO 07/03/21 09:00 07/05/21 19:52 DC 07/05/21 13:40 Naloxegol (Movantik) 25 mg DAILY07 PO 07/04/21 07:00 07/18/21 07:26 Quetiapine Fumarate (SEROquel) 25 mg BID@0900,1700 PO 07/04/21 09:00 07/08/21 02:00 DC 07/07/21 16:55 Alprazolam (Xanax) 0.25 mg BID PO 07/06/21 09:00 07/08/21 22:00 DC 07/08/21 20:26 Alprazolam (Xanax) 0.25 mg DAILY PO 07/09/21 09:00 07/11/21 10:00 DC 07/11/21 08:16 Quetiapine Fumarate (SEROquel) 25 mg DAILY PO 07/08/21 09:00 07/18/21 08:36 Quetiapine Fumarate (SEROquel) 50 mg DAILY@1700 PO 07/08/21 17:00 07/18/21 17:17 Tamsulosin HCl (Flomax) 0.4 mg QHS PO 07/08/21 21:00 07/08/21 21:17 DC Divalproex Sodium (Depakote Sprinkles) 500 mg DAILY PO 07/09/21 09:00 07/18/21 08:34 Divalproex Sodium (Depakote Sprinkles) 500 mg DAILY@1700 PO 07/09/21 17:00 07/18/21 17:17 Quetiapine Fumarate (SEROquel) 75 mg HS PO 07/11/21 21:00 07/18/21 20:03 Tamsulosin HCl (Flomax) 0.4 mg BID PO 07/11/21 11:30 07/18/21 20:00 Docusate Sodium (Colace) 200 mg DAILY PO 07/13/21 17:15 07/18/21 08:36 I have reviewed the current psychotropics carefully including drug interactions. Risk benefit ratio favors no change other than as noted in my dictated progress note. Diagnosis: Problems: (1) Major neurocognitive disorder (2) Dementia in Alzheimer's disease with early onset with behavioral disturbance (3) Impulse control disorder, unspecified (4) Anxiety disorder, unspecified (5) Dementia, vascular, with depression (6) Dementia, vascular, with delusions (7) Dementia in Alzheimer's disease with depression (8) Dementia in Alzheimer's disease with delusions HUNTER MEZA MD Jul 18, 2021 20:30
--- NOTE | 2021-07-18 22:19 | NUR ---
Pt rolling around unit in his wheelchair this evening. Pleasant and calm. Compliant with crushed medications. Pt currently sleeping.
[2021-07-18] MEDS: traZODone 50 MG TABLET. PO PRN (23:03)
[2021-07-19 05:45] VITALS: BP 128/71
[2021-07-19] MEDS: NALOXEGOL OXALATE 25 MG TABLET. PO SCH (06:09)
[2021-07-19] MEDS: INSULIN GLARGINE SYRINGE. SQ SCH (08:38)
[2021-07-19] MEDS: METOPROLOL TART IMMED RELEASE 25 MG TABLET. PO SCH ×2 (08:41→20:37)
[2021-07-19] MEDS: PANTOPRAZOLE 40 MG TABLET. PO SCH (08:41)
[2021-07-19] MEDS: LINAGLIPTIN 5 MG TABLET PO SCH (08:42)
[2021-07-19] MEDS: FERROUS SULFATE 325 MG TABLET. PO SCH (08:42)
[2021-07-19] MEDS: oxyCODONE IR 5 MG TABLET PO SCH ×2 (08:42→22:21)
[2021-07-19] MEDS: QUEtiapine 25 MG TABLET. PO SCH ×2 (08:43→17:36)
[2021-07-19] MEDS: FINASTERIDE 5 MG TABLET. PO SCH (08:43)
[2021-07-19] MEDS: ACETAMINOPHEN 500 MG TABLET PO SCH ×2 (08:43→20:37)
[2021-07-19] MEDS: TAMSULOSIN 0.4 MG CAP.ER.24H. PO SCH ×2 (08:43→20:37)
[2021-07-19] MEDS: CYCLOBENZAPRINE 10 MG TABLET. PO SCH ×3 (08:43→20:36)
[2021-07-19] MEDS: busPIRone 10 MG TABLET. PO SCH ×2 (08:43→20:37)
[2021-07-19] MEDS: FUROSEMIDE 40 MG TABLET PO SCH (08:43)
[2021-07-19] MEDS: SERTRALINE 25 MG TABLET. PO SCH (08:44)
[2021-07-19] MEDS: DIVALPROEX 125 MG CAP.SPRINK PO SCH ×2 (08:44→17:35)
[2021-07-19] MEDS: DOCUSATE SODIUM 100 MG CAPSULE PO SCH (08:44)
--- NOTE | 2021-07-19 12:55 | NUR ---
[facility] Social Work Discharge Planning Form Patient Name RYLEE GIBBS Admit Date: 05/20/2021 DISCHARGE PLAN Discharge Destination: [facility] Care Assessment: Previously completed Level II Assessment: N/A Transportation: Rylee will be transported on 06/20/2021 at 9am. Special Instructions/Notes: Upon arrival to [facility], arrange for f/u appointments with PCP and house psychiatrist within 10-14 days. DISCHARGE TO FACILITY Facility: [facility] Address: [address] [place] [id number] Contact Name: Brittney, integrity director PCP: Dr. Moralez [phone], (fax) Psychiatrist: Facility provider
--- NOTE | 2021-07-19 15:02 | NUR ---
Nursing note: Patient in dinning room for morning medication & assessment. He is compliant with medications crushed/floated in pudding. He is A/O X3, unable to voice location. He propels self in w/c & self transfers, staff encouraged him to ask for assistance. Patient calm and cooperative. He laid down after breakfast & lunch. Patient reports head & neck pain, scheduled pain medication given per order. He talked with his daughter in the afternoon. He is up in his w/c in the [place]. Will continue to monitor. Addendum: 07/19/21 at 1506 by NEO NELSON RN RN Patient voided in the am before breakfast. Will continue to monitor.
[2021-07-19 15:21] VITALS: BP 117/73
[2021-07-19] MEDS ORDERED: OXYC5TAB4 PO ×2 (16:52)
[2021-07-19] MEDS: QUEtiapine 50 MG TABLET. PO SCH (20:37)
--- NOTE | 2021-07-19 20:52 | PDOC ---
Exam Note: Kam Note: Please also refer to the separate dictated note~for this date of service dictated separately.~Patient seen individually. Discussed the patient with Nursing staff reviewed the chart.~Reviewed interim history and current functioning. Reviewed vital signs,~Labs/ Radiology~and current medications noted below. Continue current treatment with the changes noted in the dictated addendum note Assessment: Vital Signs/I&O: Vital Signs Date Time Temp Pulse Resp B/P (MAP) Pulse Ox O2 Delivery O2 Flow Rate FiO2 07/19/21 20:37 75 117/73 07/19/21 15:21 97.9 18 92 07/17/21 10:39 Room Air 07/14/21 06:09 2.0 I & O 07/18/21 07/18/21 07/19/21 15:00 23:00 07:00 Intake Total 840 ml 480 ml Balance 840 ml 480 ml Labs: Laboratory Tests Test 07/19/21 07:24 Glucose (Fingerstick) 121 mg/dL (70-99) H Current Medications: Meds: Laboratory Tests Test 07/19/21 07:24 Glucose (Fingerstick) 121 mg/dL Current Medications Medications (Trade) Dose Ordered Sig/Shannon Route PRN Reason Start Time Stop Time Status Last Admin Dose Admin Multi-Ingredient Ointment (Analgesic [place]) 1 demetria PRN QID PRN TP MUSCLE PAIN 06/30/21 15:15 07/18/21 23:04 Al Hydroxide/Mg Hydroxide (Mylanta Plus Xs) 15 ml PRN AFTMEALHC PRN PO DYSPEPSIA 06/30/21 15:15 Magnesium Hydroxide (Milk Of Magnesia) 2,400 mg PRN QHS PRN PO CONSTIPATION 06/30/21 15:15 07/13/21 09:26 Acetaminophen (Tylenol) 500 mg BID PO 06/30/21 21:00 07/19/21 20:37 Albuterol Sulfate (Ventolin) 2.5 mg PRN Q4HRS PRN IH FOR ASTHMA 06/30/21 15:30 Alprazolam (Xanax) 0.5 mg TID PO 06/30/21 21:00 07/02/21 22:42 DC 07/02/21 20:38 Buspirone HCl (Buspar) 10 mg BID PO 06/30/21 21:00 07/19/21 20:37 Cyclobenzaprine HCl (Flexeril) 10 mg TID PO 06/30/21 21:00 07/19/21 20:36 Divalproex Sodium (Depakote Er) 250 mg BID PO 06/30/21 21:00 07/01/21 20:14 DC 07/01/21 08:36 Docusate Sodium (Colace) 200 mg PRN DAILY PRN PO 1ST CHOICE CONSTIPATION 06/30/21 15:30 07/13/21 17:16 DC 07/12/21 12:01 Furosemide (Lasix) 40 mg BID PO 06/30/21 21:00 07/01/21 02:03 DC Haloperidol (Haldol) 1 mg PRN Q6HRS PRN PO ANXIETY / AGITATION 06/30/21 16:00 07/12/21 12:44 Haloperidol (Haldol) 2 mg TID PO 06/30/21 21:00 06/30/21 19:42 DC Hyoscyamine (Anaspaz) 0.125 mg PRN Q2HR PRN PO SECRETIONS 06/30/21 15:30 Loperamide HCl (Imodium) 2 mg PRN Q3HRS PRN PO DIARRHEA 06/30/21 15:30 Metoprolol Tartrate (Lopressor) 25 mg BID PO 06/30/21 21:00 07/19/21 20:37 Nicotine (Nicoderm Cq 14mg Patch) 1 patch DAILY TD 07/01/21 09:00 07/16/21 11:00 DC 07/15/21 08:07 Nitroglycerin (Nitrostat) 0.4 mg PRN Q5MIN PRN SL CHEST PAIN 06/30/21 15:30 Oxycodone HCl (Roxicodone) 2.5 mg PRN Q4HRS PRN PO PAIN 06/30/21 15:30 07/09/21 22:48 Pantoprazole Sodium (Protonix) 40 mg DAILYAC PO 07/01/21 07:30 07/19/21 08:41 Risperidone (RisperDAL M) 0.5 mg BID PO 06/30/21 21:00 06/30/21 19:42 DC Sertraline HCl (Zoloft) 50 mg DAILY PO 07/01/21 09:00 07/01/21 11:58 DC 07/01/21 08:36 Ziprasidone (Geodon) 20 mg 1600 PO 06/30/21 16:00 06/30/21 19:42 DC Ziprasidone (Geodon) 20 mg DAILY PO 07/01/21 09:00 06/30/21 19:42 DC Ferrous Sulfate (Feosol) 325 mg DAILY PO 07/01/21 09:00 07/19/21 08:42 Insulin Glargine (Lantus Syringe) 16 unit DAILY SQ 07/01/21 09:00 07/19/21 08:38 Ondansetron HCl (Zofran Odt) 4 mg PRN Q4HRS PRN PO NAUSEA/VOMITING 06/30/21 16:15 Oxycodone HCl (Roxicodone) 5 mg BID PO 06/30/21 21:00 07/19/21 08:42 Non-Formulary Medication (Rivaroxaban (Xarelto)) 20 mg 1700 PO 06/30/21 17:00 07/01/21 17:35 DC Linagliptin (Tradjenta) 5 mg DAILY PO 07/01/21 09:00 07/19/21 08:42 Non-Formulary Medication (Tea Tree Oil ([place]olese Tea Tree Oil)) 1 demetria DAILY TP 07/01/21 09:00 06/30/21 16:14 DC Non-Formulary Medication (Vit E Acetate/ Gly/Dimeth/Water (Cetaphil Moisturizing Lotion)) 1 demetria DAILY TP 07/01/21 09:00 06/30/21 16:14 DC Olanzapine (ZyPREXA ZYDIS) 2.5 mg PRN Q2HR PRN PO PSYCHOSIS 06/30/21 15:30 07/10/21 19:57 Quetiapine Fumarate (SEROquel) 50 mg HS PO 06/30/21 21:00 07/11/21 00:39 DC 07/10/21 19:52 Quetiapine Fumarate (SEROquel) 25 mg 0900,1300,1700 PO 07/01/21 09:00 07/03/21 19:55 DC 07/03/21 16:46 Trazodone HCl (Desyrel) 50 mg PRN QHS PRN PO insomnia 06/30/21 19:45 07/18/21 23:03 Furosemide (Lasix) 40 mg DAILY PO 07/01/21 09:00 07/19/21 08:43 Sertraline HCl (Zoloft) 75 mg DAILY PO 07/02/21 09:00 07/19/21 08:44 Tamsulosin HCl (Flomax) 0.4 mg QHS PO 07/01/21 21:00 07/11/21 11:18 DC 07/10/21 19:53 Finasteride (Proscar) 5 mg DAILY PO 07/02/21 09:00 07/19/21 08:43 Divalproex Sodium (Depakote Sprinkles) 250 mg DAILY PO 07/02/21 09:00 07/08/21 21:24 DC 07/08/21 08:06 Divalproex Sodium (Depakote Sprinkles) 500 mg DAILY16 PO 07/02/21 16:00 07/08/21 21:24 DC 07/08/21 17:25 Alprazolam (Xanax) 0.25 mg TID PO 07/03/21 09:00 07/05/21 19:52 DC 07/05/21 13:40 Naloxegol (Movantik) 25 mg DAILY07 PO 07/04/21 07:00 07/19/21 06:09 Quetiapine Fumarate (SEROquel) 25 mg BID@0900,1700 PO 07/04/21 09:00 07/08/21 02:00 DC 07/07/21 16:55 Alprazolam (Xanax) 0.25 mg BID PO 07/06/21 09:00 07/08/21 22:00 DC 07/08/21 20:26 Alprazolam (Xanax) 0.25 mg DAILY PO 07/09/21 09:00 07/11/21 10:00 DC 07/11/21 08:16 Quetiapine Fumarate (SEROquel) 25 mg DAILY PO 07/08/21 09:00 07/19/21 08:43 Quetiapine Fumarate (SEROquel) 50 mg DAILY@1700 PO 07/08/21 17:00 07/19/21 17:36 Tamsulosin HCl (Flomax) 0.4 mg QHS PO 07/08/21 21:00 07/08/21 21:17 DC Divalproex Sodium (Depakote Sprinkles) 500 mg DAILY PO 07/09/21 09:00 07/19/21 08:44 Divalproex Sodium (Depakote Sprinkles) 500 mg DAILY@1700 PO 07/09/21 17:00 07/19/21 17:35 Quetiapine Fumarate (SEROquel) 75 mg HS PO 07/11/21 21:00 07/19/21 20:37 Tamsulosin HCl (Flomax) 0.4 mg BID PO 07/11/21 11:30 07/19/21 20:37 Docusate Sodium (Colace) 200 mg DAILY PO 07/13/21 17:15 07/19/21 08:44 I have reviewed the current psychotropics carefully including drug interactions. Risk benefit ratio favors no change other than as noted in my dictated progress note. Diagnosis: Problems: (1) Major neurocognitive disorder (2) Dementia in Alzheimer's disease with early onset with behavioral disturbance (3) Impulse control disorder, unspecified (4) Anxiety disorder, unspecified (5) Dementia, vascular, with depression (6) Dementia in Alzheimer's disease with depression (7) Dementia in Alzheimer's disease with delusions (8) Dementia, vascular, with delusions HUNTER MEZA MD Jul 19, 2021 20:52
[2021-07-19] MEDS: traZODone 50 MG TABLET. PO PRN (22:21)
[2021-07-19] MEDS ORDERED: TAMS0.4C97 PO (23:49)
[2021-07-19] MEDS ORDERED: NICO1PAT25 TD (23:50)
[2021-07-20] MEDS ORDERED: DIVA125C2 PO ×2 (00:13→00:14)
[2021-07-20] MEDS ORDERED: TRAZ-120 PO (00:16)
[2021-07-20] MEDS ORDERED: HALO2TAB PO (00:21)
[2021-07-20] MEDS ORDERED: OLAN5TAB99 PO (00:27)
[2021-07-20] MEDS ORDERED: QUET25TA5 PO (00:28)
[2021-07-20] MEDS ORDERED: QUET50TA5 PO (00:30)
[2021-07-20] MEDS ORDERED: QUET50TA3 PO (00:31)
[2021-07-20] MEDS ORDERED: MAG30ORA2 PO (00:33)
[2021-07-20] MEDS ORDERED: MAGN400O7 PO (00:35)
[2021-07-20] MEDS ORDERED: NALO25TA4 PO (00:45)
[2021-07-20] MEDS ORDERED: FINA5TAB4 PO (00:56)
[2021-07-20] MEDS ORDERED: METH99.22 TP (00:58)
--- NOTE | 2021-07-20 04:14 | NUR ---
Nursing Note The patient was calm and cooperative for his assessment and medication. The patient took his medication crushed in pudding. The patient was alert to name and year. The patient was restless after HS and received PRN Trazodone which was only effective for a short time. Patient is currently awake in his room.
[2021-07-20 06:06] VITALS: BP 127/68
[2021-07-20] MEDS: DOCUSATE SODIUM 100 MG CAPSULE PO SCH (07:57)
[2021-07-20] MEDS: FINASTERIDE 5 MG TABLET. PO SCH (07:57)
[2021-07-20] MEDS: FERROUS SULFATE 325 MG TABLET. PO SCH (07:57)
[2021-07-20] MEDS: FUROSEMIDE 40 MG TABLET PO SCH (07:58)
[2021-07-20] MEDS: PANTOPRAZOLE 40 MG TABLET. PO SCH (07:58)
[2021-07-20] MEDS: QUEtiapine 25 MG TABLET. PO SCH (07:58)
[2021-07-20] MEDS: SERTRALINE 25 MG TABLET. PO SCH (07:58)
[2021-07-20] MEDS: LINAGLIPTIN 5 MG TABLET PO SCH (07:58)
[2021-07-20] MEDS: DIVALPROEX 125 MG CAP.SPRINK PO SCH (07:58)
[2021-07-20 07:59] VITALS: BP 127/68
[2021-07-20] MEDS: busPIRone 10 MG TABLET. PO SCH (07:59)
[2021-07-20] MEDS: CYCLOBENZAPRINE 10 MG TABLET. PO SCH (07:59)
[2021-07-20] MEDS: METOPROLOL TART IMMED RELEASE 25 MG TABLET. PO SCH (07:59)
[2021-07-20] MEDS: NALOXEGOL OXALATE 25 MG TABLET. PO SCH (07:59)
[2021-07-20] MEDS: TAMSULOSIN 0.4 MG CAP.ER.24H. PO SCH (07:59)
[2021-07-20] MEDS: ACETAMINOPHEN 500 MG TABLET PO SCH (08:04)
[2021-07-20] MEDS: oxyCODONE IR 5 MG TABLET PO SCH (08:04)
--- NOTE | 2021-07-20 08:59 | NUR ---
Contacted [facility] ([phone]) to give nurse to nurse report, was requested by field support technician to call back for report later in the morning d/t assigned nurse doing med pass. Will attempt again later.
--- NOTE | 2021-07-20 09:00 | NUR ---
Pt calm and cooperative this morning. Pleasant in his interactions with staff and other patients. He is med compliant. He c/o 8/10 pain in posterior neck, scheduled Oxycodone and Acetaminophen administered, reassessment pending. A&Ox3, absent of verbal/physical aggression. He denies SI when asked. Plan of care continues, preparing for d/c
--- NOTE | 2021-07-20 09:48 | PDOC ---
Exam Note: Kam Note: This note is a late entry for 07/18/2021 covers elements not covered in my initial note. Subjective: The patient was seen individually in the evening of 07/18/2021 with Barbara SANTA, discussed and reviewed the chart. The patient slept 7-1/4 hours previous night. He is doing better, seems less confused, less irritable, compliant with his medications. He gets frustrated with one of the other demented patients. Review of Systems: Ambulation impaired, in wheelchair. No CV, , pulmonary, eye, ENT system symptoms on review. Mental Status Exam: The patient is oriented to himself, little more oriented than before. Abstraction fair. Computation impaired. Language function intact. Mood and affect less labile. Laboratory Data: Reviewed. Impression: Major neurocognitive disorder, Alzheimer, vascular with delusion, depression behavioral disturbance. Anxiety disorder unspecified. Impulse control disorder unspecified. Plan: No change from initial note. Assessment: Vital Signs/I&O: Vital Signs Date Time Temp Pulse Resp B/P (MAP) Pulse Ox O2 Delivery O2 Flow Rate FiO2 07/20/21 08:04 Room Air 07/20/21 07:59 84 127/68 07/20/21 06:06 98.0 18 92 I & O 07/19/21 07/19/21 07/20/21 15:00 23:00 07:00 Intake Total 847 ml 600 ml Balance 847 ml 600 ml Labs: Laboratory Tests Test 07/20/21 07:48 Glucose (Fingerstick) 120 mg/dL (70-99) H Current Medications: Meds: Laboratory Tests Test 07/20/21 07:48 Glucose (Fingerstick) 120 mg/dL Current Medications Medications (Trade) Dose Ordered Sig/Shannon Route PRN Reason Start Time Stop Time Status Last Admin Dose Admin Multi-Ingredient Ointment (Analgesic [place]) 1 demetria PRN QID PRN TP MUSCLE PAIN 06/30/21 15:15 07/18/21 23:04 Al Hydroxide/Mg Hydroxide (Mylanta Plus Xs) 15 ml PRN AFTMEALHC PRN PO DYSPEPSIA 06/30/21 15:15 Magnesium Hydroxide (Milk Of Magnesia) 2,400 mg PRN QHS PRN PO CONSTIPATION 06/30/21 15:15 07/13/21 09:26 Acetaminophen (Tylenol) 500 mg BID PO 06/30/21 21:00 07/20/21 08:04 Albuterol Sulfate (Ventolin) 2.5 mg PRN Q4HRS PRN IH FOR ASTHMA 06/30/21 15:30 Alprazolam (Xanax) 0.5 mg TID PO 06/30/21 21:00 07/02/21 22:42 DC 07/02/21 20:38 Buspirone HCl (Buspar) 10 mg BID PO 06/30/21 21:00 07/20/21 07:59 Cyclobenzaprine HCl (Flexeril) 10 mg TID PO 06/30/21 21:00 07/20/21 07:59 Divalproex Sodium (Depakote Er) 250 mg BID PO 06/30/21 21:00 07/01/21 20:14 DC 07/01/21 08:36 Docusate Sodium (Colace) 200 mg PRN DAILY PRN PO 1ST CHOICE CONSTIPATION 06/30/21 15:30 07/13/21 17:16 DC 07/12/21 12:01 Furosemide (Lasix) 40 mg BID PO 06/30/21 21:00 07/01/21 02:03 DC Haloperidol (Haldol) 1 mg PRN Q6HRS PRN PO ANXIETY / AGITATION 06/30/21 16:00 07/12/21 12:44 Haloperidol (Haldol) 2 mg TID PO 06/30/21 21:00 06/30/21 19:42 DC Hyoscyamine (Anaspaz) 0.125 mg PRN Q2HR PRN PO SECRETIONS 06/30/21 15:30 Loperamide HCl (Imodium) 2 mg PRN Q3HRS PRN PO DIARRHEA 06/30/21 15:30 Metoprolol Tartrate (Lopressor) 25 mg BID PO 06/30/21 21:00 07/20/21 07:59 Nicotine (Nicoderm Cq 14mg Patch) 1 patch DAILY TD 07/01/21 09:00 07/16/21 11:00 DC 07/15/21 08:07 Nitroglycerin (Nitrostat) 0.4 mg PRN Q5MIN PRN SL CHEST PAIN 06/30/21 15:30 Oxycodone HCl (Roxicodone) 2.5 mg PRN Q4HRS PRN PO PAIN 06/30/21 15:30 07/09/21 22:48 Pantoprazole Sodium (Protonix) 40 mg DAILYAC PO 07/01/21 07:30 07/20/21 07:58 Risperidone (RisperDAL M) 0.5 mg BID PO 06/30/21 21:00 06/30/21 19:42 DC Sertraline HCl (Zoloft) 50 mg DAILY PO 07/01/21 09:00 07/01/21 11:58 DC 07/01/21 08:36 Ziprasidone (Geodon) 20 mg 1600 PO 06/30/21 16:00 06/30/21 19:42 DC Ziprasidone (Geodon) 20 mg DAILY PO 07/01/21 09:00 06/30/21 19:42 DC Ferrous Sulfate (Feosol) 325 mg DAILY PO 07/01/21 09:00 07/20/21 07:57 Insulin Glargine (Lantus Syringe) 16 unit DAILY SQ 07/01/21 09:00 07/19/21 08:38 Ondansetron HCl (Zofran Odt) 4 mg PRN Q4HRS PRN PO NAUSEA/VOMITING 06/30/21 16:15 Oxycodone HCl (Roxicodone) 5 mg BID PO 06/30/21 21:00 07/20/21 08:04 Non-Formulary Medication (Rivaroxaban (Xarelto)) 20 mg 1700 PO 06/30/21 17:00 07/01/21 17:35 DC Linagliptin (Tradjenta) 5 mg DAILY PO 07/01/21 09:00 07/20/21 07:58 Non-Formulary Medication (Tea Tree Oil ([place] Tea Tree Oil)) 1 demetria DAILY TP 07/01/21 09:00 06/30/21 16:14 DC Non-Formulary Medication (Vit E Acetate/ Gly/Dimeth/Water (Cetaphil Moisturizing Lotion)) 1 demetria DAILY TP 07/01/21 09:00 06/30/21 16:14 DC Olanzapine (ZyPREXA ZYDIS) 2.5 mg PRN Q2HR PRN PO PSYCHOSIS 06/30/21 15:30 07/10/21 19:57 Quetiapine Fumarate (SEROquel) 50 mg HS PO 06/30/21 21:00 07/11/21 00:39 DC 07/10/21 19:52 Quetiapine Fumarate (SEROquel) 25 mg 0900,1300,1700 PO 07/01/21 09:00 07/03/21 19:55 DC 07/03/21 16:46 Trazodone HCl (Desyrel) 50 mg PRN QHS PRN PO insomnia 06/30/21 19:45 07/19/21 22:21 Furosemide (Lasix) 40 mg DAILY PO 07/01/21 09:00 07/20/21 07:58 Sertraline HCl (Zoloft) 75 mg DAILY PO 07/02/21 09:00 07/20/21 07:58 Tamsulosin HCl (Flomax) 0.4 mg QHS PO 07/01/21 21:00 07/11/21 11:18 DC 07/10/21 19:53 Finasteride (Proscar) 5 mg DAILY PO 07/02/21 09:00 07/20/21 07:57 Divalproex Sodium (Depakote Sprinkles) 250 mg DAILY PO 07/02/21 09:00 07/08/21 21:24 DC 07/08/21 08:06 Divalproex Sodium (Depakote Sprinkles) 500 mg DAILY16 PO 07/02/21 16:00 07/08/21 21:24 DC 07/08/21 17:25 Alprazolam (Xanax) 0.25 mg TID PO 07/03/21 09:00 07/05/21 19:52 DC 07/05/21 13:40 Naloxegol (Movantik) 25 mg DAILY07 PO 07/04/21 07:00 07/20/21 07:59 Quetiapine Fumarate (SEROquel) 25 mg BID@0900,1700 PO 07/04/21 09:00 07/08/21 02:00 DC 07/07/21 16:55 Alprazolam (Xanax) 0.25 mg BID PO 07/06/21 09:00 07/08/21 22:00 DC 07/08/21 20:26 Alprazolam (Xanax) 0.25 mg DAILY PO 07/09/21 09:00 07/11/21 10:00 DC 07/11/21 08:16 Quetiapine Fumarate (SEROquel) 25 mg DAILY PO 07/08/21 09:00 07/20/21 07:58 Quetiapine Fumarate (SEROquel) 50 mg DAILY@1700 PO 07/08/21 17:00 07/19/21 17:36 Tamsulosin HCl (Flomax) 0.4 mg QHS PO 07/08/21 21:00 07/08/21 21:17 DC Divalproex Sodium (Depakote Sprinkles) 500 mg DAILY PO 07/09/21 09:00 07/20/21 07:58 Divalproex Sodium (Depakote Sprinkles) 500 mg DAILY@1700 PO 07/09/21 17:00 07/19/21 17:35 Quetiapine Fumarate (SEROquel) 75 mg HS PO 07/11/21 21:00 07/19/21 20:37 Tamsulosin HCl (Flomax) 0.4 mg BID PO 07/11/21 11:30 07/20/21 07:59 Docusate Sodium (Colace) 200 mg DAILY PO 07/13/21 17:15 07/20/21 07:57 I have reviewed the current psychotropics carefully including drug interactions. Risk benefit ratio favors no change other than as noted in my dictated progress note. Diagnosis: Problems: (1) Major neurocognitive disorder (2) Dementia in Alzheimer's disease with early onset with behavioral disturbance (3) Impulse control disorder, unspecified (4) Anxiety disorder, unspecified (5) Dementia, vascular, with depression (6) Dementia in Alzheimer's disease with depression (7) Dementia in Alzheimer's disease with delusions (8) Dementia, vascular, with delusions HUNTER MEZA MD Jul 20, 2021 09:48
--- NOTE | 2021-07-20 10:05 | PDOC ---
Exam Note: Kam Note: This note is a late entry for 07/19/2021 covers elements not covered in my initial note. Subjective: The patient was seen individually in the evening of 07/19/2021 with Rafiq SANTA, discussed and reviewed the chart. The patient slept 6-3/4 hours previous night. He is alert and oriented x3. Patient was walking without the walker earlier today, quite a change per nursing report. He states he is blind, seems to have some somatic preoccupation. I met with him in his room at length right after his shower. He was seated in a wheelchair. Patient was eating chocolate ice-cream, able to recognize this. He stated he will be discharged in 2 days. In fact discharge is scheduled for tomorrow. Review of Systems: Ambulation impaired. No CV, , pulmonary, eye, ENT system symptoms on review. Reliability poor. Mental Status Exam: The patient is oriented to himself. Insight and judgment, recent and remote memory, attention and concentration, fund of knowledge is poor consistent with his diagnosis. Laboratory Data: Reviewed. Impression: Major neurocognitive disorder, Alzheimer, vascular with delusion, depression behavioral disturbance. Anxiety disorder unspecified. Impulse control disorder unspecified. Plan: No change from initial note. Assessment: Vital Signs/I&O: Vital Signs Date Time Temp Pulse Resp B/P (MAP) Pulse Ox O2 Delivery O2 Flow Rate FiO2 07/20/21 08:04 Room Air 07/20/21 07:59 84 127/68 07/20/21 06:06 98.0 18 92 I & O 07/19/21 07/19/21 07/20/21 14:59 22:59 06:59 Intake Total 847 ml 600 ml Balance 847 ml 600 ml Labs: Laboratory Tests Test 07/20/21 07:48 Glucose (Fingerstick) 120 mg/dL (70-99) H Current Medications: Meds: Laboratory Tests Test 07/20/21 07:48 Glucose (Fingerstick) 120 mg/dL Current Medications Medications (Trade) Dose Ordered Sig/Shannon Route PRN Reason Start Time Stop Time Status Last Admin Dose Admin Multi-Ingredient Ointment (Analgesic [place]) 1 demetria PRN QID PRN TP MUSCLE PAIN 06/30/21 15:15 07/18/21 23:04 Al Hydroxide/Mg Hydroxide (Mylanta Plus Xs) 15 ml PRN AFTMEALHC PRN PO DYSPEPSIA 06/30/21 15:15 Magnesium Hydroxide (Milk Of Magnesia) 2,400 mg PRN QHS PRN PO CONSTIPATION 06/30/21 15:15 07/13/21 09:26 Acetaminophen (Tylenol) 500 mg BID PO 06/30/21 21:00 07/20/21 08:04 Albuterol Sulfate (Ventolin) 2.5 mg PRN Q4HRS PRN IH FOR ASTHMA 06/30/21 15:30 Alprazolam (Xanax) 0.5 mg TID PO 06/30/21 21:00 07/02/21 22:42 DC 07/02/21 20:38 Buspirone HCl (Buspar) 10 mg BID PO 06/30/21 21:00 07/20/21 07:59 Cyclobenzaprine HCl (Flexeril) 10 mg TID PO 06/30/21 21:00 07/20/21 07:59 Divalproex Sodium (Depakote Er) 250 mg BID PO 06/30/21 21:00 07/01/21 20:14 DC 07/01/21 08:36 Docusate Sodium (Colace) 200 mg PRN DAILY PRN PO 1ST CHOICE CONSTIPATION 06/30/21 15:30 07/13/21 17:16 DC 07/12/21 12:01 Furosemide (Lasix) 40 mg BID PO 06/30/21 21:00 07/01/21 02:03 DC Haloperidol (Haldol) 1 mg PRN Q6HRS PRN PO ANXIETY / AGITATION 06/30/21 16:00 07/12/21 12:44 Haloperidol (Haldol) 2 mg TID PO 06/30/21 21:00 06/30/21 19:42 DC Hyoscyamine (Anaspaz) 0.125 mg PRN Q2HR PRN PO SECRETIONS 06/30/21 15:30 Loperamide HCl (Imodium) 2 mg PRN Q3HRS PRN PO DIARRHEA 06/30/21 15:30 Metoprolol Tartrate (Lopressor) 25 mg BID PO 06/30/21 21:00 07/20/21 07:59 Nicotine (Nicoderm Cq 14mg Patch) 1 patch DAILY TD 07/01/21 09:00 07/16/21 11:00 DC 07/15/21 08:07 Nitroglycerin (Nitrostat) 0.4 mg PRN Q5MIN PRN SL CHEST PAIN 06/30/21 15:30 Oxycodone HCl (Roxicodone) 2.5 mg PRN Q4HRS PRN PO PAIN 06/30/21 15:30 07/09/21 22:48 Pantoprazole Sodium (Protonix) 40 mg DAILYAC PO 07/01/21 07:30 07/20/21 07:58 Risperidone (RisperDAL M) 0.5 mg BID PO 06/30/21 21:00 06/30/21 19:42 DC Sertraline HCl (Zoloft) 50 mg DAILY PO 07/01/21 09:00 07/01/21 11:58 DC 07/01/21 08:36 Ziprasidone (Geodon) 20 mg 1600 PO 06/30/21 16:00 06/30/21 19:42 DC Ziprasidone (Geodon) 20 mg DAILY PO 07/01/21 09:00 06/30/21 19:42 DC Ferrous Sulfate (Feosol) 325 mg DAILY PO 07/01/21 09:00 07/20/21 07:57 Insulin Glargine (Lantus Syringe) 16 unit DAILY SQ 07/01/21 09:00 07/19/21 08:38 Ondansetron HCl (Zofran Odt) 4 mg PRN Q4HRS PRN PO NAUSEA/VOMITING 06/30/21 16:15 Oxycodone HCl (Roxicodone) 5 mg BID PO 06/30/21 21:00 07/20/21 08:04 Non-Formulary Medication (Rivaroxaban (Xarelto)) 20 mg 1700 PO 06/30/21 17:00 07/01/21 17:35 DC Linagliptin (Tradjenta) 5 mg DAILY PO 07/01/21 09:00 07/20/21 07:58 Non-Formulary Medication (Tea Tree Oil ([place] Tea Tree Oil)) 1 demetria DAILY TP 07/01/21 09:00 06/30/21 16:14 DC Non-Formulary Medication (Vit E Acetate/ Gly/Dimeth/Water (Cetaphil Moisturizing Lotion)) 1 demetria DAILY TP 07/01/21 09:00 06/30/21 16:14 DC Olanzapine (ZyPREXA ZYDIS) 2.5 mg PRN Q2HR PRN PO PSYCHOSIS 06/30/21 15:30 07/10/21 19:57 Quetiapine Fumarate (SEROquel) 50 mg HS PO 06/30/21 21:00 07/11/21 00:39 DC 07/10/21 19:52 Quetiapine Fumarate (SEROquel) 25 mg 0900,1300,1700 PO 07/01/21 09:00 07/03/21 19:55 DC 07/03/21 16:46 Trazodone HCl (Desyrel) 50 mg PRN QHS PRN PO insomnia 06/30/21 19:45 07/19/21 22:21 Furosemide (Lasix) 40 mg DAILY PO 07/01/21 09:00 07/20/21 07:58 Sertraline HCl (Zoloft) 75 mg DAILY PO 07/02/21 09:00 07/20/21 07:58 Tamsulosin HCl (Flomax) 0.4 mg QHS PO 07/01/21 21:00 07/11/21 11:18 DC 07/10/21 19:53 Finasteride (Proscar) 5 mg DAILY PO 07/02/21 09:00 07/20/21 07:57 Divalproex Sodium (Depakote Sprinkles) 250 mg DAILY PO 07/02/21 09:00 07/08/21 21:24 DC 07/08/21 08:06 Divalproex Sodium (Depakote Sprinkles) 500 mg DAILY16 PO 07/02/21 16:00 07/08/21 21:24 DC 07/08/21 17:25 Alprazolam (Xanax) 0.25 mg TID PO 07/03/21 09:00 07/05/21 19:52 DC 07/05/21 13:40 Naloxegol (Movantik) 25 mg DAILY07 PO 07/04/21 07:00 07/20/21 07:59 Quetiapine Fumarate (SEROquel) 25 mg BID@0900,1700 PO 07/04/21 09:00 07/08/21 02:00 DC 07/07/21 16:55 Alprazolam (Xanax) 0.25 mg BID PO 07/06/21 09:00 07/08/21 22:00 DC 07/08/21 20:26 Alprazolam (Xanax) 0.25 mg DAILY PO 07/09/21 09:00 07/11/21 10:00 DC 07/11/21 08:16 Quetiapine Fumarate (SEROquel) 25 mg DAILY PO 07/08/21 09:00 07/20/21 07:58 Quetiapine Fumarate (SEROquel) 50 mg DAILY@1700 PO 07/08/21 17:00 07/19/21 17:36 Tamsulosin HCl (Flomax) 0.4 mg QHS PO 07/08/21 21:00 07/08/21 21:17 DC Divalproex Sodium (Depakote Sprinkles) 500 mg DAILY PO 07/09/21 09:00 07/20/21 07:58 Divalproex Sodium (Depakote Sprinkles) 500 mg DAILY@1700 PO 07/09/21 17:00 07/19/21 17:35 Quetiapine Fumarate (SEROquel) 75 mg HS PO 07/11/21 21:00 07/19/21 20:37 Tamsulosin HCl (Flomax) 0.4 mg BID PO 07/11/21 11:30 07/20/21 07:59 Docusate Sodium (Colace) 200 mg DAILY PO 07/13/21 17:15 07/20/21 07:57 I have reviewed the current psychotropics carefully including drug interactions. Risk benefit ratio favors no change other than as noted in my dictated progress note. 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
--- NOTE | 2021-07-20 10:07 | NUR ---
Transition Record was faxed to follow-up provider with the following elements: Reason for admission, procedures, tests, principal diagnosis, pending studies, patient instructions, 05/03 contact information for unit, phone number to obtain pending test results, plan for follow-up care, physician follow-up, advanced directive information, and medication list with dose, duration and instructions. This information was included in the following documents: History and physical, lab results, study results, progress notes, social work planning form, DC instruction form, patient visit summary, and medication reconciliation form. Date & time record faxed: 07/20/21 0900 Record faxed to: Pau [facility] ([phone]) Record discussed with/ report given to: Nurse to nurse report pending, see note on 07/20/21 08 by this nurse.
--- NOTE | 2021-07-20 10:47 | NUR ---
Contacted [facility] [place] ([phone]) to give nurse to nurse report, medical records secretary transferred my call to an unavailable extension with no voicemail features to leave a message. Will try again later.
--- NOTE | 2021-07-20 11:11 | NUR ---
Contacted [facility] ([phone]) to give nurse to nurse report, gave report to Gracy SANAT.
--- NOTE | 2021-07-20 20:25 | PDOC ---
Exam Note: Kam Note: Late entry for date of discharge 07/20/2021. Please also refer to the separate dictated note~for this date of service dictated separately.~Patient seen individually. Discussed the patient with Nursing staff reviewed the chart.~Reviewed interim history and current functioning. Reviewed vital signs,~Labs/ Radiology~and current medications noted below. Continue current treatment with the changes noted in the dictated addendum note Assessment: Vital Signs/I&O: Vital Signs Date Time Temp Pulse Resp B/P (MAP) Pulse Ox O2 Delivery O2 Flow Rate FiO2 07/20/21 10:00 Room Air 07/20/21 07:59 84 127/68 07/20/21 06:06 98.0 18 92 I & O 07/19/21 07/19/21 07/20/21 14:59 22:59 06:59 Intake Total 847 ml 600 ml Balance 847 ml 600 ml Labs: Laboratory Tests Test 07/20/21 07:48 Glucose (Fingerstick) 120 mg/dL (70-99) H Current Medications: Meds: Laboratory Tests Test 07/20/21 07:48 Glucose (Fingerstick) 120 mg/dL Current Medications Medications (Trade) Dose Ordered Sig/Shannon Route PRN Reason Start Time Stop Time Status Last Admin Dose Admin Multi-Ingredient Ointment (Analgesic [place]) 1 demetria PRN QID PRN TP MUSCLE PAIN 06/30/21 15:15 07/20/21 10:10 DC 07/18/21 23:04 Al Hydroxide/Mg Hydroxide (Mylanta Plus Xs) 15 ml PRN AFTMEALHC PRN PO DYSPEPSIA 06/30/21 15:15 07/20/21 10:10 DC Magnesium Hydroxide (Milk Of Magnesia) 2,400 mg PRN QHS PRN PO CONSTIPATION 06/30/21 15:15 07/20/21 10:10 DC 07/13/21 09:26 Acetaminophen (Tylenol) 500 mg BID PO 06/30/21 21:00 07/20/21 10:10 DC 07/20/21 08:04 Albuterol Sulfate (Ventolin) 2.5 mg PRN Q4HRS PRN IH FOR ASTHMA 06/30/21 15:30 07/20/21 10:10 DC Alprazolam (Xanax) 0.5 mg TID PO 06/30/21 21:00 07/02/21 22:42 DC 07/02/21 20:38 Buspirone HCl (Buspar) 10 mg BID PO 06/30/21 21:00 07/20/21 10:10 DC 07/20/21 07:59 Cyclobenzaprine HCl (Flexeril) 10 mg TID PO 06/30/21 21:00 07/20/21 10:10 DC 07/20/21 07:59 Divalproex Sodium (Depakote Er) 250 mg BID PO 06/30/21 21:00 07/01/21 20:14 DC 07/01/21 08:36 Docusate Sodium (Colace) 200 mg PRN DAILY PRN PO 1ST CHOICE CONSTIPATION 06/30/21 15:30 07/13/21 17:16 DC 07/12/21 12:01 Furosemide (Lasix) 40 mg BID PO 06/30/21 21:00 07/01/21 02:03 DC Haloperidol (Haldol) 1 mg PRN Q6HRS PRN PO ANXIETY / AGITATION 06/30/21 16:00 07/20/21 10:10 DC 07/12/21 12:44 Haloperidol (Haldol) 2 mg TID PO 06/30/21 21:00 06/30/21 19:42 DC Hyoscyamine (Anaspaz) 0.125 mg PRN Q2HR PRN PO SECRETIONS 06/30/21 15:30 07/20/21 10:10 DC Loperamide HCl (Imodium) 2 mg PRN Q3HRS PRN PO DIARRHEA 06/30/21 15:30 07/20/21 10:10 DC Metoprolol Tartrate (Lopressor) 25 mg BID PO 06/30/21 21:00 07/20/21 10:10 DC 07/20/21 07:59 Nicotine (Nicoderm Cq 14mg Patch) 1 patch DAILY TD 07/01/21 09:00 07/16/21 11:00 DC 07/15/21 08:07 Nitroglycerin (Nitrostat) 0.4 mg PRN Q5MIN PRN SL CHEST PAIN 06/30/21 15:30 07/20/21 10:10 DC Oxycodone HCl (Roxicodone) 2.5 mg PRN Q4HRS PRN PO PAIN 06/30/21 15:30 12/8/21 10:10 DC 07/09/21 22:48 Pantoprazole Sodium (Protonix) 40 mg DAILYAC PO 07/01/21 07:30 07/20/21 10:10 DC 07/20/21 07:58 Risperidone (RisperDAL M) 0.5 mg BID PO 06/30/21 21:00 06/30/21 19:42 DC Sertraline HCl (Zoloft) 50 mg DAILY PO 07/01/21 09:00 07/01/21 11:58 DC 07/01/21 08:36 Ziprasidone (Geodon) 20 mg 1600 PO 06/30/21 16:00 06/30/21 19:42 DC Ziprasidone (Geodon) 20 mg DAILY PO 07/01/21 09:00 06/30/21 19:42 DC Ferrous Sulfate (Feosol) 325 mg DAILY PO 07/01/21 09:00 07/20/21 10:10 DC 07/20/21 07:57 Insulin Glargine (Lantus Syringe) 16 unit DAILY SQ 07/01/21 09:00 07/20/21 10:10 DC 07/19/21 08:38 Ondansetron HCl (Zofran Odt) 4 mg PRN Q4HRS PRN PO NAUSEA/VOMITING 06/30/21 16:15 07/20/21 10:10 DC Oxycodone HCl (Roxicodone) 5 mg BID PO 06/30/21 21:00 07/20/21 10:10 DC 07/20/21 08:04 Non-Formulary Medication (Rivaroxaban (Xarelto)) 20 mg 1700 PO 06/30/21 17:00 07/01/21 17:35 DC Linagliptin (Tradjenta) 5 mg DAILY PO 07/01/21 09:00 07/20/21 10:10 DC 07/20/21 07:58 Non-Formulary Medication (Tea Tree Oil ([place] Tea Tree Oil)) 1 demetria DAILY TP 07/01/21 09:00 06/30/21 16:14 DC Non-Formulary Medication (Vit E Acetate/ Gly/Dimeth/Water (Cetaphil Moisturizing Lotion)) 1 demetria DAILY TP 07/01/21 09:00 06/30/21 16:14 DC Olanzapine (ZyPREXA ZYDIS) 2.5 mg PRN Q2HR PRN PO PSYCHOSIS 06/30/21 15:30 07/20/21 10:10 DC 07/10/21 19:57 Quetiapine Fumarate (SEROquel) 50 mg HS PO 06/30/21 21:00 07/11/21 00:39 DC 07/10/21 19:52 Quetiapine Fumarate (SEROquel) 25 mg 0900,1300,1700 PO 07/01/21 09:00 07/03/21 19:55 DC 07/03/21 16:46 Trazodone HCl (Desyrel) 50 mg PRN QHS PRN PO insomnia 06/30/21 19:45 07/20/21 10:10 DC 07/19/21 22:21 Furosemide (Lasix) 40 mg DAILY PO 07/01/21 09:00 07/20/21 10:10 DC 07/20/21 07:58 Sertraline HCl (Zoloft) 75 mg DAILY PO 07/02/21 09:00 07/20/21 10:10 DC 07/20/21 07:58 Tamsulosin HCl (Flomax) 0.4 mg QHS PO 07/01/21 21:00 07/11/21 11:18 DC 07/10/21 19:53 Finasteride (Proscar) 5 mg DAILY PO 07/02/21 09:00 07/20/21 10:10 DC 07/20/21 07:57 Divalproex Sodium (Depakote Sprinkles) 250 mg DAILY PO 07/02/21 09:00 07/08/21 21:24 DC 07/08/21 08:06 Divalproex Sodium (Depakote Sprinkles) 500 mg DAILY16 PO 07/02/21 16:00 07/08/21 21:24 DC 07/08/21 17:25 Alprazolam (Xanax) 0.25 mg TID PO 07/03/21 09:00 07/05/21 19:52 DC 07/05/21 13:40 Naloxegol (Movantik) 25 mg DAILY07 PO 07/04/21 07:00 07/20/21 10:10 DC 07/20/21 07:59 Quetiapine Fumarate (SEROquel) 25 mg BID@0900,1700 PO 07/04/21 09:00 07/08/21 02:00 DC 07/07/21 16:55 Alprazolam (Xanax) 0.25 mg BID PO 07/06/21 09:00 07/08/21 22:00 DC 07/08/21 20:26 Alprazolam (Xanax) 0.25 mg DAILY PO 07/09/21 09:00 07/11/21 10:00 DC 07/11/21 08:16 Quetiapine Fumarate (SEROquel) 25 mg DAILY PO 07/08/21 09:00 07/20/21 10:10 DC 07/20/21 07:58 Quetiapine Fumarate (SEROquel) 50 mg DAILY@1700 PO 07/08/21 17:00 07/20/21 10:10 DC 07/19/21 17:36 Tamsulosin HCl (Flomax) 0.4 mg QHS PO 07/08/21 21:00 07/08/21 21:17 DC Divalproex Sodium (Depakote Sprinkles) 500 mg DAILY PO 07/09/21 09:00 07/20/21 10:10 DC 07/20/21 07:58 Divalproex Sodium (Depakote Sprinkles) 500 mg DAILY@1700 PO 07/09/21 17:00 07/20/21 10:10 DC 07/19/21 17:35 Quetiapine Fumarate (SEROquel) 75 mg HS PO 07/11/21 21:00 07/20/21 10:10 DC 07/19/21 20:37 Tamsulosin HCl (Flomax) 0.4 mg BID PO 07/11/21 11:30 07/20/21 10:10 DC 07/20/21 07:59 Docusate Sodium (Colace) 200 mg DAILY PO 07/13/21 17:15 07/20/21 10:10 DC 07/20/21 07:57 I have reviewed the current psychotropics carefully including drug interactions. Risk benefit ratio favors no change other than as noted in my dictated progress note. Diagnosis: Problems: (1) Major neurocognitive disorder (2) Dementia in Alzheimer's disease with early onset with behavioral disturbance (3) Impulse control disorder, unspecified (4) Anxiety disorder, unspecified (5) Dementia, vascular, with depression (6) Dementia in Alzheimer's disease with depression (7) Dementia in Alzheimer's disease with delusions (8) Dementia, vascular, with delusions HUNTER MEZA MD Jul 20, 2021 20:25
--- NOTE | 2021-07-20 22:58 | DS ---
DATE OF DISCHARGE: 07/20/2021 DISCHARGE SUMMARY/PSYCHIATRIC PROGRESS NOTE This note covers elements not covered in my initial note, 07/20/2021. REASON FOR ADMISSION: Please refer to the admission history for details. Briefly, the patient is a 61-year-old male referred to us from [facility], referred by his primary care physician on account of worsening confusion, being aggressive, hitting staff, yelling at staff, cursing, exit-seeking. He threw a cup of water at staff, was resisted, would ball up his fist as if he is going to strike staff members. Behaviors were deemed dangerous, unmanageable, having failed outpatient psychiatric interventions. He was referred for inpatient psychiatric stabilization. SIGNIFICANT FINDINGS AND CLINICAL COURSE: Following admission, the patient was seen daily individually by myself from a psychiatric standpoint, medical followup, Dr. Goins/Dr. Ambrose. The patient was quite confused, agitated, quite labile in his mood, and paranoid. Adjustments were made in his psychotropics and he seemed to respond to a combination of Seroquel 75 mg at bedtime, 25 mg at 0900, 50 mg at 1700, Zoloft 75 mg a day, BuSpar 10 mg b.i.d., Depakote sprinkles 500 mg p.o. 0990 and 1700. Valproic acid level 47, slightly subtherapeutic, but clinically adequate. He was on Haldol p.r.n., trazodone p.r.n., and Zyprexa p.r.n. CONDITION ON DISCHARGE: Improved. REVIEW OF SYSTEMS: Prior to discharge, no CV, , pulmonary, eye, ENT system symptoms on review. Reliability poor. MENTAL STATUS EXAMINATION: Oriented to himself. Insight, judgment, and recent memory is impaired. Language function intact. Attention span short. Mood and affect is improved. LABORATORY DATA: Reviewed. FINAL DIAGNOSES: Major neurocognitive disorder, Alzheimer, vascular with delusion, depression, behavioral disturbance, anxiety disorder, unspecified, psychotic disorder, unspecified; impulse control disorder. DISCHARGE MEDICATIONS: Please refer to the [facility]. DISCHARGE INSTRUCTIONS: Outpatient psychiatric and medical followup at the [facility]. DUNCAN DR: Alvin TID: [id number]
== END 2021-07-20 10:00 | DRG 57 ==
LOC: GEROPSY 15:21
PROVIDERS: ADMIT Psychiatry & Neurology Psychiatry; ATTEND Psychiatry & Neurology Psychiatry
DX: G30.9 Alzheimer's disease, unspecified (principal); F01.51 Vascular dementia, unspecified severity, with behavioral disturbance; N18.9 Chronic kidney disease, unspecified; F02.81 Dementia in other diseases classified elsewhere, unspecified severity, with behavioral disturbance; F33.9 Major depressive disorder, recurrent, unspecified; N13.8 Other obstructive and reflux uropathy; E11.22 Type 2 diabetes mellitus with diabetic chronic kidney disease; F41.1 Generalized anxiety disorder; F63.9 Impulse disorder, unspecified; G89.4 Chronic pain syndrome; H54.7 Unspecified visual loss; I12.9 Hypertensive chronic kidney disease with stage 1 through stage 4 chronic kidney disease, or unspecified chronic kidney disease; I25.10 Atherosclerotic heart disease of native coronary artery without angina pectoris; J44.9 Chronic obstructive pulmonary disease, unspecified; N40.1 Benign prostatic hyperplasia with lower urinary tract symptoms; Z66 Do not resuscitate; Z79.01 Long term (current) use of anticoagulants; Z79.899 Other long term (current) drug therapy; K21.9 Gastro-esophageal reflux disease without esophagitis; Z20.822 Contact with and (suspected) exposure to COVID-19; D50.9 Iron deficiency anemia, unspecified
CPT/HCPCS: 36415; 73000; 73080; 73502; 73552; 74176; 80053; 80061; 80164; 81001; 82306; 82607; 82947; 83036; 83540; 83550; 83735; 84436; 84443; 84480; 85025; 85379; 86592; 93005; J1815; U0003; 73030-50; 97110; 97116; 97530; 97535; 97542